=== PATIENT | male | born 1965 | race Caucasian/White ===

== ENCOUNTER 2021-04-16 11:37 | Emergency (ER) | payer MEDICARE, MEDICAID, SELFPAY ==
[2021-04-16 11:46] VITALS: BP 130/61; PULSE 54; RESP 18; TEMP 36.7; O2SAT 98; BMI 32.8
--- NOTE | 2021-04-16 12:01 | ED.EYEPROB ---
HPI - Eye Problem General Chief complaint: Eye Problems Stated complaint: L EYE ISSUE Time Seen by Provider: 04/16/21 11:53 Source: patient Mode of arrival: ambulatory Limitations: no limitations History of Present Illness HPI Narrative: 55 y/o male presenting with left upper eyelid pain, redness and swelling for the last 4 days. He noticed a small pustule on the outside of his eyelid yesterday. He put a warm compress on his eye and yellow drainage came out. This morning he woke up with his left eye crusted shut. He denies injury or trauma. No vision changes. No FB sensation. No fever, chills, or pain moving his eye. MD chief complaint: eye pain and eye redness Onset (ago): day(s) (4) Onset description: gradual Duration: constant Location: left eye Eye Symptoms: redness, pain, itching and discharge Place: home Mechanism: none Severity: moderate If Pain, Quality: aching Associated symptoms: none Treatments Prior to Arrival: none Related Data Previous Rx's Medication Instructions Recorded gentamicin 1 drp OPHTHALMIC-LEFT Q4H #5 ml 04/16/21 Allergies Allergy/AdvReac Type Severity Reaction Status Date / Time Sulfa (Sulfonamide Allergy Unknown Unknown Verified 04/16/21 11:49 Antibiotics) No Known Allergies Allergy Unverified 08/18/20 15:21 Benadryl Allergy Unknown Irritable Uncoded 04/16/21 11:49 Review of Systems Review of Systems: Constitutional: No Fever, No Chills ENT/Mouth: No sore throat, No Rhinorrhea, No Swallowing Difficulty Eyes: + Eye Pain, + Swelling, + Redness Respiratory: No Cough Gastrointestinal: No Nausea, No Vomiting Skin: No Skin Lesions, No rash Neuro: No Dizziness, No Headache PMFSH Past Medical History Attestation statement: The following information was validated with the patient. Medical History High blood pressure HIV (human immunodeficiency virus infection) Social History Social History Advance Directives: No Advance Directives Information Provided: No Physical Exam Vital Signs: Vital Signs: Last Vital Signs Temp 98.0 F 04/16/21 11:46 Pulse 54 04/16/21 11:46 Resp 18 04/16/21 11:46 BP 130/61 04/16/21 11:46 Pulse Ox 98 04/16/21 11:46 Body Mass Index 32.8 Const: General: cooperative, healthy appearing, comfortable and no acute distress HENMT: Head: Yes normal to inspection Ears: hearing grossly normal bilaterally General nose exam: Normal external nose present Face and sinus: Yes normal facial exam Mouth: Normal oral and palatal mucosa present Teeth and gingiva: dentition normal and gingiva normal Throat: Yes posterior oropharynx normal Eyes: Visual Diggs: normal visual diggs by confrontation Alignment and Position: alignment normal Periorbital: periorbital findings normal Eyelids: Yes eyelid abnormality (erythema and edema of left upper eyelid with small pustule medially) Conjunctivae: conjunctivae normal Sclerae: scleral abnormal left scleral exudate mucoid and scleral injection medial Corneas: corneas normal Pupils: Equal, round and reactive pupils present EOM: EOMs intact bilaterally and No Nystagmus present Direct Ophthalmoscopy: no photophobia Neck: Neck: Yes normal visual inspection, Yes full ROM and Yes no lymphadenopathy Chest: Chest palpation & inspection: normal inspection of the chest Resp: Effort & Inspection: normal respiratory effort and able to speak in complete sentences Neuro: General: gait normal Cranial nerves: Yes Equal, round and reactive pupils present and No Nystagmus present Extrem: General: Yes normal to inspection Psych: Appearance: grossly normal and well kempt Mental Status: mental status grossly normal Speech and movement: Normal speech and movement present Course Course Course Narrative: 55 y/o male presenting with left upper eyelid swelling and redness. Exam is consistent with external hordeolum, pustule is ruptured. Will treat topically with warm soaks and antibiotic ointment. Patient counseled. Stable for discharge. Discharge Plan Discharge Clinical Impression: Hordeolum externum left upper eyelid Patient Disposition: Home, Self-Care Instructions: Lauri (ED) Additional Instructions: Use the prescribed antibiotic as directed. Use warm compresses to your eye for 10 minutes at a time several times per day. Take Motrin and/or Tylenol as needed for discomfort. Follow up with your doctor next week. If you have worsening symptoms come back to the ER for further evaluation. Prescriptions: New gentamicin 0.3 % drops 1 drp ophthalmic-Left Q4H Qty: 5 RF: 0 Interventions: ED Discharge Assessment Last Done: 04/16/21 12:09 Discharge Date/Time: 04/16/21 12:10
== END 2021-04-16 12:10 | disposition home or self-care (01) ==
LOC: HO.ED 12:05
PROVIDERS: Emergency Provider Emergency Medicine; PCP Family Medicine
DX: H00.014 Hordeolum externum left upper eyelid (principal); H57.12 Ocular pain, left eye; Z79.899 Other long term (current) drug therapy
CPT/HCPCS: 99283

== ENCOUNTER 2021-11-15 21:09 | Emergency (ER) | payer MEDICARE, MEDICAID, SELFPAY ==
--- NOTE | ~2021-11-15 | XR_ITS ---
EXAMINATION: XR CHEST CLINICAL INFORMATION: Shortness of breath COMPARISON: 11/07/2018 TECHNIQUE: Frontal view of the chest was obtained. FINDINGS: No acute finding. Lung diggs are grossly clear. There is no failure. No effusion. The cardiac silhouette is within normal limits for AP filming. The hilar regions are comparable. XR/XR chest 1V IMPRESSION: No acute finding.
[2021-11-15 21:45] VITALS: BP 135/68; PULSE 62; RESP 18; TEMP 36.3; O2SAT 97; BMI 34.3
--- NOTE | 2021-11-15 21:47 | ECG_ITS ---
Test Reason : CHEST PAIN Blood Pressure : / mmHG Vent. Rate : 057 BPM Atrial Rate : 057 BPM P-R Int : 180 ms QRS Dur : 084 ms QT Int : 398 ms P-R-T Axes : 026 029 076 degrees QTc Int : 387 ms Sinus bradycardia Nonspecific T wave abnormality Abnormal ECG When compared with ECG of 07-NOV-2018 23:09, No significant change was found Referred By: Generic ED Physician Electronically Signed By:SONIA LUJAN MD
--- NOTE | 2021-11-15 22:01 | ED.CHESTPAIN ---
HPI - Chest Pain General Chief Complaint: Chest Pain Stated Complaint: Asthma Time Seen by Provider: 11/15/21 22:01 Source: patient Mode of arrival: ambulatory Limitations: no limitations History of Present Illness HPI narrative: Patient has been suffering with Asthma for the past few weeks, no with increased chest pressure. complaint: chest heaviness Onset (ago): day(s) Timing of current episode: episodic Onset: during rest Quality: tightness Associated symptoms: dyspnea Related Data Previous Rx's Medication Instructions Recorded gentamicin 0.3 % eye drops 1 drp OPHTHALMIC-LEFT Q4H #5 ml 04/16/21 albuterol sulfate 90 mcg/actuation 2 puff INHALATION Q4-6H PRN #8.5 g 11/15/21 aerosol inhaler prednisone 20 mg tablet 60 mg PO DAILY #12 tab 11/15/21 Allergies Allergy/AdvReac Type Severity Reaction Status Date / Time Sulfa (Sulfonamide Allergy Unknown Unknown Verified 04/16/21 11:49 Antibiotics) No Known Allergies Allergy Unverified 08/18/20 15:21 Benadryl Allergy Unknown Irritable Uncoded 04/16/21 11:49 Review of Systems Constitutional: Constitutional: Reports no additional constitutional complaints Eyes: Eyes: Reports no additional eye complaints ENT: Denies dizziness Cardiovascular: Cardiovascular: Reports no additional cardiovascular complaints Respiratory: Respiratory: Reports as per HPI Gastrointestinal: Gastrointestinal: Reports no additional gastrointestinal complaints Musculoskeletal: Musculoskeletal: Reports no additional musculoskeletal complaints Integumentary/Breasts: Skin/Breast: Denies rash Neurologic: Reports system reviewed and no additional complaints, except as documented, Denies dizziness and Denies Sensory deficit (Neuro) Psychiatric: Psychiatric: Denies anxiety [facility] Past Medical History Medical History High blood pressure HIV (human immunodeficiency virus infection) Social History Social History Advance Directives: No Advance Directives Information Provided: Yes Physical Exam Vital Signs: Vital Signs: Last Vital Signs Temp 97.3 F 11/15/21 21:45 Pulse 54 11/15/21 23:13 Resp 20 11/15/21 23:13 BP 124/62 11/15/21 23:13 Pulse Ox 95 11/15/21 23:13 BMI result Body Mass Index 34.3 Const: Other: morbidly obese male short of breath Orientation/consciousness: oriented to person and patient oriented x3 Limitations: no limitations HENMT: Head: Yes normal to inspection Ears: external ears normal General nose exam: Normal external nose present Mouth: Normal oral and palatal mucosa present and oropharynx normal Throat: Yes posterior oropharynx normal Eyes: General: appearance normal, both eyes and all related structures Neck: Other: supple Neck: Yes normal visual inspection Chest: Chest palpation & inspection: normal inspection of the chest Resp: Auscultation: clear to auscultation bilaterally Cardio: Jugular venous distension: no JVD Rate: regular rate Rhythm: regular rhythm Heart sounds: S1 normal heart sound present and S2 normal heart sound present GI: Inspection: Yes normal to inspection Palpation (GI): Soft to palpation, nontender and No hepatosplenomegaly present Auscultation: normal bowel sounds : General: Yes no CVA tenderness Back/Spine/Pelvis: Back: no CVA tenderness Skin: General skin exam: no rashes or lesions noted Neuro: General: oriented to person and patient oriented x3 Cranial nerves: Yes CN's II-XII intact bilaterally Motor exam (neuro): 5/5 motor strength present throughout Sensory Exam: No Sensory deficit (Neuro) Extrem: General: Yes normal to inspection Psych: Appearance: grossly normal Course Reevaluation(s) Reevaluation #1: EKG and troponin negative. Ddimer negative. Patient improved with albuterol. Will dc home with prednisone and albuterol. Time: 23:23 MDM - Chest Pain Lab Data Result diagrams: 11/15/21 21:57 11/15/21 21:58 Labs: Lab Results 11/15/21 11/15/21 11/15/21 Range/Units 21:57 21:57 21:58 WBC 4.7 L (4.8-10.8) X10*3/uL RBC 4.61 (4.60-5.80) X10*6/uL Hgb 15.2 (14.0-18.0) g/dl Hct 43.4 (42.0-52.0) % MCV 94.1 (80.0-98.0) fL MCH 33.0 (27.0-33.0) pg MCHC 35.0 (31.0-36.0) g/dl RDW 13.3 (11.0-16.0) % Plt Count 52 L (160-400) X10*3/uL MPV 12.3 (9.4-12.4) fL Immature Gran % (Auto) 0.9 H (0.0-0.4) % Neut % (Auto) 59.3 (45-73) % Lymph % (Auto) 27.6 (20-40) % Barron % (Auto) 10.5 (2-11) % Eos % (Auto) 1.1 (0-4) % Baso % (Auto) 0.6 (0-2) % Lymph # (Auto) 1.3 (1.2-4.9) X10*3/uL Barron # (Auto) 0.5 (0.1-1.2) X10*3/uL Eos # (Auto) 0.1 (0.0-0.4) X10*3/uL Baso # (Auto) 0.0 (0.0-0.2) X10*3/uL Abs Immat Gran (auto) 0.04 H (0.00-0.03) X10*3/uL Absolute Neuts (auto) 2.8 (2.0-8.3) x10*3/uL Absolute Nucleated RBC 0.000 (0.0-0.012) X10*3/uL Nucleated RBC % (auto) 0.0 (0.0-0.2) /100WBC D-Dimer High Sensitivty NG/ML Sodium 138 (135-145) mmol/L Potassium 4.4 (3.3-5.1) mmol/L Chloride 103 (96-108) mmol/L Carbon Dioxide 31 H (22-29) mmol/L Anion Gap 8 L (12-20) BUN 8 L (9-16) mg/dL Creatinine 0.73 (0.5-1.4) mg/dL Estim Creat Clear Calc 114.7 Estimated GFR > 60 Random Glucose 97 (60-115) mg/dL Calcium 9.2 (8.4-10.2) mg/dL Troponin I High Sens < 3.5 (<3.5-35.0) ng/L 12/15/ Range/Units 22:33 WBC (4.8-10.8) X10*3/uL RBC (4.60-5.80) X10*6/uL Hgb (14.0-18.0) g/dl Hct (42.0-52.0) % MCV (80.0-98.0) fL MCH (27.0-33.0) pg MCHC (31.0-36.0) g/dl RDW (11.0-16.0) % Plt Count (160-400) X10*3/uL MPV (9.4-12.4) fL Immature Gran % (Auto) (0.0-0.4) % Neut % (Auto) (45-73) % Lymph % (Auto) (20-40) % Barron % (Auto) (2-11) % Eos % (Auto) (0-4) % Baso % (Auto) (0-2) % Lymph # (Auto) (1.2-4.9) X10*3/uL Barron # (Auto) (0.1-1.2) X10*3/uL Eos # (Auto) (0.0-0.4) X10*3/uL Baso # (Auto) (0.0-0.2) X10*3/uL Abs Immat Gran (auto) (0.00-0.03) X10*3/uL Absolute Neuts (auto) (2.0-8.3) x10*3/uL Absolute Nucleated RBC (0.0-0.012) X10*3/uL Nucleated RBC % (auto) (0.0-0.2) /100WBC D-Dimer High Sensitivty < 150 NG/ML Sodium (135-145) mmol/L Potassium (3.3-5.1) mmol/L Chloride (96-108) mmol/L Carbon Dioxide (22-29) mmol/L Anion Gap (12-20) BUN (9-16) mg/dL Creatinine (0.5-1.4) mg/dL Estim Creat Clear Calc Estimated GFR Random Glucose (60-115) mg/dL Calcium (8.4-10.2) mg/dL Troponin I High Sens (<3.5-35.0) ng/L Imaging Data Chest x-ray: Radiologist's impression: IMPRESSION: No acute finding. ECG Data ECG #1: Attestation: I personally reviewed and interpreted this ECG as follows: Interpretation: sinus rate 55, no st or twave changes Discharge Plan Discharge Clinical Impression: Asthma Qualifiers: Asthma severity: mild Asthma persistence: persistent Asthma complication type: uncomplicated Qualified Code(s): J45.30 - Mild persistent asthma, uncomplicated Patient Disposition: Home, Self-Care Instructions: Asthma (ED) Prescriptions: New prednisone 20 mg tablet 60 mg PO DAILY Qty: 12 RF: 0 albuterol sulfate 90 mcg/actuation HFA aerosol inhaler 2 puff inhalation Q4-6H PRN (Reason: shortness of breath or wheezing) Qty: 8.5 RF: 0 No Action gentamicin 0.3 % drops 1 drp ophthalmic-Left Q4H Qty: 5 RF: 0 Referrals: Richar Gordon MD [Primary Care Provider] - 3 days
[2021-11-15 22:03] LABS: MANUAL DIFF FLAG NO
[2021-11-15 22:05] LABS: Basophils Percent Auto 0.6 % (0-2); Eosinophils Absolute Auto 0.1 X10*3/uL (0.0-0.4); Eosinophils Percent Auto 1.1 % (0-4); Hematocrit 43.4 % (42.0-52.0); Hemoglobin 15.2 g/dl (14.0-18.0); Imm Gran Abs Auto 0.04 X10*3/uL (0.00-0.03); Imm Gran Pct Auto 0.9 % (0.0-0.4); Lymphocytes Absolute Auto 1.3 X10*3/uL (1.2-4.9); Lymphocytes Percent Auto 27.6 % (20-40); Mean Corpuscular Volume 94.1 fL (80.0-98.0); Mean Platelet Volume 12.3 fL (9.4-12.4); Monocytes Absolute Auto 0.5 X10*3/uL (0.1-1.2); Monocytes Percent Auto 10.5 % (2-11); Neutrophils Absolute Auto 2.8 x10*3/uL (2.0-8.3); Neutrophils Percent Auto 59.3 % (45-73); Red Blood Count 4.61 X10*6/uL (4.60-5.80); Red Cell Distribution Width 13.3 % (11.0-16.0); White Blood Count 4.7 X10*3/uL (4.8-10.8)
[2021-11-15 22:07] LABS: Platelet Count 52 X10*3/uL (160-400)
[2021-11-15 22:28] LABS: Anion Gap 8 (12-20); Blood Urea Nitrogen 8 mg/dL (9-16); Calcium 9.2 mg/dL (8.4-10.2); Carbon Dioxide 31 mmol/L (22-29); Chloride 103 mmol/L (96-108); Creatinine Clr Calc Pharmacy 114.7; Estimated Glomerular Filt Rate > 60; Glucose Random 97 mg/dL (60-115); Potassium 4.4 mmol/L (3.3-5.1); Sodium 138 mmol/L (135-145)
[2021-11-15 22:29] LABS: Troponin-I High Sensitivity < 3.5 ng/L (<3.5-35.0)
[2021-11-15] MEDS: Aspirin Enteric Coated 81 MG TABLET.DR 162 MG PO (22:35)
[2021-11-15 22:48] LABS: D Dimer High Sensitivity < 150 NG/ML
[2021-11-15 23:13] VITALS: BP 124/62; PULSE 54; RESP 20; O2SAT 95
[2021-11-15] MEDS: Albuterol Sulfate 90 MCG 8 GM INHALER 4 PUFF INHALE (23:15)
[2021-11-15] MEDS: predniSONE 20 MG TABLET 60 MG PO (23:32)
== END 2021-11-15 23:35 | disposition home or self-care (01) ==
PROVIDERS: Emergency Provider Emergency Medicine; PCP Family Medicine
DX: J45.30 Mild persistent asthma, uncomplicated (principal); Z79.899 Other long term (current) drug therapy
CPT/HCPCS: 36415; 71045; 80048; 84484; 85025; 85379; 93005; 99284

== ENCOUNTER 2022-03-09 08:37 | Emergency (ER) | payer MEDICARE, MEDICAID, SELFPAY ==
--- NOTE | ~2022-03-09 | XR_ITS ---
EXAMINATION: XR ELBOW, LEFT CLINICAL INFORMATION: Limited range of motion due to pain. COMPARISON: None TECHNIQUE: AP, lateral, and oblique views of the left elbow. FINDINGS: There is no acute fracture or dislocation. The joint spaces are unremarkable. There is no joint effusion. Mild soft tissue swelling is seen posteriorly. XR/XR elbow LT min 3V IMPRESSION: Mild soft tissue swelling posteriorly without acute underlying osseous abnormality.
[2022-03-09 09:10] VITALS: BP 141/66; PULSE 62; RESP 16; TEMP 36.2; O2SAT 98; BMI 32.9
[2022-03-09] MEDS: predniSONE 20 MG TABLET 60 MG PO (09:53)
[2022-03-09] MEDS: Ketorolac Tromethamine 60 MG/2 ML VIAL IM (09:53)
--- NOTE | 2022-03-09 10:25 | ED_ITS ---
HPI - Extremity Problem General Chief complaint: Extremity Injury, Upper Stated complaint: left elbow pain, swollen Time Seen by Provider: 03/09/22 09:14 Source: patient Mode of arrival: ambulatory Limitations: no limitations History of Present Illness HPI Narrative: 56-year-old male with a past medical history of HIV currently on Moise therapy, hypertension, myocardial infarction, anxiety and depression presenting to the ED with complaints of atraumatic left elbow pain for the past week. Reports that he was seen by his PCP and told he had tendinitis. Reports that he is currently on tramadol although not providing any symptomatic relief. He is unable to get a cortisone injection due to HIV status. He denies any fevers, chills, dizziness, headaches, neck pain/stiffness, trouble swallowing or breathing, chest pain or shortness of breath, dyspnea on exertion, orthopnea, palpitations, lower extremity edema or calf tenderness, paresthesias or any other symptoms complaints or concerns at this time. MD Complaint: extremity pain Onset (ago): week(s) (1) Pain Consistency: constant Location: left and elbow Severity scale (1-10): >10 Quality: aching and constant Radiation: distal Relieving factors: nothing Exacerbating factors: range of motion and palpation Associated symptoms: denies other symptoms Related Data Previous Rx's Medication Instructions Recorded gentamicin 0.3 % eye drops 1 drp OPHTHALMIC-LEFT Q4H #5 ml 04/16/21 albuterol sulfate 90 mcg/actuation 2 puff INHALATION Q4-6H PRN #8.5 g 11/15/21 aerosol inhaler prednisone 20 mg tablet 60 mg PO DAILY #12 tab 11/15/21 naproxen 500 mg tablet 500 mg PO BID PRN #14 tab 03/09/22 oxycodone 5 mg tablet 5 mg PO Q6H PRN #14 tab 03/09/22 prednisone 20 mg tablet 40 mg PO DAILY 5 Days #10 tab 03/09/22 Allergies Allergy/AdvReac Type Severity Reaction Status Date / Time Sulfa (Sulfonamide Allergy Unknown Unknown Verified 04/16/21 11:49 Antibiotics) No Known Allergies Allergy Unverified 08/18/20 15:21 Benadryl Allergy Unknown Irritable Uncoded 04/16/21 11:49 Review of Systems Review of Systems: Constitutional : No Weight loss, No Fever, No Chills, No Night Sweats, No Fatigue, No Malaise ENT/Mouth : No Hearing loss, No Ear Pain, No Nasal Congestion, No Sinus Pain, No Hoarseness, No sore throat, No Rhinorrhea, No Swallowing Difficulty Eyes: No Eye Pain, No Swelling, No Redness, No Foreign Body, No Discharge, No Vision Changes Cardiovascular : No Chest Pain, No SOB, No Dyspnea on Exertion, No Orthopnea, No Edema, No Palpitations Respiratory : No Cough, No Sputum, No Wheezing, No Smoke Exposure, No Dyspnea Gastrointestinal : No Nausea, No Vomiting, No Diarrhea, No Constipation, No abdominal Pain, No Hematochezia, No Melena Genitourinary : no irregular bleeding, No Dysuria, No Urinary Frequency, No Hematuria, No Urinary Incontinence, No Urgency, No Flank Pain, No Urinary Flow Changes, No Hesitancy Musculoskeletal : + joint pain, No Myalgias, No Joint Swelling Skin : No Skin Lesions, No rash Neuro : No Weakness, No Numbness, No Paresthesias, No Loss of Consciousness, No Dizziness, No Headache Psych : No Anxiety/Panic, No Depression, No SI/HI/AH/VH, No Social Issues, Heme/Lymph: No Bruising, No Bleeding,No Lymphadenopathy Endocrine : No Polyuria, No Polydipsia, No Temperature Intolerance Yes all other systems are reviewed and are negative [facility] Past Medical History Attestation statement: The following information was validated with the patient. Medical History High blood pressure HIV (human immunodeficiency virus infection) Social History Social History Advance Directives: Yes Advance Directives Information Provided: Yes Advance Directives on File: No Physical Exam Vital Signs: Vital Signs: Last Vital Signs Temp 97.2 F 03/09/22 09:10 Pulse 62 03/09/22 09:10 Resp 16 03/09/22 09:10 BP 141/66 H 03/09/22 09:10 Pulse Ox 98 03/09/22 09:10 BMI result Body Mass Index 32.9 vital signs have been reviewed as normal and appeared to be correct. Blood pressure normal Heart rate normal. Respiration rate normal. Temperature normal. Oxygen saturation normal. Appearance: Alert. Oriented X3. No acute distress. Head: Normal external exam. Normocephalic. Atraumatic. Eyes: PERRLA. EOMI. Conjunctiva and sclera normal. Eyelids normal. ENT: Pharynx normal. Uvula midline. Moist mucous membranes. Neck: Normal inspection. Neck supple. FROM. CVS: Normal heart rate and rhythm. Respiratory: No respiratory distress. Painless inspiration. Skin: Skin warm and dry. Normal skin color. Normal skin turgor. No rashes/l esions/lacerations noted. Extremities: Patient moderate tenderness palpation to the left elbow at the olecranon process. No obvious ligamentous or tendon injury noted. Not consistent with septic joint. No signs of infection. He has full range of motion of the left elbow. No upper or lower extremity edema. No calf tenderness is noted. Otherwise all other Extremities exhibit normal range of motion. Extremities nontender. Neuro: Oriented X 3. No motor deficit. No sensory deficit. Reflexes normal. Normal steady gait. No focal neuro deficits noted. Vascular: + radial pulses/+ 2 distal pedal pulses/+2 dorsalis pedis b/l. Normal cap refill. No cyanosis noted to upper extremity nails and lower extremity toes nails. Course Course Course Narrative: 56-year-old male with a past medical history of HIV currently on Moise therapy, hypertension, myocardial infarction, anxiety and depression presenting to the ED with complaints of atraumatic left elbow pain for the past week. Reports that he was seen by his PCP and told he had tendinitis. Reports that he is currently on tramadol although not providing any symptomatic relief. He is unable to get a cortisone injection due to HIV status. He denies any fevers, chills, dizziness, headaches, neck pain/stiffness, trouble swallowing or breathing, chest pain or shortness of breath, dyspnea on exertion, orthopnea, palpitations, lower extremity edema or calf tenderness, paresthesias or any other symptoms complaints or concerns at this time. On exam he has moderate tenderness palpation to the left will not go numb process. No obvious deformities. No obvious ligamentous or tendon injury noted. No obvious signs of infection. Not consistent with septic joint. No upper extremity edema. I obtained an x-ray and negative for any acute processes. Will place in an Alexis wrap and treat symptomatic along with instructions to follow-up with PCP and to return if any new or worsening symptoms. Patient understands agrees with this plan. MDM - Extremity (Nontraumatic) Medical Records Attestation: I reviewed the patient's medical records. Imaging Data Left elbow x-ray: Attestation: I personally reviewed and interpreted this imaging study as follows: Radiologist's impression: FINDINGS: There is no acute fracture or dislocation. The joint spaces are unremarkable. There is no joint effusion. Mild soft tissue swelling is seen posteriorly. XR/XR elbow LT min 3V IMPRESSION: Mild soft tissue swelling posteriorly without acute underlying osseous abnormality. Discharge Plan Discharge Clinical Impression: Left elbow tendinitis Patient Disposition: Home, Self-Care Instructions: Tennis Elbow (ED) Prescriptions: New oxycodone 5 mg tablet 5 mg PO Q6H PRN (Reason: pain) Qty: 14 0RF prednisone 20 mg tablet 40 mg PO DAILY 5 Days Qty: 10 0RF naproxen 500 mg tablet 500 mg PO BID PRN (Reason: pain) Qty: 14 0RF No Action gentamicin 0.3 % drops 1 drp ophthalmic-Left Q4H Qty: 5 0RF prednisone 20 mg tablet 60 mg PO DAILY Qty: 12 0RF albuterol sulfate 90 mcg/actuation HFA aerosol inhaler 2 puff inhalation Q4-6H PRN (Reason: shortness of breath or wheezing) Qty: 8.5 0RF Referrals: Physician,Unknown J [Primary Care Provider] - (your pcp) Print Language: Vincentian
[2022-03-09 11:03] VITALS: RESP 18
== END 2022-03-09 11:05 | disposition home or self-care (01) ==
PROVIDERS: Emergency Provider Emergency Medicine
DX: M65.232 Calcific tendinitis, left forearm (principal); M25.522 Pain in left elbow; Z79.899 Other long term (current) drug therapy; Z21 Asymptomatic human immunodeficiency virus [HIV] infection status
CPT/HCPCS: 73080; 96372; 99283; 99284; J1885

== ENCOUNTER 2022-10-27 20:08 | Emergency (ER) | payer MEDICARE, MEDICAID, SELFPAY ==
[2022-10-27 20:57] VITALS: BP 122/71; PULSE 66; RESP 18; TEMP 36.7; O2SAT 97; BMI 35.0
--- OUTSIDE RECORDS SUMMARY | 2022-10-27 22:28 | XMS_ITS | Continuity of Care Document ---
:1965 Author Organization [facility] Adult Address [address] [place] [address]- Care Team Providers Name Role Phone Evan PEREZ, Richar Weldon Primary Care Physician [place] [facility] [place]): 03/03/21 - 04/02/21 [facility] [address] [place] [address]- Allergies, Adverse Reactions, Alerts Substance Reaction Severity Status amoxicillin nausea and vomiting Active gabapentin anxiety Active atorvastatin Dyspnea Active Cipro HC rash Active Augmentin nausea and vomiting Active Bactrim swelling Active Benadryl Swelling/Edema Active Rash/Dermatitis Anxiety state Pulmicort Flexhaler Active Anoro Ellipta Active Immunizations Given and Recorded Vaccine Date Status Refusal Reason SARS-CoV-2 (COVID-19) mRNA BNT-162b2 vac 01/28/21 Recorde d influenza virus vaccine, inactivated 09/01/20 Recorded Influenza Virus Vaccine (oldterm) 09/20/19 Recorded Influenza Virus Vaccine (oldterm) 08/27/18 Recorded tetanus/diphtheria/pertussis, acel(Tdap) 01/21/19 Recorde d Botulinum Toxin Type A Vacc (oldterm) 08/27/18 Recorded Botulinum Toxin Type A Vacc (oldterm) 10/02/17 Recorded Botulinum Toxin Type A Vacc (oldterm) 08/07/17 Recorded pneumococcal 23-valent vaccine 08/27/18 Recorded pneumococcal 13-valent vaccine 08/07/17 Recorded Medications amLODIPine 2.5 mg oral tablet 2.5 mg, 1, tablet, By Mouth, Daily, Dose decrease for patient, # 30 tablet, Refills 1, Tot. Refills 1, Maintenance, 03/06/21 15:56:00 EDT, Route to Pharmacy Electronically, [facility]/pharmacy #[id number], Partial fill upon patient request if the prescription is f... Start Date: 03/06/21 Status: Orderedaspirin 81 mg oral tablet, chewable 81 mg, 1, tablet, By Mouth, Daily, # 30 tablet, Refills 5, Tot. Refills 5, Maintenance, 01/18/21 11:29:00 EST, Route to Pharmacy Electronically, [facility]/pharmacy #[id number], Partial fill upon patient request ifthe prescription is for a schedule II opioid drug... Start Date: 01/18/21 Stop Date: 07/17/21 Status: OrderedBuPROPion (Eqv-Wellbutrin SR) 150 mg/12 hours oral tablet, extended release TAKE 1 TABLET BY MOUTH TWICE DAILY Start Date: 11/30/20 Status: OrderedGenvoya oral tablet 1 tablet, By Mouth, Daily, for 30 days, # 30 tablet, 5 Refills, Physician Stop 07/31/21 14:13:00 EDT, 02/01/21 14:13:00 EST, [facility] #[id number], 1 tablet By Mouth Daily,x30 days, 167, cm, 12/14/20 8:40:00 EST, Height, 91.3, kg, 11/30/20 17:07... Start Date: 02/01/21 Stop Date: 07/31/21 Status: OrderedHome Blood Pressure Monitor See Instructions, # 1 kit, Maintenance, monitor BP 2-3 times a week after medications DX HTN, 01/19/21 10:45:00 EST, Supply, 167, cm, 12/14/20 8:40:00 EST, Height, 91.3, kg, 11/30/20 17:07:00 EST, Dry Weight Start Date: 01/19/21 Status: Orderedlisinopril 20 mg oral tablet 20 mg, 1, tablet, By Mouth, Daily, # 90 tablet, Refills 3, Tot. Refills 3, Maintenance, 12/14/20 11:13:00 EST, Route to Pharmacy Electronically, [facility]/pharmacy #[id number], 167, cm, 12/14/20 8:40:00 EST, Height, 91.3, kg, 11/30/20 17:07:00 EST, Dry Weight Start Date: 12/14/20 Status: OrderedLORazepam 1 mg oral tablet 1 tablet = 1 mg, By Mouth, PRN as needed for anxiety, 0 Refills, Maintenance, 06/29/18 13:11:09 EDT Start Date: 06/29/18 Status: Orderedmetoprolol 25 mg oral tablet, extended release 25 mg, 1, tablet, By Mouth, Daily, # 30 tablet, Refills 5, Tot. Refills 5, Maintenance, 01/18/21 11:30:00 EST, [id number] Partial fill upon patient request ifthe prescription is for a schedule II opioid drug... Start Date: 01/18/21 Stop Date: 07/17/21 Status: Orderedmontelukast 10 mg oral tablet 10 mg, 1, tablet, By Mouth, Daily, # 90 tablet, Refills 3, Tot. Refills 3, Maintenance, 03/22/21 8:48:00 EDT, Route to Pharmacy Electronically, [facility]/pharmacy #[id number], 168, cm, 03/06/21 11:08:00 EDT, Height, 92, kg, 03/03/21 15:27:00 EDT, Dry Weight Start Date: 03/22/21 Status: Orderedomeprazole 20 mg oral enteric coated capsule 1 capsule = 20 mg, By Mouth, 2 times a day, # 180 capsule, 0 Refills, Maintenance, 02/16/21 10:57:00EDT, EC Capsule, [facility]/pharmacy #[id number], 167, cm, 12/14/20 8:40:00 EST, Height, 91.3, kg, 11/30/20 17:07:00 EST, Dry Weight Start Date: 02/16/21 Status: OrderedProAir HFA 90 mcg/inh inhalation aerosol with adapter 2, puffs, Inhalation, Every 6 hours, PRN, # 8.5 Gm, Refills 8, Tot. Refills 8, Maintenance, 03/07/2115:41:00 EDT, Aerosol, Route to Pharmacy Electronically, [id number], [facility]/pharmacy #[id number], 168, cm, 03/06/21 11:08:00 EDT, Hei... Start Date: 03/07/21 Status: OrderedProAir HFA 90 mcg/inh inhalation aerosol with adapter 2, puffs, Inhalation, Every 6 hours, PRN, Requests ProAir, # 8.5 Gm, Refills 5, Tot. Refills 5, Maintenance, 03/22/21 8:49:00 EDT, Aerosol, Route to Pharmacy Electronically, [id number], [facility]/pharmacy #[id number], 168, cm, 03/06/21 1... Start Date: 03/22/21 Status: Orderedrosuvastatin 10 mg oral tablet 1 tablet = 10 mg, By Mouth, Daily, # 30 tablet, 5 Refills, Maintenance, 01/19/21 10:28:00 EST, Tablet, [facility]/pharmacy #[id number], Partial fill upon patient request if the prescription is for a schedule II opioid drug., 167, cm, 12/14/20 8:40:00 EST, Height,... Start Date: 01/19/21 Status: OrderedtraMADol 50 mg oral tablet 2 tablet = 100 mg, By Mouth, Every 6 hours, PRN NEEDED FOR PAIN, for 30 days, Corrected dose, # 224 tablet, 0 Refills, Acute 05/05/21 4:32:00 EDT, 04/05/21 4:32:00 EDT, [facility]/pharmacy #[id number], 168, cm, 03/06/21 11:08:00 EDT, Height, 92, kg, 03/03/21 15... Start Date: 04/05/21 Stop Date: 05/05/21 Status: OrderedtraMADol 50 mg oral tablet 2 tablet = 100 mg, By Mouth, Every 6 hours, PRN NEEDED FOR PAIN, for 30 days, Corrected dose, # 224 tablet, 0 Refills, Acute 06/04/21 4:32:00 EDT, 05/05/21 4:32:00 EDT, [facility]/pharmacy #[id number], 168, cm, 03/06/21 11:08:00 EDT, Height, 92, kg, 03/03/21 15... Start Date: 05/05/21 Stop Date: 06/04/21 Status: OrderedtraMADol 50 mg oral tablet 2 tablet = 100 mg, By Mouth, Every 12 hours, PRN NEEDED FOR PAIN, # 112 tablet, 0 Refills, Acute 03/09/22 8:16:00 EDT, 04/05/21 4:32:00 EDT, [facility] #[id number], 168, cm, 03/06/21 11:08:00 EDT, Height, 92, kg, 03/03/21 15:27:00 EDT, Dry Weight Start Date: 04/05/21 Stop Date: 03/09/22 Status: OrderedtraMADol 50 mg oral tablet 1 tablet, By Mouth, Every 6 hours, PRN NEEDED FOR PAIN, # 112 tablet, 0 Refills, Acute 04/05/21 4:32:00 EDT, 03/08/21 4:32:00 EDT, [facility]acy #[id number], 168, cm, 03/06/21 11:08:00 EDT, Height, 92, kg,03/03/21 15:27:00 EDT, Dry Weight Start Date: 03/08/21 Stop Date: 04/05/21 Status: Ordered Problem List Condition Effective Dates Status Health Status Informant Abdominal bloating(Confirmed) Active Asthma(Confirmed) Active Costochondritis(Confirmed) Active Depression(Confirmed) Active Dyspnea on exertion(Confirmed) Active GERD (gastroesophageal reflux Active disease)(Confirmed) H/O Hepatitis C(Confirmed) Active History of substance abuse(Confirmed) Active HIV (human immunodeficiency virus Active infection)(Confirmed) Hypertension(Confirmed) Active 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
--- OUTSIDE RECORDS SUMMARY | 2022-10-27 22:28 | XMS_ITS | Continuity of Care Document ---
:1965 Author Organization [facility] Address [address] [place] [id number]- Care Team Providers Name Role Phone Richar Gordon MD Primary Care Physician En[place] [facility] [place]): 03/02/20 - 03/09/20 [facility] [address] [place] [id number] Attending Physician: Claribel Johnson MD Admitting Physician: Claribel Johnson MD Referring Physician: Richar Gordon MD Allergies, Adverse Reactions, Alerts Substance Reaction Severity Status amoxicillin nausea and vomiting Active gabapentin anxiety Active Cipro HC rash Active Augmentin nausea and vomiting Active Bactrim swelling Active Benadryl Swelling/Edema Active Rash/Dermatitis Anxiety state Pulmicort Flexhaler Active Immunizations Given and Recorded Vaccine Date Status Refusal Reason Influenza Virus Vaccine (oldterm) 09/20/19 Recorded Influenza Virus Vaccine (oldterm) 08/27/18 Recorded tetanus/diphtheria/pertussis, acel(Tdap) 01/21/19 Recorde d Botulinum Toxin Type A Vacc (oldterm) 08/27/18 Recorded Botulinum Toxin Type A Vacc (oldterm) 10/02/17 Recorded Botulinum Toxin Type A Vacc (oldterm) 08/07/17 Recorded pneumococcal 23-valent vaccine 08/27/18 Recorded pneumococcal 13-valent vaccine 08/07/17 Recorded Medications acetaminophen 325 mg oral capsule 2 capsule = 650 mg, By Mouth, Every 6 hours, PRN as needed for fever, alternate every 6 hrs with Ibuprofen, # 90 capsule, 0 Refills, Maintenance, 06/18/18 15:18:29 EDT, Capsule Start Date: 06/18/18 Status: OrderedAlbuterol 0.083% inhalation parminder Every 4 hours, PRN, Refills 0, Maintenance, Wheezing/Shortness of Breath, 09/11/17 10:41:06 EDT Start Date: 09/11/17 Status: Orderedalbuterol 0.083% inhalation solution 3 mL = 2.5 mg, Neb, Every 8 hours, PRN Wheezing/Shortness of Breath, # 60 each, 5 Refills, Maintenance, 02/08/20 16:44:00 EDT, [facility]/pharmacy #[id number], 168, cm, 02/08/20 15:35:00 EDT, Height, 86.8, kg, 02/18/19 13:15:00 EDT, Dry Weight Start Date: 02/08/20 Status: OrderedGenvoya oral tablet 1 tablet, By Mouth, Daily, with food, # 30 tablet, 11 Refills, Maintenance, 03/02/20 11:05:00 EDT, Tablet, Community, [facility] #[id number], 1 tablet By Mouth Daily,Instr:with food, 168, cm, 02/08/20 15:35:00 EDT, Height, 86.8, kg, 02/18/19 13:15:00 E... Start Date: 03/02/20 Status: Orderedlidocaine 4% topical film 1 patch, Topically, 2 times a day, PRN Pain , Moderate, do not leave patch on for more than 8 hours at a time, # 6 each, 0 Refills, Maintenance, 10/18/19 12:07:53 EST, Film Start Date: 10/18/19 Status: Orderedlisinopril 20 mg oral tablet 20 mg, 1, tablet, By Mouth, Daily, # 90 tablet, Refills 3, Tot. Refills 3, Maintenance, 01/07/20 10:28:00 EST, Route to Pharmacy Electronically, [facility]/pharmacy #[id number], 168, cm, 01/07/20 10:04:00 EST, Height, 86.8, kg, 02/18/19 13:15:00 EDT, Dry Weight Start Date: 01/07/20 Status: OrderedLORazepam 1 mg oral tablet 1 tablet = 1 mg, By Mouth, PRN as needed for anxiety, 0 Refills, Maintenance, 06/29/18 13:11:09 EDT Start Date: 06/29/18 Status: Orderedmetoprolol 25 mg oral tablet 25 mg, By Mouth, 2 times a day, # 180 tablet, Refills 3, Tot. Refills 3, Maintenance, 01/07/20 10:28:00 EST, Route to Pharmacy Electronically, [facility]/pharmacy #[id number], 168, cm, 01/07/20 10:04:00 EST, Height, 86.8, kg, 02/18/19 13:15:00 EDT, Dry Weight Start Date: 01/07/20 Status: Orderedmontelukast 10 mg oral tablet 10 mg, 1, tablet, By Mouth, Daily, # 90 tablet, Refills 3, Tot. Refills 3, Maintenance, 01/07/20 10:28:00 EST, Route to Pharmacy Electronically, [facility]/pharmacy #[id number], 168, cm, 01/07/20 10:04:00 EST, Height, 86.8, kg, 02/18/19 13:15:00 EDT, Dry Weight Start Date: 01/07/20 Status: OrderedOmeprazole = 20 mg, By Mouth, Daily, 0 Refills, Maintenance, 06/29/18 13:11:56 EDT Start Date: 06/29/18 Status: OrderedProAir HFA 90 mcg/inh inhalation aerosol with adapter 2, puffs, Inhalation, Every 6 hours, PRN, # 8.5 Gm, Refills 5, Tot. Refills 5, Maintenance, 196:11:41 EDT, Aerosol, Route to Pharmacy Electronically, [id number], [facility]/pharmacy #[id number] Start Date: 05/12/19 Status: OrderedSymbicort 80mcg/4.5mcg Inhaler 2, puffs, Inhalation, 2 times a day, # 6.9 Gm, Refills 5, Tot. Refills 5, Maintenance, 09/28/19 8:50:05 EDT, Aerosol, Route to Pharmacy Electronically, [id number], [id number] Start Date: 09/28/19 Status: OrderedtraMADol 50 mg oral tablet 1 tablet = 50 mg, By Mouth, 2 times a day, PRN Pain , Moderate, # 14 tablet, 3 Refills, Maintenance,12/14/19 16:47:00 EST, [facility] #[id number], 168, cm, 09/28/19 8:13:00 EDT, Height, 86.8, kg,02/18/19 13:15:00 EDT, Dry Weight Start Date: 12/14/19 Status: OrderedtraMADol 50 mg oral tablet 1 tablet = 50 mg, By Mouth, 2 times a day, PRN Pain , Moderate, # 14 tablet, 3 Refills, Maintenance,02/18/20 7:51:00 EDT, [facility]/pharmacy #[id number], 168, cm, 02/08/20 15:35:00 EDT, Height, 86.8, kg, 02/18/1913:15:00 EDT, Dry Weight Start Date: 02/18/20 Status: OrderedTubing and mouthpiece Tubing and mouthpiece, See Instructions, # 1 each, Refills 0, Tot. Refills 0, Maintenance, Tubing and mouthpiece for nebulizer for use with albuterol, Dx: Asthma, 02/08/20 16:30:00 EDT, Supply Start Date: 02/08/20 Status: OrderedVentolin HFA 108 mcg/inh inhalation aerosol with adapter 2 puffs, Inhalation, Every 6 hours, PRN for wheezing, # 8 Gm, 5 Refills, Maintenance, 02/08/20 16:45:00 EDT, Aerosol, [facility]/pharmacy #[id number], 168, cm, 02/08/20 15:35:00 EDT, Height, 86.8, kg, 02/18/19 13:15:00 EDT, Dry Weight Start Date: 02/08/20 Status: Ordered Problem List Condition Effective Dates Status Health Status Informant Abdominal bloating(Confirmed) Active Asthma(Confirmed) Active Costochondritis(Confirmed) Active Depression(Confirmed) Active GERD (gastroesophageal reflux Active disease)(Confirmed) H/O [...]
--- OUTSIDE RECORDS SUMMARY | 2022-10-27 22:28 | XMS_ITS | Continuity of Care Document ---
:1965 Author Organization [facility] Address [address] [place] [address]- Care Team Providers Name Role Phone Richar Gordon MD Primary Care Physician [place] [facility] [place](s[place] 01/15/22 - 02/14/22 [facility] [address] [place] [address]- Attending Physician: Admtr, [id number] Admitting Physician: Admtr, Ar8 Referring Physician: Admtr, Ar8 Allergies, Adverse Reactions, Alerts Substance Reaction Severity Status amoxicillin nausea and vomiting Active atorvastatin Dyspnea Active Cipro HC rash Active Anoro Ellipta Active gabapentin anxiety Active Augmentin nausea and vomiting Active Bactrim swelling Active Benadryl Swelling/Edema Active Rash/Dermatitis Anxiety state Pulmicort Flexhaler Active Immunizations Given and Recorded Vaccine Date Status Refusal Reason influenza virus vaccine, inactivated 09/05/21 Recorded influenza virus vaccine, inactivated 09/01/20 Recorded influenza virus vaccine, inactivated 08/14/20 Recorded influenza virus vaccine, inactivated 10/05/19 Recorded SARS-CoV-2 (COVID-19) mRNA BNT-162b2 vac 09/05/21 Recorde d SARS-CoV-2 (COVID-19) mRNA BNT-162b2 vac 02/18/21 Recorde d SARS-CoV-2 (COVID-19) mRNA BNT-162b2 vac 01/28/21 Recorde d Influenza Virus Vaccine (oldterm) 09/20/19 Recorded Influenza Virus Vaccine (oldterm) 08/27/18 Recorded tetanus/diphtheria/pertussis, acel(Tdap) 01/21/19 Recorde d Botulinum Toxin Type A Vacc (oldterm) 08/27/18 Recorded Botulinum Toxin Type A Vacc (oldterm) 10/02/17 Recorded Botulinum Toxin Type A Vacc (oldterm) 08/07/17 Recorded pneumococcal 23-valent vaccine 08/27/18 Recorded Hepatitis A-Hepatitis B Vaccine 08/27/18 Recorded Hepatitis A-Hepatitis B Vaccine 10/02/17 Recorded Hepatitis A-Hepatitis B Vaccine 08/07/17 Recorded pneumococcal 13-valent vaccine 08/07/17 Recorded Medications albuterol 0.083% inhalation solution 3 mL = 2.5 mg, Inhalation, Every 6 hours, PRN Wheezing/Shortness of Breath, DX:J45.909, # 100 each, 3 Refills, Maintenance, 11/06/21 8:54:00 EST, Solution, [facility]/pharmacy #[id number], Partial fill upon patientrequest if the prescription is for a schedule II... Start Date: 11/06/21 Status: OrderedamLODIPine 2.5 mg oral tablet 1 tablet, By Mouth, Daily, # 90 tablet, 3 Refills, [id number], 168, cm, 11/17/21 10:55:00 EST, Height, 92, kg, 03/03/21 15:27:00 EDT, Dry Weight Start Date: 12/04/21 Status: OrderedamLODIPine 2.5 mg oral tablet 2.5 mg, 1, tablet, By Mouth, Daily, # 30 tablet, Refills 5, Tot. Refills 5, Maintenance, 05/22/21 13:11:00 EDT, Route to Pharmacy Electronically, [facility]/pharmacy #[id number], 168, cm, 05/02/21 8:45:00 EDT, Height, 92, kg, 03/03/21 15:27:00 EDT, Dry Weight Start Date: 05/22/21 Status: Orderedaspirin 81 mg oral tablet, chewable 81 mg, 1, tablet, By Mouth, Daily, # 30 tablet, Refills 5, Tot. Refills 5, Maintenance, 01/18/21 11:29:00 EST, Route to Pharmacy Electronically, [facility]/pharmacy #[id number], Partial fill upon patient request ifthe prescription is for a schedule II opioid drug... Start Date: 01/18/21 Stop Date: 07/17/21 Status: OrderedBuPROPion (Eqv-Wellbutrin SR) 150 mg/12 hours oral tablet, extended release TAKE 1 TABLET BY MOUTH TWICE DAILY Start Date: 11/30/20 Status: OrderedCPAP MACHINE W/ SUPPLIES CPAP MACHINE W/ SUPPLIES, See Instructions, # 1 each, Refills 0, Tot. 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 Start Date: 11/20/21 Status: OrderedFlonase 50 mcg/inh nasal spray 1 sprays, Nares, Both, 2 times a day, # 16 Gm, 2 Refills, Maintenance, 09/04/21 19:43:00 EDT, [place],[facility]/pharmacy #[id number], Partial fill upon patient request if the prescription is for a schedule II opioid drug., 1 sprays Nares, Both 2 times a day, 168,... Start Date: 09/04/21 Status: OrderedGenvoya oral tablet 1 tablet, By Mouth, Daily, with food, # 30 tablet, 5 Refills, Maintenance, 01/29/22 21:33:00 EST, Tablet, [id number], Partial fill upon patient request if the prescription is for a schedule II opioid drug., 1 tablet By Mouth Annie... Start Date: 01/29/22 Stop Date: 07/28/22 Status: OrderedHome Blood Pressure Monitor See Instructions, # 1 kit, Maintenance, monitor BP 2-3 times a week after medications DX HTN, 01/19/21 10:45:00 EST, Supply, 167, cm, 12/14/20 8:40:00 EST, Height, 91.3, kg, 11/30/20 17:07:00 EST, Dry Weight Start Date: 01/19/21 Status: Orderedlisinopril 20 mg oral tablet 1, tablet, By Mouth, Daily, # 90 tablet, Refills 1, Route to Pharmacy Electronically, [id number], 168, cm, 01/15/22 14:50:00 EST, Height, 92, kg, 03/03/21 15:27:00 EDT, Dry Weight Start Date: 02/06/22 Status: OrderedLORazepam 1 mg oral tablet 1 tablet = 1 mg, By Mouth, PRN as needed for anxiety, 0 Refills, Maintenance, 06/29/18 13:11:09 EDT Start Date: 06/29/18 Status: OrderedMetoprolol Succinate ER 25 mg oral tablet, extended release 1 tablet, By Mouth, Daily, # 90 tablet, 3 Refills, [id number], 168, cm, 01/09/22 10:35:00 EST, Height, 92, kg, 03/03/21 15:27:00 EDT, Dry Weight Start Date: 01/10/22 Status: OrderedMetoprolol Succinate ER 25 mg oral tablet, extended release 1 tablet, By Mouth, Daily, # 90 tablet, 1 Refills, Maintenance, 05/12/21 13:24:00 EDT, [id number], 168, cm, 05/02/21 8:45:00 EDT, Height, 92, kg, 03/03/21 15:27:00 EDT, Dry Weight Start Date: 05/12/21 Status: Orderedmontelukast 10 mg oral tablet 10 mg, 1, tablet, By Mouth, Daily, # 90 tablet, Refills 3, Tot. Refills 3, Maintenance, 01/15/22 16:17:00 EST, Route to Pharmacy Electronically, [facility]/pharmacy #[id number], 168, cm, 01/15/22 14:50:00 EST, Height, 92, kg, 03/03/21 15:27:00 EDT, Dry Weight Start Date: 01/15/22 Status: Orderedomeprazole 20 mg oral enteric coated capsule 1 capsule = 20 mg, By Mouth, 2 times a day, # 180 capsule, 3 Refills, Maintenance, 09/04/21 19:37:00EDT, EC Capsule, [facility]/pharmacy #[id number], 168, cm, 09/04/21 9:46:00 EDT, Height, 92, kg, 03/03/21 15:27:00 EDT, Dry Weight Start Date: 09/04/21 Status: OrderedProAir HFA 90 mcg/inh inhalation aerosol with adapter 2, puffs, Inhalation, Every 6 hours, PRN, # 8.5 Gm, Refills 8, Tot. Refills 8, Maintenance, 03/07/2115:41:00 EDT, Aerosol, Route to Pharmacy Electronically, [id number], [facility]/pharmacy #[id number], 168, cm, 03/06/21 11:08:00 EDT, Hei... Start Date: 03/07/21 Status: OrderedProAir HFA 90 mcg/inh inhalation aerosol with adapter 2, puffs, Inhalation, Every 6 hours, PRN, Requests ProAir, # 8.5 Gm, Refills 5, Tot. Refills 5, Maintenance, 12/27/21 9:37:00 EST, Aerosol, Route to Pharmacy Electronically, [id number], [facility]/pharmacy #[id number], 168, cm, 12/27/21 8... Start Date: 12/27/21 Status: Orderedrosuvastatin 10 mg oral tablet 1 tablet, By Mouth, Daily, # 90 tablet, 3 Refills, Maintenance, 11/06/21 8:54:00 EST, [facility]/pharmacy #[id number], 168, cm, 11/06/21 8:47:00 EST, Height, 92, kg, 03/03/21 15:27:00 EDT, Dry Weight Start Date: 11/06/21 Status: OrderedShoe inserts Shoe inserts, See Instructions, # 2 each, Refills 0, Tot. Refills 0, Maintenance, Dx: Bilateral footpain, 02/09/22 8:35:00 EST, Supply Start Date: 02/09/22 Status: OrderedtraMADol 50 mg oral tablet 2 tablet = 100 mg, By Mouth, Every 6 hours, PRN NEEDED FOR PAIN, # 224 tablet, 5 Refills, Acute 05/07/22 9:03:00 EDT, 11/06/21 9:02:00 EST, [facility]/pharmacy #[id number], 168, cm, 11/06/21 8:47:00 EST, Height,92, kg, 03/03/21 15:27:00 EDT, Dry Weight Start Date: 11/06/21 Stop Date: 05/07/22 Status: Ordered Problem List Condition Effective Dates Status Health Status Informant Abdominal bloating(Confirmed) Active Asthma(Confirmed) Active Costochondritis(Confirmed) Active Depression(Confirmed) Active Dyspnea on exertion(Confirmed) Active GERD (gastroesophageal reflux Active disease)(Confirmed) H/O Hepatitis C(Confirmed) Active History of substance abuse(Confirmed) Active HIV (human immunodeficiency virus Active infection)(Confirmed) Hypertension(Confirmed) Active 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
--- OUTSIDE RECORDS SUMMARY | 2022-10-27 22:28 | XMS_ITS | Continuity of Care Document ---
:1965 Author Organization [facility] Address [address] [place] [address]- Care Team Providers Name Role Phone Evan PEREZ, Richar Weldon Primary Care Phys[place] [facility] [place] [facility] [address] [place] [id number] Allergies, Adverse Reactions, Alerts Substance Reaction Severity Status amoxicillin nausea and vomiting Active Anoro Ellipta Active gabapentin anxiety Active atorvastatin Dyspnea Active [...] DX:J45.909, # 100 each, 3 Refills, Maintenance, 02/26/22 9:26:00 EDT, Solution, [facility]/pharmacy #[id number], Partial fill upon patientrequest if the prescription is for a schedule II... Start Date: 02/26/22 Status: OrderedamLODIPine 2.5 mg oral tablet 1 tablet, By Mouth, Daily, # 90 tablet, 3 Refills, [facility], 168, cm, 11/17/21 10:55:00 EST, Height, 92, kg, 03/03/21 15:27:00 EDT, Dry Weight Start Date: 12/04/21 Status: OrderedamLODIPine 2.5 mg oral tablet 2.5 mg, 1, tablet, By Mouth, Daily, # 30 tablet, Refills 5, Tot. Refills 5, Maintenance, 05/22/21 13:11:00 EDT, Route to Pharmacy Electronically, [facility]/pharmacy #[id number], 168, cm, 05/02/21 8:45:00 EDT, Height, 92, kg, 03/03/21 15:27:00 EDT, Dry Weight Start Date: 05/22/21 Status: Orderedaspirin 81 mg oral tablet, chewable 81 mg, 1, tablet, By Mouth, Daily, # 30 tablet, Refills 5, Tot. Refills 5, Maintenance, 01/18/21 11:29:00 EST, Route to Pharmacy Electronically, [facility]/pharmacy #[id number], Partial fill upon patient request ifthe [...] Gm, 2 Refills, Maintenance, 09/04/21 19:43:00 EDT, [place],[facility]/pharmacy #[id number], Partial fill upon patient request if the prescription is for a schedule II opioid drug., 1 sprays Nares, Both 2 times a day, 168,... Start Date: 09/04/21 Status: OrderedGenvoya oral tablet 1 tablet, By Mouth, Daily, with food, # 30 tablet, 5 Refills, Maintenance, 01/29/22 21:33:00 EST, Tablet, [facility], [facility] #[id number], Partial fill upon patient request if the [...] tablet, Refills 1, Route to Pharmacy Electronically, [id number], 168, cm, 01/15/22 14:50:00 EST, Height, 92, kg, 03/03/21 15:27:00 EDT, Dry Weight Start Date: 02/06/22 Status: OrderedLORazepam 1 mg oral tablet 1 tablet = 1 mg, By Mouth, PRN as needed for anxiety, 0 Refills, Maintenance, 06/29/18 13:11:09 EDT Start Date: 06/29/18 Status: OrderedMetoprolol Succinate ER 25 mg oral tablet, extended release 1 tablet, By Mouth, Daily, # 90 tablet, 3 Refills, [facility], 168, cm, 01/09/22 10:35:00 EST, Height, 92, kg, 03/03/21 15:27:00 EDT, Dry Weight Start Date: 01/10/22 Status: OrderedMetoprolol Succinate ER 25 mg oral tablet, extended release 1 tablet, By Mouth, Daily, # 90 tablet, 1 Refills, Maintenance, 05/12/21 13:24:00 EDT, [facility], 168, cm, 05/02/21 8:45:00 EDT, Height, 92, kg, 03/03/21 15:27:00 EDT, Dry Weight Start Date: 05/12/21 Status: Orderedmontelukast 10 mg oral tablet 10 mg, 1, tablet, By Mouth, Daily, # 90 tablet, Refills 3, Tot. Refills 3, Maintenance, 01/15/22 16:17:00 EST, Route to Pharmacy Electronically, [facility]/pharmacy #[id number], 168, cm, 01/15/22 14:50:00 EST, Height, 92, kg, 03/03/21 15:27:00 EDT, Dry Weight Start Date: 01/15/22 Status: Orderedomeprazole 20 mg oral enteric coated capsule 1 capsule = 20 mg, By Mouth, 2 times a day, # 180 capsule, 3 Refills, Maintenance, 09/04/21 19:37:00EDT, EC Capsule, [facility]/pharmacy #[id number], 168, cm, 09/04/21 9:46:00 EDT, Height, 92, kg, 03/03/21 15:27:00 EDT, Dry Weight Start Date: 09/04/21 Status: OrderedProAir HFA 90 mcg/inh inhalation aerosol with adapter 2, puffs, Inhalation, Every 6 hours, PRN, # 8.5 Gm, Refills 8, Tot. Refills 8, Maintenance, 03/07/2115:41:00 EDT, Aerosol, Route to Pharmacy Electronically, [id number], [facility]/pharmacy #[id number], 168, cm, 03/06/21 11:08:00 EDT, Hei... Start Date: 03/07/21 Status: OrderedProAir HFA 90 mcg/inh inhalation aerosol with adapter 2, puffs, Inhalation, Every 6 hours, PRN, Requests ProAir, # 8.5 Gm, Refills 5, Tot. Refills 5, Maintenance, 12/27/21 9:37:00 EST, Aerosol, Route to Pharmacy Electronically, [id number], [facility]/pharmacy #[id number], 168, cm, 12/27/21 8... Start Date: 12/27/21 Status: Orderedrosuvastatin 10 mg oral tablet 1 tablet, By Mouth, Daily, # 90 tablet, 3 Refills, Maintenance, 11/06/21 8:54:00 EST, [facility]/pharmacy #[id number], 168, cm, 11/06/21 8:47:00 EST, Height, 92, kg, 03/03/21 15:27:00 EDT, Dry Weight Start Date: 11/06/21 Status: OrderedShoe inserts Shoe inserts, See Instructions, # 2 each, Refills 0, Tot. Refills 0, Maintenance, Dx: Bilateral footpain, 02/19/22 16:30:00 EDT, Supply Start Date: 02/19/22 Status: OrderedtraMADol 50 mg oral tablet 2 tablet = 100 mg, By Mouth, Every 6 hours, PRN NEEDED FOR PAIN, # 224 tablet, 5 Refills, Acute 05/07/22 9:03:00 EDT, 11/06/21 9:02:00 EST, [facility]/pharmacy #[id number], 168, cm, 11/06/21 8:47:00 EST, Height,92, kg, 03/03/21 15:27:00 EDT, Dry Weight Start Date: 11/06/21 Stop Date: 05/07/22 Status: OrderedtraMADol 50 mg oral tablet 2 tablet = 100 mg, By Mouth, Every 6 hours, PRN NEEDED FOR PAIN, # 224 tablet, 5 Refills, Acute 08/29/22 9:26:00 EDT, 05/07/22 9:03:00 EDT, [facility]/pharmacy #[id number], 168, cm, 02/26/22 8:34:00 EDT, Height,92, kg, 03/03/21 15:27:00 EDT, Dry Weight Start Date: 05/07/22 Stop Date: 08/29/22 Status: Ordered Problem List Condition Effective Dates [...]
--- OUTSIDE RECORDS SUMMARY | 2022-10-27 22:28 | XMS_ITS | Continuity of Care Document ---
:1965 Author Organization [facility] Address [address] [place] [address]- Care Team Providers Name Role Phone Evan PEREZ, Richar Weldon Primary Care Physician [place] [facility] [place]17[place]21 [facility] [address] [place] [id number] Attending Physician: AdmTam patiño Admitting Physician: Admtr, Ar8 Referring Physician: Admtr, [...] pneumococcal 13-valent vaccine 08/07/17 Recorded Medications amLODIPine 5 mg oral tablet 5 mg, 1, tablet, By Mouth, Daily, # 30 tablet, Refills 5, Tot. Refills 5, Maintenance, 01/18/21 11:29:00 EST, Route to Pharmacy Electronically, [facility]/pharmacy #[id number], Partial fill upon patient request if the prescription is for a schedule II opioid drug.... Start Date: 01/18/21 Stop Date: 07/17/21 Status: Orderedaspirin 81 mg oral tablet, chewable 81 mg, 1, tablet, By Mouth, Daily, # 30 tablet, Refills 5, Tot. Refills 5, Maintenance, 01/18/21 11:29:00 EST, Route to Pharmacy Electronically, [facility]/pharmacy #[id number], Partial fill upon patient request ifthe prescription [...] Stop 07/31/21 14:13:00 EDT, 02/01/21 14:13:00 EST, [facility] #[id number], 1 tablet By Mouth Daily,x30 days, 167, cm, 12/14/20 8:40:00 EST, Height, 91.3, kg, 11/30/20 17:07... Start Date: 02/01/21 Stop Date: 07/31/21 Status: OrderedGenvoya oral tablet 1 tablet, By Mouth, Daily, for 30 days, # 30 tablet, 5 Refills, Physician Stop 03/06/21 10:42:00 EDT, 09/07/20 10:42:00 EDT, [facility] #[id number], 1 tablet By Mouth Daily,x30 days, 169, cm, 08/16/20 8:41:00 EDT, Height, 91, kg, 08/10/20 1:22:00... Start Date: 09/07/20 Stop Date: 03/06/21 Status: OrderedHome Blood Pressure Monitor See Instructions, [...] 12/14/20 11:13:00 EST, Route to Pharmacy Electronically, [facility]/pharmacy #[id number], 167, cm, 12/14/20 8:40:00 EST, Height, [...] 01/18/21 11:30:00 EST, Route to Pharmacy Electronically, [facility]/pharmacy #[id number], Partial fill upon patient request ifthe prescription is for a schedule II opioid drug... Start Date: 01/18/21 Stop Date: 07/17/21 Status: Orderedmontelukast 10 mg oral tablet 10 mg, 1, tablet, By Mouth, Daily, # 90 tablet, Refills 3, Tot. Refills 3, Maintenance, 04/07/20 9:23:00 EDT, Route to Pharmacy Electronically, [facility]/pharmacy #[id number], 168, cm, 02/08/20 15:35:00 EDT, Height, 86.8, kg, 02/18/19 13:15:00 EDT, Dry Weight Start Date: 04/07/20 Status: Orderedomeprazole 20 mg oral enteric coated capsule 1 capsule = 20 mg, By Mouth, 2 times a day, # 180 capsule, 0 Refills, Maintenance, 02/16/21 10:57:00EDT, EC Capsule, [facility]/pharmacy #[id number], 167, cm, 12/14/20 8:40:00 EST, Height, 91.3, kg, 11/30/20 17:07:00 EST, Dry Weight Start Date: 02/16/21 Status: OrderedProAir HFA 90 mcg/inh inhalation aerosol with adapter 2, puffs, Inhalation, Every 6 hours, PRN, # 8.5 Gm, Refills 5, Tot. Refills 5, Maintenance, 10/11/2010:14:00 EST, Aerosol, Route to Pharmacy Electronically, [id number], [facility]/pharmacy #[id number], 169, cm, 10/11/20 9:44:00 EST, He[place]... Start Date: 10/11/20 Status: Orderedrosuvastatin 10 mg oral tablet 1 tablet = 10 mg, By Mouth, Daily, # 30 tablet, 5 Refills, Maintenance, 01/19/21 10:28:00 EST, Tablet, [facility]/pharmacy #[id number], Partial fill upon patient request if the prescription is for a schedule II opioid drug., 167, cm, 12/14/20 8:40:00 EST, Height,... Start Date: 01/19/21 Status: Ordered Problem List Condition Effective Dates [...]
--- OUTSIDE RECORDS SUMMARY | 2022-10-27 22:28 | XMS_ITS | Continuity of Care Document ---
:1965 Author Organization [facility] Address [address] [place] [address]- Care Team Providers Name Role Phone Richar Gordon MD Primary Care Physician Encounter [facility] [place] Date(s): 03/15/22 - 04/14/22 [facility] [address] [place] [address]- Attending Physician: Tam Bolanos Admitting Physician: Tam Bolanos Referring Physician: Admtr, Ar8 Allergies, Adverse Reactions, [...] 3 Refills, Maintenance, 02/26/22 9:26:00 EDT, [facility], [id number], Partial fill upon patientrequest if the prescription is for a schedule II... Start Date: 02/26/22 Status: OrderedamLODIPine 2.5 mg oral tablet 1 tablet, By Mouth, Daily, # 90 tablet, 3 Refills, [facility], 168, cm, 11/17/21 10:55:00 EST, Height, 92, kg, 03/03/21 15:27:00 EDT, Dry Weight Start Date: 12/04/21 Status: OrderedamLODIPine 2.5 mg oral tablet 2.5 mg, 1, tablet, By Mouth, Daily, # 30 tablet, Refills 5, Tot. Refills 5, Maintenance, 05/22/21 13:11:00 EDT, Route to Pharmacy Electronically, [id number], 168, cm, 05/02/21 8:45:00 EDT, Height, 92, kg, 03/03/21 15:27:00 EDT, Dry Weight Start Date: 05/22/21 Status: Orderedaspirin 81 mg oral tablet, chewable 81 mg, 1, tablet, By Mouth, Daily, # 30 tablet, Refills 5, Tot. Refills 5, Maintenance, 01/18/21 11:29:00 EST, Route to Pharmacy Electronically, [id number], Partial fill upon patient request ifthe [...] Gm, 2 Refills, Maintenance, 09/04/21 19:43:00 EDT, [place],[facility]/pharmacy #[id number], Partial fill upon patient request if the prescription is for a schedule II opioid drug., 1 sprays Nares, Both 2 times a day, 168,... Start Date: 09/04/21 Status: OrderedGenvoya oral tablet 1 tablet, By Mouth, Daily, with food, # 30 tablet, 5 Refills, Maintenance, 01/29/22 21:33:00 EST, Tablet, [facility], [facility] #[id number], Partial fill upon patient request if the [...] tablet, Refills 1, Route to Pharmacy Electronically, [facility], 168, cm, 01/15/22 14:50:00 EST, Height, 92, kg, 03/03/21 15:27:00 EDT, Dry Weight Start Date: 02/06/22 Status: OrderedLORazepam 1 mg oral tablet 1 tablet = 1 mg, By Mouth, PRN as needed for anxiety, 0 Refills, Maintenance, 06/29/18 13:11:09 EDT Start Date: 06/29/18 Status: OrderedMetoprolol Succinate ER 25 mg oral tablet, extended release 1 tablet, By Mouth, Daily, # 90 tablet, 3 Refills, [facility], 168, cm, 01/09/22 10:35:00 EST, Height, 92, kg, 03/03/21 15:27:00 EDT, Dry Weight Start Date: 01/10/22 Status: OrderedMetoprolol Succinate ER 25 mg oral tablet, extended release 1 tablet, By Mouth, Daily, # 90 tablet, 1 Refills, Maintenance, 05/12/21 13:24:00 EDT, [facility], 168, cm, 05/02/21 8:45:00 EDT, Height, 92, kg, 03/03/21 15:27:00 EDT, Dry Weight Start Date: 05/12/21 Status: Orderedmontelukast 10 mg oral tablet 10 mg, 1, tablet, By Mouth, Daily, # 90 tablet, Refills 3, Tot. Refills 3, Maintenance, 01/15/22 16:17:00 EST, Route to Pharmacy Electronically, [facility]/pharmacy #[id number], 168, cm, 01/15/22 14:50:00 EST, Height, 92, kg, 03/03/21 15:27:00 EDT, Dry Weight Start Date: 01/15/22 Status: Orderedomeprazole 20 mg oral enteric coated capsule 1 capsule = 20 mg, By Mouth, 2 times a day, # 180 capsule, 3 Refills, Maintenance, 09/04/21 19:37:00EDT, EC Capsule, [facility]/pharmacy #[id number], 168, cm, 09/04/21 9:46:00 EDT, Height, 92, kg, 03/03/21 15:27:00 EDT, Dry Weight Start Date: 09/04/21 Status: OrderedProAir HFA 90 mcg/inh inhalation aerosol with adapter 2, puffs, Inhalation, Every 6 hours, PRN, # 8.5 Gm, Refills 8, Tot. Refills 8, Maintenance, 03/07/2115:41:00 EDT, Aerosol, Route to Pharmacy Electronically, [id number], [facility]/pharmacy #[id number], 168, cm, 03/06/21 11:08:00 EDT, Hei... Start Date: 03/07/21 Status: OrderedProAir HFA 90 mcg/inh inhalation aerosol with adapter 2, puffs, Inhalation, Every 6 hours, PRN, Requests ProAir, # 8.5 Gm, Refills 5, Tot. Refills 5, Maintenance, 12/27/21 9:37:00 EST, Aerosol, Route to Pharmacy Electronically, [id number], [facility]/pharmacy #[id number], 168, cm, 12/27/21 8... Start Date: 12/27/21 Status: Orderedrosuvastatin 10 mg oral tablet 1 tablet, By Mouth, Daily, # 90 tablet, 3 Refills, Maintenance, 11/06/21 8:54:00 EST, [facility]/pharmacy #[id number], 168, cm, 11/06/21 8:47:00 EST, Height, [...] Acute 05/07/22 9:03:00 EDT, 11/06/21 9:02:00 EST, [facility]/pharmacy #[id number], 168, cm, 11/06/21 8:47:00 EST, Height,92, kg, 03/03/21 15:27:00 EDT, Dry Weight Start Date: 11/06/21 Stop Date: 05/07/22 Status: OrderedtraMADol 50 mg oral tablet 2 tablet = 100 mg, By Mouth, Every 6 hours, PRN NEEDED FOR PAIN, # 224 tablet, 5 Refills, Acute 08/29/22 9:26:00 EDT, 05/07/22 9:03:00 EDT, [facility]/pharmacy #[id number], 168, cm, 02/26/22 8:34:00 EDT, Height,92, [...]
--- OUTSIDE RECORDS SUMMARY | 2022-10-27 22:28 | XMS_ITS | Continuity of Care Document ---
:1965 Author Organization [facility] Address [address] [place] [id number]- Care Team Providers Name Role Phone Richar Gordon MD Primary Care Physician En[place] [facility] [place](s): 03/06/21 - 04/05/21 [facility] [address] [place] [address] Allergies, Adverse Reactions, Alerts Substance Reaction Severity [...] decrease for patient, # 30 tablet, Refills 5, Tot. Refills 5, Maintenance, 04/05/21 14:25:00 EDT, Route to Pharmacy Electronically, [facility]/pharmacy #[id number], Partial fill upon patient request if the prescription is f... Start Date: 04/05/21 Status: Orderedaspirin 81 mg oral tablet, chewable 81 mg, 1, tablet, By Mouth, Daily, # 30 tablet, Refills 5, Tot. Refills 5, Maintenance, 01/18/21 11:29:00 EST, Route to Pharmacy Electronically, [facility]/pharmacy #[id number], Partial fill upon patient request ifthe prescription [...] Stop 07/31/21 14:13:00 EDT, 02/01/21 14:13:00 EST, [facility] #62718, 1 tablet By Mouth Daily,x30 days, 167, [...] 12/14/20 11:13:00 EST, Route to Pharmacy Electronically, [facility]/pharmacy #[id number], 167, cm, 12/14/20 8:40:00 EST, [...] 01/18/21 11:30:00 EST, Route to Pharmacy Electronically, [facility]/pharmacy #[id number], Partial fill upon patient request ifthe prescription is for a schedule II opioid drug... Start Date: 01/18/21 Stop Date: 07/17/21 Status: Orderedmontelukast 10 mg oral tablet 10 mg, 1, tablet, By Mouth, Daily, # 90 tablet, Refills 3, Tot. Refills 3, Maintenance, 03/22/21 8:48:00 EDT, Route to Pharmacy Electronically, [facility]/pharmacy #[id number], 168, cm, 03/06/21 11:08:00 EDT, Height, 92, kg, 03/03/21 15:27:00 EDT, Dry Weight Start Date: 03/22/21 Status: Orderedomeprazole 20 mg oral enteric coated capsule 1 capsule = 20 mg, By Mouth, 2 times a day, # 180 capsule, 0 Refills, Maintenance, 02/16/21 10:57:00EDT, EC Capsule, [facility]/pharmacy #[id number], 167, cm, 12/14/20 8:40:00 EST, Height, 91.3, kg, 11/30/20 17:07:00 EST, Dry Weight Start Date: 02/16/21 Status: OrderedProAir HFA 90 mcg/inh inhalation aerosol with adapter 2, puffs, Inhalation, Every 6 hours, PRN, # 8.5 Gm, Refills 8, Tot. Refills 8, Maintenance, 03/07/2115:41:00 EDT, Aerosol, Route to Pharmacy Electronically, [id number], [facility]/pharmacy #[id number], 168, cm, 03/06/21 11:08:00 EDT, Hei... Start Date: 03/07/21 Status: OrderedProAir HFA 90 mcg/inh inhalation aerosol with adapter 2, puffs, Inhalation, Every 6 hours, PRN, Requests ProAir, # 8.5 Gm, Refills 5, Tot. Refills 5, Maintenance, 03/22/21 8:49:00 EDT, Aerosol, Route to Pharmacy Electronically, [id number], [facility]/pharmacy #[id number], 168, cm, 03/06/21 1... Start Date: 03/22/21 Status: Orderedrosuvastatin 10 mg oral tablet 1 tablet = 10 mg, By Mouth, Daily, # 30 tablet, 5 Refills, Maintenance, 01/19/21 10:28:00 EST, Tablet, [facility]/pharmacy #[id number], Partial fill upon patient request if the prescription is for a schedule II opioid drug., 167, cm, 12/14/20 8:40:00 EST, Height,... Start Date: 01/19/21 Status: OrderedtraMADol 50 mg oral tablet 2 tablet = 100 mg, By Mouth, Every 6 hours, PRN NEEDED FOR PAIN, for 30 days, Corrected dose, # 224 tablet, 0 Refills, Acute 05/05/21 4:32:00 EDT, 04/05/21 4:32:00 EDT, [facility]/pharmacy #[id number], 168, cm, 03/06/21 11:08:00 EDT, Height, 92, kg, 03/03/21 15... Start Date: 04/05/21 Stop Date: 05/05/21 Status: OrderedtraMADol 50 mg oral tablet 2 tablet = 100 mg, By Mouth, Every 6 hours, PRN NEEDED FOR PAIN, for 30 days, Corrected dose, # 224 tablet, 0 Refills, Acute 06/04/21 4:32:00 EDT, 05/05/21 4:32:00 EDT, [facility]/pharmacy #[id number], 168, cm, 03/06/21 11:08:00 EDT, [...] Start Date: 04/05/21 Stop Date: 03/09/22 Status: Ordered Problem List Condition Effective Dates [...]
--- OUTSIDE RECORDS SUMMARY | 2022-10-27 22:28 | XMS_ITS | Continuity of Care Document ---
:1965 Author Organization [facility] Address [address] [place] [address]- Care Team Providers Name Role Phone Richar Gordon MD Primary Care Physician Encounter [facility] [place] Date(s): 06/01/21 - 06/08/21 [facility] [address] [place] [address]- Attending Physician: Richar Gordon MD Allergies, Adverse Reactions, Alerts Substance Reaction Severity Status amoxicillin nausea and vomiting Active gabapentin anxiety Active atorvastatin Dyspnea Active Cipro HC rash Active Augmentin nausea and vomiting Active Bactrim swelling Active Benadryl Swelling/Edema Active Rash/Dermatitis Anxiety state Pulmicort Flexhaler Active Anoro Ellipta Active Immunizations Given and Recorded Vaccine Date Status Refusal Reason SARS-CoV-2 (COVID-19) mRNA BNT-162b2 vac 02/18/21 Recorde d SARS-CoV-2 (COVID-19) mRNA BNT-162b2 vac 01/28/21 Recorde d influenza virus vaccine, inactivated 09/01/20 Recorded influenza virus vaccine, inactivated 08/14/20 Recorded influenza virus vaccine, inactivated 10/05/19 Recorded Influenza Virus Vaccine (oldterm) 09/20/19 Recorded [...] 05/22/21 13:11:00 EDT, Route to Pharmacy Electronically, [facility]/pharmacy #[id number], 168, cm, 05/02/21 8:45:00 EDT, Height, 92, kg, 03/03/21 15:27:00 EDT, Dry Weight Start Date: 05/22/21 Status: Orderedaspirin 81 mg oral tablet, chewable 81 mg, 1, tablet, By Mouth, Daily, # 30 tablet, Refills 5, Tot. Refills 5, Maintenance, 01/18/21 11:29:00 EST, [id number] Partial fill upon patient request ifthe prescription is for a schedule II opioid drug... Start Date: 01/18/21 Stop Date: 07/17/21 Status: OrderedBuPROPion (Eqv-Wellbutrin SR) 150 mg/12 hours oral tablet, extended release TAKE 1 TABLET BY MOUTH TWICE DAILY Start Date: 11/30/20 Status: OrderedGenvoya oral tablet 1 tablet, By Mouth, Daily, for 30 days, # 30 tablet, 5 Refills, Physician Stop 11/25/21 11:25:00 EST, 05/29/21 11:25:00 EDT, [facility] #[id number], 1 tablet By Mouth Daily,x30 days, 168, cm, 05/02/21 8:45:00 EDT, Height, 92, kg, 03/03/21 15:27:0... Start Date: 05/29/21 Stop Date: 11/25/21 Status: OrderedGenvoya oral tablet 1 tablet, By Mouth, Daily, for 30 days, # 30 tablet, 5 Refills, Physician Stop 07/31/21 14:13:00 EDT, 02/01/21 14:13:00 EST, [facility] #[id number], 1 tablet By Mouth Daily,x30 days, 167, cm, 12/14/20 8:40:00 EST, Height, 91.3, kg, 11/30/20 17:07... Start Date: 02/01/21 Stop Date: 07/31/21 [facility]: [facility] See Instructions, # 1 [...] 12/14/20 11:13:00 EST, Route to Pharmacy Electronically, [facility]/pharmacy #[id number], 167, cm, 12/14/20 8:40:00 EST, [...] tablet, 1 Refills, Maintenance, 05/12/21 13:24:00 EDT, [facility] STORE [id number], 168, cm, 05/02/21 8:45:00 EDT, Height, 92, kg, 03/03/21 15:27:00 EDT, Dry Weight Start Date: 05/12/21 Status: Orderedmontelukast 10 mg oral tablet 10 mg, 1, tablet, By Mouth, Daily, # 90 tablet, Refills 3, Tot. Refills 3, Maintenance, 03/22/21 8:48:00 EDT, Route to Pharmacy Electronically, [facility]/pharmacy #[id number], 168, cm, 03/06/21 11:08:00 EDT, Height, 92, kg, 03/03/21 15:27:00 EDT, Dry Weight Start Date: 03/22/21 Status: Orderedomeprazole 20 mg oral enteric coated capsule 1 capsule = 20 mg, By Mouth, 2 times a day, # 180 capsule, 0 Refills, Maintenance, 02/16/21 10:57:00EDT, EC Capsule, [facility]/pharmacy #[id number], 167, cm, 12/14/20 8:40:00 EST, Height, 91.3, kg, 11/30/20 17:07:00 EST, Dry Weight Start Date: 02/16/21 Status: OrderedProAir HFA 90 mcg/inh inhalation aerosol with adapter 2, puffs, Inhalation, Every 6 hours, PRN, # 8.5 Gm, Refills 8, Tot. Refills 8, Maintenance, 03/07/2115:41:00 EDT, Aerosol, Route to Pharmacy Electronically, [id number], [facility]/pharmacy #[id number], 168, cm, 03/06/21 11:08:00 EDT, Hei... Start Date: 03/07/21 Status: OrderedProAir HFA 90 mcg/inh inhalation aerosol with adapter 2, puffs, Inhalation, Every 6 hours, PRN, Requests ProAir, # 8.5 Gm, Refills 5, Tot. Refills 5, Maintenance, 03/22/21 8:49:00 EDT, Aerosol, Route to Pharmacy Electronically, [id number], [facility]/pharmacy #[id number], 168, cm, 03/06/21 1... Start Date: 03/22/21 Status: Orderedrosuvastatin 10 mg oral tablet 1 tablet, By Mouth, Daily, # 90 tablet, 1 Refills, Maintenance, 05/04/21 7:31:00 EDT, [facility]ORE [id number], 168, cm, 05/02/21 8:45:00 EDT, Height, 92, kg, 03/03/21 15:27:00 EDT, Dry Weight Start Date: 05/04/21 Status: OrderedtraMADol 50 mg oral tablet 2 tablet = 100 mg, By Mouth, Every 12 hours, PRN NEEDED FOR PAIN, # 112 tablet, 0 Refills, Acute 03/09/22 8:16:00 EDT, 04/05/21 4:32:00 EDT, [facility]/pharmacy #[id number], 168, cm, 03/06/21 11:08:00 EDT, Height, 92, kg, 03/03/21 15:27:00 EDT, Dry Weight Start Date: 04/05/21 Stop Date: 03/09/22 Status: OrderedtraMADol 50 mg oral tablet 2 tablet = 100 mg, By Mouth, Every 6 hours, PRN NEEDED FOR PAIN, # 224 tablet, 2 Refills, Acute 05/25/22 5:10:00 EDT, 03/09/22 8:16:00 EDT, [facility]/pharmacy #[id number], 168, cm, 05/02/21 8:45:00 EDT, Height,92, kg, 03/03/21 15:27:00 EDT, Dry Weight Start Date: 03/09/22 Stop Date: 05/25/22 Status: OrderedtraMADol 50 mg oral tablet 2 tablet = 100 mg, By Mouth, Every 12 hours, PRN NEEDED FOR PAIN, # 112 tablet, 0 Refills, Maintenance, 05/11/21 14:28:00 EDT, [facility]/pharmacy #[id number], 168, cm, 05/02/21 8:45:00 EDT, Height, 92, kg, 03/03/21 15:27:00 EDT, Dry Weight Start Date: 05/11/21 Status: Ordered Problem List Condition Effective Dates [...] quadrant of Active abdomen(Confirmed) Lumbar stenosis(Confirmed) Active Vital Signs Most recent to oldest [Reference Range]: 1 Height 168 cm (06/01/21 9:42 AM) Weight 89.2 kg (06/01/21 9:42 AM) Oxygen Saturation [94-100 %] 98 % (06/01/21 9:42 AM) Pulse Rate [55-90 bpm] 63 bpm (06/01/21 9:42 AM) Body Mass Index [18.5-24.99] 31.6 *>HHI* (06/01/21 9:42 AM) Blood Pressure [90-138/55-84 mm Hg] 128/72 mm Hg (06/01/21 9:42 AM) Temperature [96.8-100.4 DegF] 98.5 DegF (06/01/21 9:42 AM) Mode of Delivery (Oxygen) Room air (06/01/21 9:42 AM) Blood pressure sites Arm, left (06/01/21 9:42 AM) Temperature Route Oral (06/01/21 9:42 AM) Social History Social History Type Response Smoking Status Former smoker, quit more hernan n 30 days ago entered on: 05/11/19 Sex
--- OUTSIDE RECORDS SUMMARY | 2022-10-27 22:28 | XMS_ITS | Continuity of Care Document ---
:1965 Author Organization [facility] Address [address] [place] [address]- Care Team Providers Name Role Phone Evan PEREZ, Richar Weldon Primary Care Physician Encounter [facility] [place] Date(s): 01/09/22 - 01/16/22 [facility] [address] [place] [address]- Attending Physician: Eric COOK, Shabana Coburn Allergies, Adverse Reactions, Alerts Substance Reaction Severity [...] 3 Refills, Maintenance, 11/06/21 8:54:00 EST, Solution, [facility]/pharmacy #[id number], Partial fill upon patientrequest if the prescription is for a schedule II... Start Date: 11/06/21 Status: OrderedamLODIPine 2.5 mg oral tablet 1 tablet, By Mouth, Daily, # 90 tablet, 3 Refills, [id number], 168, cm, 11/17/21 10:55:00 EST, Height, 92, kg, 03/03/21 15:27:00 EDT, Dry Weight Start Date: 12/04/21 Status: OrderedamLODIPine 2.5 mg oral tablet 2.5 mg, 1, tablet, By Mouth, Daily, # 30 tablet, Refills 5, Tot. Refills 5, Maintenance, 05/22/21 13:11:00 EDT, Route to Pharmacy Electronically, [facility]/pharmacy #[id number], 168, cm, 05/02/21 8:45:00 EDT, Height, 92, kg, 03/03/21 15:27:00 EDT, Dry Weight Start Date: 05/22/21 Status: Orderedaspirin 81 mg oral tablet, chewable 81 mg, 1, tablet, By Mouth, Daily, # 30 tablet, Refills 5, Tot. Refills 5, Maintenance, 01/18/21 11:29:00 EST, Route to Pharmacy Electronically, [facility]/pharmacy #[id number], Partial [...] Gm, 2 Refills, Maintenance, 09/04/21 19:43:00 EDT, [place],[facility]/pharmacy #[id number], Partial fill upon patient request if the prescription is for a schedule II opioid drug., 1 sprays Nares, Both 2 times a day, 168,... Start Date: 09/04/21 Status: OrderedHome Blood Pressure Monitor See Instructions, [...] # 90 tablet, 3 Refills, [id number], 168, cm, 01/09/22 10:35:00 EST, Height, 92, kg, 03/03/21 15:27:00 EDT, Dry Weight Start Date: 01/10/22 Status: OrderedMetoprolol Succinate ER 25 mg oral tablet, extended release 1 tablet, By Mouth, Daily, # 90 tablet, 1 Refills, Maintenance, 05/12/21 13:24:00 EDT, [id number], 168, cm, 05/02/21 8:45:00 EDT, Height, 92, kg, 03/03/21 15:27:00 EDT, Dry Weight Start Date: 05/12/21 Status: Orderedmontelukast 10 mg oral tablet 10 mg, 1, tablet, By Mouth, Daily, # 90 tablet, Refills 3, Tot. Refills 3, Maintenance, 01/15/22 16:17:00 EST, Route to Pharmacy Electronically, [facility]/pharmacy #[id number], 168, cm, 01/15/22 14:50:00 EST, Height, 92, kg, 03/03/21 15:27:00 EDT, Dry Weight Start Date: 01/15/22 Status: Orderedomeprazole 20 mg oral enteric coated capsule 1 capsule = 20 mg, By Mouth, 2 times a day, # 180 capsule, 3 Refills, Maintenance, 09/04/21 19:37:00EDT, EC Capsule, [facility]/pharmacy #[id number], 168, cm, 09/04/21 9:46:00 EDT, Height, 92, kg, 03/03/21 15:27:00 EDT, Dry Weight Start Date: 09/04/21 Status: OrderedpredniSONE 20 mg oral tablet 1 tablet = 20 mg, By Mouth, 2 times a day, for 2 days, # 4 tablet, 0 Refills, Acute 01/17/22 16:16:00 EST, 01/15/22 16:16:00 EST, [facility]/pharmacy #[id number], Partial fill upon patient request if the prescription is for a schedule II opioid drug., 168, cm, ... Start Date: 01/15/22 Stop Date: 01/17/22 Status: OrderedProAir HFA 90 mcg/inh inhalation aerosol with adapter 2, puffs, Inhalation, Every 6 hours, PRN, # 8.5 Gm, Refills 8, Tot. Refills 8, Maintenance, 03/07/2115:41:00 EDT, Aerosol, Route to Pharmacy Electronically, [id number], [facility]/pharmacy #[id number], 168, cm, 03/06/21 11:08:00 EDT, Hei... Start Date: 03/07/21 Status: OrderedProAir HFA 90 mcg/inh inhalation aerosol with adapter 2, puffs, Inhalation, Every 6 hours, PRN, Requests ProAir, # 8.5 Gm, Refills 5, Tot. Refills 5, Maintenance, 12/27/21 9:37:00 EST, Aerosol, Route to Pharmacy Electronically, [id number], [facility]/pharmacy #[id number], 168, cm, 12/27/21 8... Start Date: 12/27/21 Status: Orderedrosuvastatin 10 mg oral tablet 1 tablet, By Mouth, Daily, # 90 tablet, 3 Refills, Maintenance, 11/06/21 8:54:00 EST, [id number], 168, cm, 11/06/21 8:47:00 EST, Height, 92, kg, 03/03/21 15:27:00 EDT, Dry Weight Start Date: 11/06/21 Status: OrderedtraMADol 50 mg oral tablet 2 tablet = 100 mg, By Mouth, Every 6 hours, PRN NEEDED FOR PAIN, # 224 tablet, 5 Refills, Acute 05/07/22 9:03:00 EDT, 11/06/21 9:02:00 EST, [id number], 168, cm, 11/06/21 8:47:00 EST, Height,92, [...] oldest [Reference Range]: 1 Height 168 cm (01/09/22 10:35 AM) Weight 91.81 kg (01/09/22 10:35 AM) Body Mass Index [18.5-24.99] 32.53 *>HHI* (01/09/22 10:35 AM) Social History Social History Type Response Smoking Status Former smoker, quit more hernan n 30 days ago entered on: 05/11/19 Sex
--- OUTSIDE RECORDS SUMMARY | 2022-10-27 22:28 | XMS_ITS | Continuity of Care Document ---
:1965 Author Organization [facility] Address [address] [place] [address]- Care Team Providers Name Role Phone Richar Gordon MD Primary Care Physician Encounter [facility] [place] Date(s): 05/11/21 - 06/10/21 [facility] [address] [place] [address]- Allergies, Adverse Reactions, Alerts Substance Reaction Severity [...] 13:11:00 EDT, Route to Pharmacy Electronically, [facility]/pharmacy #[id number], 168, cm, 05/02/21 8:45:00 EDT, Height, 92, kg, 03/03/21 15:27:00 EDT, Dry Weight Start Date: 05/22/21 Status: Orderedaspirin 81 mg oral tablet, chewable 81 mg, 1, tablet, By Mouth, Daily, # 30 tablet, Refills 5, Tot. Refills 5, Maintenance, 01/18/21 11:29:00 EST, [id number] upon patient request ifthe [...] Stop 11/25/21 11:25:00 EST, 05/29/21 11:25:00 EDT, [facility] #[id number], 1 tablet By Mouth Daily,x30 days, 168, cm, 05/02/21 8:45:00 EDT, Height, 92, kg, 03/03/21 15:27:0... Start Date: 05/29/21 Stop Date: 11/25/21 Status: OrderedGenvoya oral tablet 1 tablet, By Mouth, Daily, for 30 days, # 30 tablet, 5 Refills, Physician Stop 07/31/21 14:13:00 EDT, 02/01/21 14:13:00 EST, [facility] #[id number], 1 tablet By Mouth Daily,x30 days, 167, [...] 11:13:00 EST, Route to Pharmacy Electronically, [facility]/pharmacy #[id number], 167, cm, 12/14/20 8:40:00 [...] 1 Refills, Maintenance, 05/12/21 13:24:00 EDT, [id number], 168, cm, 05/02/21 8:45:00 EDT, Height, 92, kg, 03/03/21 15:27:00 EDT, Dry Weight Start Date: 05/12/21 Status: Orderedmontelukast 10 mg oral tablet 10 mg, 1, tablet, By Mouth, Daily, # 90 tablet, Refills 3, Tot. Refills 3, Maintenance, 03/22/21 8:48:00 EDT, Route to Pharmacy Electronically, [facility]/pharmacy #[id number], 168, cm, 03/06/21 11:08:00 EDT, Height, 92, kg, 03/03/21 15:27:00 EDT, Dry Weight Start Date: 03/22/21 Status: Orderedomeprazole 20 mg oral enteric coated capsule 1 capsule = 20 mg, By Mouth, 2 times a day, # 180 capsule, 0 Refills, Maintenance, 02/16/21 10:57:00EDT, EC Capsule, [facility]/pharmacy #[id number], 167, cm, 12/14/20 8:40:00 EST, Height, 91.3, kg, 11/30/20 17:07:00 EST, Dry Weight Start Date: 02/16/21 Status: OrderedProAir HFA 90 mcg/inh inhalation aerosol with adapter 2, puffs, Inhalation, Every 6 hours, PRN, # 8.5 Gm, Refills 8, Tot. Refills 8, Maintenance, 03/07/2115:41:00 EDT, Aerosol, Route to Pharmacy Electronically, [id number], [facility]/pharmacy #[id number], 168, cm, 03/06/21 11:08:00 EDT, Hei... Start Date: 03/07/21 Status: OrderedProAir HFA 90 mcg/inh inhalation aerosol with adapter 2, puffs, Inhalation, Every 6 hours, PRN, Requests ProAir, # 8.5 Gm, Refills 5, Tot. Refills 5, Maintenance, 03/22/21 8:49:00 EDT, Aerosol, Route to Pharmacy Electronically, [id number], [facility]/pharmacy #[id number], 168, cm, 03/06/21 1... Start Date: 03/22/21 Status: Orderedrosuvastatin 10 mg oral tablet 1 tablet, By Mouth, Daily, # 90 tablet, 1 Refills, Maintenance, 05/04/21 7:31:00 EDT, [facility]ORE [id number], 168, cm, 05/02/21 8:45:00 EDT, Height, 92, kg, 03/03/21 15:27:00 EDT, Dry Weight Start Date: 05/04/21 Status: OrderedtraMADol 50 mg oral tablet 2 tablet = 100 mg, By Mouth, Every 12 hours, PRN NEEDED FOR PAIN, # 112 tablet, 0 Refills, Acute 03/09/22 8:16:00 EDT, 04/05/21 4:32:00 EDT, [facility]/pharmacy #[id number], 168, cm, 03/06/21 11:08:00 EDT, Height, 92, kg, 03/03/21 15:27:00 EDT, Dry Weight Start Date: 04/05/21 Stop Date: 03/09/22 Status: OrderedtraMADol 50 mg oral tablet 2 tablet = 100 mg, By Mouth, Every 6 hours, PRN NEEDED FOR PAIN, # 224 tablet, 2 Refills, Acute 05/25/22 5:10:00 EDT, 03/09/22 8:16:00 EDT, [id number], 168, cm, 05/02/21 8:45:00 EDT, Height,92, kg, 03/03/21 15:27:00 EDT, Dry Weight Start Date: 03/09/22 Stop Date: 05/25/22 Status: OrderedtraMADol 50 mg oral tablet 2 tablet = 100 mg, By Mouth, Every 12 hours, PRN NEEDED FOR PAIN, # 112 tablet, 0 Refills, Maintenance, 05/11/21 14:28:00 EDT, [id number], 168, cm, 05/02/21 8:45:00 EDT, [...]
--- OUTSIDE RECORDS SUMMARY | 2022-10-27 22:28 | XMS_ITS | Continuity of Care Document ---
:1965 Author Organization [facility] Address [address] [place] [id number]- Care Team Providers Name Role Phone Richar Gordon MD Primary Care Physician [place] [facility] [place] - 04/02/21 [facility] [address] [place] [id number] Attending Physician: Ari Chu MD Admitting Physician: Ari Chu MD Referring Physician: Richar Gordon MD Allergies, [...] 03/06/21 15:56:00 EDT, Route to Pharmacy Electronically, [facility]/pharmacy #[id number], Partial fill upon patient request if the prescription is f... Start Date: 03/06/21 Status: Orderedaspirin 81 mg oral tablet, chewable 81 mg, 1, tablet, By Mouth, Daily, # 30 tablet, Refills 5, Tot. Refills 5, Maintenance, 01/18/21 11:29:00 EST, Route to Pharmacy Electronically, [facility]/pharmacy #[id number], Partial fill upon patient request [...] Stop 07/31/21 14:13:00 EDT, 02/01/21 14:13:00 EST, [facility] #[id number], 1 tablet By Mouth Daily,x30 days, 167, cm, 12/14/20 8:40:00 EST, Height, 91.3, kg, 11/30/20 17:07... Start Date: 02/01/21 Stop Date: 07/31/21 [facility]: [facility] See Instructions, # [...] 12/14/20 11:13:00 EST, Route to Pharmacy Electronically, [facility]/pharmacy #[id number], 167, cm, 12/14/20 8:40:00 EST, [...] 01/18/21 11:30:00 EST, Route to Pharmacy Electronically, [facility]/pharmacy #[id number], Partial fill upon patient request ifthe prescription is for a schedule II opioid drug... Start Date: 01/18/21 Stop Date: 07/17/21 Status: Orderedmontelukast 10 mg oral tablet 10 mg, 1, tablet, By Mouth, Daily, # 90 tablet, Refills 3, Tot. Refills 3, Maintenance, 03/22/21 8:48:00 EDT, Route to Pharmacy Electronically, [facility]/pharmacy #[id number], 168, cm, 03/06/21 11:08:00 EDT, Height, 92, kg, 03/03/21 15:27:00 EDT, Dry Weight Start Date: 03/22/21 Status: Orderedomeprazole 20 mg oral enteric coated capsule 1 capsule = 20 mg, By Mouth, 2 times a day, # 180 capsule, 0 Refills, Maintenance, 02/16/21 10:57:00EDT, EC Capsule, [facility]/pharmacy #[id number], 167, cm, 12/14/20 8:40:00 EST, Height, 91.3, kg, 11/30/20 17:07:00 EST, Dry Weight Start Date: 02/16/21 Status: OrderedProAir HFA 90 mcg/inh inhalation aerosol with adapter 2, puffs, Inhalation, Every 6 hours, PRN, # 8.5 Gm, Refills 8, Tot. Refills 8, Maintenance, 03/07/2115:41:00 EDT, Aerosol, Route to Pharmacy Electronically, [id number], [facility]/pharmacy #[id number], 168, cm, 03/06/21 11:08:00 EDT, Hei... Start Date: 03/07/21 Status: OrderedProAir HFA 90 mcg/inh inhalation aerosol with adapter 2, puffs, Inhalation, Every 6 hours, PRN, Requests ProAir, # 8.5 Gm, Refills 5, Tot. Refills 5, Maintenance, 03/22/21 8:49:00 EDT, Aerosol, Route to Pharmacy Electronically, [id number], [facility]/pharmacy #[id number], 168, cm, 03/06/21 1... Start Date: 03/22/21 Status: Orderedrosuvastatin 10 mg oral tablet 1 tablet = 10 mg, By Mouth, Daily, # 30 tablet, 5 Refills, Maintenance, 01/19/21 10:28:00 EST, Tablet, [facility]/pharmacy #[id number], Partial fill upon patient request if the prescription is for a schedule II opioid drug., 167, cm, 12/14/20 8:40:00 EST, Height,... Start Date: 01/19/21 Status: OrderedtraMADol 50 mg oral tablet 2 tablet = 100 mg, By Mouth, Every 6 hours, PRN NEEDED FOR PAIN, for 30 days, Corrected dose, # 224 tablet, 0 Refills, Acute 05/05/21 4:32:00 EDT, 04/05/21 4:32:00 EDT, [id number], 168, cm, 03/06/21 11:08:00 EDT, Height, 92, kg, 03/03/21 15... Start Date: 04/05/21 Stop Date: 05/05/21 Status: OrderedtraMADol 50 mg oral tablet 2 tablet = 100 mg, By Mouth, Every 6 hours, PRN NEEDED FOR PAIN, for 30 days, Corrected dose, # 224 tablet, 0 Refills, Acute 06/04/21 4:32:00 EDT, 05/05/21 4:32:00 EDT, [id number], 168, cm, 03/06/21 [...]
--- OUTSIDE RECORDS SUMMARY | 2022-10-27 22:28 | XMS_ITS | Continuity of Care Document ---
:1965 Author Organization [facility] Address [address] [place] [id number]- Care Team Providers Name Role Phone Richar Gordon MD Primary Care Physician Encounter [facility] [place] Date(s): 05/02/22 - 06/01/22 [facility] [address] [place] [id number] Attending Physician: Admharoon, Tam Admitting Physician: Admtr, Ar8 Referring Physician: Admtr, [...] 3 Refills, Maintenance, 02/26/22 9:26:00 EDT, Solution, [facility]/pharmacy #[id number], Partial fill upon patientrequest if the prescription is for a schedule II... Start Date: 02/26/22 Status: Orderedalbuterol 0.083% inhalation solution 3 mL = 2.5 mg, Inhalation, Every 6 hours, PRN for wheezing, # 25 each, 3 Refills, Maintenance, 05/10/22 6:50:00 EDT, Solution, [facility]/pharmacy #[id number], Partial fill upon patient request if the prescription is for a schedule II opioid drug., 166, cm, 05/02/... Start Date: 05/10/22 Status: OrderedamLODIPine 2.5 mg oral tablet 1 tablet, By Mouth, Daily, # 90 tablet, 3 Refills, [id number], 168, cm, 11/17/21 10:55:00 EST, Height, 92, kg, 03/03/21 15:27:00 EDT, Dry Weight Start Date: 12/04/21 Status: Orderedaspirin 81 mg oral tablet, chewable 81 mg, 1, tablet, By Mouth, Daily, # 30 tablet, Refills 5, Tot. Refills 5, Maintenance, 01/18/21 11:29:00 EST, Route to Pharmacy Electronically, [facility]/pharmacy #[id number], Partial fill upon patient request ifthe prescription is for a schedule II opioid drug... Start Date: 01/18/21 Stop Date: 07/17/21 Status: OrderedBuPROPion (Eqv-Wellbutrin SR) 150 mg/12 hours oral tablet, extended release TAKE 1 TABLET BY MOUTH TWICE DAILY Start Date: 11/30/20 Status: Orderedfluticasone 50 mcg/inh nasal spray See Instructions, USE 1 SPRAY IN EACH NOSTRIL TWICE A DAY, # 16 mL, 2 Refills, [id number], 90, USE 1 SPRAY IN EACH NOSTRIL TWICE A DAY, 166, cm, 05/02/22 10:08:00 EDT, Height, 92, kg, 03/03/21 15:27:00 EDT, Dry Weight Start Date: 05/28/22 Status: OrderedGenvoya oral tablet 1 tablet, By Mouth, Daily, with food, # 30 tablet, 5 Refills, Maintenance, 01/29/22 21:33:00 EST, Tablet, Community, [facility] #[id number], Partial fill upon patient request if the [...] tablet, Refills 1, Route to Pharmacy Electronically, [id number], 168, cm, 01/15/22 14:50:00 EST, Height, 92, [...] # 90 tablet, 3 Refills, [facility], 168, cm, 01/09/22 10:35:00 EST, Height, 92, kg, 03/03/21 15:27:00 EDT, Dry Weight Start Date: 01/10/22 Status: Orderedmontelukast 10 mg oral tablet 10 mg, 1, tablet, By Mouth, Daily, # 90 tablet, Refills 3, Tot. Refills 3, Maintenance, 01/15/22 16:17:00 EST, Route to Pharmacy Electronically, [facility]/pharmacy #[id number], 168, cm, 01/15/22 14:50:00 EST, Height, 92, kg, 03/03/21 15:27:00 EDT, Dry Weight Start Date: 01/15/22 Status: OrderedNebulizer/Compressor See Instructions, # 1 each, Refills 0, Tot. Refills 0, Maintenance, New tubing and mouthpiece for nebulizer J45.0, 05/01/22 11:05:00 EDT, Supply, 166, cm, 05/01/22 8:58:00 EDT, Height, 92, kg, 03/03/2115:27:00 EDT, Dry Weight Start Date: 05/01/22 Status: Orderedomeprazole 20 mg oral enteric coated capsule 1 capsule = 20 mg, By Mouth, 2 times a day, # 180 capsule, 3 Refills, Maintenance, 09/04/21 19:37:00EDT, EC Capsule, [facility]/pharmacy #[id number], 168, cm, 09/04/21 9:46:00 EDT, Height, 92, kg, 03/03/21 15:27:00 EDT, Dry Weight Start Date: 09/04/21 Status: OrderedProAir HFA 90 mcg/inh inhalation aerosol with adapter 2, puffs, Inhalation, Every 6 hours, PRN, Requests ProAir, # 8.5 Gm, Refills 5, Tot. Refills 5, Maintenance, 12/27/21 9:37:00 EST, Aerosol, Route to Pharmacy Electronically, [id number], [facility]/pharmacy #[id number], 168, cm, 12/27/21 8... Start Date: 12/27/21 Status: Orderedrosuvastatin 10 mg oral tablet 1 tablet, By Mouth, Daily, # 90 tablet, 3 Refills, Maintenance, 11/06/21 8:54:00 EST, [facility]/pharmacy #[id number], 168, cm, 11/06/21 8:47:00 EST, Height, [...] Acute 08/29/22 9:26:00 EDT, 05/07/22 9:03:00 EDT, [facility]/pharmacy #[id number], 168, cm, 02/26/22 8:34:00 EDT, Height,92, kg, 03/03/21 15:27:00 EDT, Dry Weight Start Date: 05/07/22 Stop Date: 08/29/22 Status: Ordered Problem List Condition Effective Dates Status Health Status Informant Abdominal bloating(Confirmed) Active Asthma(Confirmed) Active Costochondritis(Confirmed) Active Depression(Confirmed) Active Dyspnea on exertion(Confirmed) Active Dysthymia(Confirmed) Active GERD (gastroesophageal reflux Active disease)(Confirmed) H/O [...]
--- OUTSIDE RECORDS SUMMARY | 2022-10-27 22:28 | XMS_ITS | Continuity of Care Document ---
:1965 Author Organization [facility] Address [address] [place] [address]- Care Team Providers Name Role Phone Richar Gordon MD Primary Care Physician [place] [facility] [place]20 [facility] [address] [place] [address]- [facility] Attending Physician: Richar Gordon MD Allergies, Adverse [...] Breath, # 60 each, 5 Refills, Maintenance, 04/07/20 15:26:00 EDT, [facility]/pharmacy #[id number], DX J45.909, 168, cm, 02/08/20 15:35:00 EDT, Height, 86.8, kg, 02/18/19 13:15:00 EDT, Dry Weight Start Date: 04/07/20 Status: OrderedGenvoya oral tablet 1 tablet, By Mouth, Daily, with food, # 30 tablet, 11 Refills, Maintenance, 03/02/20 11:05:00 EDT, Tablet, [facility], [facility] #[id number], 1 tablet By Mouth Daily,Instr:with food, 168, [...] 04/07/20 9:23:00 EDT, Route to Pharmacy Electronically, [facility]/pharmacy #[id number], 168, cm, 02/08/20 15:35:00 EDT, Height, 86.8, kg, 02/18/19 13:15:00 EDT, Dry Weight Start Date: 04/07/20 Status: OrderedLORazepam 1 mg oral tablet 1 tablet = 1 mg, By Mouth, PRN as needed for anxiety, 0 Refills, Maintenance, 06/29/18 13:11:09 EDT Start Date: 06/29/18 Status: Orderedmetoprolol 25 mg oral tablet 25 mg, By Mouth, 2 times a day, # 180 tablet, Refills 3, Tot. Refills 3, Maintenance, 01/07/20 10:28:00 EST, [id number] 168, cm, 01/07/20 10:04:00 EST, Height, 86.8, kg, 02/18/19 13:15:00 EDT, Dry Weight Start Date: 01/07/20 Status: Orderedmontelukast 10 mg oral tablet 10 mg, 1, tablet, By Mouth, Daily, # 90 tablet, Refills 3, Tot. Refills 3, Maintenance, 04/07/20 9:23:00 EDT, Route to Pharmacy Electronically, [facility]/pharmacy #[id number], 168, cm, 02/08/20 15:35:00 EDT, Height, 86.8, kg, 02/18/19 13:15:00 EDT, Dry Weight Start Date: 04/07/20 Status: OrderedNebulizer/Compressor See Instructions, # 1 each, Refills 0, Tot. Refills 0, Maintenance, DX:J45.909 machine and all supplies to go with it to use with albuterol solution, 04/07/20 15:42:00 EDT, Supply Start Date: 04/07/20 Status: OrderedNuLYTELY with Flavor Packs oral powder for reconstitution See Instructions, SPLIT PREP, # 4,000 mL, 0 Refills, Maintenance, 03/10/20 10:36:00 EDT, [facility] Rx #[id number], SPLIT PREP, 168, cm, 02/08/20 15:35:00 EDT, Height, 86.8, kg, 02/18/19 13:15:00 EDT, Dry Weight Start Date: 03/10/20 Status: OrderedOmeprazole = 20 mg, By Mouth, Daily, 0 Refills, Maintenance, 06/29/18 13:11:56 EDT Start Date: 06/29/18 Status: OrderedProAir HFA 90 mcg/inh inhalation aerosol with adapter 2, puffs, Inhalation, Every 6 hours, PRN, # 8.5 Gm, Refills 5, Tot. Refills 5, Maintenance, :11:41 EDT, Aerosol, Route to Pharmacy Electronically, [id number], [facility]/pharmacy #[id number] Start Date: 05/12/19 Status: OrderedtraMADol 50 mg oral tablet 1 tablet = 50 mg, By Mouth, Every 6 hours, PRN Pain , Severe, # 112 tablet, 5 Refills, Acute 09/13/20 8:41:00 EDT, 03/14/20 8:40:00 EDT, [facility]/pharmacy #[id number], 168, cm, 02/08/20 15:35:00 EDT, Height, 86.8, kg, 02/18/19 13:15:00 EDT, Dry Weight Start Date: 03/14/20 Stop Date: 09/13/20 Status: OrderedtraMADol 50 mg oral tablet 1 tablet = 50 mg, By Mouth, 2 times a day, PRN Pain , Moderate, # 14 tablet, 3 Refills, Maintenance,12/14/19 16:47:00 [facility], [facility] #[id number], 168, cm, 09/28/19 8:13:00 EDT, Height, 86.8, kg,02/18/19 13:15:00 EDT, Dry Weight Start Date: 12/14/19 Status: OrderedtraMADol 50 mg oral tablet 1 tablet = 50 mg, By Mouth, 2 times a day, PRN Pain , Moderate, # 14 tablet, 3 Refills, Maintenance,02/18/20 7:51:00 EDT, [facility]/pharmacy #[id number], 168, cm, 02/08/20 15:35:00 EDT, Height, [...] 5 Refills, Maintenance, 02/08/20 16:45:00 EDT, Aerosol, [id number], 168, cm, 02/08/20 15:35:00 EDT, Height, [...]
--- OUTSIDE RECORDS SUMMARY | 2022-10-27 22:28 | XMS_ITS | Continuity of Care Document ---
:1965 Author Organization [facility] Address [address] [place] [id number]- Care Team Providers Name Role Phone Evan PEREZ, Richar Weldon Primary Care Physician Encounter [facility] [place] Date(s): 10/02/21 - 11/01/21 [facility] [address] [address]- Attending Physician: Tam Bolanos Admitting Physician: Tam Bolanos Referring Physician: AdmtrTam Allergies, Adverse Reactions, Alerts Substance Reaction Severity Status amoxicillin nausea and vomiting Active Cipro HC rash Active Pulmicort Flexhaler Active Anoro Ellipta Active gabapentin anxiety Active atorvastatin Dyspnea Active Augmentin nausea and vomiting Active Bactrim swelling Active Benadryl Swelling/Edema Active Rash/Dermatitis Anxiety state Immunizations Given and Recorded Vaccine Date Status [...] Vacc (oldterm) 08/07/17 Recorded pneumococcal 23-valent vaccine 9/26/18 Recorded Hepatitis A-Hepatitis B Vaccine 08/27/18 Recorded Hepatitis A-Hepatitis B Vaccine 10/02/17 Recorded Hepatitis A-Hepatitis B Vaccine 08/07/17 Recorded pneumococcal 13-valent vaccine 08/07/17 Recorded Medications albuterol 0.083% inhalation solution 3 mL = 2.5 mg, Inhalation, Every 6 hours, PRN Wheezing/Shortness of Breath, DX:J45.909, # 60 each, 5Refills, Maintenance, 09/11/21 14:21:00 EDT, Solution, [facility]/pharmacy #[id number], Partial fill upon patientrequest if the prescription is for a schedule II... Start Date: 09/11/21 Status: OrderedamLODIPine 2.5 mg oral tablet 2.5 mg, 1, tablet, By Mouth, Daily, # 30 tablet, Refills 5, Tot. Refills 5, Maintenance, 05/22/21 13:11:00 EDT, Route to Pharmacy Electronically, [facility]/pharmacy #[id number], 168, cm, 05/02/21 8:45:00 EDT, Height, [...] MOUTH TWICE DAILY Start Date: 11/30/20 Status: OrderedFlonase 50 mcg/inh nasal spray 1 sprays, Nares, Both, 2 times a day, # 16 Gm, 2 Refills, Maintenance, 09/04/21 19:43:00 EDT, [id number], Partial fill upon patient request if the prescription is for a schedule II opioid drug., 1 sprays Nares, Both 2 times a day, 168,... Start Date: 09/04/21 Status: OrderedGenvoya oral tablet 1 tablet, By Mouth, Daily, for 30 days, # 30 tablet, 5 Refills, Physician Stop 11/25/21 11:25:00 EST, 05/29/21 11:25:00 EDT, [facility] #[id number], 1 tablet By Mouth Daily,x30 days, 168, cm, 05/02/21 8:45:00 EDT, Height, 92, kg, 03/03/21 15:27:0... Start Date: 05/29/21 Stop Date: 11/25/21 Status: [facility] See Instructions, # 1 [...] EST, Route to Pharmacy Electronically, [facility]/pharmacy #[id number], 167, cm, 12/14/20 8:40:00 EST, Height, [...] Refills, Maintenance, 05/12/21 13:24:00 EDT, [facility], 168, cm, 05/02/21 8:45:00 EDT, Height, 92, kg, 03/03/21 15:27:00 EDT, Dry Weight Start Date: 05/12/21 Status: Orderedmontelukast 10 mg oral tablet 10 mg, 1, tablet, By Mouth, Daily, # 90 tablet, Refills 3, Tot. Refills 3, Maintenance, 03/22/21 8:48:00 EDT, Route to Pharmacy Electronically, [facility]/pharmacy #[id number], 168, cm, 03/06/21 11:08:00 EDT, Height, 92, kg, 03/03/21 15:27:00 EDT, Dry Weight Start Date: 03/22/21 Status: Orderedomeprazole 20 mg oral enteric coated capsule 1 capsule = 20 mg, By Mouth, 2 times a day, # 180 capsule, 3 Refills, Maintenance, 09/04/21 19:37:00EDT, EC Capsule, [facility]/pharmacy #[id number], 168, cm, 09/04/21 9:46:00 EDT, Height, 92, kg, 03/03/21 15:27:00 EDT, Dry Weight Start Date: 09/04/21 Status: OrderedProAir HFA 90 mcg/inh inhalation aerosol with adapter 2, puffs, Inhalation, Every 6 hours, PRN, # 8.5 Gm, Refills 8, Tot. Refills 8, Maintenance, 03/07/2115:41:00 EDT, Aerosol, Route to Pharmacy Electronically, [id number], [facility]/pharmacy #[id number], 168, cm, 03/06/21 11:08:00 EDT, Hei... Start Date: 03/07/21 Status: OrderedProAir HFA 90 mcg/inh inhalation aerosol with adapter 2, puffs, Inhalation, Every 6 hours, PRN, Requests ProAir, # 8.5 Gm, Refills 5, Tot. Refills 5, Maintenance, 03/22/21 8:49:00 EDT, Aerosol, Route to Pharmacy Electronically, [id number], [facility]/pharmacy #[id number], 168, cm, 03/06/21 1... Start Date: 03/22/21 Status: Orderedrosuvastatin 10 mg oral tablet 1 tablet, By Mouth, Daily, # 90 tablet, 3 Refills, Maintenance, 08/18/21 9:20:00 EDT, [facility]/pharmacy #[id number], 168, cm, 08/15/21 9:17:00 EDT, Height, 92, kg, 03/03/21 15:27:00 EDT, Dry Weight Start Date: 08/18/21 Status: OrderedtraMADol 50 mg oral tablet 2 tablet = 100 mg, By Mouth, Every 6 hours, PRN NEEDED FOR PAIN, # 224 tablet, 2 Refills, Acute 05/25/22 5:10:00 EDT, 03/09/22 8:16:00 EDT, [facility]/pharmacy #[id number], 168, cm, 05/02/21 8:45:00 EDT, Height,92, kg, 03/03/21 15:27:00 EDT, Dry Weight Start Date: 03/09/22 Stop Date: 05/25/22 Status: OrderedtraMADol 50 mg oral tablet See Instructions, TAKE 2 TABLETS BY MOUTH EVERY 6 HOURS NEEDED FOR PAIN, # 224 tablet, 2 Refills,Acute 11/29/21 7:02:00 EST, 08/30/21 7:01:00 EDT, [facility]/pharmacy #[id number], 168, cm, 08/15/21 9:17:00 EDT,Height, 92, kg, 03/03/21 15:27:00 EDT, Dry Weight Start Date: 08/30/21 Stop Date: 11/29/21 Status: Ordered Problem List Condition Effective Dates [...]
--- OUTSIDE RECORDS SUMMARY | 2022-10-27 22:28 | XMS_ITS | Continuity of Care Document ---
:1965 Author Organization [facility] Address [address] [place] [address]- Care Team Providers Name Role Phone Richar Gordon MD Primary Care Physician Encounter [facility] [place] Date(s): 01/07/20 - 01/14/20 [facility] [address] [place] [address]- [facility] Attending Physician: Richar Gordon MD Allergies, Adverse [...] Date: 09/11/17 Status: Orderedalbuterol 0.083% inhalation solution See Instructions, 3 mL Neb [id number] 08/2020, # 2.5 mg, 0 Refills, Maintenance, 08/25/19 15:53:07 EDT Start Date: 08/25/19 Status: OrderedGenvoya oral tablet 1 tablet, By Mouth, Daily, with food, # 30 tablet, 5 Refills, Maintenance, 07/13/19 15:30:00 EDT, Tablet, 1 tablet By Mouth Daily,Instr:with food Start Date: 07/13/19 Status: Orderedlidocaine 4% topical film 1 patch, [...] 01/07/20 10:28:00 EST, Route to Pharmacy Electronically, [facility]/pharmacy #[id number], 168, cm, 01/07/20 10:04:00 EST, [...] 01/07/20 10:28:00 EST, Route to Pharmacy Electronically, [facility]/pharmacy #[id number], 168, cm, 01/07/20 10:04:00 EST, Height, 86.8, kg, 02/18/19 13:15:00 EDT, Dry Weight Start Date: 01/07/20 Status: Orderedmontelukast 10 mg oral tablet 10 mg, 1, tablet, By Mouth, Daily, # 90 tablet, Refills 3, Tot. Refills 3, Maintenance, 01/07/20 10:28:00 EST, Route to Pharmacy Electronically, [facility]/pharmacy #[id number], 168, cm, 01/07/20 10:04:00 EST, [...] 196:11:41 EDT, Aerosol, Route to Pharmacy Electronically, [id number], [facility]/pharmacy #[id number] Start Date: 05/12/19 Status: OrderedSymbicort 80mcg/4.5mcg Inhaler 2, puffs, Inhalation, 2 times a day, # 6.9 Gm, Refills 5, Tot. Refills 5, Maintenance, 09/28/19 8:50:05 EDT, Aerosol, Route to Pharmacy Electronically, [id number], [facility] #[id number] Start Date: 09/28/19 Status: OrderedtraMADol 50 mg oral tablet 1 tablet = 50 mg, By Mouth, 2 times a day, PRN Pain , Moderate, # 14 tablet, 3 Refills, Maintenance,12/14/19 16:47:00 EST, [facility] #[id number], 168, cm, 09/28/19 8:13:00 EDT, Height, 86.8, kg,02/18/19 13:15:00 EDT, Dry Weight Start Date: 12/14/19 Status: OrderedVentolin HFA 108 mcg/inh inhalation aerosol with adapter 2 puffs, Inhalation, Every 6 hours, PRN for wheezing, # 8 Gm, 5 Refills, Maintenance, 05/12/19 15:24:49 EDT, Aerosol Start Date: 05/12/19 Status: Ordered Problem List Condition Effective Dates [...] oldest [Reference Range]: 1 Height 168 cm (01/07/20 10:04 AM) Weight 86.6 kg (01/07/20 10:04 AM) Oxygen Saturation [94-100 %] 98 % (01/07/20 10:04 AM) Pulse Rate [55-90 bpm] 53 bpm *L* (01/07/20 10:04 AM) Body Mass Index [18.5-24.99] 30.68 *>HHI* (01/07/20 10:04 AM) Blood Pressure [90-138/55-84 mm Hg] 130/70 mm Hg (01/07/20 10:04 AM) Temperature [96.8-100.4 DegF] 98.3 DegF (01/07/20 10:04 AM) Mode of Delivery (Oxygen) Room air (01/07/20 10:04 AM) Blood pressure sites Arm, right (01/07/20 10:04 AM) Temperature Route Oral (01/07/20 10:04 AM) Weight Obtained Via Standing scale (01/07/20 10:04 AM) Social History Social History Type Response Smoking Status Former smoker, quit more hernan n 30 days ago entered on: 05/11/19 Sex
--- NOTE | 2022-10-27 22:29 | ED_ITS ---
HPI - General Adult General Chief complaint: General Medical Stated complaint: sob,mouth and throat soreness Time Seen by Provider: 10/27/22 22:29 Source: patient Mode of arrival: ambulatory Limitations: no limitations History of Present Illness HPI narrative: 56-year-old male who presents emergency department for evaluation of a burning sensation in his throat in time that started 3 days prior. Patient states that his asthma has been out of control and he has been on steroids for approximately 1 and half months. He states he finished his steroids 3 days prior and his doctor started him on a new inhaled medication which he takes twice a day. He states that over the past 3 days he has had a burning sensation in his mouth and tongue these notice whiteness in the back of his mouth and on his tongue. He d enied fever, chills, rhinorrhea, shortness of breath, dyspnea on exertion. He states that he has a nonproductive dry cough which is secondary to his asthma. The patient states this the 1st time he has had white lesions and pain in his throat and time. Related Data Previous Rx's Medication Instructions Recorded gentamicin 0.3 % eye drops 1 drp ophthalmic-Left Q4H #5 mL 04/16/21 albuterol sulfate 90 mcg/actuation 2 puff inhalation Q4-6H PRN 11/15/21 aerosol inhaler shortness of breath or wheezing #8.5 grams prednisone 20 mg tablet 60 mg PO DAILY #12 tabs 11/15/21 naproxen 500 mg tablet 500 mg PO BID PRN pain #14 tabs 03/09/22 oxycodone 5 mg tablet 5 mg PO Q6H PRN pain #14 tabs 03/09/22 prednisone 20 mg tablet 40 mg PO DAILY rash 5 days #10 tabs 03/09/22 clotrimazole 10 mg yi 10 mg mucous membrane 5XD 7 days 10/27/22 #35 tabs Allergies Allergy/AdvReac Type Severity Reaction Status Date / Time Sulfa (Sulfonamide Allergy Unknown Unknown Verified 04/16/21 11:49 Antibiotics) No Known Allergies Allergy Unverified 08/18/20 15:21 Benadryl Allergy Unknown Irritable Uncoded 04/16/21 11:49 Review of Systems Review of Systems: Yes all other systems are reviewed and are negative [facility] Past Medical History [facility] Narrative: Past medical history: Hypertension, myocardial infarction, depression, HIV. Social history: He denies tobacco, alcohol and drug use. Medical History High blood pressure HIV (human immunodeficiency virus infection) Social History Social History Advance Directives: No Advance Directives Information Provided: Yes Physical Exam ED Vital Signs: Vital Signs - 24 hr 10/27/22 20:57 Temperature 98.1 F Pulse Rate 66 Respiratory Rate 18 Blood Pressure 122/71 Pulse Oximetry 97 Oxygen Delivery Method Room Air BMI result Body Mass Index 35.0 Const General: cooperative and no acute distress Orientation/consciousness: oriented to person and oriented to place Limitations: no limitations HENMT Head: Yes normal to inspection, Yes normocephalic and Yes atraumatic Ears: external ears normal General nose exam: Normal external nose present Face and sinus: Yes normal facial exam Mouth: other (Thrush on tongue , buccal mucosa and posterior pharynx) Eyes General: appearance normal, both eyes and all related structures Pupils: Equal, round and reactive pupils present Neck Neck: Yes normal visual inspection, Yes no lymphadenopathy, Yes trachea midline and Yes supple Chest Chest palpation & inspection: normal inspection of the chest and normal palpation of entire chest wall Resp Effort & Inspection: normal respiratory effort and able to speak in complete sentences Auscultation: clear to auscultation bilaterally Cardio Rate: regular rate Rhythm: regular rhythm Heart sounds: S1 normal heart sound present, S2 normal heart sound present and no murmurs GI Inspection: Yes normal to inspection Palpation (GI): Soft to palpation, nontender and no guarding Auscultation: normal bowel sounds General: Yes no CVA tenderness Back/Spine/Pelvis Back: no CVA tenderness Skin General skin exam: no rashes or lesions noted Neuro General: oriented to person and oriented to place Cranial nerves: Yes CN's II-XII intact bilaterally and Yes Equal, round and reactive pupils present Cognition (Neuro): normal cognition Motor exam (neuro): 5/5 motor strength present throughout Extrem General: Yes normal to inspection Psych Appearance: grossly normal Speech and movement: Normal speech and movement present Affect: normal affect Attitude: cooperative Thought process: Normal thought process present Thought content: Normal thought content present Course Course Course Narrative: 56-year-old male with history of HIV, asthma on steroids for 1 1/2 months with course completed 3 days prior, new inhaled medication 3 days prior for his asthma who presents emergency department for evaluation of mouth, throat and tongue pain x3 days. Physical examination is consistent with thrush. The patient's COVID-19, influenza and strep test were negative. The patient was started on Mycelex troches pill dissolved in his mouth 5 times a day for 1 week. He was advised to rinse his mouth out with warm water after using his new inhaler since this may be a steroid inhaler. Advised follow-up with his PCP for re-evaluation and return if his symptoms get worse. Medical Decision Making Lab Data Labs: Lab Results 10/27/22 10/27/22 Range/Units 22:15 22:15 Influenza Type A (PCR) NEGATIVE (Negative) Influenza Type B (PCR) NEGATIVE (Negative) RSV RNA Qual (PCR) NEGATIVE (Negative) SARS-CoV-2 RNA (RT-PCR) NEGATIVE (Negative) S. pyogenes GrpA JAYCEE Negative (Negative) Discharge Plan Discharge Clinical Impression: Thrush, Candidiasis of mouth Patient Disposition: Home, Self-Care Instructions: Oral Candidiasis (ED) Additional Instructions: Your strep test was negative Your if COVID-19 influenza were negative. Your findings of your mouth are consistent with a yeast infection (candidiasis/thrush) of your mouth caused either by your oral steroids or by your new inhaler. After use your new inhaler you should rinse your mouth out with warm water. Use the Mycelex Troches, 1 wafer dissolved in your mouth 5 times a day for the next week Follow-up with your doctor in 2 days. Please return to the emergency department if your symptoms get worse or if you develop any symptoms that are concerning to you. Prescriptions: New clotrimazole 10 mg iy 10 mg mucous membrane 5XD 7 Days Qty: 35 0RF No Action gentamicin 0.3 % drops 1 drp ophthalmic-Left Q4H Qty: 5 0RF oxycodone 5 mg tablet 5 mg PO Q6H PRN (Reason: pain) Qty: 14 0RF prednisone 20 mg tablet 40 mg PO DAILY 5 Days Qty: 10 0RF naproxen 500 mg tablet 500 mg PO BID PRN (Reason: pain) Qty: 14 0RF prednisone 20 mg tablet 60 mg PO DAILY Qty: 12 0RF albuterol sulfate 90 mcg/actuation HFA aerosol inhaler 2 puff inhalation Q4-6H PRN (Reason: shortness of breath or wheezing) Qty: 8.5 0RF
--- OUTSIDE RECORDS SUMMARY | 2022-10-27 22:29 | XMS_ITS | Continuity of Care Document ---
:1965 Author Organization [facility] Address [address] [place] [address]- Care Team Providers Name Role Phone Richar Gordon MD Primary Care Physician Encounter [facility] [place] Date(s): 11/21/20 - 12/21/20 [facility] [address] [place] [id number] [[email or web address] Attending Physician: AdmTam patiño Admitting Physician: Admtr, Ar8 Referring Physician: Admtr, Ar8 Allergies, Adverse Reactions, Alerts Substance Reaction Severity Status amoxicillin nausea and vomiting Active gabapentin anxiety Active atorvastatin Dyspnea Active Cipro HC rash Active Augmentin nausea and vomiting Active Bactrim swelling Active Benadryl Swelling/Edema Active Rash/Dermatitis Anxiety state Anoro Ellipta Active Pulmicort Flexhaler Active Immunizations Given and Recorded Vaccine Date Status Refusal Reason influenza virus vaccine, inactivated 09/01/20 Recorded Influenza [...] tablet, Refills 5, Tot. Refills 5, Maintenance, 11/21/20 15:14:00 EST, Route to Pharmacy Electronically, [facility]/pharmacy #[id number], Partial fill upon patient request if the prescription is for a schedule II opioid drug.... Start Date: 11/21/20 Stop Date: 05/20/21 Status: Orderedaspirin 81 mg oral tablet, chewable 81 mg, 1, tablet, By Mouth, Daily, # 30 tablet, Refills 0, Maintenance, 11/21/20 15:15:00 EST, Partial fill upon patient request if the prescription is for a schedule II opioid drug. Start Date: 11/21/20 Status: OrderedBuPROPion (Eqv-Wellbutrin SR) 150 mg/12 hours oral tablet, extended release TAKE 1 TABLET BY MOUTH TWICE DAILY Start Date: 11/30/20 Status: OrderedGenvoya oral tablet 1 tablet, By Mouth, Daily, for 30 days, # 30 tablet, 5 Refills, Physician Stop 03/06/21 10:42:00 EDT, 09/07/20 10:42:00 EDT, [id number], 1 tablet By Mouth Daily,x30 days, 169, cm, 08/16/20 8:41:00 EDT, Height, 91, kg, 08/10/20 1:22:00... Start Date: 09/07/20 Stop Date: 03/06/21 Status: Orderedlisinopril 20 mg oral tablet 20 mg, 1, tablet, By Mouth, Daily, # 90 tablet, Refills 3, Tot. Refills 3, Maintenance, 12/14/20 11:13:00 EST, Route to Pharmacy Electronically, [facility]/pharmacy #[id number], 167, cm, 12/14/20 8:40:00 EST, Height, 91.3, kg, 11/30/20 17:07:00 EST, Dry Weight Start Date: 12/14/20 Status: OrderedLORazepam 1 mg oral tablet 1 tablet = 1 mg, By Mouth, PRN as needed for anxiety, 0 Refills, Maintenance, 06/29/18 13:11:09 EDT Start Date: 06/29/18 Status: OrderedMetoprolol Tartrate 25 mg oral tablet 0 Refills, Maintenance, 11/21/20 15:13:00 EST, Partial fill upon patient request if the prescriptionis for a schedule II opioid drug. Start Date: 11/21/20 Status: Orderedmontelukast 10 mg oral tablet 10 mg, 1, tablet, By Mouth, Daily, # 90 tablet, Refills 3, Tot. Refills 3, Maintenance, 04/07/20 9:23:00 EDT, Route to Pharmacy Electronically, [facility]/pharmacy #[id number], 168, cm, 02/08/20 15:35:00 EDT, Height, 86.8, kg, 02/18/19 13:15:00 EDT, Dry Weight Start Date: 04/07/20 Status: Orderedomeprazole 20 mg oral enteric coated capsule 1 capsule = 20 mg, By Mouth, 2 times a day, # 180 capsule, 0 Refills, Maintenance, 11/20/20 11:33:00EST, EC Capsule, [facility]/pharmacy #[id number], 167, cm, 10/12/20 10:08:00 EST, Height, 90.2, kg, 09/09/20 21:48:00 EDT, Dry Weight Start Date: 11/20/20 Status: OrderedProAir HFA 90 mcg/inh inhalation aerosol with adapter 2, puffs, Inhalation, Every 6 hours, PRN, # 8.5 Gm, Refills 5, Tot. Refills 5, Maintenance, 10/11/2010:14:00 EST, Aerosol, Route to Pharmacy Electronically, [id number], [facility]/pharmacy #[id number], 169, cm, 10/11/20 9:44:00 EST, Heig... Start Date: 10/11/20 Status: OrderedtraMADol 50 mg oral tablet 2 tablet = 100 mg, By Mouth, Every 6 hours, Increased dose; may fill for less than full amount, # 224 tablet, 2 Refills, Acute 01/14/21 11:09:00 EST, 12/18/20 15:37:00 EST, [facility]/pharmacy #[id number], 167, cm,12/14/20 8:40:00 EST, Height, 91.3, kg, 11/30/20... Start Date: 12/18/20 Stop Date: 01/14/21 Status: Ordered Problem List Condition Effective Dates [...]
--- OUTSIDE RECORDS SUMMARY | 2022-10-27 22:29 | XMS_ITS | Continuity of Care Document ---
:1965 Author Organization [facility] Address [address] [place] [address]- Care Team Providers Name Role Phone Evan PEREZ, Richar Weldon Primary Care Phys[place] [facility] [place] [facility] [address] [place] [id number] Allergies, Adverse Reactions, Alerts Substance [...] 04/05/21 14:25:00 EDT, Route to Pharmacy Electronically, [facility]/pharmacy #[id number], Partial fill upon patient request if the prescription is f... Start Date: 04/05/21 Status: Orderedaspirin 81 mg oral tablet, chewable 81 mg, 1, tablet, By Mouth, Daily, # 30 tablet, Refills 5, Tot. Refills 5, Maintenance, 01/18/21 11:29:00 EST, Route to Pharmacy Electronically, [facility]/pharmacy #[id number], Partial fill upon patient request ifthe prescription [...] Stop 07/31/21 14:13:00 EDT, 02/01/21 14:13:00 EST, [facility] #[id number], 1 tablet By Mouth Daily,x30 days, 167, [...] 12/14/20 11:13:00 EST, Route to Pharmacy Electronically, [facility]/pharmacy #[id number], 167, cm, 12/14/20 8:40:00 EST, Height, [...] 01/18/21 11:30:00 EST, [id number] Partial fill upon patient request ifthe prescription is for a schedule II opioid drug... Start Date: 01/18/21 Stop Date: 07/17/21 Status: Orderedmontelukast 10 mg oral tablet 10 mg, 1, tablet, By Mouth, Daily, # 90 tablet, Refills 3, Tot. Refills 3, Maintenance, 03/22/21 8:48:00 EDT, Route to Pharmacy Electronically, [facility]/pharmacy #[id number], 168, cm, 03/06/21 11:08:00 EDT, Height, 92, kg, 03/03/21 15:27:00 EDT, Dry Weight Start Date: 03/22/21 Status: Orderedomeprazole 20 mg oral enteric coated capsule 1 capsule = 20 mg, By Mouth, 2 times a day, # 180 capsule, 0 Refills, Maintenance, 02/16/21 10:57:00EDT, EC Capsule, [facility]/pharmacy #[id number], 167, cm, 12/14/20 8:40:00 EST, Height, 91.3, kg, 11/30/20 17:07:00 EST, Dry Weight Start Date: 02/16/21 Status: OrderedProAir HFA 90 mcg/inh inhalation aerosol with adapter 2, puffs, Inhalation, Every 6 hours, PRN, # 8.5 Gm, Refills 8, Tot. Refills 8, Maintenance, 03/07/2115:41:00 EDT, Aerosol, Route to Pharmacy Electronically, [id number], [facility]/pharmacy #[id number], 168, cm, 03/06/21 11:08:00 EDT, Hei... Start Date: 03/07/21 Status: OrderedProAir HFA 90 mcg/inh inhalation aerosol with adapter 2, puffs, Inhalation, Every 6 hours, PRN, Requests ProAir, # 8.5 Gm, Refills 5, Tot. Refills 5, Maintenance, 03/22/21 8:49:00 EDT, Aerosol, Route to Pharmacy Electronically, [id number], [facility]/pharmacy #[id number], 168, cm, 03/06/21 1... Start Date: 03/22/21 Status: Orderedrosuvastatin 10 mg oral tablet 1 tablet, By Mouth, Daily, # 90 tablet, 1 Refills, Maintenance, 05/04/21 7:31:00 EDT, [facility], 168, cm, 05/02/21 8:45:00 EDT, Height, 92, kg, 03/03/21 15:27:00 EDT, Dry Weight Start Date: 05/04/21 Status: Orderedrosuvastatin 10 mg oral tablet 1 tablet = 10 mg, By Mouth, Daily, # 30 tablet, 5 Refills, Maintenance, 01/19/21 10:28:00 EST, Tablet, [facility]/pharmacy #[id number], Partial fill upon patient request if the prescription is for a schedule II opioid drug., 167, cm, 12/14/20 8:40:00 EST, Height,... Start Date: 01/19/21 Status: OrderedtraMADol 50 mg oral tablet 2 tablet = 100 mg, By Mouth, Every 12 hours, PRN NEEDED FOR PAIN, # 112 tablet, 0 Refills, Acute 03/09/22 8:16:00 EDT, 04/05/21 4:32:00 EDT, [facility]/pharmacy #[id number], 168, cm, 03/06/21 11:08:00 EDT, Height, [...]
--- OUTSIDE RECORDS SUMMARY | 2022-10-27 22:29 | XMS_ITS | Continuity of Care Document ---
:1965 Author Organization [facility] Address [address] [place] [address] Drive [address] [place] [address]- Care Team Providers Name Role Phone Richar Gordon MD Primary Care Physician Encounter [facility] [place] R [id number] Date(s): 12/28/21 - 04/12/22 [facility] [address] [place] [address] Drive [address] [place], [place] [address] Attending Physician: Rachel PEREZ, León Ragland Referring Physician: Richar Gordon MD Allergies, Adverse [...] 3 Refills, Maintenance, 02/26/22 9:26:00 EDT, Solution, [facility]/pharmacy #[id number], Partial fill upon patientrequest if the prescription is for a schedule II... Start Date: 02/26/22 Status: OrderedamLODIPine 2.5 mg oral tablet 1 tablet, By Mouth, Daily, # 90 tablet, 3 Refills, [facility], 168, cm, 11/17/21 10:55:00 EST, Height, 92, kg, 03/03/21 15:27:00 EDT, Dry Weight Start Date: 12/04/21 Status: OrderedamLODIPine 2.5 mg oral tablet 2.5 mg, 1, tablet, By Mouth, Daily, # 30 tablet, Refills 5, Tot. Refills 5, Maintenance, 05/22/21 13:11:00 EDT, Route to Pharmacy Electronically, [facility]/pharmacy #[id number], 168, cm, 05/02/21 8:45:00 EDT, Height, 92, kg, 03/03/21 15:27:00 EDT, Dry Weight Start Date: 05/22/21 Status: Orderedaspirin 81 mg oral tablet, chewable 81 mg, 1, tablet, By Mouth, Daily, # 30 tablet, Refills 5, Tot. Refills 5, Maintenance, 01/18/21 11:29:00 EST, Route to Pharmacy Electronically, [facility]/pharmacy #[id number], Partial fill upon patient request [...] Gm, 2 Refills, Maintenance, 09/04/21 19:43:00 EDT, [place],[facility]/pharmacy #[id number], Partial fill upon patient request if the prescription is for a schedule II opioid drug., 1 sprays Nares, Both 2 times a day, 168,... Start Date: 09/04/21 Status: OrderedGenvoya oral tablet 1 tablet, By Mouth, Daily, with food, # 30 tablet, 5 Refills, Maintenance, 01/29/22 21:33:00 EST, Tablet, [facility] #[id number], Partial fill upon patient request if the [...] tablet, Refills 1, Route to Pharmacy Electronically, [facility], 168, cm, 01/15/22 14:50:00 EST, Height, 92, kg, 03/03/21 15:27:00 EDT, Dry Weight Start Date: 02/06/22 Status: OrderedLORazepam 1 mg oral tablet 1 tablet = 1 mg, By Mouth, PRN as needed for anxiety, 0 Refills, Maintenance, 06/29/18 13:11:09 EDT Start Date: 06/29/18 Status: OrderedMetoprolol Succinate ER 25 mg oral tablet, extended release 1 tablet, By Mouth, Daily, # 90 tablet, 3 Refills, [facility] 25236, 168, cm, 01/09/22 10:35:00 EST, Height, 92, kg, 03/03/21 15:27:00 EDT, Dry Weight Start Date: 01/10/22 Status: OrderedMetoprolol Succinate ER 25 mg oral tablet, extended release 1 tablet, By Mouth, Daily, # 90 tablet, 1 Refills, Maintenance, 05/12/21 13:24:00 EDT, [facility], 168, cm, 05/02/21 8:45:00 EDT, Height, 92, kg, 03/03/21 15:27:00 EDT, Dry Weight Start Date: 05/12/21 Status: Orderedmontelukast 10 mg oral tablet 10 mg, 1, tablet, By Mouth, Daily, # 90 tablet, Refills 3, Tot. Refills 3, Maintenance, 01/15/22 16:17:00 EST, Route to Pharmacy Electronically, [facility]/pharmacy #[id number], 168, cm, 01/15/22 14:50:00 EST, Height, 92, kg, 03/03/21 15:27:00 EDT, Dry Weight Start Date: 01/15/22 Status: Orderedomeprazole 20 mg oral enteric coated capsule 1 capsule = 20 mg, By Mouth, 2 times a day, # 180 capsule, 3 Refills, Maintenance, 09/04/21 19:37:00EDT, EC Capsule, [facility]/pharmacy #[id number], 168, cm, 09/04/21 9:46:00 EDT, Height, 92, kg, 03/03/21 15:27:00 EDT, Dry Weight Start Date: 09/04/21 Status: OrderedProAir HFA 90 mcg/inh inhalation aerosol with adapter 2, puffs, Inhalation, Every 6 hours, PRN, # 8.5 Gm, Refills 8, Tot. Refills 8, Maintenance, 03/07/2115:41:00 EDT, Aerosol, Route to Pharmacy Electronically, [id number], [facility]/pharmacy #[id number], 168, cm, 03/06/21 11:08:00 EDT, Hei... Start Date: 03/07/21 Status: OrderedProAir HFA 90 mcg/inh inhalation aerosol with adapter 2, puffs, Inhalation, Every 6 hours, PRN, Requests ProAir, # 8.5 Gm, Refills 5, Tot. Refills 5, Maintenance, 12/27/21 9:37:00 EST, Aerosol, Route to Pharmacy Electronically, [id number], [facility]/pharmacy #[id number], 168, cm, 12/27/21 8... Start Date: 12/27/21 Status: Orderedrosuvastatin 10 mg oral tablet 1 tablet, By Mouth, Daily, # 90 tablet, 3 Refills, Maintenance, 11/06/21 8:54:00 EST, [facility]/pharmacy #[id number], 168, cm, 11/06/21 8:47:00 EST, [...] Acute 05/07/22 9:03:00 EDT, 11/06/21 9:02:00 EST, [facility]/pharmacy #[id number], 168, cm, 11/06/21 8:47:00 EST, Height,92, kg, 03/03/21 15:27:00 EDT, Dry Weight Start Date: 11/06/21 Stop Date: 05/07/22 Status: OrderedtraMADol 50 mg oral tablet 2 tablet = 100 mg, By Mouth, Every 6 hours, PRN NEEDED FOR PAIN, # 224 tablet, 5 Refills, Acute 08/29/22 9:26:00 EDT, 05/07/22 9:03:00 EDT, [facility]/pharmacy #[id number], 168, cm, 02/26/22 8:34:00 EDT, [...]
--- OUTSIDE RECORDS SUMMARY | 2022-10-27 22:29 | XMS_ITS | Continuity of Care Document ---
:1965 Author Organization [facility] Address [address] [place] [address]- Care Team Providers Name Role Phone Richar Gordon MD Primary Care Physician Encounter [facility] [place] Date(s): 05/02/21 - 05/09/21 [facility] [address] [place] [address]- Attending Physician: Richar Gordon MD Allergies, Adverse Reactions, Alerts Substance Reaction Severity Status amoxicillin nausea and vomiting Active gabapentin anxiety Active Cipro HC rash Active Augmentin nausea and vomiting Active Bactrim swelling Active Benadryl Swelling/Edema Active Rash/Dermatitis Anxiety state Pulmicort Flexhaler Active Anoro Ellipta Active atorvastatin Dyspnea Active Immunizations Given and Recorded Vaccine Date [...] 04/05/21 14:25:00 EDT, Route to Pharmacy Electronically, [facility]/pharmacy #[id number], Partial fill upon patient request if the prescription is f... Start Date: 04/05/21 Status: Orderedaspirin 81 mg oral tablet, chewable 81 mg, 1, tablet, By Mouth, Daily, # 30 tablet, Refills 5, Tot. Refills 5, Maintenance, 01/18/21 11:29:00 EST, Route to Pharmacy Electronically, [facility]/pharmacy #[id number], Partial fill upon patient request [...] Stop 07/31/21 14:13:00 EDT, 02/01/21 14:13:00 EST, [facility] #[id number], 1 tablet By Mouth Daily,x30 days, 167, [...] 12/14/20 11:13:00 EST, Route to Pharmacy Electronically, [facility]/pharmacy #[id number], 167, cm, 12/14/20 8:40:00 EST, [...] 01/18/21 11:30:00 EST, Route to Pharmacy Electronically, [facility]/pharmacy #[id number], Partial fill upon patient request ifthe prescription is for a schedule II opioid drug... Start Date: 01/18/21 Stop Date: 07/17/21 Status: Orderedmontelukast 10 mg oral tablet 10 mg, 1, tablet, By Mouth, Daily, # 90 tablet, Refills 3, Tot. Refills 3, Maintenance, 03/22/21 8:48:00 EDT, Route to Pharmacy Electronically, [facility]/pharmacy #[id number], 168, cm, 03/06/21 11:08:00 EDT, Height, 92, kg, 03/03/21 15:27:00 EDT, Dry Weight Start Date: 03/22/21 Status: Orderedomeprazole 20 mg oral enteric coated capsule 1 capsule = 20 mg, By Mouth, 2 times a day, # 180 capsule, 0 Refills, Maintenance, 02/16/21 10:57:00EDT, EC Capsule, [facility]/pharmacy #[id number], 167, cm, 12/14/20 8:40:00 EST, Height, 91.3, kg, 11/30/20 17:07:00 EST, Dry Weight Start Date: 02/16/21 Status: OrderedProAir HFA 90 mcg/inh inhalation aerosol with adapter 2, puffs, Inhalation, Every 6 hours, PRN, # 8.5 Gm, Refills 8, Tot. Refills 8, Maintenance, 03/07/2115:41:00 EDT, Aerosol, Route to Pharmacy Electronically, [id number], [facility]/pharmacy #[id number], 168, cm, 03/06/21 11:08:00 EDT, Hei... Start Date: 03/07/21 Status: OrderedProAir HFA 90 mcg/inh inhalation aerosol with adapter 2, puffs, Inhalation, Every 6 hours, PRN, Requests ProAir, # 8.5 Gm, Refills 5, Tot. Refills 5, Maintenance, 03/22/21 8:49:00 EDT, Aerosol, Route to Pharmacy Electronically, [id number], [facility]/pharmacy #[id number], 168, cm, 03/06/21 1... Start Date: 03/22/21 Status: Orderedrosuvastatin 10 mg oral tablet 1 tablet, By Mouth, Daily, # 90 tablet, 1 Refills, Maintenance, 05/04/21 7:31:00 EDT, [facility], 168, cm, 05/02/21 8:45:00 EDT, Height, 92, kg, 03/03/21 15:27:00 EDT, Dry Weight Start Date: 05/04/21 Status: Orderedrosuvastatin 10 mg oral tablet 1 tablet = 10 mg, By Mouth, Daily, # 30 tablet, 5 Refills, Maintenance, 01/19/21 10:28:00 EST, Tablet, [facility]/pharmacy #[id number], Partial fill upon patient request if the prescription is for a schedule II opioid drug., 167, cm, 12/14/20 8:40:00 EST, Height,... Start Date: 01/19/21 Status: OrderedtraMADol 50 mg oral tablet 2 tablet = 100 mg, By Mouth, Every 12 hours, PRN NEEDED FOR PAIN, # 112 tablet, 0 Refills, Acute 03/09/22 8:16:00 EDT, 04/05/21 4:32:00 EDT, [facility]/pharmacy #[id number], 168, cm, 03/06/21 11:08:00 EDT, [...] oldest [Reference Range]: 1 Height 168 cm (05/02/21 8:45 AM) Weight 89.8 kg (05/02/21 8:45 AM) Oxygen Saturation [94-100 %] 98 % (05/02/21 8:45 AM) Pulse Rate [55-90 bpm] 51 bpm *L* (05/02/21 8:45 AM) Body Mass Index [18.5-24.99] 31.82 *>HHI* (05/02/21 8:45 AM) Blood Pressure [90-138/55-84 mm Hg] 122/88 mm Hg (05/02/21 8:45 AM) Temperature [96.8-100.4 DegF] 98.1 DegF (05/02/21 8:45 AM) Mode of Delivery (Oxygen) Room air (05/02/21 8:45 AM) Blood pressure sites Arm, left (05/02/21 8:45 AM) Temperature Route Oral (05/02/21 8:45 AM) Weight Obtained Via Standing scale (05/02/21 8:45 AM) Social History Social History Type Response Smoking Status Former smoker, quit more hernan n 30 days ago entered on: 05/11/19 Sex
--- OUTSIDE RECORDS SUMMARY | 2022-10-27 22:29 | XMS_ITS | Continuity of Care Document ---
:1965 Author Organization [facility] Address [address] [place] [address]- Care Team Providers Name Role Phone Evan PEREZ, Richar Weldon Primary Care Physician [place] [facility] [place] 05/16/21 - 06/15/21 [facility] [address] [place] [address]- Allergies, Adverse Reactions, Alerts Substance Reaction Severity [...] 05/22/21 13:11:00 EDT, Route to Pharmacy Electronically, [facility]/pharmacy #[id number], 168, cm, 05/02/21 8:45:00 EDT, Height, 92, kg, 03/03/21 15:27:00 EDT, Dry Weight Start Date: 05/22/21 Status: Orderedaspirin 81 mg oral tablet, chewable 81 mg, 1, tablet, By Mouth, Daily, # 30 tablet, Refills 5, Tot. Refills 5, Maintenance, 01/18/21 11:29:00 EST, [id number] Partial fill upon patient request ifthe [...] Stop 11/25/21 11:25:00 EST, 05/29/21 11:25:00 EDT, [facility] #[id number], 1 tablet By Mouth Daily,x30 days, 168, cm, 05/02/21 8:45:00 EDT, Height, 92, kg, 03/03/21 15:27:0... Start Date: 05/29/21 Stop Date: 11/25/21 Status: OrderedGenvoya oral tablet 1 tablet, By Mouth, Daily, for 30 days, # 30 tablet, 5 Refills, Physician Stop 07/31/21 14:13:00 EDT, 02/01/21 14:13:00 EST, [facility] #[id number], 1 tablet By Mouth Daily,x30 days, 167, [...] 12/14/20 11:13:00 EST, Route to Pharmacy Electronically, [facility]/pharmacy #[id number], 167, cm, 12/14/20 8:40:00 [...] tablet, 1 Refills, Maintenance, 05/12/21 13:24:00 EDT, [facility], 168, cm, 05/02/21 8:45:00 EDT, Height, 92, kg, 03/03/21 15:27:00 EDT, Dry Weight Start Date: 05/12/21 Status: Orderedmontelukast 10 mg oral tablet 10 mg, 1, tablet, By Mouth, Daily, # 90 tablet, Refills 3, Tot. Refills 3, Maintenance, 03/22/21 8:48:00 EDT, Route to Pharmacy Electronically, [facility]/pharmacy #[id number], 168, cm, 03/06/21 11:08:00 EDT, Height, 92, kg, 03/03/21 15:27:00 EDT, Dry Weight Start Date: 03/22/21 Status: Orderedomeprazole 20 mg oral enteric coated capsule 1 capsule = 20 mg, By Mouth, 2 times a day, # 180 capsule, 0 Refills, Maintenance, 02/16/21 10:57:00EDT, EC Capsule, [facility]/pharmacy #[id number], 167, cm, 12/14/20 8:40:00 EST, Height, 91.3, kg, 11/30/20 17:07:00 EST, Dry Weight Start Date: 02/16/21 Status: OrderedProAir HFA 90 mcg/inh inhalation aerosol with adapter 2, puffs, Inhalation, Every 6 hours, PRN, # 8.5 Gm, Refills 8, Tot. Refills 8, Maintenance, 03/07/2115:41:00 EDT, Aerosol, Route to Pharmacy Electronically, [id number], [facility]/pharmacy #[id number], 168, cm, 03/06/21 11:08:00 EDT, Hei... Start Date: 03/07/21 Status: OrderedProAir HFA 90 mcg/inh inhalation aerosol with adapter 2, puffs, Inhalation, Every 6 hours, PRN, Requests ProAir, # 8.5 Gm, Refills 5, Tot. Refills 5, Maintenance, 03/22/21 8:49:00 EDT, Aerosol, Route to Pharmacy Electronically, [id number], [facility]/pharmacy #[id number], 168, cm, 03/06/21 1... Start Date: 03/22/21 Status: Orderedrosuvastatin 10 mg oral tablet 1 tablet, By Mouth, Daily, # 90 tablet, 1 Refills, Maintenance, 05/04/21 7:31:00 EDT, [facility] 137[facility], 168, cm, 05/02/21 8:45:00 EDT, Height, 92, kg, 03/03/21 15:27:00 EDT, Dry Weight Start Date: 05/04/21 Status: OrderedtraMADol 50 mg oral tablet 2 tablet = 100 mg, By Mouth, Every 12 hours, PRN NEEDED FOR PAIN, # 112 tablet, 0 Refills, Acute 03/09/22 8:16:00 EDT, 04/05/21 4:32:00 EDT, [facility]/pharmacy #[id number], 168, cm, 03/06/21 11:08:00 [...]
--- OUTSIDE RECORDS SUMMARY | 2022-10-27 22:29 | XMS_ITS | Continuity of Care Document ---
:1965 Author Organization [facility] Address [address] [place] [address]- Care Team Providers Name Role Phone Richar Gordon MD Primary Care Physician [place] [facility] [place] 08/15/21 - 09/14/21 [facility] [address] [place] [id number] Attending Physician: Admtr, Ar8 Admitting Physician: Admtr, Ar8 Referring Physician: Admtr, [...] each, 5Refills, Maintenance, 09/11/21 14:21:00 EDT, Solution, [facility]/pharmacy #[id number], Partial fill upon patientrequest if the prescription is for a schedule II... Start Date: 09/11/21 Status: OrderedamLODIPine 2.5 mg oral tablet 2.5 mg, 1, tablet, By Mouth, Daily, # 30 tablet, Refills 5, Tot. Refills 5, Maintenance, 05/22/21 13:11:00 EDT, Route to Pharmacy Electronically, [facility]/pharmacy #[id number], 168, cm, 05/02/21 8:45:00 EDT, Height, 92, kg, 03/03/21 15:27:00 EDT, Dry Weight Start Date: 05/22/21 Status: Orderedaspirin 81 mg oral tablet, chewable 81 mg, 1, tablet, By Mouth, Daily, # 30 tablet, Refills 5, Tot. Refills 5, Maintenance, 01/18/21 11:29:00 EST, Route to Pharmacy Electronically, [facility]/pharmacy #[id number], Partial fill upon patient request ifthe [...] Gm, 2 Refills, Maintenance, 09/04/21 19:43:00 EDT, [place],[facility]/pharmacy #[id number], Partial fill upon patient request if the prescription is for a schedule II opioid drug., 1 sprays Nares, Both 2 times a day, 168,... Start Date: 09/04/21 Status: OrderedGenvoya oral tablet 1 tablet, By Mouth, Daily, for 30 days, # 30 tablet, 5 Refills, Physician Stop 11/25/21 11:25:00 EST, 05/29/21 11:25:00 EDT, [facility] #[id number], 1 tablet By Mouth Daily,x30 days, 168, cm, 05/02/21 8:45:00 EDT, Height, 92, kg, 03/03/21 15:27:0... Start Date: 05/29/21 Stop Date: 11/25/21 Status: [facility] See Instructions, # [...] 12/14/20 11:13:00 EST, Route to Pharmacy Electronically, [facility]/pharmacy #[id number], 167, cm, 12/14/20 8:40:00 EST, Height, [...] tablet, 1 Refills, Maintenance, 05/12/21 13:24:00 EDT, [facility] [address], 168, cm, 05/02/21 8:45:00 EDT, Height, 92, kg, 03/03/21 15:27:00 EDT, Dry Weight Start Date: 05/12/21 Status: Orderedmontelukast 10 mg oral tablet 10 mg, 1, tablet, By Mouth, Daily, # 90 tablet, Refills 3, Tot. Refills 3, Maintenance, 03/22/21 8:48:00 EDT, Route to Pharmacy Electronically, [facility]/pharmacy #[id number], 168, cm, 03/06/21 11:08:00 EDT, Height, 92, kg, 03/03/21 15:27:00 EDT, Dry Weight Start Date: 03/22/21 Status: Orderedomeprazole 20 mg oral enteric coated capsule 1 capsule = 20 mg, By Mouth, 2 times a day, # 180 capsule, 3 Refills, Maintenance, 09/04/21 19:37:00EDT, EC Capsule, [facility]/pharmacy #[id number], 168, cm, 09/04/21 9:46:00 EDT, Height, 92, kg, 03/03/21 15:27:00 EDT, Dry Weight Start Date: 09/04/21 Status: OrderedProAir HFA 90 mcg/inh inhalation aerosol with adapter 2, puffs, Inhalation, Every 6 hours, PRN, # 8.5 Gm, Refills 8, Tot. Refills 8, Maintenance, 03/07/2115:41:00 EDT, Aerosol, Route to Pharmacy Electronically, [id number], [facility]/pharmacy #[id number], 168, cm, 03/06/21 11:08:00 EDT, Hei... Start Date: 03/07/21 Status: OrderedProAir HFA 90 mcg/inh inhalation aerosol with adapter 2, puffs, Inhalation, Every 6 hours, PRN, Requests ProAir, # 8.5 Gm, Refills 5, Tot. Refills 5, Maintenance, 03/22/21 8:49:00 EDT, Aerosol, Route to Pharmacy Electronically, [id number], [facility]/pharmacy #[id number], 168, cm, 03/06/21 1... Start Date: 03/22/21 Status: Orderedrosuvastatin 10 mg oral tablet 1 tablet, By Mouth, Daily, # 90 tablet, 3 Refills, Maintenance, 08/18/21 9:20:00 EDT, [facility]/pharmacy #[id number], 168, cm, 08/15/21 9:17:00 EDT, Height, [...] Refills,Acute 11/29/21 7:02:00 EST, 08/30/21 7:01:00 EDT, [id number], 168, cm, 08/15/21 9:17:00 EDT,Height, 92, [...]
--- OUTSIDE RECORDS SUMMARY | 2022-10-27 22:29 | XMS_ITS | Continuity of Care Document ---
:1965 Author Organization [facility] Address [address] [place] [id number]- Care Team Providers Name Role Phone Evan PEREZ, Richar Weldon Primary Care Physician Encounter [facility] [place] Date(s): 03/10/20 - 03/20/20 [facility] [address] [place] [id number]- [facility] Attending Physician: AdmTam patiño Admitting Physician: AdmtrTam Referring Physician: Admtr, Ar8 Allergies, Adverse Reactions, Alerts Substance Reaction Severity Status amoxicillin nausea and vomiting Active Cipro HC rash Active Benadryl Swelling/Edema Active Rash/Dermatitis Anxiety state Pulmicort Flexhaler Active gabapentin anxiety Active Augmentin nausea and vomiting Active Bactrim swelling Active Immunizations Given and Recorded Vaccine Date [...] each, 5 Refills, Maintenance, 02/08/20 16:44:00 EDT, [facility]/pharmacy #[id number], 168, cm, 02/08/20 15:35:00 EDT, Height, 86.8, kg, 02/18/19 13:15:00 EDT, Dry Weight Start Date: 02/08/20 Status: OrderedGenvoya oral tablet 1 tablet, By Mouth, Daily, with food, # 30 tablet, 11 Refills, Maintenance, 03/02/20 11:05:00 EDT, Tablet, [facility], [id number], 1 tablet By Mouth Daily,Instr:with food, 168, [...] 01/07/20 10:28:00 EST, Route to Pharmacy Electronically, [facility]/pharmacy #[id number], 168, cm, 01/07/20 10:04:00 EST, Height, [...] 01/07/20 10:28:00 EST, Route to Pharmacy Electronically, [facility]/pharmacy #[id number], 168, cm, 01/07/20 10:04:00 EST, Height, 86.8, kg, 02/18/19 13:15:00 EDT, Dry Weight Start Date: 01/07/20 Status: Orderedmontelukast 10 mg oral tablet 10 mg, 1, tablet, By Mouth, Daily, # 90 tablet, Refills 3, Tot. Refills 3, Maintenance, 01/07/20 10:28:00 EST, Route to Pharmacy Electronically, [facility]/pharmacy #[id number], 168, cm, 01/07/20 10:04:00 EST, Height, 86.8, kg, 02/18/19 13:15:00 EDT, Dry Weight Start Date: 01/07/20 Status: OrderedNuLYTELY with Flavor Packs oral powder for reconstitution See Instructions, SPLIT PREP, # 4,000 mL, 0 Refills, Maintenance, 03/10/20 10:36:00 EDT, [facility] Rx #[id number], SPLIT PREP, 168, cm, 02/08/20 15:35:00 EDT, [...] :11:41 EDT, Aerosol, Route to Pharmacy Electronically, [id number], [facility]/pharmacy #[id number] Start Date: 05/12/19 Status: OrderedSymbicort 80mcg/4.5mcg Inhaler 2, puffs, Inhalation, 2 times a day, # 6.9 Gm, Refills 5, Tot. Refills 5, Maintenance, 09/28/19 8:50:05 EDT, Aerosol, Route to Pharmacy Electronically, [id number], [facility]ORE #[id number] Start Date: 09/28/19 Status: OrderedtraMADol 50 mg oral tablet 1 tablet = 50 mg, By Mouth, Every 6 hours, PRN Pain , Severe, # 112 tablet, 5 Refills, Acute 09/13/20 8:41:00 EDT, 03/14/20 8:40:00 EDT, [facility]/pharmacy #[id number], 168, cm, 02/08/20 15:35:00 EDT, Height, 86.8, kg, 02/18/19 13:15:00 EDT, Dry Weight Start Date: 03/14/20 Stop Date: 09/13/20 Status: OrderedtraMADol 50 mg oral tablet 1 tablet = 50 mg, By Mouth, 2 times a day, PRN Pain , Moderate, # 14 tablet, 3 Refills, Maintenance,12/14/19 16:47:00 EST, [facility]ORE #[id number], 168, cm, 09/28/19 8:13:00 EDT, Height, 86.8, kg,02/18/19 13:15:00 EDT, Dry Weight Start Date: 12/14/19 Status: OrderedtraMADol 50 mg oral tablet 1 tablet = 50 mg, By Mouth, 2 times a day, PRN Pain , Moderate, # 14 tablet, 3 Refills, Maintenance,02/18/20 7:51:00 EDT, [facility]/pharmacy #[id number], 168, cm, 02/08/20 15:35:00 EDT, [...]
--- OUTSIDE RECORDS SUMMARY | 2022-10-27 22:29 | XMS_ITS | Continuity of Care Document ---
:1965 Author Organization [facility] Address [address] [place] [id number]- Care Team Providers Name Role Phone Evan PEREZ, Richar Weldon Primary Care Physician [place] [facility] [place]s): 11/30/20 - 12/30/20 [facility] [address] [place] [id number] Allergies, Adverse Reactions, Alerts Substance [...] 11/21/20 15:14:00 EST, Route to Pharmacy Electronically, [facility]/pharmacy #[id number], Partial fill upon patient request if the [...] Stop 03/06/21 10:42:00 EDT, 09/07/20 10:42:00 EDT, [facility] #[id number], 1 tablet By Mouth Daily,x30 days, 169, cm, 08/16/20 8:41:00 EDT, Height, 91, kg, 08/10/20 1:22:00... Start Date: 09/07/20 Stop Date: 03/06/21 Status: Orderedlisinopril 20 mg oral tablet 20 mg, 1, tablet, By Mouth, Daily, # 90 tablet, Refills 3, Tot. Refills 3, Maintenance, 12/14/20 11:13:00 EST, Route to Pharmacy Electronically, [facility]/pharmacy #[id number], 167, cm, 12/14/20 8:40:00 EST, [...] 04/07/20 9:23:00 EDT, Route to Pharmacy Electronically, [facility]/pharmacy #[id number], 168, cm, 02/08/20 15:35:00 EDT, Height, 86.8, kg, 02/18/19 13:15:00 EDT, Dry Weight Start Date: 04/07/20 Status: Orderedomeprazole 20 mg oral enteric coated capsule 1 capsule = 20 mg, By Mouth, 2 times a day, # 180 capsule, 0 Refills, Maintenance, 11/20/20 11:33:00EST, EC Capsule, [facility]/pharmacy #[id number], 167, cm, 10/12/20 10:08:00 EST, Height, 90.2, kg, 09/09/20 21:48:00 EDT, Dry Weight Start Date: 11/20/20 Status: OrderedProAir HFA 90 mcg/inh inhalation aerosol with adapter 2, puffs, Inhalation, Every 6 hours, PRN, # 8.5 Gm, Refills 5, Tot. Refills 5, Maintenance, 10/11/2010:14:00 EST, Aerosol, Route to Pharmacy Electronically, [id number], [facility]/pharmacy #[id number], 169, cm, 10/11/20 9:44:00 EST, [facility]... Start Date: 10/11/20 Status: OrderedtraMADol 50 mg oral tablet 2 tablet = 100 mg, By Mouth, Every 6 hours, Increased dose; may fill for less than full amount, # 224 tablet, 2 Refills, Acute 01/14/21 11:09:00 EST, 12/18/20 15:37:00 EST, [facility]/pharmacy #[id number], 167, cm,12/14/20 8:40:00 EST, Height, 91.3, [...]
--- OUTSIDE RECORDS SUMMARY | 2022-10-27 22:29 | XMS_ITS | Continuity of Care Document ---
:1965 Author Organization [facility] Address [address] [place] [address]- Care Team Providers Name Role Phone Evan PEREZ, Ricahr Weldon Primary Care Physician Encounter [facility] [place] Date(s): 08/12/20 - 09/11/20 [facility] [address] [place] [id number]- [facility] Allergies, Adverse Reactions, Alerts Substance Reaction Severity [...] 15:18:29 EDT, Capsule Start Date: 06/18/18 Status: Orderedalbuterol 0.083% inhalation solution 3 mL = 2.5 mg, Neb, Every 8 hours, PRN Wheezing/Shortness of Breath, # 60 each, 5 Refills, Maintenance, 06/07/20 16:02:00 EDT, [facility]/pharmacy #[id number], DX J45.909, 168, cm, 02/08/20 15:35:00 EDT, Height, 86.8, kg, 02/18/19 13:15:00 EDT, Dry Weight Start Date: 06/07/20 Status: OrderedAnoro Ellipta 62.5 mcg-25 mcg/inh inhalation powder 1 puffs, Inhalation, Daily, # 30 each, 5 Refills, Maintenance, 07/08/20 9:57:00 EDT, Powder, [facility]/pharmacy #[id number], 1 puffs Inhalation Daily, 168, cm, 07/08/20 9:19:00 EDT, Height, 86.8, kg, 02/18/19 13:15:00 EDT, Dry Weight Start Date: 07/08/20 Status: OrderedGenvoya oral tablet 1 tablet, By Mouth, Daily, for 30 days, # 30 tablet, 5 Refills, Physician Stop 03/06/21 10:42:00 EDT, 09/07/20 10:42:00 EDT, [facility] #[id number], 1 tablet By Mouth Daily,x30 days, 169, cm, 08/16/20 8:41:00 EDT, Height, 91, kg, 08/10/20 1:22:00... Start Date: 09/07/20 Stop Date: 03/06/21 Status: Orderedlisinopril 20 mg oral tablet 20 mg, 1, tablet, By Mouth, Daily, # 90 tablet, Refills 3, Tot. Refills 3, Maintenance, 04/07/20 9:23:00 EDT, Route to Pharmacy Electronically, [facility]/pharmacy #[id number], 168, cm, 02/08/20 15:35:00 EDT, [...] 01/07/20 10:28:00 EST, Route to Pharmacy Electronically, [facility]/pharmacy #[id number], 168, cm, 01/07/20 10:04:00 EST, Height, 86.8, kg, 02/18/19 13:15:00 EDT, Dry Weight Start Date: 01/07/20 Status: Orderedmontelukast 10 mg oral tablet 10 mg, 1, tablet, By Mouth, Daily, # 90 tablet, Refills 3, Tot. Refills 3, Maintenance, 04/07/20 9:23:00 EDT, Route to Pharmacy Electronically, [facility]/pharmacy #[id number], 168, cm, 02/08/20 15:35:00 EDT, Height, 86.8, kg, 02/18/19 13:15:00 EDT, Dry Weight Start Date: 04/07/20 Status: OrderedNebulizer/Compressor See Instructions, # 1 each, Refills 0, Tot. Refills 0, Maintenance, DX:J45.909 machine and all supplies to go with it to use with albuterol solution, 04/07/20 15:42:00 EDT, Supply Start Date: 04/07/20 Status: Orderedomeprazole 20 mg oral enteric coated capsule 1 capsule = 20 mg, By Mouth, 2 times a day, # 90 capsule, 3 Refills, Maintenance, 07/11/20 11:31:00 EDT, EC Capsule, [facility]/pharmacy #[id number], 168, cm, 07/08/20 9:19:00 EDT, Height, 86.8, kg, 02/18/19 13:15:00 EDT, Dry Weight Start Date: 07/11/20 Status: OrderedProAir HFA 90 mcg/inh inhalation aerosol with adapter 2, puffs, Inhalation, Every 6 hours, PRN, # 8.5 Gm, Refills 5, Tot. Refills 5, Maintenance, 06/07/2016:02:00 EDT, Aerosol, Route to Pharmacy Electronically, [id number], [facility]/pharmacy #[id number], 168, cm, 02/08/20 15:35:00 EDT, Hei... Start Date: 06/07/20 Status: OrderedtraMADol 50 mg oral tablet 1 tablet, By Mouth, Every 6 hours, PRN NEEDED FOR PAIN, # 112 tablet, 0 Refills, Acute 09/29/20 14:15:00 EDT, 08/30/20 14:05:00 EDT, [facility] #[id number], 169, cm, 08/16/20 8:41:00 EDT, Height, 91, kg, 08/10/20 1:22:00 EDT, Dry Weight Start Date: 08/30/20 Stop Date: 09/29/20 Status: OrderedTubing and mouthpiece Tubing and mouthpiece, See Instructions, # 1 each, Refills 0, Tot. Refills 0, Maintenance, Tubing and mouthpiece for nebulizer for use with albuterol, Dx: Asthma, 02/08/20 16:30:00 EDT, Supply Start Date: 02/08/20 Status: Ordered Problem List [...]
--- OUTSIDE RECORDS SUMMARY | 2022-10-27 22:29 | XMS_ITS | Continuity of Care Document ---
:1965 Author Organization [facility] Address [address] [place] [address]- Care Team Providers Name Role Phone Evan PEREZ, Richar Weldon Primary Care Physician Encounter [facility] [place] Date(s): 01/17/21 - 02/16/21 [facility] [address] [place] [address]- Allergies, Adverse Reactions, Alerts Substance Reaction Severity [...] 01/18/21 11:29:00 EST, Route to Pharmacy Electronically, [facility]/pharmacy #[id number], Partial fill upon patient request if the prescription is for a schedule II opioid drug.... Start Date: 01/18/21 Stop Date: 07/17/21 Status: Orderedaspirin 81 mg oral tablet, chewable 81 mg, 1, tablet, By Mouth, Daily, # 30 tablet, Refills 5, Tot. Refills 5, Maintenance, 01/18/21 11:29:00 EST, Route to Pharmacy Electronically, [facility]/pharmacy #[id number], Partial fill upon patient request ifthe prescription [...] Stop 07/31/21 14:13:00 EDT, 02/01/21 14:13:00 EST, [facility] #[id number], 1 tablet By Mouth Daily,x30 days, 167, cm, 12/14/20 8:40:00 EST, Height, 91.3, kg, 11/30/20 17:07... Start Date: 02/01/21 Stop Date: 07/31/21 Status: OrderedGenvoya oral tablet 1 tablet, By Mouth, Daily, for 30 days, # 30 tablet, 5 Refills, Physician Stop 03/06/21 10:42:00 EDT, 09/07/20 10:42:00 EDT, [facility] #[id number], 1 tablet By Mouth Daily,x30 days, 169, [...] 12/14/20 11:13:00 EST, Route to Pharmacy Electronically, [facility]/pharmacy #[id number], 167, cm, 12/14/20 8:40:00 EST, Height, [...] 01/18/21 11:30:00 EST, Route to Pharmacy Electronically, [facility]/pharmacy #[id number], Partial fill upon patient request ifthe prescription is for a schedule II opioid drug... Start Date: 01/18/21 Stop Date: 07/17/21 Status: Orderedmontelukast 10 mg oral tablet 10 mg, 1, tablet, By Mouth, Daily, # 90 tablet, Refills 3, Tot. Refills 3, Maintenance, 04/07/20 9:23:00 EDT, Route to Pharmacy Electronically, [facility]/pharmacy #[id number], 168, cm, 02/08/20 15:35:00 EDT, Height, 86.8, kg, 02/18/19 13:15:00 EDT, Dry Weight Start Date: 04/07/20 Status: Orderedomeprazole 20 mg oral enteric coated capsule 1 capsule = 20 mg, By Mouth, 2 times a day, # 180 capsule, 0 Refills, Maintenance, 02/16/21 10:57:00EDT, EC Capsule, [facility]/pharmacy #[id number], 167, cm, 12/14/20 8:40:00 EST, Height, 91.3, kg, 11/30/20 17:07:00 EST, Dry Weight Start Date: 02/16/21 Status: OrderedProAir HFA 90 mcg/inh inhalation aerosol with adapter 2, puffs, Inhalation, Every 6 hours, PRN, # 8.5 Gm, Refills 5, Tot. Refills 5, Maintenance, 10/11/2010:14:00 EST, Aerosol, Route to Pharmacy Electronically, [id number], [facility]/pharmacy #[id number], 169, cm, 10/11/20 9:44:00 EST, Heig... Start Date: 10/11/20 Status: Orderedrosuvastatin 10 mg oral tablet 1 tablet = 10 mg, By Mouth, Daily, # 30 tablet, 5 Refills, Maintenance, 01/19/21 10:28:00 EST, Tablet, [facility]/pharmacy #[id number], Partial fill upon patient request if [...]
--- OUTSIDE RECORDS SUMMARY | 2022-10-27 22:29 | XMS_ITS | Continuity of Care Document ---
:1965 Author Organization [facility] Address [address] [place] [address]- Care Team Providers Name Role Phone Evan PEREZ, Richar Weldon Primary Care Physician Encounter [facility] [place] Date(s): 02/08/22 - 03/10/22 [facility] [address] [place] [address]- Allergies, Adverse Reactions, Alerts Substance Reaction Severity [...] 3 Refills, Maintenance, 02/26/22 9:26:00 EDT, Solution, [facility]/pharmacy #[id number], Partial fill upon patientrequest if the prescription is for a schedule II... Start Date: 02/26/22 Status: OrderedamLODIPine 2.5 mg oral tablet 1 tablet, By Mouth, Daily, # 90 tablet, 3 Refills, [id number], 168, cm, 11/17/21 10:55:00 EST, Height, 92, [...] Gm, 2 Refills, Maintenance, 09/04/21 19:43:00 EDT, [place],[facility]/pharmacy #[id number], Partial fill upon patient request if the prescription is for a schedule II opioid drug., 1 sprays Nares, Both 2 times a day, 168,... Start Date: 09/04/21 Status: OrderedGenvoya oral tablet 1 tablet, By Mouth, Daily, with food, # 30 tablet, 5 Refills, Maintenance, 01/29/22 21:33:00 EST, Tablet, [facility], [facility] #[id number], Partial fill upon patient request if the [...] tablet, Refills 1, Route to Pharmacy Electronically, [id number], 168, cm, 01/15/22 14:50:00 EST, Height, 92, kg, 03/03/21 15:27:00 EDT, Dry Weight Start Date: 02/06/22 Status: OrderedLORazepam 1 mg oral tablet 1 tablet = 1 mg, By Mouth, PRN as needed for anxiety, 0 Refills, Maintenance, 06/29/18 13:11:09 EDT Start Date: 06/29/18 Status: OrderedMetoprolol Succinate ER 25 mg oral tablet, extended release 1 tablet, By Mouth, Daily, # 90 tablet, 3 Refills, [facility] [id number], 168, cm, 01/09/22 10:35:00 EST, Height, 92, kg, 03/03/21 15:27:00 EDT, Dry Weight Start Date: 01/10/22 Status: OrderedMetoprolol Succinate ER 25 mg oral tablet, extended release 1 tablet, By Mouth, Daily, # 90 tablet, 1 Refills, Maintenance, 05/12/21 13:24:00 EDT, [id number], 168, cm, 05/02/21 8:45:00 EDT, Height, 92, kg, 03/03/21 15:27:00 EDT, Dry Weight Start Date: 05/12/21 Status: Orderedmontelukast 10 mg oral tablet 10 mg, 1, tablet, By Mouth, Daily, # 90 tablet, Refills 3, Tot. Refills 3, Maintenance, 01/15/22 16:17:00 EST, Route to Pharmacy Electronically, [facility]/pharmacy #[id number], 168, cm, 01/15/22 14:50:00 EST, Height, 92, kg, 03/03/21 15:27:00 EDT, Dry Weight Start Date: 01/15/22 Status: Orderedomeprazole 20 mg oral enteric coated capsule 1 capsule = 20 mg, By Mouth, 2 times a day, # 180 capsule, 3 Refills, Maintenance, 09/04/21 19:37:00EDT, EC Capsule, [facility]/pharmacy #[id number], 168, cm, 09/04/21 9:46:00 EDT, Height, 92, kg, 03/03/21 15:27:00 EDT, Dry Weight Start Date: 09/04/21 Status: OrderedProAir HFA 90 mcg/inh inhalation aerosol with adapter 2, puffs, Inhalation, Every 6 hours, PRN, # 8.5 Gm, Refills 8, Tot. Refills 8, Maintenance, 03/07/2115:41:00 EDT, Aerosol, Route to Pharmacy Electronically, [id number], [facility]/pharmacy #[id number], 168, cm, 03/06/21 11:08:00 EDT, Hei... Start Date: 03/07/21 Status: OrderedProAir HFA 90 mcg/inh inhalation aerosol with adapter 2, puffs, Inhalation, Every 6 hours, PRN, Requests ProAir, # 8.5 Gm, Refills 5, Tot. Refills 5, Maintenance, 12/27/21 9:37:00 EST, Aerosol, Route to Pharmacy Electronically, [id number], [facility]/pharmacy #[id number], 168, cm, 12/27/21 8... Start Date: [...] Acute 05/07/22 9:03:00 EDT, 11/06/21 9:02:00 EST, [facility]/pharmacy #[id number], 168, cm, 11/06/21 8:47:00 EST, Height,92, kg, 03/03/21 15:27:00 EDT, Dry Weight Start Date: 11/06/21 Stop Date: 05/07/22 Status: OrderedtraMADol 50 mg oral tablet 2 tablet = 100 mg, By Mouth, Every 6 hours, PRN NEEDED FOR PAIN, # 224 tablet, 5 Refills, Acute 08/29/22 9:26:00 EDT, 05/07/22 9:03:00 EDT, [facility]/pharmacy #[id number], 168, cm, 02/26/22 8:34:00 EDT, Height,92, [...]
--- OUTSIDE RECORDS SUMMARY | 2022-10-27 22:29 | XMS_ITS | Continuity of Care Document ---
:1965 Author Organization [facility] [place] Adult Address [address] [place] [address]- Care Team Providers Name Role Phone Evan PEREZ, Richar Weldon Primary Care Physician Encounter [facility] [place] Date(s): 06/07/20 - 06/14/20 [facility] [place] Adult [address] [place] [address]- [facility] Encounter Diagnosis Asthma (Discharge Diagnosis) - 06/07/20 Attending Physician: Lila COOK, Dyan Brar Allergies, Adverse Reactions, Alerts Substance Reaction Severity [...] each, 5 Refills, Maintenance, 06/07/20 16:02:00 EDT, [facility]/pharmacy #[id number], DX [id number], 168, cm, 02/08/20 15:35:00 EDT, Height, 86.8, kg, 02/18/19 13:15:00 EDT, Dry Weight Start Date: 06/07/20 Status: OrderedGenvoya oral tablet 1 tablet, By Mouth, Daily, with food, # 30 tablet, 11 Refills, Maintenance, 03/02/20 11:05:00 EDT, Tablet, [facility], [id number], 1 tablet By Mouth Daily,Instr:with food, 168, [...] 04/07/20 9:23:00 EDT, Route to Pharmacy Electronically, [facility]/pharmacy #[id number], 168, cm, 02/08/20 15:35:00 EDT, [...] 04/07/20 9:23:00 EDT, Route to Pharmacy Electronically, [facility]/pharmacy #[id number], 168, cm, 02/08/20 15:35:00 EDT, [...] mL, 0 Refills, Maintenance, 03/10/20 10:36:00 EDT, [facility] Rx #[id number], SPLIT PREP, 168, cm, 02/08/20 15:35:00 EDT, [...] 06/07/2016:02:00 EDT, Aerosol, Route to Pharmacy Electronically, [id number], [facility]/pharmacy #[id number], 168, cm, 02/08/20 15:35:00 EDT, Hei... Start Date: 06/07/20 Status: OrderedtraMADol 50 mg oral tablet 1 tablet = 50 mg, By Mouth, Every 6 hours, PRN Pain , Severe, # 112 tablet, 5 Refills, Acute 09/13/20 8:41:00 EDT, 03/14/20 8:40:00 EDT, [facility]/pharmacy #[id number], 168, cm, 02/08/20 15:35:00 EDT, Height, 86.8, kg, 02/18/19 13:15:00 EDT, Dry Weight Start Date: 03/14/20 Stop Date: 09/13/20 Status: OrderedtraMADol 50 mg oral tablet 1 tablet = 50 mg, By Mouth, 2 times a day, PRN Pain , Moderate, # 14 tablet, 3 Refills, Maintenance,12/14/19 16:47:00 EST, [facility] #[id number], 168, cm, 09/28/19 8:13:00 EDT, Height, 86.8, kg,02/18/19 13:15:00 EDT, Dry Weight Start Date: 12/14/19 Status: OrderedtraMADol 50 mg oral tablet 1 tablet = 50 mg, By Mouth, 2 times a day, PRN Pain , Moderate, # 14 tablet, 3 Refills, Maintenance,02/18/20 7:51:00 EDT, [facility]/pharmacy #[id number], 168, cm, 02/08/20 15:35:00 EDT, [...] quadrant of Active abdomen(Confirmed) Lumbar stenosis(Confirmed) Active Diagnosis Diagnosis Type Effective Dates Health Status Clinical Serv ice Informant Asthma Discharge 06/07/20 Diagnosis Social History Social History Type Response Smoking Status Former smoker, quit more hernan n 30 days ago entered on: 05/11/19 Sex
--- OUTSIDE RECORDS SUMMARY | 2022-10-27 22:29 | XMS_ITS | Continuity of Care Document ---
:1965 Author Organization [facility] Address [address] [place] [address]- Care Team Providers Name Role Phone Richar Gordon MD Primary Care Physician Encounter [facility] [place] Date(s): 02/02/21 - 03/04/21 [facility] [address] [place] [id number] Attending Physician: AdmTam patiño Admitting [...] 01/18/21 11:29:00 EST, Route to Pharmacy Electronically, [facility]/pharmacy #[id number], Partial fill upon patient request if the prescription is for a schedule II opioid drug.... Start Date: 01/18/21 Stop Date: 07/17/21 Status: Orderedaspirin 81 mg oral tablet, chewable 81 mg, 1, tablet, By Mouth, Daily, # 30 tablet, Refills 5, Tot. Refills 5, Maintenance, 01/18/21 11:29:00 EST, Route to Pharmacy Electronically, [facility]/pharmacy #[id number], Partial fill upon patient request ifthe prescription [...] Stop 07/31/21 14:13:00 EDT, 02/01/21 14:13:00 EST, [facility] #[id number], 1 tablet By Mouth Daily,x30 days, 167, cm, 12/14/20 8:40:00 EST, Height, 91.3, kg, 11/30/20 17:07... Start Date: 02/01/21 Stop Date: 07/31/21 Status: OrderedGenvoya oral tablet 1 tablet, By Mouth, Daily, for 30 days, # 30 tablet, 5 Refills, Physician Stop 03/06/21 10:42:00 EDT, 09/07/20 10:42:00 EDT, [facility] #[id number], 1 tablet By Mouth Daily,x30 days, 169, [...] 12/14/20 11:13:00 EST, Route to Pharmacy Electronically, [facility]/pharmacy #[id number], 167, cm, 12/14/20 8:40:00 [...] 01/18/21 11:30:00 EST, Route to Pharmacy Electronically, [facility]/pharmacy #[id number], Partial fill upon patient request ifthe prescription is for a schedule II opioid drug... Start Date: 01/18/21 Stop Date: 07/17/21 Status: Orderedmontelukast 10 mg oral tablet 10 mg, 1, tablet, By Mouth, Daily, # 90 tablet, Refills 3, Tot. Refills 3, Maintenance, 04/07/20 9:23:00 EDT, Route to Pharmacy Electronically, [facility]/pharmacy #[id number], 168, cm, 02/08/20 15:35:00 EDT, Height, 86.8, kg, 02/18/19 13:15:00 EDT, Dry Weight Start Date: 04/07/20 Status: Orderedomeprazole 20 mg oral enteric coated capsule 1 capsule = 20 mg, By Mouth, 2 times a day, # 180 capsule, 0 Refills, Maintenance, 02/16/21 10:57:00EDT, EC Capsule, [facility]/pharmacy #[id number], 167, cm, 12/14/20 8:40:00 EST, Height, 91.3, kg, 11/30/20 17:07:00 EST, Dry Weight Start Date: 02/16/21 Status: OrderedProAir HFA 90 mcg/inh inhalation aerosol with adapter 2, puffs, Inhalation, Every 6 hours, PRN, # 8.5 Gm, Refills 5, Tot. Refills 5, Maintenance, 10/11/2010:14:00 EST, Aerosol, Route to Pharmacy Electronically, [id number], [facility]/pharmacy #[id number], 169, cm, 10/11/20 9:44:00 EST, Heig... Start Date: 10/11/20 Status: Orderedrosuvastatin 10 mg oral tablet 1 tablet = 10 mg, By Mouth, Daily, # 30 tablet, 5 Refills, Maintenance, 01/19/21 10:28:00 EST, Tablet, [facility]/pharmacy #[id number], Partial fill upon patient [...]
--- OUTSIDE RECORDS SUMMARY | 2022-10-27 22:29 | XMS_ITS | Continuity of Care Document ---
:1965 Author Organization [facility] Address [address] [place] [id number]- Care Team Providers Name Role Phone Evan PEREZ, Richar Weldon Primary Care Physician [place] [facility] [place] 12/12/20 - 01/21/[address] [address] Attending Physician: Linette COOK, Sheyla Admitting Physician: Linette SALES SYSTEMS ENGINEER, Sheyla Referring Physician: Linette SALES SYSTEMS ENGINEER, Sheyla Allergies, Adverse Reactions, Alerts Substance Reaction Severity [...] 01/18/21 11:29:00 EST, Route to Pharmacy Electronically, [facility]/pharmacy #[id number], Partial fill upon patient request if the prescription is for a schedule II opioid drug.... Start Date: 01/18/21 Stop Date: 07/17/21 Status: Orderedaspirin 81 mg oral tablet, chewable 81 mg, 1, tablet, By Mouth, Daily, # 30 tablet, Refills 5, Tot. Refills 5, Maintenance, 01/18/21 11:29:00 EST, Route to Pharmacy Electronically, [facility]/pharmacy #[id number], Partial fill upon patient request ifthe prescription [...] Stop 03/06/21 10:42:00 EDT, 09/07/20 10:42:00 EDT, [facility] #[id number], 1 tablet By Mouth Daily,x30 days, 169, cm, 08/16/20 8:41:00 EDT, Height, 91, kg, 08/10/20 1:22:00... Start Date: 09/07/20 Stop Date: 03/06/21 [facility]: [facility] See Instructions, [...] 12/14/20 11:13:00 EST, Route to Pharmacy Electronically, [facility]/pharmacy #[id number], 167, cm, 12/14/20 8:40:00 [...] 01/18/21 11:30:00 EST, [id number] Partial fill upon patient request ifthe prescription is for a schedule II opioid drug... Start Date: 01/18/21 Stop Date: 07/17/21 Status: Orderedmontelukast 10 mg oral tablet 10 mg, 1, tablet, By Mouth, Daily, # 90 tablet, Refills 3, Tot. Refills 3, Maintenance, 04/07/20 9:23:00 EDT, Route to Pharmacy Electronically, [facility]/pharmacy #[id number], 168, cm, 02/08/20 15:35:00 EDT, Height, 86.8, kg, 02/18/19 13:15:00 EDT, Dry Weight Start Date: 04/07/20 Status: Orderedomeprazole 20 mg oral enteric coated capsule 1 capsule = 20 mg, By Mouth, 2 times a day, # 180 capsule, 0 Refills, Maintenance, 11/20/20 11:33:00EST, EC Capsule, [facility]/pharmacy #[id number], 167, cm, 10/12/20 10:08:00 EST, Height, 90.2, kg, 09/09/20 21:48:00 EDT, Dry Weight Start Date: 11/20/20 Status: OrderedProAir HFA 90 mcg/inh inhalation aerosol with adapter 2, puffs, Inhalation, Every 6 hours, PRN, # 8.5 Gm, Refills 5, Tot. Refills 5, Maintenance, 10/11/2010:14:00 EST, Aerosol, Route to Pharmacy Electronically, [id number], [facility]/pharmacy #[id number], 169, cm, 10/11/20 9:44:00 EST, Heig... Start Date: 10/11/20 Status: Orderedrosuvastatin 10 mg oral tablet 1 tablet = 10 mg, By Mouth, Daily, # 30 tablet, 5 Refills, Maintenance, 01/19/21 10:28:00 EST, Tablet, [facility]/pharmacy #[id number], Partial fill upon patient [...]
--- OUTSIDE RECORDS SUMMARY | 2022-10-27 22:29 | XMS_ITS | Continuity of Care Document ---
:1965 Author Organization [facility] Adult Address [address] [place] [address]- Care Team Providers Name Role Phone Evan PEREZ, Richar Weldon Primary Care Physician En[place] [facility] [place] Date(s): 01/09/22 - 02/08/22 [facility] Adult [address] [place] [address]- Allergies, Adverse Reactions, Alerts Substance Reaction Severity [...] 3 Refills, Maintenance, 11/06/21 8:54:00 EST, Solution, [facility]/pharmacy #[id number], Partial fill upon patientrequest if the prescription is for a schedule II... Start Date: 11/06/21 Status: OrderedamLODIPine 2.5 mg oral tablet 1 tablet, By Mouth, Daily, # 90 tablet, 3 Refills, [id number], 168, cm, 11/17/21 10:55:00 EST, Height, 92, [...] 01/18/21 11:29:00 EST, Route to Pharmacy Electronically, [facility]/pharmacy #[id number], Partial fill upon patient [...] Gm, 2 Refills, Maintenance, 09/04/21 19:43:00 EDT, [place],[facility]/pharmacy #[id number], Partial fill upon patient request if the prescription is for a schedule II opioid drug., 1 sprays Nares, Both 2 times a day, 168,... Start Date: 09/04/21 Status: OrderedGenvoya oral tablet 1 tablet, By Mouth, Daily, with food, # 30 tablet, 5 Refills, Maintenance, 01/29/22 21:33:00 EST, Tablet, [facility], [facility] Rx #[id number], Partial fill upon patient request if the [...] tablet, Refills 1, Route to Pharmacy Electronically, [id number], 168, cm, 01/15/22 14:50:00 EST, Height, 92, kg, 03/03/21 15:27:00 EDT, Dry Weight Start Date: 02/06/22 Status: OrderedLORazepam 1 mg oral tablet 1 tablet = 1 mg, By Mouth, PRN as needed for anxiety, 0 Refills, Maintenance, 06/29/18 13:11:09 EDT Start Date: 06/29/18 Status: OrderedMetoprolol Succinate ER 25 mg oral tablet, extended release 1 tablet, By Mouth, Daily, # 90 tablet, 3 Refills, [facility] 85836, 168, cm, 01/09/22 10:35:00 EST, Height, 92, kg, 03/03/21 15:27:00 EDT, Dry Weight Start Date: 01/10/22 Status: OrderedMetoprolol Succinate ER 25 mg oral tablet, extended release 1 tablet, By Mouth, Daily, # 90 tablet, 1 Refills, Maintenance, 05/12/21 13:24:00 EDT, [facility], 168, cm, 05/02/21 8:45:00 EDT, Height, 92, kg, 03/03/21 15:27:00 EDT, Dry Weight Start Date: 05/12/21 Status: Orderedmontelukast 10 mg oral tablet 10 mg, 1, tablet, By Mouth, Daily, # 90 tablet, Refills 3, Tot. Refills 3, Maintenance, 01/15/22 16:17:00 EST, Route to Pharmacy Electronically, [facility]/pharmacy #[id number], 168, cm, 01/15/22 14:50:00 EST, Height, 92, kg, 03/03/21 15:27:00 EDT, Dry Weight Start Date: 01/15/22 Status: Orderedomeprazole 20 mg oral enteric coated capsule 1 capsule = 20 mg, By Mouth, 2 times a day, # 180 capsule, 3 Refills, Maintenance, 09/04/21 19:37:00EDT, EC Capsule, [facility]/pharmacy #[id number], 168, cm, 09/04/21 9:46:00 EDT, Height, 92, kg, 03/03/21 15:27:00 EDT, Dry Weight Start Date: 09/04/21 Status: OrderedProAir HFA 90 mcg/inh inhalation aerosol with adapter 2, puffs, Inhalation, Every 6 hours, PRN, # 8.5 Gm, Refills 8, Tot. Refills 8, Maintenance, 03/07/2115:41:00 EDT, Aerosol, Route to Pharmacy Electronically, [id number], [facility]/pharmacy #[id number], 168, cm, 03/06/21 11:08:00 EDT, Hei... Start Date: 03/07/21 Status: OrderedProAir HFA 90 mcg/inh inhalation aerosol with adapter 2, puffs, Inhalation, Every 6 hours, PRN, Requests ProAir, # 8.5 Gm, Refills 5, Tot. Refills 5, Maintenance, 12/27/21 9:37:00 EST, Aerosol, Route to Pharmacy Electronically, [id number], [facility]/pharmacy #[id number], 168, cm, 12/27/21 8... Start Date: 12/27/21 Status: Orderedrosuvastatin 10 mg oral tablet 1 tablet, By Mouth, Daily, # 90 tablet, 3 Refills, Maintenance, 11/06/21 8:54:00 EST, [facility]/pharmacy #[id number], 168, cm, 11/06/21 8:47:00 EST, Height, 92, kg, 03/03/21 15:27:00 EDT, Dry Weight Start Date: 11/06/21 Status: OrderedtraMADol 50 mg oral tablet 2 tablet = 100 mg, By Mouth, Every 6 hours, PRN NEEDED FOR PAIN, # 224 tablet, 5 Refills, Acute 05/07/22 9:03:00 EDT, 11/06/21 9:02:00 EST, [facility]/pharmacy #[id number], 168, cm, 11/06/21 8:47:00 EST, Height,92, [...]
--- OUTSIDE RECORDS SUMMARY | 2022-10-27 22:29 | XMS_ITS | Continuity of Care Document ---
:1965 Author Organization [facility] [place] [facility] Address [address] [place] [address]- Care Team Providers Name Role Phone Richar Gordon MD Primary Care Physician [place] [facility] [place] 08/09/22 - 08/16/22 [facility] [place] [facility] [address] [place] [address]- Attending Physician: Richar Gordon MD Allergies, Adverse Reactions, Alerts Substance Reaction Severity Status amoxicillin nausea and vomiting Active Cipro HC rash Active Anoro Ellipta Active gabapentin anxiety Active atorvastatin Dyspnea Active Augmentin nausea and vomiting Active Bactrim swelling Active Benadryl Swelling/Edema Active Rash/Dermatitis Anxiety state Pulmicort Flexhaler Active Immunizations Given and Recorded Vaccine Date Status Refusal Reason SARS-CoV-2 mRNA ([id number]) vax1 08/09/22 Given influenza virus vaccine, inactivated 09/05/21 Recorded influenza [...] 08/07/17 Recorded pneumococcal 13-valent vaccine 08/07/17 Recorded 1Result Comment: [id number] Medications albuterol 0.083% inhalation solution 3 mL = 2.5 mg, Inhalation, Every 6 hours, PRN for wheezing, # 25 each, 3 Refills, Maintenance, 05/10/22 6:50:00 EDT, Solution, [id number], Partial fill upon patient request if the prescription is for a schedule II opioid drug., 166, cm, ... Start Date: 05/10/22 Status: OrderedamLODIPine 2.5 mg oral tablet 1 tablet, By Mouth, Daily, # 90 tablet, 3 Refills, 08/09/22 12:05:00 EDT, [id number], 166, cm, 08/09/22 11:33:00 EDT, Height, 92, kg, 03/03/21 15:27:00 EDT, Dry Weight Start Date: 08/09/22 Status: Orderedaspirin 81 mg oral tablet, chewable 81 mg, 1, tablet, By Mouth, Daily, # 30 tablet, Refills 5, Tot. Refills 5, Maintenance, 01/18/21 11:29:00 EST, Route to Pharmacy Electronically, [facility]/pharmacy #[id number], Partial fill upon patient request [...] A DAY, # 16 mL, 2 Refills, 08/10/22 6:59:00 EDT,[facility]/pharmacy #[id number], 90, USE 1 SPRAY IN EACH NOSTRIL TWICE A DAY, 166, cm, 08/09/22 11:33:00 EDT, Height, 92, kg, 03/03/21 15:27:00 EDT, Dry Weight Start Date: 08/10/22 Status: OrderedGenvoya oral tablet 1 tablet, By Mouth, Daily, with food, # 30 tablet, 5 Refills, Maintenance, 07/17/22 11:59:00 EDT, Tablet, [id number], Partial fill upon patient request if the prescription is for a schedule II opioid drug., 1 tablet By Mouth Annie... Start Date: 07/17/22 Stop Date: 01/13/23 Status: OrderedHome Blood Pressure Monitor See Instructions, # 1 kit, Maintenance, monitor BP 2-3 times a week after medications DX HTN, 01/19/21 10:45:00 EST, Supply, 167, cm, 12/14/20 8:40:00 EST, Height, 91.3, kg, 11/30/20 17:07:00 EST, Dry Weight Start Date: 01/19/21 Status: Orderedlisinopril 20 mg oral tablet 1, tablet, By Mouth, Daily, # 90 tablet, Refills 1, Maintenance, 08/01/22 16:29:00 EDT, Route to Pharmacy Electronically, [facility], 166, cm, 07/19/22 15:37:00 EDT, Height, 92, kg, 03/03/21 15:27:00 EDT, Dry Weight Start Date: 08/01/22 Status: OrderedLORazepam 1 mg oral tablet 1 tablet = 1 mg, By Mouth, PRN as needed for anxiety, 0 Refills, Maintenance, 06/29/18 13:11:09 EDT Start Date: 06/29/18 Status: OrderedMetoprolol Succinate ER 25 mg oral tablet, extended release 1 tablet, By Mouth, Daily, # 90 tablet, 3 Refills, [facility], 168, cm, 01/09/22 10:35:00 EST, Height, 92, kg, 03/03/21 15:27:00 EDT, Dry Weight Start Date: 01/10/22 Status: Orderedmontelukast 10 mg oral tablet 10 mg, 1, tablet, By Mouth, Daily, # 90 tablet, Refills 3, Tot. Refills 3, Maintenance, 08/09/22 12:05:00 EDT, Route to Pharmacy Electronically, [facility]/pharmacy #[id number], 166, cm, 08/09/22 11:33:00 EDT, Height, 92, kg, 03/03/21 15:27:00 EDT, Dry Weight Start Date: 08/09/22 Status: OrderedNebulizer/Compressor See Instructions, # 1 each, [...] 3 Refills, Maintenance, 09/04/21 19:37:00EDT, EC Capsule, [facility]/pharmacy #[id number], 168, cm, 09/04/21 9:46:00 EDT, Height, 92, kg, 03/03/21 15:27:00 EDT, Dry Weight Start Date: 09/04/21 Status: OrderedProAir HFA 90 mcg/inh inhalation aerosol with adapter 2, puffs, Inhalation, Every 6 hours, PRN, Requests ProAir, # 8.5 Gm, Refills 5, Tot. Refills 5, Maintenance, 08/09/22 12:04:00 EDT, Aerosol, Route to Pharmacy Electronically, [id number], [facility]/pharmacy #[id number], 166, cm, 08/09/22... Start Date: 08/09/22 Status: Orderedrosuvastatin 10 mg oral tablet 1 tablet, By Mouth, Daily, # 90 tablet, 3 Refills, Maintenance, 11/06/21 8:54:00 EST, [facility]/pharmacy #[id number], 168, cm, 11/06/21 8:47:00 EST, [...] Acute 08/29/22 9:26:00 EDT, 05/07/22 9:03:00 EDT, [facility]/pharmacy #[id number], 168, cm, 02/26/22 8:34:00 EDT, Height,92, kg, 03/03/21 15:27:00 EDT, Dry Weight Start Date: 05/07/22 Stop Date: 08/29/22 Status: OrderedtraMADol 50 mg oral tablet 2 tablet = 100 mg, By Mouth, Every 6 hours, PRN NEEDED FOR PAIN, # 224 tablet, 5 Refills, Acute 02/07/23 6:58:00 EST, 08/29/22 9:26:00 EDT, [facility]/pharmacy #[id number], 166, cm, 08/09/22 11:33:00 EDT, Height, 92, kg, 03/03/21 15:27:00 EDT, Dry Weight Start Date: 08/29/22 Stop Date: 02/07/23 Status: Ordered Problem List Condition Effective Dates [...] recent to oldest [Reference Range]: 1 Height 166.0 cm (08/09/22 11:33 AM) Weight 91.4 kg (08/09/22 11:33 AM) Oxygen Saturation [94-100 %] 97 % (08/09/22 11:33 AM) Pulse Rate [55-90 bpm] 52 bpm *L* (08/09/22 11:33 AM) Body Mass Index [18.5-24.99] 33.17 *>HHI* (08/09/22 11:33 AM) Blood Pressure [90-138/55-84 mm Hg] 119/71 mm Hg (08/09/22 11:33 AM) Mode of Delivery (Oxygen) Room air (08/09/22 11:33 AM) Blood pressure sites Arm, left (08/09/22 11:33 AM) Weight Obtained Via Standing scale (08/09/22 11:33 AM) Social History Social History Type Response Smoking Status Former smoker, quit more hernan n 30 days ago entered on: 05/11/19 Sex Care Team PersonnelName: Evan PEREZ, Richar Weldon Address: [address] [place] [address] [place], [place] [address]
--- OUTSIDE RECORDS SUMMARY | 2022-10-27 22:29 | XMS_ITS | Continuity of Care Document ---
:1965 Author Organization [facility] Adult Address [address] [place] [address]- Care Team Providers Name Role Phone Evan PEREZ, Richar Weldon Primary Care Physician [place] [facility] [place]21 [facility] [address] [place] [address]- Allergies, Adverse Reactions, Alerts Substance Reaction Severity [...] 11/21/20 15:14:00 EST, Route to Pharmacy Electronically, [facility]/pharmacy #[id number], Partial fill upon patient request if the [...] Stop 03/06/21 10:42:00 EDT, 09/07/20 10:42:00 EDT, [facility] #[id number], 1 tablet By Mouth Daily,x30 days, 169, cm, 08/16/20 8:41:00 EDT, Height, 91, kg, 08/10/20 1:22:00... Start Date: 09/07/20 Stop Date: 03/06/21 Status: Orderedlisinopril 20 mg oral tablet 20 mg, 1, tablet, By Mouth, Daily, # 90 tablet, Refills 3, Tot. Refills 3, Maintenance, 12/14/20 11:13:00 EST, Route to Pharmacy Electronically, [facility]/pharmacy #[id number], 167, cm, 12/14/20 8:40:00 EST, Height, 91.3, [...] 04/07/20 9:23:00 EDT, Route to Pharmacy Electronically, [facility]/pharmacy #[id number], 168, cm, 02/08/20 15:35:00 EDT, Height, 86.8, kg, 02/18/19 13:15:00 EDT, Dry Weight Start Date: 04/07/20 Status: Orderedomeprazole 20 mg oral enteric coated capsule 1 capsule = 20 mg, By Mouth, 2 times a day, # 180 capsule, 0 Refills, Maintenance, 11/20/20 11:33:00EST, EC Capsule, [facility]/pharmacy #[id number], 167, cm, 10/12/20 10:08:00 EST, Height, 90.2, kg, 09/09/20 21:48:00 EDT, Dry Weight Start Date: 11/20/20 Status: OrderedpredniSONE 20 mg oral tablet 1 tablet = 20 mg, By Mouth, 2 times a day, # 10 tablet, 0 Refills, Acute 01/16/21 9:28:00 EST, 01/11/21 9:27:00 EST, [facility]/pharmacy #[id number], Partial fill upon patient request if the prescription is for a schedule II opioid drug., 167, cm, 12/14/20 8:40:00... Start Date: 01/11/21 Stop Date: 01/16/21 Status: OrderedProAir HFA 90 mcg/inh inhalation aerosol with adapter 2, puffs, Inhalation, Every 6 hours, PRN, # 8.5 Gm, Refills 5, Tot. Refills 5, Maintenance, 10/11/2010:14:00 EST, Aerosol, Route to Pharmacy Electronically, [id number], [facility]/pharmacy #[id number], 169, cm, 10/11/20 9:44:00 EST, Heig... Start Date: 10/11/20 Status: OrderedtraMADol 50 mg oral tablet 2 tablet = 100 mg, By Mouth, Every 6 hours, Increased dose; may fill for less than full amount, # 224 tablet, 2 Refills, Acute 01/14/21 11:09:00 EST, 12/18/20 15:37:00 EST, [facility]/pharmacy #[id number], 167, cm,12/14/20 8:40:00 EST, Height, 91.3, [...]
--- OUTSIDE RECORDS SUMMARY | 2022-10-27 22:29 | XMS_ITS | Continuity of Care Document ---
:1965 Author Organization [facility] Adult Address [address] [place] [address]- Care Team Providers Name Role Phone Richar Gordon MD Primary Care Physician [place] [facility] [place]18/21 [facility] Adult [address] [place] [address]- Attending Physician: Richar Gordon MD Allergies, Adverse Reactions, Alerts Substance Reaction Severity Status amoxicillin nausea and vomiting Active gabapentin anxiety Active atorvastatin Dyspnea Active Augmentin nausea and vomiting Active Bactrim swelling Active Benadryl Swelling/Edema Active Rash/Dermatitis Anxiety state Pulmicort Flexhaler Active Anoro Ellipta Active Cipro HC rash Active Immunizations Given and Recorded Vaccine Date [...] 01/18/21 11:29:00 EST, Route to Pharmacy Electronically, [facility]/pharmacy #[id number], Partial fill upon patient request if the prescription is for a schedule II opioid drug.... Start Date: 01/18/21 Stop Date: 07/17/21 Status: Orderedaspirin 81 mg oral tablet, chewable 81 mg, 1, tablet, By Mouth, Daily, # 30 tablet, Refills 5, Tot. Refills 5, Maintenance, 01/18/21 11:29:00 EST, Route to Pharmacy Electronically, [facility]/pharmacy #[id number], Partial fill upon patient [...] Stop 03/06/21 10:42:00 EDT, 09/07/20 10:42:00 EDT, [facility] #[id number], 1 tablet By Mouth Daily,x30 days, 169, cm, 08/16/20 8:41:00 EDT, Height, 91, kg, 08/10/20 1:22:00... Start Date: 09/07/20 Stop Date: 03/06/21 Status: OrderedHome Blood Pressure Monitor See Instructions, # 1 kit, Maintenance, monitor BP 2-3 times a week after medications, 01/18/21 11:40:00 EST, Supply, 167, cm, 12/14/20 8:40:00 EST, Height, 91.3, kg, 11/30/20 17:07:00 EST, Dry Weight Start Date: 01/18/21 Status: Orderedlisinopril 20 mg oral tablet 20 mg, 1, tablet, By Mouth, Daily, # 90 tablet, Refills 3, Tot. Refills 3, Maintenance, 12/14/20 11:13:00 EST, Route to Pharmacy Electronically, [facility]/pharmacy #[id number], 167, cm, 12/14/20 8:40:00 EST, Height, [...] 01/18/21 11:30:00 EST, [id number] Partial fill upon patient request ifthe prescription is for a schedule II opioid drug... Start Date: 01/18/21 Stop Date: 07/17/21 Status: Orderedmontelukast 10 mg oral tablet 10 mg, 1, tablet, By Mouth, Daily, # 90 tablet, Refills 3, Tot. Refills 3, Maintenance, 04/07/20 9:23:00 EDT, [id number] 168, cm, 02/08/20 15:35:00 EDT, Height, 86.8, kg, 02/18/19 13:15:00 EDT, Dry Weight Start Date: 04/07/20 Status: Orderedomeprazole 20 mg oral enteric coated capsule 1 capsule = 20 mg, By Mouth, 2 times a day, # 180 capsule, 0 Refills, Maintenance, 11/20/20 11:33:00EST, EC Capsule, [facility]/pharmacy #[id number], 167, cm, 10/12/20 10:08:00 EST, Height, 90.2, kg, 09/09/20 21:48:00 EDT, Dry Weight Start Date: 11/20/20 Status: OrderedProAir HFA 90 mcg/inh inhalation aerosol with adapter 2, puffs, Inhalation, Every 6 hours, PRN, # 8.5 Gm, Refills 5, Tot. Refills 5, Maintenance, 10/11/2010:14:00 EST, Aerosol, Route to Pharmacy Electronically, [id number], [facility]/pharmacy #[id number], 169, cm, 10/11/20 9:44:00 EST, Heig... Start Date: 10/11/20 Status: Orderedrosuvastatin 10 mg oral capsule 1 capsule = 10 mg, By Mouth, Daily, # 30 capsule, 5 Refills, Maintenance, 01/18/21 11:30:00 EST, Capsule, [facility]/pharmacy #[id number], Partial fill upon patient request if the prescription is for a schedule II opioid drug., 167, cm, 12/14/20 8:40:00 [facility]. Start Date: 01/18/21 Stop Date: 07/17/21 Status: Ordered Problem List Condition Effective Dates [...]
--- OUTSIDE RECORDS SUMMARY | 2022-10-27 22:29 | XMS_ITS | Continuity of Care Document ---
:1965 Author Organization [facility] Adult Address [address] [place] [address]- Care Team Providers Name Role Phone Richar Gordon MD Primary Care Physician En[place] [facility] [place](s): 07/08/20 - 07/15/20 [facility] Adult [address] [place] [address]- [facility] Attending Physician: Richar Gordon MD Allergies, Adverse [...] each, 5 Refills, Maintenance, 06/07/20 16:02:00 EDT, [facility]/pharmacy #[id number], DX [id number], 168, cm, 02/08/20 15:35:00 EDT, Height, 86.8, kg, 02/18/19 13:15:00 EDT, Dry Weight Start Date: 06/07/20 Status: OrderedAnoro Ellipta 62.5 mcg-25 mcg/inh inhalation powder 1 puffs, Inhalation, Daily, # 30 each, 5 Refills, Maintenance, 07/08/20 9:57:00 EDT, Powder, [facility]/pharmacy #[id number], 1 puffs Inhalation Daily, 168, cm, 07/08/20 9:19:00 EDT, Height, 86.8, kg, 02/18/19 13:15:00 EDT, Dry Weight Start Date: 07/08/20 Status: OrderedGenvoya oral tablet 1 tablet, By Mouth, Daily, with food, # 30 tablet, 11 Refills, Maintenance, 03/02/20 11:05:00 EDT, Tablet, [facility], [facility] #[id number], 1 tablet By Mouth Daily,Instr:with food, 168, [...] 04/07/20 9:23:00 EDT, Route to Pharmacy Electronically, [facility]/pharmacy #[id number], 168, cm, 02/08/20 15:35:00 EDT, [...] 01/07/20 10:28:00 EST, Route to Pharmacy Electronically, [facility]/pharmacy #[id number], 168, cm, 01/07/20 10:04:00 EST, Height, 86.8, kg, 02/18/19 13:15:00 EDT, Dry Weight Start Date: 01/07/20 Status: Orderedmontelukast 10 mg oral tablet 10 mg, 1, tablet, By Mouth, Daily, # 90 tablet, Refills 3, Tot. Refills 3, Maintenance, 04/07/20 9:23:00 EDT, Route to Pharmacy Electronically, [facility]/pharmacy #[id number], 168, cm, 02/08/20 15:35:00 EDT, [...] mL, 0 Refills, Maintenance, 03/10/20 10:36:00 EDT, [id number], [facility], 168, cm, 02/08/20 15:35:00 EDT, Height, 86.8, kg, 02/18/19 13:15:00 EDT, Dry Weight Start Date: 03/10/20 Status: Orderedomeprazole 20 mg oral enteric coated capsule 1 capsule = 20 mg, By Mouth, 2 times a day, # 90 capsule, 3 Refills, Maintenance, 07/11/20 11:31:00 EDT, EC Capsule, [facility]/pharmacy #[id number], 168, cm, 07/08/20 9:19:00 EDT, Height, 86.8, kg, 02/18/19 13:15:00 EDT, Dry Weight Start Date: 07/11/20 Status: OrderedpredniSONE 10 mg oral tablet See Instructions, Take 6 tabs daily x 2 days, 5 tabs x 2 days, 4 tabs x 2 days, 3 tabs x 2 days, 2 tabs x 2 days, 1 tab x 2 days., # 42 tablet, 0 Refills, Acute 07/20/20 10:13:00 EDT, 07/08/20 10:11:00EDT, [facility]/pharmacy #[id number], 168, cm, 07/08/20 9:19:0... Start Date: 07/08/20 Stop Date: 07/20/20 Status: OrderedProAir HFA 90 mcg/inh inhalation aerosol with adapter 2, puffs, Inhalation, Every 6 hours, PRN, # 8.5 Gm, Refills 5, Tot. Refills 5, Maintenance, 06/07/2016:02:00 EDT, Aerosol, Route to Pharmacy Electronically, [id number], [facility]/pharmacy #[id number], 168, cm, 02/08/20 15:35:00 EDT, Hei... Start Date: 06/07/20 Status: OrderedtraMADol 50 mg oral tablet 1 tablet = 50 mg, By Mouth, Every 6 hours, PRN Pain , Severe, # 112 tablet, 5 Refills, Acute 09/13/20 8:41:00 EDT, 03/14/20 8:40:00 EDT, [facility]/pharmacy #[id number], 168, cm, 02/08/20 15:35:00 EDT, Height, 86.8, kg, 02/18/19 13:15:00 EDT, Dry Weight Start Date: 03/14/20 Stop Date: 09/13/20 Status: OrderedtraMADol 50 mg oral tablet 1 tablet = 50 mg, By Mouth, 2 times a day, PRN Pain , Moderate, # 14 tablet, 3 Refills, Maintenance,12/14/19 16:47:00 EST, [facility] #[id number], 168, cm, 09/28/19 8:13:00 EDT, Height, 86.8, kg,02/18/19 13:15:00 EDT, Dry Weight Start Date: 12/14/19 Status: OrderedtraMADol 50 mg oral tablet 1 tablet = 50 mg, By Mouth, 2 times a day, PRN Pain , Moderate, # 14 tablet, 3 Refills, Maintenance,02/18/20 7:51:00 EDT, [facility]/pharmacy #[id number], 168, cm, 02/08/20 15:35:00 EDT, [...] oldest [Reference Range]: 1 Height 168 cm (07/08/20 9:19 AM) Weight 91.0 kg (07/08/20 9:19 AM) Oxygen Saturation [94-100 %] 98 % (07/08/20 9:19 AM) Pulse Rate [55-90 bpm] 60 bpm (07/08/20:19 AM) Body Mass Index [18.5-24.99] 32.24 *>HHI* (07/08/20 9:19 AM) Blood Pressure [90-138/55-84 mm Hg] 110/70 mm Hg (07/08/20 9:19 AM) Temperature [96.8-100.4 DegF] 98.1 DegF (07/08/20 9:19 AM) Mode of Delivery (Oxygen) Room air (07/08/20 9:19 AM) Blood pressure sites Arm, right (07/08/20 9:19 AM) Temperature Route Oral (07/08/20 9:19 AM) Weight Obtained Via Standing scale (07/08/20 9:19 AM) Social History Social History Type Response Smoking Status Former smoker, quit more hernan n 30 days ago entered on: 05/11/19 Sex
--- OUTSIDE RECORDS SUMMARY | 2022-10-27 22:29 | XMS_ITS | Continuity of Care Document ---
:1965 Author Organization [facility] Adult Address [address] [place] [address]- Care Team Providers Name Role Phone Evan PEREZ, Richar Weldon Primary Care Physician Encounter [facility] [place] Date(s): 08/09/20 - 09/08/20 [facility] Adult [address] [place] [address]- [facility] Allergies, Adverse Reactions, Alerts Substance Reaction [...] 5 Refills, Maintenance, 07/08/20 9:57:00 EDT, Powder, [facility]/pharmacy #[id number], 1 puffs Inhalation Daily, 168, cm, 07/08/20 9:19:00 EDT, Height, 86.8, kg, 02/18/19 13:15:00 EDT, Dry Weight Start Date: 07/08/20 Status: OrderedGenvoya oral tablet 1 tablet, By Mouth, Daily, for 30 days, # 30 tablet, 5 Refills, Physician Stop 03/06/21 10:42:00 EDT, 09/07/20 10:42:00 EDT, [facility] #[id number], 1 tablet By Mouth Daily,x30 days, 169, cm, 08/16/20 8:41:00 EDT, Height, 91, kg, 08/10/20 1:22:00... Start Date: 09/07/20 Stop Date: 03/06/21 Status: Orderedlisinopril 20 mg oral tablet 20 mg, 1, tablet, By Mouth, Daily, # 90 tablet, Refills 3, Tot. Refills 3, Maintenance, 04/07/20 9:23:00 EDT, Route to Pharmacy Electronically, [facility]/pharmacy #[id number], 168, cm, 02/08/20 15:35:00 EDT, [...] 01/07/20 10:28:00 EST, Route to Pharmacy Electronically, [facility]/pharmacy #[id number], 168, cm, 01/07/20 10:04:00 EST, Height, 86.8, kg, 02/18/19 13:15:00 EDT, Dry Weight Start Date: 01/07/20 Status: Orderedmontelukast 10 mg oral tablet 10 mg, 1, tablet, By Mouth, Daily, # 90 tablet, Refills 3, Tot. Refills 3, Maintenance, 04/07/20 9:23:00 EDT, Route to Pharmacy Electronically, [facility]/pharmacy #[id number], 168, cm, 02/08/20 15:35:00 EDT, [...] Refills, Maintenance, 07/11/20 11:31:00 EDT, EC Capsule, [facility]/pharmacy #[id number], 168, cm, 07/08/20 9:19:00 EDT, Height, 86.8, kg, 02/18/19 13:15:00 EDT, Dry Weight Start Date: 07/11/20 Status: OrderedProAir HFA 90 mcg/inh inhalation aerosol with adapter 2, puffs, Inhalation, Every 6 hours, PRN, # 8.5 Gm, Refills 5, Tot. Refills 5, Maintenance, 06/07/2016:02:00 EDT, Aerosol, Route to Pharmacy Electronically, [id number], [facility]/pharmacy #[id number], 168, cm, 02/08/20 15:35:00 EDT, [...]
--- OUTSIDE RECORDS SUMMARY | 2022-10-27 22:29 | XMS_ITS | Continuity of Care Document ---
:1965 Author Organization [facility] Address [address] [place] [address]- Care Team Providers Name Role Phone Richar Gordon MD Primary Care Physician [place] [facility] [place]s): 08/16/21 - 09/15/21 [facility] [address] [place], [place] [id number]- Attending Physician: AdmtrTam Admitting Physician: Admtr, Ar8 Referring Physician: Admtr, [...] Maintenance, 09/11/21 14:21:00 EDT, Solution, [facility]/pharmacy #[id number], Partial fill upon patientrequest [...] 01/18/21 11:29:00 EST, Route to Pharmacy Electronically, [facility]/pharmacy #[id number], Partial fill upon patient [...] Gm, 2 Refills, Maintenance, 09/04/21 19:43:00 EDT, [place],[facility]/pharmacy #[id number], Partial fill upon patient request if the prescription is for a schedule II opioid drug., 1 sprays Nares, Both 2 times a day, 168,... Start Date: 09/04/21 Status: OrderedGenvoya oral tablet 1 tablet, By Mouth, Daily, for 30 days, # 30 tablet, 5 Refills, Physician Stop 11/25/21 11:25:00 EST, 05/29/21 11:25:00 EDT, [facility] #[id number], 1 tablet By Mouth Daily,x30 days, 168, cm, 05/02/21 8:45:00 EDT, Height, 92, kg, 03/03/21 15:27:0... Start Date: 05/29/21 Stop Date: 11/25/21 Status: [facility] See Instructions, # [...] EDT, [id number], 168, cm, 05/02/21 8:45:00 EDT, Height, 92, [...] Maintenance, 09/04/21 19:37:00EDT, EC Capsule, [facility]/pharmacy #[id number], 168, cm, 09/04/21 9:46:00 EDT, Height, 92, kg, 03/03/21 15:27:00 EDT, Dry Weight Start Date: 09/04/21 Status: OrderedProAir HFA 90 mcg/inh inhalation aerosol with adapter 2, puffs, Inhalation, Every 6 hours, PRN, # 8.5 Gm, Refills 8, Tot. Refills 8, Maintenance, 03/07/2115:41:00 EDT, Aerosol, Route to Pharmacy Electronically, [id number], [facility]/pharmacy #[id number], 168, cm, 03/06/21 11:08:00 EDT, Hei... Start Date: 03/07/21 Status: OrderedProAir HFA 90 mcg/inh inhalation aerosol with adapter 2, puffs, Inhalation, Every 6 hours, PRN, Requests ProAir, # 8.5 Gm, Refills 5, Tot. Refills 5, Maintenance, 03/22/21 8:49:00 EDT, Aerosol, Route to Pharmacy Electronically, [id number], [facility]/pharmacy #[id number], 168, cm, 03/06/21 1... Start Date: 03/22/21 Status: Orderedrosuvastatin 10 mg oral tablet 1 tablet, By Mouth, Daily, # 90 tablet, 3 Refills, Maintenance, 08/18/21 9:20:00 EDT, [facility]/pharmacy #[id number], 168, cm, 08/15/21 9:17:00 EDT, Height, [...]
[2022-10-27 22:30] LABS: Strep A Nucleic Acid Negative (Negative)
--- OUTSIDE RECORDS SUMMARY | 2022-10-27 22:30 | XMS_ITS | Continuity of Care Document ---
:[address] [facility] Address [address] [place] [address]- Care Team Providers Name Role Phone Richar Gordon MD Primary Care Physician [place] [facility] [place] 02/28/[address] [id number] Attending Physician: Tam Bolanos Admitting Physician: Admtr, Tam Referring Physician: Admtr, Ar8 Allergies, Adverse Reactions, [...] 3 Refills, Maintenance, 02/26/22 9:26:00 EDT, Solution, [facility]/pharmacy #[id number], Partial fill upon patientrequest if the prescription is for a schedule II... Start Date: 02/26/22 Status: OrderedamLODIPine 2.5 mg oral tablet 1 tablet, By Mouth, Daily, # 90 tablet, 3 Refills, [facility], 168, cm, 11/17/21 10:55:00 EST, Height, 92, kg, 03/03/21 15:27:00 EDT, Dry Weight Start Date: 12/04/21 Status: OrderedamLODIPine 2.5 mg oral tablet 2.5 mg, 1, tablet, By Mouth, Daily, # 30 tablet, Refills 5, Tot. Refills 5, Maintenance, 05/22/21 13:11:00 EDT, Route to Pharmacy Electronically, [facility]/pharmacy #[id number], 168, cm, 05/02/21 8:45:00 EDT, Height, 92, kg, 03/03/21 15:27:00 EDT, Dry Weight Start Date: 05/22/21 Status: Orderedaspirin 81 mg oral tablet, chewable 81 mg, 1, tablet, By Mouth, Daily, # 30 tablet, Refills 5, Tot. Refills 5, Maintenance, 01/18/21 11:29:00 EST, Route to Pharmacy Electronically, [facility]/pharmacy #[id number], Partial fill upon patient request [...] Gm, 2 Refills, Maintenance, 09/04/21 19:43:00 EDT, [place],[facility]/pharmacy #[id number], Partial fill upon patient request if the prescription is for a schedule II opioid drug., 1 sprays Nares, Both 2 times a day, 168,... Start Date: 09/04/21 Status: OrderedGenvoya oral tablet 1 tablet, By Mouth, Daily, with food, # 30 tablet, 5 Refills, Maintenance, 01/29/22 21:33:00 EST, Tablet, [facility], [facility] #[id number], Partial fill upon patient request if the [...] tablet, Refills 1, Route to Pharmacy Electronically, [facility]ORE [id number], 168, cm, 01/15/22 14:50:00 EST, Height, 92, kg, 03/03/21 15:27:00 EDT, Dry Weight Start Date: 02/06/22 Status: OrderedLORazepam 1 mg oral tablet 1 tablet = 1 mg, By Mouth, PRN as needed for anxiety, 0 Refills, Maintenance, 06/29/18 13:11:09 EDT Start Date: 06/29/18 Status: OrderedMetoprolol Succinate ER 25 mg oral tablet, extended release 1 tablet, By Mouth, Daily, # 90 tablet, 3 Refills, [facility] 25[facility], 168, cm, 01/09/22 10:35:00 EST, Height, 92, kg, 03/03/21 15:27:00 EDT, Dry Weight Start Date: 01/10/22 Status: OrderedMetoprolol Succinate ER 25 mg oral tablet, extended release 1 tablet, By Mouth, Daily, # 90 tablet, 1 Refills, Maintenance, 05/12/21 13:24:00 EDT, [facility] 01016, 168, cm, 05/02/21 8:45:00 EDT, Height, 92, kg, 03/03/21 15:27:00 EDT, Dry Weight Start Date: 05/12/21 Status: Orderedmontelukast 10 mg oral tablet 10 mg, 1, tablet, By Mouth, Daily, # 90 tablet, Refills 3, Tot. Refills 3, Maintenance, 01/15/22 16:17:00 EST, Route to Pharmacy Electronically, [facility]/pharmacy #[id number], 168, cm, 01/15/22 14:50:00 EST, Height, 92, kg, 03/03/21 15:27:00 EDT, Dry Weight Start Date: 01/15/22 Status: Orderedomeprazole 20 mg oral enteric coated capsule 1 capsule = 20 mg, By Mouth, 2 times a day, # 180 capsule, 3 Refills, Maintenance, 09/04/21 19:37:00EDT, EC Capsule, [facility]/pharmacy #[id number], 168, cm, 09/04/21 9:46:00 EDT, Height, 92, kg, 03/03/21 15:27:00 EDT, Dry Weight Start Date: 09/04/21 Status: OrderedProAir HFA 90 mcg/inh inhalation aerosol with adapter 2, puffs, Inhalation, Every 6 hours, PRN, # 8.5 Gm, Refills 8, Tot. Refills 8, Maintenance, 03/07/2115:41:00 EDT, Aerosol, Route to Pharmacy Electronically, [id number], [facility]/pharmacy #[id number], 168, cm, 03/06/21 11:08:00 EDT, Hei... Start Date: 03/07/21 Status: OrderedProAir HFA 90 mcg/inh inhalation aerosol with adapter 2, puffs, Inhalation, Every 6 hours, PRN, Requests ProAir, # 8.5 Gm, Refills 5, Tot. Refills 5, Maintenance, 12/27/21 9:37:00 EST, Aerosol, Route to Pharmacy Electronically, [id number], [facility]/pharmacy #[id number], 168, cm, 12/27/21 8... Start Date: 12/27/21 Status: Orderedrosuvastatin 10 mg oral tablet 1 tablet, By Mouth, Daily, # 90 tablet, 3 Refills, Maintenance, 11/06/21 8:54:00 EST, [facility]/pharmacy #[id number], 168, cm, 11/06/21 8:47:00 EST, [...] Acute 05/07/22 9:03:00 EDT, 11/06/21 9:02:00 EST, [facility]/pharmacy #[id number], 168, cm, 11/06/21 8:47:00 EST, Height,92, kg, 03/03/21 15:27:00 EDT, Dry Weight Start Date: 11/06/21 Stop Date: 05/07/22 Status: OrderedtraMADol 50 mg oral tablet 2 tablet = 100 mg, By Mouth, Every 6 hours, PRN NEEDED FOR PAIN, # 224 tablet, 5 Refills, Acute 08/29/22 9:26:00 EDT, 05/07/22 9:03:00 EDT, [facility]/pharmacy #[id number], 168, cm, 02/26/22 8:34:00 EDT, [...] Response Smoking Status Former smoker, quit more ehrnan n 30 days ago entered on: 05/11/19 Sex
--- OUTSIDE RECORDS SUMMARY | 2022-10-27 22:30 | XMS_ITS | Continuity of Care Document ---
:1965 Author Organization [facility] Address [address] [place] [address]- Care Team Providers Name Role Phone Evan PEREZ, Richar Weldon Primary Care Physician Encounter [facility] [place] Date(s): 11/20/20 - 12/20/20 [facility] [address] [place] [address]- Allergies, Adverse Reactions, Alerts Substance Reaction Severity [...] 11/21/20 15:14:00 EST, Route to Pharmacy Electronically, [facility]/pharmacy #[id number], Partial fill upon patient request if the [...] Stop 03/06/21 10:42:00 EDT, 09/07/20 10:42:00 EDT, [facility] #[id number], 1 tablet By Mouth Daily,x30 days, 169, cm, 08/16/20 8:41:00 EDT, Height, 91, kg, 08/10/20 1:22:00... Start Date: 09/07/20 Stop Date: 03/06/21 Status: Orderedlisinopril 20 mg oral tablet 20 mg, 1, tablet, By Mouth, Daily, # 90 tablet, Refills 3, Tot. Refills 3, Maintenance, 12/14/20 11:13:00 EST, Route to Pharmacy Electronically, [facility]/pharmacy #[id number], 167, cm, 12/14/20 8:40:00 EST, Height, 91.3, [...] 04/07/20 9:23:00 EDT, Route to Pharmacy Electronically, [facility]/pharmacy #[id number], 168, cm, 02/08/20 15:35:00 EDT, Height, 86.8, kg, 02/18/19 13:15:00 EDT, Dry Weight Start Date: 04/07/20 Status: Orderedomeprazole 20 mg oral enteric coated capsule 1 capsule = 20 mg, By Mouth, 2 times a day, # 180 capsule, 0 Refills, Maintenance, 11/20/20 11:33:00EST, EC Capsule, [facility]/pharmacy #[id number], 167, cm, 10/12/20 10:08:00 EST, Height, 90.2, kg, 09/09/20 21:48:00 EDT, Dry Weight Start Date: 11/20/20 Status: OrderedProAir HFA 90 mcg/inh inhalation aerosol with adapter 2, puffs, Inhalation, Every 6 hours, PRN, # 8.5 Gm, Refills 5, Tot. Refills 5, Maintenance, 10/11/2010:14:00 EST, Aerosol, Route to Pharmacy Electronically, [id number], [facility]/pharmacy #[id number], 169, cm, 10/11/20 9:44:00 EST, Heig... Start Date: 10/11/20 Status: OrderedtraMADol 50 mg oral tablet 2 tablet = 100 mg, By Mouth, Every 6 hours, Increased dose; may fill for less than full amount, # 224 tablet, 2 Refills, Acute 01/14/21 11:09:00 EST, 12/18/20 15:37:00 EST, [facility]/pharmacy #[id number], 167, cm,12/14/20 8:40:00 EST, Height, [...]
--- OUTSIDE RECORDS SUMMARY | 2022-10-27 22:30 | XMS_ITS | Continuity of Care Document ---
:1965 Author Organization [facility] Address [address] [place] [address]- Care Team Providers Name Role Phone Evan PEREZ, Richar Weldon Primary Care Phys[place] [facility] [place]22 [facility] [address] [place] [id number] Allergies, Adverse Reactions, Alerts Substance Reaction Severity [...] 3 Refills, Maintenance, 02/26/22 9:26:00 EDT, Solution, [facility]/pharmacy #[id number], Partial fill upon patientrequest if the prescription is for a schedule II... Start Date: 02/26/22 Status: OrderedamLODIPine 2.5 mg oral tablet 1 tablet, By Mouth, Daily, # 90 tablet, 3 Refills, [id number], 168, cm, 11/17/21 10:55:00 EST, Height, 92, kg, 03/03/21 15:27:00 EDT, Dry Weight Start Date: 12/04/21 Status: OrderedamLODIPine 2.5 mg oral tablet 2.5 mg, 1, tablet, By Mouth, Daily, # 30 tablet, Refills 5, Tot. Refills 5, Maintenance, 05/22/21 13:11:00 EDT, Route to Pharmacy Electronically, [facility]/pharmacy #[id number], 168, cm, 05/02/21 8:45:00 EDT, Height, 92, kg, 03/03/21 15:27:00 EDT, Dry Weight Start Date: 05/22/21 Status: Orderedaspirin 81 mg oral tablet, chewable 81 mg, 1, tablet, By Mouth, Daily, # 30 tablet, Refills 5, Tot. Refills 5, Maintenance, 01/18/21 11:29:00 EST, Route to Pharmacy Electronically, [facility]/pharmacy #[id number], Partial fill upon patient request [...] Gm, 2 Refills, Maintenance, 09/04/21 19:43:00 EDT, [place],[facility]/pharmacy #[id number], Partial fill upon patient request if the prescription is for a schedule II opioid drug., 1 sprays Nares, Both 2 times a day, 168,... Start Date: 09/04/21 Status: OrderedGenvoya oral tablet 1 tablet, By Mouth, Daily, with food, # 30 tablet, 5 Refills, Maintenance, 01/29/22 21:33:00 EST, Tablet, [facility], [facility] Rx #[id number], Partial fill upon patient request if the [...] tablet, Refills 1, Route to Pharmacy Electronically, [id number], 168, cm, 01/15/22 14:50:00 EST, Height, 92, kg, 03/03/21 15:27:00 EDT, Dry Weight Start Date: 02/06/22 Status: OrderedLORazepam 1 mg oral tablet 1 tablet = 1 mg, By Mouth, PRN as needed for anxiety, 0 Refills, Maintenance, 06/29/18 13:11:09 EDT Start Date: 06/29/18 Status: OrderedMetoprolol Succinate ER 25 mg oral tablet, extended release 1 tablet, By Mouth, Daily, # 90 tablet, 3 Refills, [id number], 168, cm, 01/09/22 10:35:00 EST, Height, 92, kg, 03/03/21 15:27:00 EDT, Dry Weight Start Date: 01/10/22 Status: OrderedMetoprolol Succinate ER 25 mg oral tablet, extended release 1 tablet, By Mouth, Daily, # 90 tablet, 1 Refills, Maintenance, 05/12/21 13:24:00 EDT, [facility], 168, cm, 05/02/21 8:45:00 EDT, Height, 92, kg, 03/03/21 15:27:00 EDT, Dry Weight Start Date: 05/12/21 Status: Orderedmontelukast 10 mg oral tablet 10 mg, 1, tablet, By Mouth, Daily, # 90 tablet, Refills 3, Tot. Refills 3, Maintenance, 01/15/22 16:17:00 EST, Route to Pharmacy Electronically, [facility]/pharmacy #[id number], 168, cm, 01/15/22 14:50:00 EST, Height, 92, kg, 03/03/21 15:27:00 EDT, Dry Weight Start Date: 01/15/22 Status: Orderedomeprazole 20 mg oral enteric coated capsule 1 capsule = 20 mg, By Mouth, 2 times a day, # 180 capsule, 3 Refills, Maintenance, 09/04/21 19:37:00EDT, EC Capsule, [facility]/pharmacy #[id number], 168, cm, 09/04/21 9:46:00 EDT, Height, 92, kg, 03/03/21 15:27:00 EDT, Dry Weight Start Date: 09/04/21 Status: OrderedProAir HFA 90 mcg/inh inhalation aerosol with adapter 2, puffs, Inhalation, Every 6 hours, PRN, # 8.5 Gm, Refills 8, Tot. Refills 8, Maintenance, 03/07/2115:41:00 EDT, Aerosol, Route to Pharmacy Electronically, [id number], [facility]/pharmacy #[id number], 168, cm, 03/06/21 11:08:00 EDT, Hei... Start Date: 03/07/21 Status: OrderedProAir HFA 90 mcg/inh inhalation aerosol with adapter 2, puffs, Inhalation, Every 6 hours, PRN, Requests ProAir, # 8.5 Gm, Refills 5, Tot. Refills 5, Maintenance, 12/27/21 9:37:00 EST, Aerosol, Route to Pharmacy Electronically, [id number], [facility]/pharmacy #[id number], 168, cm, 12/27/21 8... Start Date: 12/27/21 Status: Orderedrosuvastatin 10 mg oral tablet 1 tablet, By Mouth, Daily, # 90 tablet, 3 Refills, Maintenance, 11/06/21 8:54:00 EST, [facility]/pharmacy #[id number], 168, cm, 11/06/21 8:47:00 EST, [...] Acute 05/07/22 9:03:00 EDT, 11/06/21 9:02:00 EST, [facility]/pharmacy #[id number], 168, cm, 11/06/21 8:47:00 EST, Height,92, kg, 03/03/21 15:27:00 EDT, Dry Weight Start Date: 11/06/21 Stop Date: 05/07/22 Status: OrderedtraMADol 50 mg oral tablet 2 tablet = 100 mg, By Mouth, Every 6 hours, PRN NEEDED FOR PAIN, # 224 tablet, 5 Refills, Acute 08/29/22 9:26:00 EDT, 05/07/22 9:03:00 EDT, [facility]/pharmacy #[id number], 168, cm, 02/26/22 8:34:00 EDT, [...]
--- OUTSIDE RECORDS SUMMARY | 2022-10-27 22:30 | XMS_ITS | Continuity of Care Document ---
:1965 Author Organization [facility] Address [address] [place] [id number]- Care Team Providers Name Role Phone Evan PEREZ, Richar Weldon Primary Care Physician Encounter [facility] Date(s): 08/18/21 - 09/17/21 [facility] [address] [place] [id number]- [place] Allergies, Adverse Reactions, Alerts Substance Reaction Severity [...] each, 5Refills, Maintenance, 09/11/21 14:21:00 EDT, Solution, [facility]/pharmacy #[id number], Partial fill upon patientrequest if the prescription is for a schedule II... Start Date: 09/11/21 Status: OrderedamLODIPine 2.5 mg oral tablet 2.5 mg, 1, tablet, By Mouth, Daily, # 30 tablet, Refills 5, Tot. Refills 5, Maintenance, 05/22/21 13:11:00 EDT, Route to Pharmacy Electronically, [facility]/pharmacy #[id number], 168, cm, 05/02/21 8:45:00 EDT, Height, 92, kg, 03/03/21 15:27:00 EDT, Dry Weight Start Date: 05/22/21 Status: Orderedaspirin 81 mg oral tablet, chewable 81 mg, 1, tablet, By Mouth, Daily, # 30 tablet, Refills 5, Tot. Refills 5, Maintenance, 01/18/21 11:29:00 EST, Route to Pharmacy Electronically, [facility]/pharmacy #[id number], Partial fill upon patient request ifthe [...] Gm, 2 Refills, Maintenance, 09/04/21 19:43:00 EDT, [place],[facility]/pharmacy #[id number], Partial fill upon patient request if the prescription is for a schedule II opioid drug., 1 sprays Nares, Both 2 times a day, 168,... Start Date: 09/04/21 Status: OrderedGenvoya oral tablet 1 tablet, By Mouth, Daily, for 30 days, # 30 tablet, 5 Refills, Physician Stop 11/25/21 11:25:00 EST, 05/29/21 11:25:00 EDT, [facility] #[id number], 1 tablet By Mouth Daily,x30 days, 168, cm, 05/02/21 8:45:00 EDT, Height, 92, kg, 03/03/21 15:27:0... Start Date: 05/29/21 Stop Date: 11/25/21 Status: OrderedHome Blood Pressure Monitor See Instructions, [...] 12/14/20 11:13:00 EST, Route to Pharmacy Electronically, [facility]/pharmacy #[id number], 167, cm, 12/14/20 8:40:00 EST, Height, [...] tablet, 1 Refills, Maintenance, 05/12/21 13:24:00 EDT, [facility], 168, cm, 05/02/21 8:45:00 EDT, Height, 92, kg, 03/03/21 15:27:00 EDT, Dry Weight Start Date: 05/12/21 Status: Orderedmontelukast 10 mg oral tablet 10 mg, 1, tablet, By Mouth, Daily, # 90 tablet, Refills 3, Tot. Refills 3, Maintenance, 03/22/21 8:48:00 EDT, Route to Pharmacy Electronically, [facility]/pharmacy #[id number], 168, cm, 03/06/21 11:08:00 EDT, Height, 92, kg, 03/03/21 15:27:00 EDT, Dry Weight Start Date: 03/22/21 Status: Orderedomeprazole 20 mg oral enteric coated capsule 1 capsule = 20 mg, By Mouth, 2 times a day, # 180 capsule, 3 Refills, Maintenance, 09/04/21 19:37:00EDT, EC Capsule, [facility]/pharmacy #[id number], 168, cm, 09/04/21 9:46:00 EDT, Height, 92, kg, 03/03/21 15:27:00 EDT, Dry Weight Start Date: 09/04/21 Status: OrderedProAir HFA 90 mcg/inh inhalation aerosol with adapter 2, puffs, Inhalation, Every 6 hours, PRN, # 8.5 Gm, Refills 8, Tot. Refills 8, Maintenance, 03/07/2115:41:00 EDT, Aerosol, Route to Pharmacy Electronically, [id number], [facility]/pharmacy #[id number], 168, cm, 03/06/21 11:08:00 EDT, Hei... Start Date: 03/07/21 Status: OrderedProAir HFA 90 mcg/inh inhalation aerosol with adapter 2, puffs, Inhalation, Every 6 hours, PRN, Requests ProAir, # 8.5 Gm, Refills 5, Tot. Refills 5, Maintenance, 03/22/21 8:49:00 EDT, Aerosol, Route to Pharmacy Electronically, [id number], [facility]/pharmacy #[id number], 168, cm, 03/06/21 1... Start Date: 03/22/21 Status: Orderedrosuvastatin 10 mg oral tablet 1 tablet, By Mouth, Daily, # 90 tablet, 3 Refills, Maintenance, 08/18/21 9:20:00 EDT, [id number], 168, cm, 08/15/21 9:17:00 EDT, Height, [...]
--- OUTSIDE RECORDS SUMMARY | 2022-10-27 22:30 | XMS_ITS | Continuity of Care Document ---
:1965 Author Organization [facility] [place] [facility] Address [address] [place] [address]- Care Team Providers Name Role Phone Richar Gordon MD Primary Care Physician Encounter [facility] [place] Date(s): 12/27/21 - 01/03/22 [facility] [address] [place] [address]- Attending Physician: Richar Gordon MD Allergies, Adverse [...] 3 Refills, Maintenance, 11/06/21 8:54:00 EST, Solution, [facility]/pharmacy #[id number], Partial fill upon patientrequest if the prescription is for a schedule II... Start Date: 11/06/21 Status: OrderedamLODIPine 2.5 mg oral tablet 1 tablet, By Mouth, Daily, # 90 tablet, 3 Refills, [facility], 168, cm, 11/17/21 10:55:00 EST, Height, 92, kg, 03/03/21 15:27:00 EDT, Dry Weight Start Date: 12/04/21 Status: OrderedamLODIPine 2.5 mg oral tablet 2.5 mg, 1, tablet, By Mouth, Daily, # 30 tablet, Refills 5, Tot. Refills 5, Maintenance, 05/22/21 13:11:00 EDT, Route to Pharmacy Electronically, [facility]/pharmacy #[id number], 168, cm, 05/02/21 8:45:00 EDT, Height, 92, kg, 03/03/21 15:27:00 EDT, Dry Weight Start Date: 05/22/21 Status: Orderedaspirin 81 mg oral tablet, chewable 81 mg, 1, tablet, By Mouth, Daily, # 30 tablet, Refills 5, Tot. Refills 5, Maintenance, 01/18/21 11:29:00 EST, Route to Pharmacy Electronically, [facility]/pharmacy #[id number], Partial fill upon patient [...] Gm, 2 Refills, Maintenance, 09/04/21 19:43:00 EDT, [place],[facility]/pharmacy #[id number], Partial fill upon patient request if the prescription is for a schedule II opioid drug., 1 sprays Nares, Both 2 times a day, 168,... Start Date: 09/04/21 Status: OrderedFlovent HFA 44 mcg/inh inhalation aerosol 2 puffs, Inhalation, 2 times a day, Use with spacer. Rinse and spit after use, # 12 Gm, 5 Refills, Maintenance, 12/27/21 9:39:00 EST, Aerosol, [facility]/pharmacy #[id number], Partial fill upon patient request if the prescription is for a schedule II opioid drug.,... Start Date: 12/27/21 Status: OrderedHome Blood Pressure Monitor See Instructions, [...] 11:13:00 EST, Route to Pharmacy Electronically, [facility]/pharmacy #[id number], 167, cm, 12/14/20 8:40:00 [...] 1 Refills, Maintenance, 05/12/21 13:24:00 EDT, [id number], 168, cm, 05/02/21 8:45:00 EDT, Height, 92, kg, 03/03/21 15:27:00 EDT, Dry Weight Start Date: 05/12/21 Status: Orderedomeprazole 20 mg oral enteric coated capsule 1 capsule = 20 mg, By Mouth, 2 times a day, # 180 capsule, 3 Refills, Maintenance, 09/04/21 19:37:00EDT, EC Capsule, [facility]/pharmacy #[id number], 168, cm, 09/04/21 9:46:00 EDT, Height, 92, kg, 03/03/21 15:27:00 EDT, Dry Weight Start Date: 09/04/21 Status: OrderedProAir HFA 90 mcg/inh inhalation aerosol with adapter 2, puffs, Inhalation, Every 6 hours, PRN, # 8.5 Gm, Refills 8, Tot. Refills 8, Maintenance, 03/07/2115:41:00 EDT, Aerosol, Route to Pharmacy Electronically, [id number], [facility]/pharmacy #[id number], 168, cm, 03/06/21 11:08:00 EDT, Hei... Start Date: 03/07/21 Status: OrderedProAir HFA 90 mcg/inh inhalation aerosol with adapter 2, puffs, Inhalation, Every 6 hours, PRN, Requests ProAir, # 8.5 Gm, Refills 5, Tot. Refills 5, Maintenance, 12/27/21 9:37:00 EST, Aerosol, Route to Pharmacy Electronically, [id number], [facility]/pharmacy #[id number], 168, cm, 12/27/21 8... [...] oldest [Reference Range]: 1 Height 168 cm (12/27/21 8:35 AM) Weight 91.81 kg (12/27/21 8:35 AM) Body Mass Index [18.5-24.99] 32.53 *>HHI* (12/27/21 8:35 AM) Social History Social History Type Response Smoking Status Former smoker, quit more hernan n 30 days ago entered on: 05/11/19 Sex
--- OUTSIDE RECORDS SUMMARY | 2022-10-27 22:30 | XMS_ITS | Continuity of Care Document ---
:1965 Author Organization [facility] Address [address] [place] [address]- Care Team Providers Name Role Phone Evan PEREZ, Richar Weldon Primary Care Physician Encounter [facility] Date(s): 10/12/20 - 11/11/20 [facility] [address] [place] [address] [place] [id number] Attending Physician: Tam Bolanos Admitting Physician: AdmTam patiño Referring Physician: AdmtrTam Allergies, Adverse Reactions, Alerts Substance Reaction Severity Status amoxicillin nausea and vomiting Active atorvastatin Dyspnea Active Benadryl Swelling/Edema Active Rash/Dermatitis Anxiety state Pulmicort Flexhaler Active Anoro Ellipta Active gabapentin anxiety Active Cipro HC rash [...] each, 5 Refills, Maintenance, 06/07/20 16:02:00 EDT, [facility]/pharmacy #[id number], DX [id number], 168, cm, 02/08/20 15:35:00 EDT, Height, 86.8, kg, 02/18/19 13:15:00 EDT, Dry Weight Start Date: 06/07/20 Status: OrderedGenvoya oral tablet 1 tablet, By Mouth, Daily, for 30 days, # 30 tablet, 5 Refills, Physician Stop 03/06/21 10:42:00 EDT, 09/07/20 10:42:00 EDT, [facility] #[id number], 1 tablet By Mouth Daily,x30 days, 169, cm, 08/16/20 8:41:00 EDT, Height, 91, kg, 08/10/20 1:22:00... Start Date: 09/07/20 Stop Date: 03/06/21 Status: Orderedlisinopril 20 mg oral tablet 20 mg, 1, tablet, By Mouth, Daily, # 90 tablet, Refills 3, Tot. Refills 3, Maintenance, 04/07/20 9:23:00 EDT, Route to Pharmacy Electronically, [facility]/pharmacy #[id number], 168, cm, 02/08/20 15:35:00 EDT, Height, 86.8, kg, 02/18/19 13:15:00 EDT, Dry Weight Start Date: 04/07/20 Status: OrderedLORazepam 1 mg oral tablet 1 tablet = 1 mg, By Mouth, PRN as needed for anxiety, 0 Refills, Maintenance, 06/29/18 13:11:09 EDT Start Date: 06/29/18 Status: Orderedmontelukast 10 mg oral tablet 10 mg, 1, tablet, By Mouth, Daily, # 90 tablet, Refills 3, Tot. Refills 3, Maintenance, 04/07/20 9:23:00 EDT, Route to Pharmacy Electronically, [facility]/pharmacy #[id number], 168, cm, 02/08/20 15:35:00 EDT, [...] Refills, Maintenance, 07/11/20 11:31:00 EDT, EC Capsule, [facility]/pharmacy #[id number], 168, cm, 07/08/20 9:19:00 EDT, Height, 86.8, kg, 02/18/19 13:15:00 EDT, Dry Weight Start Date: 07/11/20 Status: OrderedProAir HFA 90 mcg/inh inhalation aerosol with adapter 2, puffs, Inhalation, Every 6 hours, PRN, # 8.5 Gm, Refills 5, Tot. Refills 5, Maintenance, 10/11/2010:14:00 EST, Aerosol, Route to Pharmacy Electronically, [id number], [facility]/pharmacy #[id number], 169, cm, 10/11/20 9:44:00 EST, He[place]... Start Date: 10/11/20 Status: OrderedtraMADol 50 mg oral tablet 1 tablet, By Mouth, Every 6 hours, PRN NEEDED FOR PAIN, # 112 tablet, 0 Refills, Acute 11/27/20 11:30:00 EST, 09/27/20 11:46:00 EDT, [facility]/pharmacy #[id number], 169, cm, 09/26/20 14:30:00 EDT, Height, 90.2,kg, 09/09/20 21:48:00 EDT, Dry Weight Start Date: 09/27/20 Stop Date: 11/27/20 Status: OrderedtraMADol 50 mg oral tablet 1 tablet, By Mouth, Every 6 hours, PRN NEEDED FOR PAIN, # 112 tablet, 0 Refills, Acute 11/25/20 15:39:00 EST, 09/26/20 16:04:00 EDT, [facility] #[id number], 169, cm, 09/26/20 14:30:00 EDT, Height, 90.2, kg, 09/09/20 21:48:00 EDT, Dry Weight Start Date: 09/26/20 Stop Date: 11/25/20 Status: OrderedTubing and mouthpiece Tubing and mouthpiece, See Instructions, # 1 each, Refills 0, Tot. Refills 0, Maintenance, Tubing and mouthpiece for nebulizer for use with albuterol, Dx: Asthma, 02/08/20 16:30:00 EDT, Supply Start Date: 02/08/20 Status: OrderedVentolin HFA 108 mcg/inh inhalation aerosol with adapter Inhalation, prn, 0 Refills, Maintenance, 10/12/20 9:14:00 EST Start Date: 10/12/20 Status: Ordered Problem List Condition Effective Dates [...]
--- OUTSIDE RECORDS SUMMARY | 2022-10-27 22:30 | XMS_ITS | Continuity of Care Document ---
:1965 Author Organization [facility] Address [address] [place] [address]- Care Team Providers Name Role Phone Richar Gordon MD Primary Care Physician [place] [facility] [place]15[place]20 [facility] [address] [place] [address]- [facility] Attending Physician: Richar Gordon MD [...] each, 5 Refills, Maintenance, 02/08/20 16:44:00 EDT, [facility]/pharmacy #[id number], 168, cm, 02/08/20 15:35:00 EDT, Height, 86.8, kg, 02/18/19 13:15:00 EDT, Dry Weight Start Date: 02/08/20 Status: OrderedGenvoya oral tablet See Instructions, TAKE 1 TABLET BY MOUTH DAILY WITH FOOD, # 30 tablet, 3 Refills, Maintenance, [facility], [facility] #[id number], 30, TAKE 1 TABLET BY MOUTH DAILY WITH FOOD, 168, cm, 02/08/20 15:35:00 EDT, Height, 86.8, kg, 02/18/19 13:15:00 EDT, Dry W... Start Date: 02/15/20 Status: Orderedlidocaine 4% topical film 1 patch, [...] 01/07/20 10:28:00 EST, Route to Pharmacy Electronically, [facility]/pharmacy #[id number], 168, cm, 01/07/20 10:04:00 EST, Height, [...] 01/07/20 10:28:00 EST, Route to Pharmacy Electronically, [facility]/pharmacy #[id number], 168, cm, 01/07/20 10:04:00 EST, Height, 86.8, kg, 02/18/19 13:15:00 EDT, Dry Weight Start Date: 01/07/20 Status: Orderedmontelukast 10 mg oral tablet 10 mg, 1, tablet, By Mouth, Daily, # 90 tablet, Refills 3, Tot. Refills 3, Maintenance, 01/07/20 10:28:00 EST, Route to Pharmacy Electronically, [facility]/pharmacy #[id number], 168, cm, 01/07/20 10:04:00 EST, Height, [...] :11:41 EDT, Aerosol, Route to Pharmacy Electronically, [id number], [facility]/pharmacy #[id number] Start Date: 05/12/19 Status: OrderedSymbicort 80mcg/4.5mcg Inhaler 2, puffs, Inhalation, 2 times a day, # 6.9 Gm, Refills 5, Tot. Refills 5, Maintenance, 09/28/19 8:50:05 EDT, Aerosol, Route to Pharmacy Electronically, [id number], [facility] #[id number] Start Date: 09/28/19 Status: OrderedtraMADol 50 mg oral tablet 1 tablet = 50 mg, By Mouth, 2 times a day, PRN Pain , Moderate, # 14 tablet, 3 Refills, Maintenance,01/26/20 12:14:00 EST, [facility]/pharmacy #[id number], 168, cm, 01/07/20 10:04:00 EST, Height, 86.8, kg, 02/18/19 13:15:00 EDT, Dry Weight Start Date: 01/26/20 Status: OrderedtraMADol 50 mg oral tablet 1 tablet = 50 mg, By Mouth, 2 times a day, PRN Pain , Moderate, # 14 tablet, 3 Refills, Maintenance,12/14/19 16:47:00 EST, [facility] #[id number], 168, cm, 09/28/19 8:13:00 EDT, Height, 86.8, kg,02/18/19 13:15:00 EDT, Dry Weight Start Date: 12/14/19 Status: OrderedTubing and mouthpiece Tubing and mouthpiece, [...] 5 Refills, Maintenance, 02/08/20 16:45:00 EDT, Aerosol, [facility]/pharmacy #[id number], 168, cm, 02/08/20 15:35:00 EDT, Height, [...] oldest [Reference Range]: 1 Height 168 cm (02/08/20 3:35 PM) Weight 85.4 kg (02/08/20 3:35 PM) Oxygen Saturation [94-100 %] 98 % (02/08/20 3:35 PM) Pulse Rate [55-90 bpm] 67 bpm (02/08/20 3:35 PM) Body Mass Index [18.5-24.99] 30.26 *>HHI* (02/08/20 3:35 PM) Blood Pressure [90-138/55-84 mm Hg] 114/62 mm Hg (02/08/20 3:35 PM) Respiratory Rate [16-30 br/min] 12 br/min *L* (02/08/20 3:35 PM) Temperature [96.8-100.4 DegF] 98.7 DegF (02/08/20 3:35 PM) Mode of Delivery (Oxygen) Room air (02/08/20 3:35 PM) Blood pressure sites Arm, left (02/08/20 3:35 PM) Temperature Route Oral (02/08/20 3:35 PM) Weight Obtained Via Standing scale (02/08/20 3:35 PM) Social History Social History Type Response Smoking Status Former smoker, quit more hernan n 30 days ago entered on: 05/11/19 Sex
--- OUTSIDE RECORDS SUMMARY | 2022-10-27 22:30 | XMS_ITS | Continuity of Care Document ---
:1965 Author Organization [facility] Address [address] [place] [address]- Care Team Providers Name Role Phone Evan PEREZ, Richar Weldon Primary Care Physician Encounter [facility] Date(s): 01/15/22 - 02/14/22 [facility] [address] [place] [address]- Attending Physician: Eric COOK, Shabana Coburn Allergies, [...] 3 Refills, Maintenance, 11/06/21 8:54:00 EST, Solution, [facility]/pharmacy #[id number], Partial fill upon patientrequest if the prescription is for a schedule II... Start Date: 11/06/21 Status: OrderedamLODIPine 2.5 mg oral tablet 1 tablet, By Mouth, Daily, # 90 tablet, 3 Refills, [id number], 168, cm, 11/17/21 10:55:00 EST, Height, 92, [...] 11:29:00 EST, Route to Pharmacy Electronically, [facility]/pharmacy #[id number], Partial fill upon patient [...] Gm, 2 Refills, Maintenance, 09/04/21 19:43:00 EDT, [place],[facility]/pharmacy #[id number], Partial fill upon patient request if the prescription is for a schedule II opioid drug., 1 sprays Nares, Both 2 times a day, 168,... Start Date: 09/04/21 Status: OrderedGenvoya oral tablet 1 tablet, By Mouth, Daily, with food, # 30 tablet, 5 Refills, Maintenance, 01/29/22 21:33:00 EST, Tablet, [facility], [facility] Rx #[id number], Partial fill upon patient request if the [...] tablet, Refills 1, Route to Pharmacy Electronically, [facility] STORE [id number], 168, cm, 01/15/22 14:50:00 EST, Height, 92, kg, 03/03/21 15:27:00 EDT, Dry Weight Start Date: 02/06/22 Status: OrderedLORazepam 1 mg oral tablet 1 tablet = 1 mg, By Mouth, PRN as needed for anxiety, 0 Refills, Maintenance, 06/29/18 13:11:09 EDT Start Date: 06/29/18 Status: OrderedMetoprolol Succinate ER 25 mg oral tablet, extended release 1 tablet, By Mouth, Daily, # 90 tablet, 3 Refills, [facility] STORE 00938, 168, cm, 01/09/22 10:35:00 EST, Height, 92, kg, 03/03/21 15:27:00 EDT, Dry Weight Start Date: 01/10/22 Status: OrderedMetoprolol Succinate ER 25 mg oral tablet, extended release 1 tablet, By Mouth, Daily, # 90 tablet, 1 Refills, Maintenance, 05/12/21 13:24:00 EDT, [facility], 168, cm, 05/02/21 8:45:00 EDT, Height, 92, kg, 03/03/21 15:27:00 EDT, Dry Weight Start Date: 05/12/21 Status: Orderedmontelukast 10 mg oral tablet 10 mg, 1, tablet, By Mouth, Daily, # 90 tablet, Refills 3, Tot. Refills 3, Maintenance, 01/15/22 16:17:00 EST, Route to Pharmacy Electronically, [facility]/pharmacy #[id number], 168, cm, 01/15/22 14:50:00 EST, Height, 92, kg, 03/03/21 15:27:00 EDT, Dry Weight Start Date: 01/15/22 Status: Orderedomeprazole 20 mg oral enteric coated capsule 1 capsule = 20 mg, By Mouth, 2 times a day, # 180 capsule, 3 Refills, Maintenance, 09/04/21 19:37:00EDT, EC Capsule, [facility]/pharmacy #[id number], 168, cm, 09/04/21 9:46:00 EDT, Height, 92, kg, 03/03/21 15:27:00 EDT, Dry Weight Start Date: 09/04/21 Status: OrderedProAir HFA 90 mcg/inh inhalation aerosol with adapter 2, puffs, Inhalation, Every 6 hours, PRN, # 8.5 Gm, Refills 8, Tot. Refills 8, Maintenance, 03/07/2115:41:00 EDT, Aerosol, Route to Pharmacy Electronically, [id number], [facility]/pharmacy #[id number], 168, cm, 03/06/21 11:08:00 EDT, Hei... Start Date: 03/07/21 Status: OrderedProAir HFA 90 mcg/inh inhalation aerosol with adapter 2, puffs, Inhalation, Every 6 hours, PRN, Requests ProAir, # 8.5 Gm, Refills 5, Tot. Refills 5, Maintenance, 12/27/21 9:37:00 EST, Aerosol, Route to Pharmacy Electronically, [id number], [facility]/pharmacy #[id number], 168, cm, 12/27/21 8... Start Date: 12/27/21 Status: Orderedrosuvastatin 10 mg oral tablet 1 tablet, By Mouth, Daily, # 90 tablet, 3 Refills, Maintenance, 11/06/21 8:54:00 EST, [facility]/pharmacy #[id number], 168, cm, 11/06/21 8:47:00 [...] Acute 05/07/22 9:03:00 EDT, 11/06/21 9:02:00 EST, [facility]/pharmacy #[id number], 168, cm, 11/06/21 8:47:00 [...]
--- OUTSIDE RECORDS SUMMARY | 2022-10-27 22:30 | XMS_ITS | Continuity of Care Document ---
:1965 Author Organization [facility] Address [address] [place] [address]- Care Team Providers Name Role Phone Evan PEREZ, Richar Weldon Primary Care Physician [place] [facility] [place] Date[place] 09/26/21 - 11/01/21 [facility] [address] [place] [address]- Attending Physician: Dyan Sharp NP Admitting Physician: Dyan Sharp NP Referring Physician: Dyan Sharp NP Allergies, Adverse Reactions, Alerts Substance Reaction Severity [...] each, 5Refills, Maintenance, 09/11/21 14:21:00 EDT, Solution, [facility]/pharmacy #[id number], Partial fill upon patientrequest if the prescription is for a schedule II... Start Date: 09/11/21 Status: OrderedamLODIPine 2.5 mg oral tablet 2.5 mg, 1, tablet, By Mouth, Daily, # 30 tablet, Refills 5, Tot. Refills 5, Maintenance, 05/22/21 13:11:00 EDT, Route to Pharmacy Electronically, [facility]/pharmacy #[id number], 168, cm, 05/02/21 8:45:00 [...] Gm, 2 Refills, Maintenance, 09/04/21 19:43:00 EDT, [id number], Partial fill upon patient request if the prescription is for a schedule II opioid drug., 1 sprays Nares, Both 2 times a day, 168,... Start Date: 09/04/21 Status: OrderedGenvoya oral tablet 1 tablet, By Mouth, Daily, for 30 days, # 30 tablet, 5 Refills, Physician Stop 11/25/21 11:25:00 EST, 05/29/21 11:25:00 EDT, [facility] #[id number], 1 tablet By Mouth Daily,x30 days, 168, [...] 12/14/20 11:13:00 EST, Route to Pharmacy Electronically, [facility]/pharmacy #[id number], 167, cm, 12/14/20 8:40:00 [...] tablet, 1 Refills, Maintenance, 05/12/21 13:24:00 EDT, [facility] STORE [id number], 168, cm, 05/02/21 8:45:00 EDT, Height, 92, kg, 03/03/21 15:27:00 EDT, Dry Weight Start Date: 05/12/21 Status: Orderedmontelukast 10 mg oral tablet 10 mg, 1, tablet, By Mouth, Daily, # 90 tablet, Refills 3, Tot. Refills 3, Maintenance, 03/22/21 8:48:00 EDT, Route to Pharmacy Electronically, [facility] [...] 03/07/2115:41:00 EDT, Aerosol, Route to Pharmacy Electronically, [id number], [facility]/pharmacy #[id number], 168, cm, 03/06/21 11:08:00 EDT, Hei... Start Date: 03/07/21 Status: OrderedProAir HFA 90 mcg/inh inhalation aerosol with adapter 2, puffs, Inhalation, Every 6 hours, PRN, Requests ProAir, # 8.5 Gm, Refills 5, Tot. Refills 5, Maintenance, 03/22/21 8:49:00 EDT, Aerosol, Route to Pharmacy Electronically, [id number], [facility]/pharmacy #[id number], 168, cm, 03/06/21 1... Start Date: 03/22/21 Status: Orderedrosuvastatin 10 mg oral tablet 1 tablet, By Mouth, Daily, # 90 tablet, 3 Refills, Maintenance, 08/18/21 9:20:00 EDT, [facility]/pharmacy #[id number], 168, cm, 08/15/21 9:17:00 EDT, Height, 92, kg, 03/03/21 15:27:00 EDT, Dry Weight Start Date: 08/18/21 Status: OrderedtraMADol 50 mg oral tablet 2 tablet = 100 mg, By Mouth, Every 6 hours, PRN NEEDED FOR PAIN, # 224 tablet, 2 Refills, Acute 05/25/22 5:10:00 EDT, 03/09/22 8:16:00 EDT, [facility]/pharmacy #[id number], 168, cm, 05/02/21 8:45:00 EDT, Height,92, kg, 03/03/21 15:27:00 EDT, Dry Weight Start Date: 03/09/22 Stop Date: 05/25/22 Status: OrderedtraMADol 50 mg oral tablet See Instructions, TAKE 2 TABLETS BY MOUTH EVERY 6 HOURS NEEDED FOR PAIN, # 224 tablet, 2 Refills,Acute 11/29/21 7:02:00 EST, 08/30/21 7:01:00 EDT, [facility]/pharmacy #[id number], 168, cm, 08/15/21 9:17:00 EDT,Height, 92, [...]
--- OUTSIDE RECORDS SUMMARY | 2022-10-27 22:30 | XMS_ITS | Continuity of Care Document ---
:1965 Author Organization [facility] Address [address] [place] [address]- Care Team Providers Name Role Phone Richar Gordon MD Primary Care Physician Encounter [facility] [place] Date(s): 03/08/21 - 03/15/21 [facility] [address] [place] [address]- Attending Physician: Richar Gordon MD Allergies, Adverse [...] 03/06/21 15:56:00 EDT, Route to Pharmacy Electronically, [facility]/pharmacy #[id number], Partial fill upon patient request if the prescription is f... Start Date: 03/06/21 Status: Orderedaspirin 81 mg oral tablet, chewable 81 mg, 1, tablet, By Mouth, Daily, # 30 tablet, Refills 5, Tot. Refills 5, Maintenance, 01/18/21 11:29:00 EST, [id number] Partial fill upon patient request [...] Stop 07/31/21 14:13:00 EDT, 02/01/21 14:13:00 EST, [facility] ST[facility] #[id number], 1 tablet By Mouth Daily,x30 days, 167, [...] 12/14/20 11:13:00 EST, Route to Pharmacy Electronically, [facility]/pharmacy #[id number], 167, cm, 12/14/20 8:40:00 EST, Height, [...] 01/18/21 11:30:00 EST, Route to Pharmacy Electronically, [facility]/pharmacy #[id number], Partial fill upon patient request ifthe prescription is for a schedule II opioid drug... Start Date: 01/18/21 Stop Date: 07/17/21 Status: Orderedmontelukast 10 mg oral tablet 10 mg, 1, tablet, By Mouth, Daily, # 90 tablet, Refills 3, Tot. Refills 3, Maintenance, 04/07/20 9:23:00 EDT, Route to Pharmacy Electronically, [facility]/pharmacy #[id number], 168, cm, 02/08/20 15:35:00 EDT, Height, 86.8, kg, 02/18/19 13:15:00 EDT, Dry Weight Start Date: 04/07/20 Status: Orderedomeprazole 20 mg oral enteric coated capsule 1 capsule = 20 mg, By Mouth, 2 times a day, # 180 capsule, 0 Refills, Maintenance, 02/16/21 10:57:00EDT, EC Capsule, [facility]/pharmacy #[id number], 167, cm, 12/14/20 8:40:00 EST, Height, 91.3, kg, 11/30/20 17:07:00 EST, Dry Weight Start Date: 02/16/21 Status: OrderedProAir HFA 90 mcg/inh inhalation aerosol with adapter 2, puffs, Inhalation, Every 6 hours, PRN, # 8.5 Gm, Refills 8, Tot. Refills 8, Maintenance, 03/07/2115:41:00 EDT, Aerosol, Route to Pharmacy Electronically, [id number], [facility]/pharmacy #[id number], 168, cm, 03/06/21 11:08:00 EDT, Hei... Start Date: 03/07/21 Status: Orderedrosuvastatin 10 mg oral tablet 1 tablet = 10 mg, By Mouth, Daily, # 30 tablet, 5 Refills, Maintenance, 01/19/21 10:28:00 EST, Tablet, [id number], Partial fill upon patient request [...]
--- OUTSIDE RECORDS SUMMARY | 2022-10-27 22:30 | XMS_ITS | Continuity of Care Document ---
:1965 Author Organization [facility] Address [address] [place] [address]- Care Team Providers Name Role Phone Evan PEREZ, Richar Weldon Primary Care Physician Encounter [facility] [place] Date(s): 07/21/21 - 08/20/21 [facility] [address] [place] [address]- Allergies, Adverse Reactions, Alerts Substance Reaction Severity [...] 05/22/21 13:11:00 EDT, Route to Pharmacy Electronically, [facility]/pharmacy #[id number], 168, cm, 05/02/21 8:45:00 EDT, Height, 92, kg, 03/03/21 15:27:00 EDT, Dry Weight Start Date: 05/22/21 Status: Orderedaspirin 81 mg oral tablet, chewable 81 mg, 1, tablet, By Mouth, Daily, # 30 tablet, Refills 5, Tot. Refills 5, Maintenance, 01/18/21 11:29:00 EST, [id number] upon patient [...] Stop 11/25/21 11:25:00 EST, 05/29/21 11:25:00 EDT, [id number], 1 tablet By Mouth Daily,x30 days, 168, [...] 12/14/20 11:13:00 EST, Route to Pharmacy Electronically, [facility]/pharmacy #[id number], 167, cm, 12/14/20 8:40:00 [...] tablet, 1 Refills, Maintenance, 05/12/21 13:24:00 EDT, [facility] STORE [id number], 168, cm, 05/02/21 8:45:00 EDT, Height, 92, kg, 03/03/21 15:27:00 EDT, Dry Weight Start Date: 05/12/21 Status: Orderedmontelukast 10 mg oral tablet 10 mg, 1, tablet, By Mouth, Daily, # 90 tablet, Refills 3, Tot. Refills 3, Maintenance, 03/22/21 8:48:00 EDT, [id number] 168, cm, 03/06/21 11:08:00 EDT, Height, 92, kg, 03/03/21 15:27:00 EDT, Dry Weight Start Date: 03/22/21 Status: Orderedomeprazole 20 mg oral enteric coated capsule 1 capsule = 20 mg, By Mouth, 2 times a day, # 180 capsule, 0 Refills, Maintenance, 02/16/21 10:57:00EDT, EC Capsule, [facility]/pharmacy #[id number], 167, cm, 12/14/20 8:40:00 EST, Height, 91.3, kg, 11/30/20 17:07:00 EST, Dry Weight Start Date: 02/16/21 Status: OrderedProAir HFA 90 mcg/inh inhalation aerosol with adapter 2, puffs, Inhalation, Every 6 hours, PRN, # 8.5 Gm, Refills 8, Tot. Refills 8, Maintenance, 03/07/2115:41:00 EDT, Aerosol, Route to Pharmacy Electronically, [id number], [facility]/pharmacy #[id number], 168, cm, 03/06/21 11:08:00 EDT, Hei... Start Date: 03/07/21 Status: OrderedProAir HFA 90 mcg/inh inhalation aerosol with adapter 2, puffs, Inhalation, Every 6 hours, PRN, Requests ProAir, # 8.5 Gm, Refills 5, Tot. Refills 5, Maintenance, 03/22/21 8:49:00 EDT, Aerosol, Route to Pharmacy Electronically, [id number], [facility]/pharmacy #[id number], 168, cm, 03/06/21 1... [...] tablet, 0 Refills, Maintenance, 05/11/21 14:28:00 EDT, [facility]/pharmacy #[id number], 168, cm, 05/02/21 8:45:00 [...]
--- OUTSIDE RECORDS SUMMARY | 2022-10-27 22:30 | XMS_ITS | Continuity of Care Document ---
:1965 Author Organization [facility] Address [address] [place] [address]- Care Team Providers Name Role Phone Evan PEREZ, Richar Weldon Primary Care Physician Encounter [facility] [place] Date(s): 01/19/21 - 02/18/21 [facility] [address] [place] [id number] Allergies, Adverse Reactions, Alerts Substance [...] to Pharmacy Electronically, [facility]/pharmacy #[id number], Partial fill upon patient request if the prescription is for a schedule II opioid drug.... Start Date: 01/18/21 Stop Date: 07/17/21 Status: Orderedaspirin 81 mg oral tablet, chewable 81 mg, 1, tablet, By Mouth, Daily, # 30 tablet, Refills 5, Tot. Refills 5, Maintenance, 01/18/21 11:29:00 EST, Route to Pharmacy Electronically, [facility]/pharmacy #[id number], Partial fill upon patient request ifthe prescription [...] Stop 07/31/21 14:13:00 EDT, 02/01/21 14:13:00 EST, [email or web address] #[id number], 1 tablet By Mouth Daily,x30 days, 167, cm, 12/14/20 8:40:00 EST, Height, 91.3, kg, 11/30/20 17:07... Start Date: 02/01/21 Stop Date: 07/31/21 Status: OrderedGenvoya oral tablet 1 tablet, By Mouth, Daily, for 30 days, # 30 tablet, 5 Refills, Physician Stop 03/06/21 10:42:00 EDT, 09/07/20 10:42:00 EDT, [email or web address] #[id number], 1 tablet By Mouth Daily,x30 days, 169, [...] 12/14/20 11:13:00 EST, Route to Pharmacy Electronically, [facility]/pharmacy #[id number], 167, cm, 12/14/20 8:40:00 [...] 11:30:00 EST, [id number] Partial fill upon patient request ifthe prescription is for a schedule II opioid drug... Start Date: 01/18/21 Stop Date: 07/17/21 Status: Orderedmontelukast 10 mg oral tablet 10 mg, 1, tablet, By Mouth, Daily, # 90 tablet, Refills 3, Tot. Refills 3, Maintenance, 04/07/20 9:23:00 EDT, Route to Pharmacy Electronically, [facility]/pharmacy #[id number], 168, cm, 02/08/20 15:35:00 EDT, Height, 86.8, kg, 02/18/19 13:15:00 EDT, Dry Weight Start Date: 04/07/20 Status: Orderedomeprazole 20 mg oral enteric coated capsule 1 capsule = 20 mg, By Mouth, 2 times a day, # 180 capsule, 0 Refills, Maintenance, 02/16/21 10:57:00EDT, EC Capsule, [facility]/pharmacy #[id number], 167, cm, 12/14/20 8:40:00 EST, Height, 91.3, kg, 11/30/20 17:07:00 EST, Dry Weight Start Date: 02/16/21 Status: OrderedProAir HFA 90 mcg/inh inhalation aerosol with adapter 2, puffs, Inhalation, Every 6 hours, PRN, # 8.5 Gm, Refills 5, Tot. Refills 5, Maintenance, 10/11/2010:14:00 EST, Aerosol, Route to Pharmacy Electronically, [id number], [facility]/pharmacy #[id number], 169, cm, 10/11/20 9:44:00 EST, Heig... Start Date: 10/11/20 Status: Orderedrosuvastatin 10 mg oral tablet 1 tablet = 10 mg, By Mouth, Daily, # 30 tablet, 5 Refills, Maintenance, 01/19/21 10:28:00 EST, Tablet, [facility]/pharmacy #[id number], Partial fill upon patient [...]
--- OUTSIDE RECORDS SUMMARY | 2022-10-27 22:30 | XMS_ITS | Continuity of Care Document ---
:1965 Author Organization [facility] Address [address] [place] [address]- Care Team Providers Name Role Phone Richar Gordon MD Primary Care Physician Encounter [facility] [place] Date(s): 07/19/22 - 08/18/22 [facility] [address] [place] [address]- Attending Physician: Tam Bolanos Admitting Physician: Tam [...] Vaccine Date Status Refusal Reason SARS-CoV-2 mRNA ([id number]) vax1 08/09/22 Given influenza virus vaccine, inactivated [...] pneumococcal 13-valent vaccine 08/07/17 Recorded 1Result Comment: [id number] Medications albuterol 0.083% inhalation solution 3 mL = 2.5 mg, Inhalation, Every 6 hours, PRN for wheezing, # 25 each, 3 Refills, Maintenance, 05/10/22 6:50:00 EDT, Solution, [facility]/pharmacy #[id number], Partial fill upon patient request if [...] 01/18/21 11:29:00 EST, Route to Pharmacy Electronically, [facility]/pharmacy #[id number], Partial fill upon patient request ifthe [...] # 16 mL, 2 Refills, 08/10/22 6:59:00 EDT,[id number], 90, USE 1 SPRAY IN EACH NOSTRIL TWICE A DAY, 166, cm, 08/09/22 11:33:00 EDT, Height, 92, kg, 03/03/21 15:27:00 EDT, Dry Weight Start Date: 08/10/22 Status: OrderedGenvoya oral tablet 1 tablet, By Mouth, Daily, with food, # 30 tablet, 5 Refills, Maintenance, 07/17/22 11:59:00 EDT, Tablet, [place][id number], Partial fill upon patient request if the [...] 08/01/22 16:29:00 EDT, Route to Pharmacy Electronically, [facility], 166, cm, 07/19/22 15:37:00 EDT, Height, 92, kg, 03/03/21 15:27:00 EDT, Dry Weight Start Date: 08/01/22 Status: OrderedLORazepam 1 mg oral tablet 1 tablet = 1 mg, By Mouth, PRN as needed for anxiety, 0 Refills, Maintenance, 06/29/18 13:11:09 EDT Start Date: 06/29/18 Status: OrderedMetoprolol Succinate ER 25 mg oral tablet, extended release 1 tablet, By Mouth, Daily, # 90 tablet, 3 Refills, [facility], 168, cm, 01/09/22 10:35:00 EST, Height, 92, kg, 03/03/21 15:27:00 EDT, Dry Weight Start Date: 01/10/22 Status: Orderedmontelukast 10 mg oral tablet 10 mg, 1, tablet, By Mouth, Daily, # 90 tablet, Refills 3, Tot. Refills 3, Maintenance, 08/09/22 12:05:00 EDT, Route to Pharmacy Electronically, [facility]/pharmacy #[id number], 166, cm, 08/09/22 11:33:00 EDT, Height, [...] 3 Refills, Maintenance, 09/04/21 19:37:00EDT, EC Capsule, [facility]/pharmacy #[id number], 168, cm, 09/04/21 9:46:00 EDT, Height, 92, kg, 03/03/21 15:27:00 EDT, Dry Weight Start Date: 09/04/21 Status: OrderedProAir HFA 90 mcg/inh inhalation aerosol with adapter 2, puffs, Inhalation, Every 6 hours, PRN, Requests ProAir, # 8.5 Gm, Refills 5, Tot. Refills 5, Maintenance, 08/09/22 12:04:00 EDT, Aerosol, Route to Pharmacy Electronically, [id number], [facility]/pharmacy #[id number], 166, cm, 08/09/22... Start Date: 08/09/22 Status: Orderedrosuvastatin 10 mg oral tablet 1 tablet, By Mouth, Daily, # 90 tablet, 3 Refills, Maintenance, 11/06/21 8:54:00 EST, [facility]/pharmacy #[id number], 168, cm, 11/06/21 8:47:00 EST, Height, [...] Acute 08/29/22 9:26:00 EDT, 05/07/22 9:03:00 EDT, [id number], 168, cm, 02/26/22 8:34:00 EDT, Height,92, kg, 03/03/21 15:27:00 EDT, Dry Weight Start Date: 05/07/22 Stop Date: 08/29/22 Status: OrderedtraMADol 50 mg oral tablet 2 tablet = 100 mg, By Mouth, Every 6 hours, PRN NEEDED FOR PAIN, # 224 tablet, 5 Refills, Acute 02/07/23 6:58:00 EST, 08/29/22 9:26:00 EDT, [id number], 166, cm, 08/09/22 11:33:00 [...] Team PersonnelName: Evan PEREZ, Richar Weldon Address: [address] [place] [address] [place], [place] [address]
--- OUTSIDE RECORDS SUMMARY | 2022-10-27 22:30 | XMS_ITS | Continuity of Care Document ---
:1965 Author Organization [facility] Address [address] [place] [address] Drive [address] [place] [address]- Care Team Providers Name Role Phone Richar Gordon MD Primary Care Physician Encounter [facility] Date(s): 03/13/22 - 04/12/22 [facility] [address] [place] [address] Drive [address] [place], [place] [address] Attending Physician: AdmTam patiño Admitting Physician: Admtr, [...] 3 Refills, Maintenance, 02/26/22 9:26:00 EDT, Solution, [facility]/pharmacy #[id number], Partial fill upon patientrequest if the prescription is for a schedule II... Start Date: 02/26/22 Status: OrderedamLODIPine 2.5 mg oral tablet 1 tablet, By Mouth, Daily, # 90 tablet, 3 Refills, [facility], 168, cm, 11/17/21 10:55:00 EST, Height, 92, kg, 03/03/21 15:27:00 EDT, Dry Weight Start Date: 12/04/21 Status: OrderedamLODIPine 2.5 mg oral tablet 2.5 mg, 1, tablet, By Mouth, Daily, # 30 tablet, Refills 5, Tot. Refills 5, Maintenance, 05/22/21 13:11:00 EDT, Route to Pharmacy Electronically, [facility]/pharmacy #[id number], 168, cm, 05/02/21 8:45:00 EDT, Height, 92, kg, 03/03/21 15:27:00 EDT, Dry Weight Start Date: 05/22/21 Status: Orderedaspirin 81 mg oral tablet, chewable 81 mg, 1, tablet, By Mouth, Daily, # 30 tablet, Refills 5, Tot. Refills 5, Maintenance, 01/18/21 11:29:00 EST, Route to Pharmacy Electronically, [facility]/pharmacy #[id number], Partial fill upon patient [...] Gm, 2 Refills, Maintenance, 09/04/21 19:43:00 EDT, [place],[facility]/pharmacy #[id number], Partial fill upon patient request if the prescription is for a schedule II opioid drug., 1 sprays Nares, Both 2 times a day, 168,... Start Date: 09/04/21 Status: OrderedGenvoya oral tablet 1 tablet, By Mouth, Daily, with food, # 30 tablet, 5 Refills, Maintenance, 01/29/22 21:33:00 EST, Tablet, [facility], [facility] Rx #[id number], Partial fill upon patient request if the [...] tablet, Refills 1, Route to Pharmacy Electronically, [facility], 168, cm, 01/15/22 14:50:00 EST, Height, 92, kg, 03/03/21 15:27:00 EDT, Dry Weight Start Date: 02/06/22 Status: OrderedLORazepam 1 mg oral tablet 1 tablet = 1 mg, By Mouth, PRN as needed for anxiety, 0 Refills, Maintenance, 06/29/18 13:11:09 EDT Start Date: 06/29/18 Status: OrderedMetoprolol Succinate ER 25 mg oral tablet, extended release 1 tablet, By Mouth, Daily, # 90 tablet, 3 Refills, [facility], 168, cm, 01/09/22 10:35:00 EST, Height, 92, kg, 03/03/21 15:27:00 EDT, Dry Weight Start Date: 01/10/22 Status: OrderedMetoprolol Succinate ER 25 mg oral tablet, extended release 1 tablet, By Mouth, Daily, # 90 tablet, 1 Refills, Maintenance, 05/12/21 13:24:00 EDT, [facility] ST[facility] 69053, 168, cm, 05/02/21 8:45:00 EDT, Height, 92, kg, 03/03/21 15:27:00 EDT, Dry Weight Start Date: 05/12/21 Status: Orderedmontelukast 10 mg oral tablet 10 mg, 1, tablet, By Mouth, Daily, # 90 tablet, Refills 3, Tot. Refills 3, Maintenance, 01/15/22 16:17:00 EST, Route to Pharmacy Electronically, [facility]/pharmacy #[id number], 168, cm, 01/15/22 14:50:00 EST, Height, 92, kg, 03/03/21 15:27:00 EDT, Dry Weight Start Date: 01/15/22 Status: Orderedomeprazole 20 mg oral enteric coated capsule 1 capsule = 20 mg, By Mouth, 2 times a day, # 180 capsule, 3 Refills, Maintenance, 09/04/21 19:37:00EDT, EC Capsule, [facility]/pharmacy #[id number], 168, cm, 09/04/21 9:46:00 EDT, Height, 92, kg, 03/03/21 15:27:00 EDT, Dry Weight Start Date: 09/04/21 Status: OrderedProAir HFA 90 mcg/inh inhalation aerosol with adapter 2, puffs, Inhalation, Every 6 hours, PRN, # 8.5 Gm, Refills 8, Tot. Refills 8, Maintenance, 03/07/2115:41:00 EDT, Aerosol, Route to Pharmacy Electronically, [id number], [facility]/pharmacy #[id number], 168, cm, 03/06/21 11:08:00 EDT, Hei... Start Date: 03/07/21 Status: OrderedProAir HFA 90 mcg/inh inhalation aerosol with adapter 2, puffs, Inhalation, Every 6 hours, PRN, Requests ProAir, # 8.5 Gm, Refills 5, Tot. Refills 5, Maintenance, 12/27/21 9:37:00 EST, Aerosol, Route to Pharmacy Electronically, [id number], [facility]/pharmacy #[id number], 168, cm, 12/27/21 8... Start Date: 12/27/21 Status: Orderedrosuvastatin 10 mg oral tablet 1 tablet, By Mouth, Daily, # 90 tablet, 3 Refills, Maintenance, 11/06/21 8:54:00 EST, [facility]/pharmacy #[id number], 168, cm, 11/06/21 8:47:00 [...] Acute 05/07/22 9:03:00 EDT, 11/06/21 9:02:00 EST, [facility]/pharmacy #[id number], 168, cm, 11/06/21 8:47:00 [...]
--- OUTSIDE RECORDS SUMMARY | 2022-10-27 22:30 | XMS_ITS | Continuity of Care Document ---
:1965 Author Organization [facility] Address [address] [place] [address]- Care Team Providers Name Role Phone Evan PEREZ, Richar Weldon Primary Care Physician Encounter [facility] Date(s): 02/08/20 - 02/18/20 [facility] [address] [place] [address]- [facility] Attending Physician: Tam Bolanos Admitting Physician: AdmtrTam Referring Physician: Admtr, Ar8 [...] each, 5 Refills, Maintenance, 02/08/20 16:44:00 EDT, [facility]/pharmacy #[id number], 168, cm, 02/08/20 15:35:00 EDT, Height, 86.8, kg, 02/18/19 13:15:00 EDT, Dry Weight Start Date: 02/08/20 Status: OrderedGenvoya oral tablet See Instructions, TAKE 1 TABLET BY MOUTH DAILY WITH FOOD, # 30 tablet, 3 Refills, Maintenance, [facility], [facility] Rx #[id number], 30, TAKE 1 TABLET BY MOUTH DAILY [...] 01/07/20 10:28:00 EST, Route to Pharmacy Electronically, [facility]/pharmacy #[id number], 168, cm, 01/07/20 10:04:00 EST, Height, [...] 01/07/20 10:28:00 EST, Route to Pharmacy Electronically, [facility]/pharmacy #[id number], 168, cm, 01/07/20 10:04:00 EST, Height, 86.8, kg, 02/18/19 13:15:00 EDT, Dry Weight Start Date: 01/07/20 Status: Orderedmontelukast 10 mg oral tablet 10 mg, 1, tablet, By Mouth, Daily, # 90 tablet, Refills 3, Tot. Refills 3, Maintenance, 01/07/20 10:28:00 EST, [facility], [id number], 168, cm, 01/07/20 10:04:00 EST, Height, [...] 196:11:41 EDT, Aerosol, Route to Pharmacy Electronically, [id number], [facility]/pharmacy #[id number] Start Date: 05/12/19 Status: OrderedSymbicort 80mcg/4.5mcg Inhaler 2, puffs, Inhalation, 2 times a day, # 6.9 Gm, Refills 5, Tot. Refills 5, Maintenance, 09/28/19 8:50:05 EDT, Aerosol, Route to Pharmacy Electronically, [id number], [id number] Start Date: 09/28/19 Status: OrderedtraMADol 50 mg oral tablet 1 tablet = 50 mg, By Mouth, 2 times a day, PRN Pain , Moderate, # 14 tablet, 3 Refills, Maintenance,12/14/19 16:47:00 EST, [facility] #[id number], 168, cm, 09/28/19 8:13:00 EDT, Height, 86.8, [...] 5 Refills, Maintenance, 02/08/20 16:45:00 EDT, Aerosol, [facility]/pharmacy #[id number], 168, cm, 02/08/20 15:35:00 EDT, Height, [...]
--- OUTSIDE RECORDS SUMMARY | 2022-10-27 22:30 | XMS_ITS | Continuity of Care Document ---
:1965 Author Organization [facility] Address [address] [place] [address]- Care Team Providers Name Role Phone Evan PEREZ, Richar Weldon Primary Care Physician Encounter [facility] Date(s): 11/30/20 - 12/01/[address] [address] Discharge Disposition: A-D/C AMA Attending Physician: Jose Edwards MD Admitting Physician: Shaunna Rocha MD, Ricardo Hollins Referring Physician: Not on Staff, Referring MD Allergies, Adverse Reactions, Alerts Substance Reaction [...] 11/21/20 15:14:00 EST, Route to Pharmacy Electronically, [facility]/pharmacy #[id number], Partial fill upon patient request if the [...] Stop 03/06/21 10:42:00 EDT, 09/07/20 10:42:00 EDT, [facility] #[id number], 1 tablet By Mouth Daily,x30 days, 169, cm, 08/16/20 8:41:00 EDT, Height, 91, kg, 08/10/20 1:22:00... Start Date: 09/07/20 Stop Date: 03/06/21 Status: Orderedlisinopril 20 mg oral tablet 20 mg, 1, tablet, By Mouth, Daily, # 90 tablet, Refills 3, Tot. Refills 3, Maintenance, 04/07/20 9:23:00 EDT, Route to Pharmacy Electronically, [facility]/pharmacy #[id number], 168, cm, 02/08/20 [...] 04/07/20 9:23:00 EDT, Route to Pharmacy Electronically, [facility]/pharmacy #[id number], 168, cm, 02/08/20 15:35:00 EDT, Height, 86.8, kg, 02/18/19 13:15:00 EDT, Dry Weight Start Date: 04/07/20 Status: OrderedMorPHINE Inj 2 mg, Injection, IV Push Slowly, Every 4 hours, PRN for Pain , Severe, Routine, 11/30/20 20:23:00 EST Start Date: 11/30/20 Stop Date: 12/02/20 Status: Discontinuedomeprazole 20 mg oral enteric coated capsule 1 capsule = 20 mg, By Mouth, 2 times a day, # 180 capsule, 0 Refills, Maintenance, 11/20/20 11:33:00EST, EC Capsule, [facility]/pharmacy #[id number], 167, cm, 10/12/20 10:08:00 EST, Height, 90.2, kg, 09/09/20 21:48:00 EDT, Dry Weight Start Date: 11/20/20 Status: OrderedProAir HFA 90 mcg/inh inhalation aerosol with adapter 2, puffs, Inhalation, Every 6 hours, PRN, # 8.5 Gm, Refills 5, Tot. Refills 5, Maintenance, 10/11/2010:14:00 EST, Aerosol, Route to Pharmacy Electronically, [id number], [facility]/pharmacy #[id number], 169, cm, 10/11/20 9:44:00 EST, [place]... Start Date: 10/11/20 Status: Orderedrosuvastatin 10 mg oral tablet 1 tablet = 10 mg, By Mouth, Daily, # 30 tablet, 5 Refills, Maintenance, 11/21/20 15:14:00 EST, Tablet, [facility]/pharmacy #[id number], Partial fill upon patient request if the prescription is for a schedule II opioid drug., 167, cm, 10/12/20 10:08:00 EST, Height,... Start Date: 11/21/20 Stop Date: 05/20/21 Status: OrderedtraMADol 50 mg oral tablet See Instructions, TAKE 1 TABLET BY MOUTH EVERY 6 HOURS NEEDED FOR PAIN, # 112 tablet, 0 Refills, Acute 12/18/20 15:37:00 EST, 11/17/20 15:36:00 EST, [facility]/pharmacy #[id number], 167, cm, 10/12/20 10:08:00 EST, Height, 90.2, kg, 09/09/20 21:48:00 EDT, Dry We... Start Date: 11/17/20 Stop Date: 12/18/20 Status: Ordered Problem List Condition Effective Dates [...] quadrant of Active abdomen(Confirmed) Lumbar stenosis(Confirmed) Active Results Radiology Reports Exam Date Time Procedure Performing Provider Status 11/30/20 11:38 AM Chest 2 Views Frontal and Lat Xi Kennedy; Auth (Verified) Notes:(Chest 2 Views Frontal and Lat) Reason For Exam: Shortness of Breath RESULT: Chest 2 Views Frontal and Lat Chest 2 Views Frontal and Lat Hx of Present Illness: pt here with chest pain shortness of breath; Reason: Shortness of Breath; Clinical Question(s): CHF COMPARISON: 09/09/2020. FINDINGS: LINES AND TUBES: None. LUNGS AND PLEURA: Clear lungs. Normal pulmonary vascularity. No pleural effusion. No pneumothorax. HEART, MEDIASTINUM AND MARLY: Heart is normal in size. Normal upper mediastinal and hilar contour. BONES AND SOFT TISSUES: No acute abnormality. IMPRESSION: No acute abnormality. I have personally reviewed the images and I agree with this report. WSN: [id number] Ordering Physician: Milton Ríos Dictated By: Deondre Rand MD Dictated Date/Time: 11/30/20 11:46 a Reviewed By: Ham Garg MD Signed By: Ham Garg MD Signed Date/Time: 11/30/20 11:51 am Transcribed By: DENISE Transcribed Date/Time: 11/30/20 11:44 am Vital Signs Most recent to oldest 1 2 3 [Reference Range]: Height 167 cm 167 cm 167 cm (12/01/20 4:17 PM) (12/01/20 11:55 AM) (12/01/20 8:26 AM) Weight 91.3 kg (11/30/20 5:07 PM) Oxygen Saturation [94-100 98 % 98 % 99 % %] (12/01/20 4:17 PM) (12/01/20 11:55 AM) (12/01/20 8:26 AM) Pulse Rate [55-90 bpm] 70 bpm 59 bpm 60 bpm (12/01/20 4:17 PM) (12/01/20 11:55 AM) (12/01/20 8:26 AM) Body Mass Index 32.74 [18.5-24.99] *>HHI* (11/30/20 5:07 PM) Blood Pressure 143/99 mm Hg 125/71 mm Hg 145/69 mm Hg [90-138/55-84 mm Hg] *H* (12/01/20 11:55 AM) *H* (12/01/20 4:17 PM) (12/01/20 8:2 6 AM) Respiratory Rate [16-30 16 br/min 16 br/min 18 br/mi n br/min] (12/01/20 4:17 PM) (12/01/20 11:55 AM) (12/01/20 8:40 AM) Temperature [96.8-100.4 98.5 DegF 98.4 DegF 98.3 Deg F DegF] (12/01/20 4:17 PM) (12/01/20 11:55 AM) (12/01/20 8:26 AM) Mode of Delivery (Oxygen) Room air Room air Room a ir (12/01/20 4:17 PM) (12/01/20 11:55 AM) (12/01/20 8:26 AM) Blood pressure sites Arm, right Arm, left Arm, left (12/01/20 4:17 PM) (12/01/20 11:55 AM) (12/01/20 8:26 AM) Temperature Route Oral Oral Oral (12/01/20 4:17 PM) (12/01/20 11:55 AM) (12/01/20 8:26 AM) Dry Weight 91.3 kg (11/30/20 5:07 PM) Social History Social History Type Response Smoking Status Former smoker, quit more hernan n 30 days ago entered on: 05/11/19 Sex
--- OUTSIDE RECORDS SUMMARY | 2022-10-27 22:30 | XMS_ITS | Continuity of Care Document ---
:1965 Author Organization [facility] Address [address] [place] [address]- Care Team Providers Name Role Phone Evan PEREZ, Richar Weldon Primary Care Physician Encounter [facility] Date(s): 05/22/21 - 06/21/21 [facility] [address] [place] [address]- Allergies, Adverse Reactions, Alerts Substance Reaction Severity [...] B Vaccine 08/07/17 Recorded pneumococcal 13-valent vaccine 9/6/17 Recorded Medications amLODIPine 2.5 mg oral tablet 2.5 mg, 1, tablet, By Mouth, Daily, # 30 tablet, Refills 5, Tot. Refills 5, Maintenance, 05/22/21 13:11:00 EDT, Route to Pharmacy Electronically, [facility]/pharmacy #[id number], 168, cm, 05/02/21 8:45:00 EDT, Height, 92, kg, 03/03/21 15:27:00 EDT, Dry Weight Start Date: 05/22/21 Status: Orderedaspirin 81 mg oral tablet, chewable 81 mg, 1, tablet, By Mouth, Daily, # 30 tablet, Refills 5, Tot. Refills 5, Maintenance, 01/18/21 11:29:00 EST, [id number] Partial fill upon patient request [...] Stop 11/25/21 11:25:00 EST, 05/29/21 11:25:00 EDT, [facility] #[id number], 1 tablet By Mouth Daily,x30 days, 168, cm, 05/02/21 8:45:00 EDT, Height, 92, kg, 03/03/21 15:27:0... Start Date: 05/29/21 Stop Date: 11/25/21 Status: OrderedGenvoya oral tablet 1 tablet, By Mouth, Daily, for 30 days, # 30 tablet, 5 Refills, Physician Stop 07/31/21 14:13:00 EDT, 02/01/21 14:13:00 EST, [facility] #[id number], 1 tablet By Mouth Daily,x30 days, 167, cm, 12/14/20 8:40:00 EST, Height, 91.3, kg, 11/30/20 17:07... Start Date: 02/01/21 Stop Date: 07/31/21 Status: [facility] See Instructions, # [...] 12/14/20 11:13:00 EST, Route to Pharmacy Electronically, [facility]/pharmacy #[id number], 167, cm, 12/14/20 8:40:00 EST, [...] tablet, 1 Refills, Maintenance, 05/12/21 13:24:00 EDT, [facility] [id number], 168, cm, 05/02/21 8:45:00 EDT, Height, 92, kg, 03/03/21 15:27:00 EDT, Dry Weight Start Date: 05/12/21 Status: Orderedmontelukast 10 mg oral tablet 10 mg, 1, tablet, By Mouth, Daily, # 90 tablet, Refills 3, Tot. Refills 3, Maintenance, 03/22/21 8:48:00 EDT, Route to Pharmacy Electronically, [facility]/pharmacy #[id number], 168, cm, 03/06/21 11:08:00 EDT, Height, 92, kg, 03/03/21 15:27:00 EDT, Dry Weight Start Date: 03/22/21 Status: Orderedomeprazole 20 mg oral enteric coated capsule 1 capsule = 20 mg, By Mouth, 2 times a day, # 180 capsule, 0 Refills, Maintenance, 02/16/21 10:57:00EDT, EC Capsule, [facility]/pharmacy #[id number], 167, cm, 12/14/20 8:40:00 EST, Height, 91.3, kg, 11/30/20 17:07:00 EST, Dry Weight Start Date: 02/16/21 Status: OrderedProAir HFA 90 mcg/inh inhalation aerosol with adapter 2, puffs, Inhalation, Every 6 hours, PRN, # 8.5 Gm, Refills 8, Tot. Refills 8, Maintenance, 03/07/2115:41:00 EDT, Aerosol, Route to Pharmacy Electronically, [id number], [facility]/pharmacy #[id number], 168, cm, 03/06/21 11:08:00 EDT, Hei... Start Date: 03/07/21 Status: OrderedProAir HFA 90 mcg/inh inhalation aerosol with adapter 2, puffs, Inhalation, Every 6 hours, PRN, Requests ProAir, # 8.5 Gm, Refills 5, Tot. Refills 5, Maintenance, 03/22/21 8:49:00 EDT, Aerosol, Route to Pharmacy Electronically, [id number], [facility]/pharmacy #[id number], 168, cm, 03/06/21 1... Start Date: 03/22/21 Status: Orderedrosuvastatin 10 mg oral tablet 1 tablet, By Mouth, Daily, # 90 tablet, 1 Refills, Maintenance, 05/04/21 7:31:00 EDT, [facility] ST[facility] [address]37, 168, cm, 05/02/21 8:45:00 EDT, Height, 92, kg, 03/03/21 15:27:00 EDT, Dry Weight Start Date: 05/04/21 Status: OrderedtraMADol 50 mg oral tablet 2 tablet = 100 mg, By Mouth, Every 12 hours, PRN NEEDED FOR PAIN, # 112 tablet, 0 Refills, Acute 03/09/22 8:16:00 EDT, 04/05/21 4:32:00 EDT, [facility]/pharmacy #[id number], 168, cm, 03/06/21 11:08:00 EDT, [...]
--- OUTSIDE RECORDS SUMMARY | 2022-10-27 22:30 | XMS_ITS | Continuity of Care Document ---
:1965 Author Organization [facility] Address [address] [place] [address]- Care Team Providers Name Role Phone Richar Gordon MD Primary Care Physician Encounter [facility] Date(s): 11/17/21 - 11/24/21 [facility] [address] [place] [address]- Encounter Diagnosis Neck mass (Discharge Diagnosis) - 11/17/21 HIV disease (Discharge Diagnosis) - 11/17/21 Chest pain (Discharge Diagnosis) - 11/17/21 Attending Physician: Not on Staff, Attending MD Referring Physician: Richar Gordon MD Allergies, [...] 3 Refills, Maintenance, 11/06/21 8:54:00 EST, Solution, [facility]/pharmacy #[id number], Partial fill upon patientrequest if the prescription is for a schedule II... Start Date: 11/06/21 Status: OrderedamLODIPine 2.5 mg oral tablet 2.5 [...] Gm, 2 Refills, Maintenance, 09/04/21 19:43:00 EDT, [place],[facility]/pharmacy #[id number], Partial fill upon patient request if the prescription is for a schedule II opioid drug., 1 sprays Nares, Both 2 times a day, 168,... Start Date: 09/04/21 Status: OrderedGenvoya oral tablet 1 tablet, By Mouth, Daily, for 30 days, # 30 tablet, 5 Refills, Physician Stop 11/25/21 11:25:00 EST, 05/29/21 11:25:00 EDT, [facility] #[id number], 1 tablet By Mouth Daily,x30 days, 168, [...] 11:13:00 EST, Route to Pharmacy Electronically, [facility]/pharmacy #[id number], 167, cm, 12/14/20 8:40:00 EST, [...] tablet, 1 Refills, Maintenance, 05/12/21 13:24:00 EDT, [facility]009, 168, cm, 05/02/21 8:45:00 EDT, Height, 92, [...] 03/07/2115:41:00 EDT, Aerosol, Route to Pharmacy Electronically, [id number], [facility]/pharmacy #[id number], 168, cm, 03/06/21 11:08:00 EDT, Hei... Start Date: 03/07/21 Status: OrderedProAir HFA 90 mcg/inh inhalation aerosol with adapter 2, puffs, Inhalation, Every 6 hours, PRN, Requests ProAir, # 8.5 Gm, Refills 5, Tot. Refills 5, Maintenance, 03/22/21 8:49:00 EDT, Aerosol, Route to Pharmacy Electronically, [id number], [facility]/pharmacy #[id number], 168, cm, 03/06/21 1... Start [...] 05/07/22 Status: OrderedtraMADol 50 mg oral tablet See Instructions, TAKE 2 TABLETS BY MOUTH EVERY 6 HOURS NEEDED FOR PAIN, # 224 tablet, 2 Refills,Acute 11/29/21 7:02:00 EST, 08/30/21 7:01:00 EDT, [facility]/pharmacy #[id number], 168, cm, 08/15/21 9:17:00 EDT,Height, 92, [...] Dates Health Status Clinical Serv ice Informant Chest pain Discharge 11/17/21 Diagnosis Neck mass Discharge 11/17/21 Diagnosis HIV disease Discharge 11/17/21 Diagnosis Vital Signs Most recent to oldest [Reference Range]: 1 Height 168 cm (11/17/21 10:55 AM) Weight 89.1 kg (11/17/21 10:55 AM) Oxygen Saturation [94-100 %] 97 % (11/17/21 10:55 AM) Pulse Rate [55-90 bpm] 61 bpm (11/17/21 10:55 AM) Body Mass Index [18.5-24.99] 31.57 *>HHI* (11/17/21 10:55 AM) Blood Pressure [90-138/55-84 mm Hg] 116/66 mm Hg (11/17/21 10:55 AM) Temperature [96.8-100.4 DegF] 98.2 DegF (11/17/21 10:55 AM) Mode of Delivery (Oxygen) Room air (11/17/21 10:55 AM) Blood pressure sites Arm, right (11/17/21 10:55 AM) Temperature Route Oral (11/17/21 10:55 AM) Weight Obtained Via Standing scale (11/17/21 10:55 AM) Social History Social History Type Response Smoking Status Former smoker, quit more hernan n 30 days ago entered on: 05/11/19 Sex
--- OUTSIDE RECORDS SUMMARY | 2022-10-27 22:30 | XMS_ITS | Continuity of Care Document ---
:1965 Author Organization [facility] Address [address] [place] [id number]- Care Team Providers Name Role Phone Richar Gordon MD Primary Care Physician Encounter [facility] Date(s): 03/03/21 - 04/02/21 [facility] [address] [place] [address] Attending Physician: Admtr, Ar8 Admitting Physician: [...] 15:56:00 EDT, [facility] to Pharmacy Electronically, [facility] Stop 07/31/21 14:13:00 EDT, 02/01/21 14:13:00 EST, [facility] #[id number], 1 tablet By Mouth Daily,x30 days, 167, cm, 12/14/20 8:40:00 EST, Height, 91.3, kg, 11/30/20 17:07... Start Date: 02/01/21 Stop Date: 07/31/21 [facility]: [facility] See Instructions, # [...] 11:30:00 EST, Route to Pharmacy Electronically, [facility]/pharmacy #[id number], Partial fill upon patient request ifthe prescription is for a schedule II opioid drug... Start Date: 01/18/21 Stop Date: 07/17/21 Status: Orderedmontelukast 10 mg oral tablet 10 mg, 1, tablet, By Mouth, Daily, # 90 tablet, Refills 3, Tot. Refills 3, Maintenance, 03/22/21 8:48:00 EDT, Route to Pharmacy Electronically, [facility]/pharmacy #[id number], 168, cm, 03/06/21 11:08:00 EDT, Height, 92, kg, 03/03/21 15:27:00 EDT, Dry Weight Start Date: 03/22/21 Status: Orderedomeprazole 20 mg oral enteric coated capsule 1 capsule = 20 mg, By Mouth, 2 times a day, # 180 capsule, 0 Refills, Maintenance, 02/16/21 10:57:00EDT, EC Capsule, [facility]/pharmacy #[id number], 167, cm, 12/14/20 8:40:00 EST, Height, 91.3, kg, 11/30/20 17:07:00 EST, Dry Weight Start Date: 02/16/21 Status: OrderedProAir HFA 90 mcg/inh inhalation aerosol with adapter 2, puffs, Inhalation, Every 6 hours, PRN, # 8.5 Gm, Refills 8, Tot. Refills 8, Maintenance, 03/07/2115:41:00 EDT, Aerosol, Route to Pharmacy Electronically, [id number], [facility]/pharmacy #[id number], 168, cm, 03/06/21 11:08:00 EDT, Hei... Start Date: 03/07/21 Status: OrderedProAir HFA 90 mcg/inh inhalation aerosol with adapter 2, puffs, Inhalation, Every 6 hours, PRN, Requests ProAir, # 8.5 Gm, Refills 5, Tot. Refills 5, Maintenance, 03/22/21 8:49:00 EDT, Aerosol, Route to Pharmacy Electronically, [id number], [facility]/pharmacy #[id number], 168, cm, [...]
--- OUTSIDE RECORDS SUMMARY | 2022-10-27 22:30 | XMS_ITS | Continuity of Care Document ---
:1965 Author Organization [facility] Address [address] [place] [address]- Care Team Providers Name Role Phone Richar Gordon MD Primary Care Physician [place] [facility] [place]): 03/16/20 - 09/11/[address] [address]- [facility] Attending Physician: Matt Covington MD Admitting Physician: Matt Covington MD Allergies, Adverse Reactions, Alerts Substance Reaction [...] each, 5 Refills, Maintenance, 06/07/20 16:02:00 EDT, [facility]/pharmacy #[id number], DX J45.909, 168, cm, 02/08/20 15:35:00 EDT, Height, 86.8, kg, 02/18/19 13:15:00 EDT, Dry Weight Start Date: 06/07/20 Status: OrderedAnoro Ellipta 62.5 mcg-25 mcg/inh inhalation powder 1 puffs, Inhalation, Daily, # 30 each, 5 Refills, Maintenance, 07/08/20 9:57:00 EDT, Powder, [facility]/pharmacy #[id number], 1 puffs Inhalation Daily, 168, cm, 07/08/20 9:19:00 EDT, Height, 86.8, kg, 02/18/19 13:15:00 EDT, Dry Weight Start Date: 07/08/20 Status: OrderedGenvoya oral tablet 1 tablet, By Mouth, Daily, for 30 days, # 30 tablet, 5 Refills, Physician Stop 03/06/21 10:42:00 EDT, 09/07/20 10:42:00 EDT, [facility] #[id number], 1 tablet By Mouth Daily,x30 days, 169, cm, 08/16/20 8:41:00 EDT, Height, 91, kg, 08/10/20 1:22:00... Start Date: 09/07/20 Stop Date: 03/06/21 Status: Orderedlisinopril 20 mg oral tablet 20 mg, 1, tablet, By Mouth, Daily, # 90 tablet, Refills 3, Tot. Refills 3, Maintenance, 04/07/20 9:23:00 EDT, Route to Pharmacy Electronically, [facility]/pharmacy #[id number], 168, cm, 02/08/20 15:35:00 [...] 10:28:00 EST, Route to Pharmacy Electronically, [facility]/pharmacy #[id number], 168, cm, 01/07/20 10:04:00 EST, Height, 86.8, kg, 02/18/19 13:15:00 EDT, Dry Weight Start Date: 01/07/20 Status: Orderedmontelukast 10 mg oral tablet 10 mg, 1, tablet, By Mouth, Daily, # 90 tablet, Refills 3, Tot. Refills 3, Maintenance, 04/07/20 9:23:00 EDT, Route to Pharmacy Electronically, [facility]/pharmacy #[id number], 168, cm, 02/08/20 15:35:00 [...] Refills, Maintenance, 07/11/20 11:31:00 EDT, EC Capsule, [facility]/pharmacy #[id number], 168, cm, 07/08/20 9:19:00 EDT, Height, 86.8, kg, 02/18/19 13:15:00 EDT, Dry Weight Start Date: 07/11/20 Status: OrderedProAir HFA 90 mcg/inh inhalation aerosol with adapter 2, puffs, Inhalation, Every 6 hours, PRN, # 8.5 Gm, Refills 5, Tot. Refills 5, Maintenance, 06/07/2016:02:00 EDT, Aerosol, Route to Pharmacy Electronically, [id number], [facility]/pharmacy #[id number], 168, cm, 02/08/20 15:35:00 EDT, Hei... [...]
--- OUTSIDE RECORDS SUMMARY | 2022-10-27 22:31 | XMS_ITS | Continuity of Care Document ---
:1965 Author Organization [facility] Address [address] [place] [address]- Care Team Providers Name Role Phone Richar Gordon MD Primary Care Physician Encounter [facility] [place] Date(s): 10/11/22 - 10/18/22 [facility] [address] [place] [address]- Attending Physician: Richar Gordon MD Allergies, Adverse Reactions, Alerts Substance Reaction Severity Status amoxicillin nausea and vomiting Active Cipro HC rash Active Augmentin nausea and vomiting Active Bactrim swelling Active Benadryl Swelling/Edema Active Rash/Dermatitis Anxiety state Anoro Ellipta Active gabapentin anxiety Active atorvastatin Dyspnea Active Pulmicort Flexhaler Active Immunizations Given and Recorded Vaccine Date Status Refusal Reason influenza virus vaccine, inactivated1 09/19/22 Given influenza virus vaccine, inactivated 09/05/21 Recorded influenza virus vaccine, inactivated 09/01/20 Recorded influenza virus vaccine, inactivated 08/14/20 Recorded influenza virus vaccine, inactivated 10/05/19 Recorded SARS-CoV-2 mRNA ([id number]) vax2 08/09/22 Given SARS-CoV-2 (COVID-19) mRNA BNT-162b2 vac 09/05/21 Recorde [...] pneumococcal 13-valent vaccine 08/07/17 Recorded 1Result Comment: [id number] Comment: [id number] Medications albuterol 0.083% inhalation solution See Instructions, INHALE CONTENTS OF 1 VIAL VIA NEBULIZER EVERY 6 HORUS NEEDED FOR WHEEZING/SHORTNESS OF BREATH, # 75 mL, 3 Refills, Maintenance, 09/18/22 10:48:00 EDT, [id number], 166, cm, 08/09/22 11:33:00 EDT, Height, 92, kg, 03/03/21 15:27... Start Date: 09/18/22 Status: OrderedamLODIPine 2.5 mg oral tablet 1 tablet, By Mouth, Daily, # 90 tablet, 3 Refills, 08/09/22 12:05:00 EDT, [facility]/pharmacy #[id number], 166, cm, 08/09/22 11:33:00 EDT, Height, 92, kg, 03/03/21 15:27:00 EDT, Dry Weight Start Date: 08/09/22 Status: Orderedaspirin 81 mg oral tablet, chewable 81 mg, 1, tablet, By Mouth, Daily, # 30 tablet, Refills 5, Tot. Refills 5, Maintenance, 01/18/21 11:29:00 EST, Route to Pharmacy Electronically, [facility]/pharmacy #[id number], Partial fill upon patient request ifthe prescription is for a schedule II opioid drug... Start Date: 01/18/21 Stop Date: 07/17/21 Status: OrderedBuPROPion (Eqv-Wellbutrin SR) 150 mg/12 hours oral tablet, extended release TAKE 1 TABLET BY MOUTH TWICE DAILY Start Date: 11/30/20 Status: OrderedFlovent HFA 44 mcg/inh inhalation aerosol 2 puffs, Inhalation, 2 times a day, Use with spacer. Rinse and spit after use, # 12 Gm, 5 Refills, Maintenance, 10/17/22 13:41:00 EST, Aerosol, [facility]/pharmacy #[id number], Partial fill upon patient request if the prescription is for a schedule II opioid drug.... Start Date: 10/17/22 Status: Orderedfluticasone 50 mcg/inh nasal spray See Instructions, USE 1 SPRAY IN EACH NOSTRIL TWICE A DAY, # 16 mL, 2 Refills, 08/10/22 6:59:00 EDT,[facility]/pharmacy #[id number], 90, USE 1 SPRAY IN EACH NOSTRIL TWICE A DAY, 166, cm, 08/09/22 11:33:00 EDT, Height, 92, kg, 03/03/21 15:27:00 EDT, Dry Weight Start Date: 08/10/22 Status: OrderedGenvoya oral tablet 1 tablet, By Mouth, Daily, with food, # 30 tablet, 5 Refills, Maintenance, 07/17/22 11:59:00 EDT, Tablet, [facility], [facility] #[id number], Partial fill upon patient request if the [...] 08/01/22 16:29:00 EDT, Route to Pharmacy Electronically, [facility] [id number], 166, cm, 07/19/22 15:37:00 EDT, Height, 92, kg, 03/03/21 15:27:00 EDT, Dry Weight Start Date: 08/01/22 Status: OrderedLORazepam 1 mg oral tablet 1 tablet = 1 mg, By Mouth, PRN as needed for anxiety, 0 Refills, Maintenance, 06/29/18 13:11:09 EDT Start Date: 06/29/18 Status: OrderedMetoprolol Succinate ER 25 mg oral tablet, extended release 1 tablet, By Mouth, Daily, # 90 tablet, 3 Refills, [facility] [id number], 168, cm, 01/09/22 10:35:00 EST, Height, 92, kg, 03/03/21 15:27:00 EDT, Dry Weight Start Date: 01/10/22 Status: Orderedmontelukast 10 mg oral tablet 10 mg, 1, tablet, By Mouth, Daily, # 90 tablet, Refills 3, Tot. Refills 3, Maintenance, 08/09/22 12:05:00 EDT, Route to Pharmacy Electronically, [facility]/pharmacy #[id number], 166, cm, 08/09/22 11:33:00 EDT, Height, [...] 20 mg oral enteric coated capsule 1 capsule, By Mouth, 2 times a day, # 180 capsule, 0 Refills, Maintenance, 08/22/22 15:36:00 EDT, [facility] [id number], 166, cm, 08/09/22 11:33:00 EDT, Height, 92, kg, 03/03/21 15:27:00 EDT, Dry Weight Start Date: 08/22/22 Status: OrderedpredniSONE 10 mg oral tablet See Instructions, 6 tabs daily x 4 days; then 5 tabs daily x 2 days; 4 tabs daily x 2 days; 3 tabs daily x 2 days; 2 tabs daily x 2 days; 1 tab daily x 2 days; then d/c., # 54 tablet, 0 Refills, Maintenance, 10/11/22 17:28:00 EST, [facility]/pharmacy #[id number],... Start Date: 10/11/22 Status: Orderedrosuvastatin 10 mg oral tablet 1 tablet, By Mouth, Daily, # 90 tablet, 3 Refills, Maintenance, 11/06/21 8:54:00 EST, [facility]/pharmacy #[id number], 168, cm, 11/06/21 8:47:00 EST, Height, [...] Acute 02/07/23 6:58:00 EST, 08/29/22 9:26:00 EDT, [facility]/pharmacy #[id number], 166, cm, 08/09/22 11:33:00 EDT, Height, 92, kg, 03/03/21 15:27:00 EDT, Dry Weight Start Date: 08/29/22 Stop Date: 02/07/23 Status: Ordered Problem List Condition Confirmation Course Effective Dates Status Health I nformant Status Abdominal bloating Confirmed Active Asthma Confirmed Active Hepatic cirrhosis Confirmed Active Costochondritis Confirmed Active Depression Confirmed Active Dyspnea on exertion Confirmed Active Dysthymia Confirmed Active GERD (gastroesophageal Confirmed Active reflux disease) H/O Hepatitis C Confirmed Active History of substance Confirmed Active abuse HIV (human Confirmed Active immunodeficiency virus infection) Hypertension Confirmed Active 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 Active Lumbar disc herniation Confirmed Active Right upper quadrant Confirmed Active of abdomen Lumbar stenosis Confirmed Active Vital Signs Most recent to oldest [Reference Range]: 1 Height 166.0 cm (10/11/22 11:20 AM) Weight 90.8 kg (10/11/22 11:20 AM) Oxygen Saturation [94-100 %] 99 % (10/11/22 11:20 AM) Pulse Rate [55-90 bpm] 54 bpm *L* (10/11/22 11:20 AM) Body Mass Index [18.5-24.99 kg/m2] 32.95 kg/m2 *>HHI* (10/11/22 11:20 AM) Blood Pressure [90-138/55-84 mm Hg] 126/69 mm Hg (10/11/22 11:20 AM) Temperature [96.8-100.4 DegF] 98.1 DegF (10/11/22 11:20 AM) Mode of Delivery (Oxygen) Room air (10/11/22 11:20 AM) Blood pressure sites Arm, right (10/11/22 11:20 AM) Temperature Route Oral (10/11/22 11:20 AM) Weight Obtained Via Standing scale (10/11/22 11:20 AM) Social History Social History Type Response Smoking Status Former smoker, quit more hernan n 30 days ago entered on: 05/11/19 Sex Note Yenny Vergara: PERFORM, SIGN, VERIFY Event Display: Patient Education/Instruction Authored Date: [id number] [facility] *BMP So [place] Nava Clinical Summary Name ZOILA HAMEED Age 56 Years 1965 PCP Richar Gordon MD PCP Visit Date 10/11/2022 11:00:00 Additional Instructions: Scheduled Appointments?? Future Appointments ?*BMP??So[facility] [address] ?Phone:??--?Fax:??-- ?Appt. Date:??12/12/2022?9:20 AM ?Scheduled Provider:??Richar Gordon MD ?*[facility]??[facility]astro ?[address]??[place],??[place],??[address] ?Phone:??--?Fax:??-- ?Appt. Date:??01/03/2023?11:30 AM ?Scheduled Provider:??Sandeep COOK, Ashley Hollins Follow-Up Instructions ?? Diagnosis Unspecified asthma with (acute) exacerbation Medications: Please continue your medications until treatment is completed or stopped by your provider. Discuss any questions related to medications with your provider. Medications to Continue with No Changes These medications were not printed or sent to your pharmacy Albuterol (albuterol 0.083% inhalation solution) INHALE CONTENTS OF 1 VIAL VIA NEBULIZER EVERY 6 HORUS NEEDED FOR WHEEZING/SHORTNESS OF BREATH. Refills: 3. Next Dose: Amlodipine (amLODIPine 2.5 mg oral tablet) 1 tab(s) Oral Daily. Refills: 3. Next Dose: Aspirin (aspirin 81 mg oral tablet, chewable) 1 tab(s) Oral Daily for 30 Days. Refills: 5. Next Dose: BuPROpion (BuPROPion (Eqv-Wellbutrin SR) 150 mg/12 hours oral tablet, extended release) TAKE 1 TABLET BY MOUTH TWICE DAILY. Next Dose: cobicist/elvitegra/emtricitab/tenofov (Genvoya oral tablet) 1 tab(s) Oral Daily for 30 Days. with food. Refills: 5. Next Dose: Durable Medical Equipment (Home Blood Pressure Monitor) monitor BP 2-3 times a week after medications DX HTN. Refills: 0. Next Dose: Durable Medical Equipment (Nebulizer/Compressor) New tubing and mouthpiece for nebulizer J45.0. Refills: 0. Next Dose: Fluticasone Nasal (fluticasone 50 mcg/inh nasal spray) USE 1 SPRAY IN EACH NOSTRIL TWICE A DAY. Refills: 2. Next Dose: Lisinopril (lisinopril 20 mg oral tablet) 1 tab(s) Oral Daily. Refills: 1. Next Dose: Lorazepam (LORazepam 1 mg oral tablet) 1 tab(s) Oral as needed as needed for anxiety. Next Dose: Metoprolol (Metoprolol Succinate ER 25 mg oral tablet, extended release) 1 tab(s) Oral Daily. Refills: 3. Next Dose: Miscellaneous Rx (Shoe inserts) Dx: Bilateral foot pain. Refills: 0. Next Dose: Montelukast (montelukast 10 mg oral tablet) 1 tab(s) Oral Daily. Refills: 3. Next Dose: Omeprazole (omeprazole 20 mg oral enteric coated capsule) 1 capsule Oral twice a day. Refills: 0. Next Dose: Rosuvastatin (rosuvastatin 10 mg oral tablet) 1 tab(s) Oral Daily. Refills: 3. Next Dose: Tramadol (traMADol 50 mg oral tablet) 2 tab(s) Oral every 6 hours as needed NEEDED FOR PAIN. Refills: 5. Next Dose: Allergy Info:?? Anoro Ellipta; Pulmicort Flexhaler; Benadryl; Bactrim; Augmentin; Cipro HC; atorvastatin; gabapentin; amoxicillin Medications Given This Visit Future Orders ?No future orders Vital Signs Height 166.0 cm Weight 90.8 kg BMI 32.95 kg/m2 Blood Pressure 126 mm Hg/69 mm Hg Temperature 98.1 DegF Pulse Rate 54 bpm Respiratory Rate 02 Sat Mode of Delivery 99 %/Room air You can now view a summary of your hospital visit from the comfort of your home through a free online portal called [employer]. [employer] is a website that allows you to securely view yourmedical information including discharge summary, medications and follow-up visits. ??You can also send a secure electronic message to your doctor???s office to request appointments, renew medications or just ask a question. You can enroll at [email or web address] or register during your next office visit. Disclaimer:?? The information provided is of a general nature and is intended to be used in conjunction with the recommendations and advice of your health care practitioner. ??Every effort has been made to ensure that the information provided is accurate and complete at the time it is provided to you however, as your needs change, or, as new ??information becomes available, different or additional instructions may be required. If you have questions, please consult with your primary care provider or pharmacist, as appropriate.??This information is not intended to serve as substitution for assessment and evaluation by a qualified health care provider. If you do not have a primary care provider, you may find a [facility] provider by calling [facility] Link at [phone]. For information about the plan of care including goals and instructions for your diagnosis, please see the patient education orders section of this document. Patient Education Materials?? The content of this educational material or handout may have been modified, supplemented, or adaptedfrom its original content and format to support your individualized medical care. Siulinski , Priscilla: PERFORM, SIGN, VERIFY Event Display: Patient Education/Instruction Authored Date: [id number] [facility] *BMP So [place] Nava Clinical Summary Name ZOILA HAMEED Age 56 Years 1965 [facility]CP [id number] Visit Date 10/11/2022 11:00:00 Additional Instructions: Scheduled Appointments?? Future Appointments ?*BMP??So[facility] ?[address],??[address] ?Phone:??--?Fax:??-- ?Appt. Date:??12/12/2022?9:20 AM ?Scheduled Provider:??Richar Gordon MD ?*[facility]??[facility] ?[address],??[place],??[address] ?Phone:??--?Fax:??-- ?Appt. Date:??01/03/2023?11:30 AM ?Scheduled Provider:??Ashley Hopkins NP Follow-Up Instructions ?? Diagnosis Unspecified asthma with (acute) exacerbation Medications: Please continue your medications until treatment is completed or stopped by your provider. Discuss any questions related to medications with your provider. Medications to Continue with No Changes These medications were not printed or sent to your pharmacy Albuterol (albuterol 0.083% inhalation solution) INHALE CONTENTS OF 1 VIAL VIA NEBULIZER EVERY 6 HORUS NEEDED FOR WHEEZING/SHORTNESS OF BREATH. Refills: 3. Next Dose: Amlodipine (amLODIPine 2.5 mg oral tablet) 1 tab(s) Oral Daily. Refills: 3. Next Dose: Aspirin (aspirin 81 mg oral tablet, chewable) 1 tab(s) Oral Daily for 30 Days. Refills: 5. Next Dose: BuPROpion (BuPROPion (Eqv-Wellbutrin SR) 150 mg/12 hours oral tablet, extended release) TAKE 1 TABLET BY MOUTH TWICE DAILY. Next Dose: cobicist/elvitegra/emtricitab/tenofov (Genvoya oral tablet) 1 tab(s) Oral Daily for 30 Days. with food. Refills: 5. Next Dose: Durable Medical Equipment (Home Blood Pressure Monitor) monitor BP 2-3 times a week after medications DX HTN. Refills: 0. Next Dose: Durable Medical Equipment (Nebulizer/Compressor) New tubing and mouthpiece for nebulizer J45.0. Refills: 0. Next Dose: Fluticasone Nasal (fluticasone 50 mcg/inh nasal spray) USE 1 SPRAY IN EACH NOSTRIL TWICE A DAY. Refills: 2. Next Dose: Lisinopril (lisinopril 20 mg oral tablet) 1 tab(s) Oral Daily. Refills: 1. Next Dose: Lorazepam (LORazepam 1 mg oral tablet) 1 tab(s) Oral as needed as needed for anxiety. Next Dose: Metoprolol (Metoprolol Succinate ER 25 mg oral tablet, extended release) 1 tab(s) Oral Daily. Refills: 3. Next Dose: Miscellaneous Rx (Shoe inserts) Dx: Bilateral foot pain. Refills: 0. Next Dose: Montelukast (montelukast 10 mg oral tablet) 1 tab(s) Oral Daily. Refills: 3. Next Dose: Omeprazole (omeprazole 20 mg oral enteric coated capsule) 1 capsule Oral twice a day. Refills: 0. Next Dose: Rosuvastatin (rosuvastatin 10 mg oral tablet) 1 tab(s) Oral Daily. Refills: 3. Next Dose: Tramadol (traMADol 50 mg oral tablet) 2 tab(s) Oral every 6 hours as needed NEEDED FOR PAIN. Refills: 5. Next Dose: Allergy Info:?? Anoro Ellipta; Pulmicort Flexhaler; Benadryl; Bactrim; Augmentin; Cipro HC; atorvastatin; gabapentin; amoxicillin Medications Given This Visit Future Orders ?No future orders Vital Signs Height 166.0 cm Weight 90.8 kg BMI 32.95 kg/m2 Blood Pressure 126 mm Hg/69 mm Hg Temperature 98.1 DegF Pulse Rate 54 bpm Respiratory Rate 02 Sat Mode of Delivery 99 %/Room air You can now view a summary of your hospital visit from the comfort of your home through a free online portal called [employer]. [employer] is a website that allows you to securely view yourmedical information including discharge summary, medications and follow-up visits. ??You can also send a secure electronic message to your doctor???s office to request appointments, renew medications or just ask a question. You can enroll at [email or web address] or register during your next office visit. Disclaimer:?? The information provided is of a general nature and is intended to be used in conjunction with the recommendations and advice of your health care practitioner. ??Every effort has been made to ensure that the information provided is accurate and complete at the time it is provided to you however, as your needs change, or, as new ??information becomes available, different or additional instructions may be required. If you have questions, please consult with your primary care provider or pharmacist, as appropriate.??This information is not intended to serve as substitution for assessment and evaluation by a qualified health care provider. If you do not have a primary care provider, you may find a [facility] provider by calling [facility] at [phone]. For information about the plan of care including goals and instructions for your diagnosis, please see the patient education orders section of this document. Patient Education Materials?? The content of this educational material or handout may have been modified, supplemented, or adaptedfrom its original content and format to support your individualized medical care. Patient Care team information Care Team PersonnelName: Agnieszka Chavez RN Position: [facility] RN Supv Member Role: Primary Care Nurse Name: Cassandra Doan RN Position: [facility] RN Member Role: Primary Care Nurse Name: Richar Gordon MD Position: [facility] Primary Care Physician Member Role: PCP Address: Address: [address] [place] [address]- Name: Bess Hallman RN Position: [facility] Hospital Customer Insight Analyst Member Role: Primary Care Nurse Name: Yisel Miranda RN Position: [facility] RN Member Role: Primary Care Nurse Care Team Related PersonsName: TIA SCHROEDER Address: home [address] [place] [address] Name: LORI LOZOYA Address: [address] [place] [address]
--- OUTSIDE RECORDS SUMMARY | 2022-10-27 22:31 | XMS_ITS | Continuity of Care Document ---
:1965 Author Organization [facility] Address [address] [place] [address]- Care Team Providers Name Role Phone Evan PEREZ, Richar Weldon Primary Care Physician Encounter [facility] [place] Date(s): 08/30/20 - 09/29/20 [facility] [address] [place] [address]- [facility] Allergies, Adverse Reactions, Alerts Substance Reaction Severity [...] each, 5 Refills, Maintenance, 06/07/20 16:02:00 EDT, [facility]/pharmacy #[id number], DX J45.909, 168, cm, 02/08/20 15:35:00 EDT, Height, 86.8, kg, 02/18/19 13:15:00 EDT, Dry Weight Start Date: 06/07/20 Status: OrderedGenvoya oral tablet 1 tablet, By Mouth, Daily, for 30 days, # 30 tablet, 5 Refills, Physician Stop 03/06/21 10:42:00 EDT, 09/07/20 10:42:00 EDT, [facility] #[id number], 1 tablet By Mouth Daily,x30 days, 169, cm, 08/16/20 8:41:00 EDT, Height, 91, kg, 08/10/20 1:22:00... Start Date: 09/07/20 Stop Date: 03/06/21 Status: Orderedlisinopril 20 mg oral tablet 20 mg, 1, tablet, By Mouth, Daily, # 90 tablet, Refills 3, Tot. Refills 3, Maintenance, 04/07/20 9:23:00 EDT, Route to Pharmacy Electronically, [facility]/pharmacy #[id number], 168, cm, 02/08/20 15:35:00 EDT, Height, [...] 04/07/20 9:23:00 EDT, Route to Pharmacy Electronically, [facility]/pharmacy #[id number], 168, cm, 02/08/20 15:35:00 EDT, Height, [...] Refills, Maintenance, 07/11/20 11:31:00 EDT, EC Capsule, [facility]/pharmacy #[id number], 168, cm, 07/08/20 9:19:00 EDT, Height, 86.8, kg, 02/18/19 13:15:00 EDT, Dry Weight Start Date: 07/11/20 Status: OrderedProAir HFA 90 mcg/inh inhalation aerosol with adapter 2, puffs, Inhalation, Every 6 hours, PRN, # 8.5 Gm, Refills 5, Tot. Refills 5, Maintenance, 06/07/2016:02:00 EDT, Aerosol, Route to Pharmacy Electronically, [id number], [facility]/pharmacy #[id number], 168, cm, 02/08/20 15:35:00 EDT, Hei... Start Date: 06/07/20 Status: OrderedtraMADol 50 mg oral tablet 1 tablet, By Mouth, Every 6 hours, PRN NEEDED FOR PAIN, # 112 tablet, 0 Refills, Acute 11/27/20 11:30:00 EST, 09/27/20 11:46:00 EDT, [facility]/pharmacy #[id number], 169, cm, 09/26/20 14:30:00 EDT, Height, 90.2,kg, 09/09/20 21:48:00 EDT, Dry Weight Start Date: 09/27/20 Stop Date: 11/27/20 Status: OrderedtraMADol 50 mg oral tablet 1 tablet, By Mouth, Every 6 hours, PRN NEEDED FOR PAIN, # 112 tablet, 0 Refills, Acute 11/25/20 15:39:00 EST, 09/26/20 16:04:00 EDT, [facility] #[id number], 169, cm, 09/26/20 14:30:00 EDT, Height, 90.2, [...]
--- OUTSIDE RECORDS SUMMARY | 2022-10-27 22:31 | XMS_ITS | Continuity of Care Document ---
:1965 Author Organization [facility] Address [address] [place] [address]- Care Team Providers Name Role Phone Evan PEREZ, Richar Weldon Primary Care Physician Encounter [facility] [place] Date(s): 03/02/20 - 03/12/20 [facility] [address] [place] [address]- [facility] Attending Physician: AdmTam patiño Admitting Physician: AdmtrTam [...] each, 5 Refills, Maintenance, 02/08/20 16:44:00 EDT, [facility]/pharmacy #[id number], 168, cm, 02/08/20 15:35:00 EDT, Height, 86.8, kg, 02/18/19 13:15:00 EDT, Dry Weight Start Date: 02/08/20 Status: OrderedGenvoya oral tablet 1 tablet, By Mouth, Daily, with food, # 30 tablet, 11 Refills, Maintenance, 03/02/20 11:05:00 EDT, Tablet, Community, [facility] #[id number], 1 tablet By Mouth Daily,Instr:with food, 168, [...] 01/07/20 10:28:00 EST, Route to Pharmacy Electronically, [facility]/pharmacy #[id number], 168, cm, 01/07/20 10:04:00 EST, Height, [...] 01/07/20 10:28:00 EST, Route to Pharmacy Electronically, [facility]/pharmacy #[id number], 168, cm, 01/07/20 10:04:00 EST, Height, 86.8, kg, 02/18/19 13:15:00 EDT, Dry Weight Start Date: 01/07/20 Status: Orderedmontelukast 10 mg oral tablet 10 mg, 1, tablet, By Mouth, Daily, # 90 tablet, Refills 3, Tot. Refills 3, Maintenance, 01/07/20 10:28:00 EST, Route to Pharmacy Electronically, [facility]/pharmacy #[id number], 168, cm, 01/07/20 10:04:00 EST, Height, 86.8, kg, 02/18/19 13:15:00 EDT, Dry Weight Start Date: 01/07/20 Status: OrderedNuLYTELY with Flavor Packs oral powder for reconstitution See Instructions, SPLIT PREP, # 4,000 mL, 0 Refills, Maintenance, 03/10/20 10:36:00 EDT, [facility] Rx #[id number], SPLIT PREP, 168, cm, 02/08/20 15:35:00 EDT, [...] :11:41 EDT, Aerosol, Route to Pharmacy Electronically, [id number], [facility]/pharmacy #[id number] Start Date: 05/12/19 Status: OrderedSymbicort 80mcg/4.5mcg Inhaler 2, puffs, Inhalation, 2 times a day, # 6.9 Gm, Refills 5, Tot. Refills 5, Maintenance, 09/28/19 8:50:05 EDT, Aerosol, Route to Pharmacy Electronically, [id number], [facility] #[id number] Start Date: 09/28/19 Status: OrderedtraMADol 50 mg oral tablet 1 tablet = 50 mg, By Mouth, 2 times a day, PRN Pain , Moderate, # 14 tablet, 3 Refills, Maintenance,12/14/19 16:47:00 EST, [facility] #[id number], 168, cm, 09/28/19 8:13:00 EDT, Height, 86.8, kg,02/18/19 13:15:00 EDT, Dry Weight Start Date: 12/14/19 Status: OrderedtraMADol 50 mg oral tablet 1 tablet = 50 mg, By Mouth, 2 times a day, PRN Pain , Moderate, # 14 tablet, 3 Refills, Maintenance,02/18/20 7:51:00 EDT, [facility]/pharmacy #[id number], 168, cm, 02/08/20 15:35:00 EDT, Height, [...] 5 Refills, Maintenance, 02/08/20 16:45:00 EDT, Aerosol, [facility]/pharmacy #[id number], 168, cm, 02/08/20 15:35:00 EDT, Height, [...]
--- OUTSIDE RECORDS SUMMARY | 2022-10-27 22:31 | XMS_ITS | Continuity of Care Document ---
:1965 Author Organization [facility] Address [address] [place] [address]- Care Team Providers Name Role Phone Richar Gordon MD Primary Care Physician Encounter [facility] [place] Date(s): 05/09/22 - 06/30/22 [facility] [address] [place] [address]- Attending Physician: Marry Tilley MD Admitting Physician: Marry Tilley MD Referring Physician: Richar Gordon MD Allergies, Adverse Reactions, Alerts Substance Reaction Severity Status amoxicillin nausea and vomiting Active gabapentin anxiety Active Pulmicort Flexhaler Active Anoro Ellipta Active atorvastatin Dyspnea Active Cipro HC rash [...] 3 Refills, Maintenance, 02/26/22 9:26:00 EDT, Solution, [facility]/pharmacy #[id number], Partial fill upon patientrequest if the [...] # 90 tablet, 3 Refills, [facility], 168, cm, 11/17/21 10:55:00 EST, Height, 92, kg, 03/03/21 15:27:00 EDT, Dry Weight Start Date: 12/04/21 Status: Orderedaspirin 81 mg oral tablet, chewable 81 mg, 1, tablet, By Mouth, Daily, # 30 tablet, Refills 5, Tot. Refills 5, Maintenance, 01/18/21 11:29:00 EST, Route to Pharmacy Electronically, [facility]/pharmacy #[id number], Partial fill upon patient request [...] A DAY, # 16 mL, 2 Refills, [facility], 90, USE 1 SPRAY IN EACH NOSTRIL TWICE A DAY, 166, cm, 05/02/22 10:08:00 EDT, Height, 92, kg, 03/03/21 15:27:00 EDT, Dry Weight Start Date: 05/28/22 Status: OrderedGenvoya oral tablet 1 tablet, By Mouth, Daily, with food, # 30 tablet, 5 Refills, Maintenance, 01/29/22 21:33:00 EST, Tablet, [facility], [facility][id number], Partial fill upon patient request if the [...] tablet, Refills 1, Route to Pharmacy Electronically, [facility], 168, cm, 01/15/22 14:50:00 EST, Height, 92, kg, 03/03/21 15:27:00 EDT, Dry Weight Start Date: 02/06/22 Status: OrderedLORazepam 1 mg oral tablet 1 tablet = 1 mg, By Mouth, PRN as needed for anxiety, 0 Refills, Maintenance, 06/29/18 13:11:09 EDT Start Date: 06/29/18 Status: OrderedMetoprolol Succinate ER 25 mg oral tablet, extended release 1 tablet, By Mouth, Daily, # 90 tablet, 3 Refills, [facility], 168, cm, 01/09/22 10:35:00 EST, Height, 92, kg, 03/03/21 15:27:00 EDT, Dry Weight Start Date: 01/10/22 Status: Orderedmontelukast 10 mg oral tablet 10 mg, 1, tablet, By Mouth, Daily, # 90 tablet, Refills 3, Tot. Refills 3, Maintenance, 01/15/22 16:17:00 EST, Route to Pharmacy Electronically, [facility]/pharmacy #[id number], 168, cm, 01/15/22 14:50:00 EST, Height, [...] 3 Refills, Maintenance, 09/04/21 19:37:00EDT, EC Capsule, [facility]/pharmacy #[id number], 168, cm, 09/04/21 9:46:00 EDT, Height, 92, kg, 03/03/21 15:27:00 EDT, Dry Weight Start Date: 09/04/21 Status: OrderedProAir HFA 90 mcg/inh inhalation aerosol with adapter 2, puffs, Inhalation, Every 6 hours, PRN, Requests ProAir, # 8.5 Gm, Refills 5, Tot. Refills 5, Maintenance, 06/12/22 10:35:00 EDT, Aerosol, Route to Pharmacy Electronically, [id number], [facility]/pharmacy #[id number], 166, cm, 05/02/22... Start Date: 06/12/22 Status: Orderedrosuvastatin 10 mg oral tablet 1 tablet, By Mouth, Daily, # 90 tablet, 3 Refills, Maintenance, 11/06/21 8:54:00 EST, [facility]/pharmacy #[id number], 168, cm, 11/06/21 8:47:00 EST, [...] Acute 08/29/22 9:26:00 EDT, 05/07/22 9:03:00 EDT, [facility]/pharmacy #[id number], 168, cm, 02/26/22 8:34:00 EDT, Height,92, [...]
--- OUTSIDE RECORDS SUMMARY | 2022-10-27 22:31 | XMS_ITS | Continuity of Care Document ---
:1965 Author Organization [facility] Address [address] [place] [address]- Care Team Providers Name Role Phone Evan PEREZ, Richar Weldon Primary Care Physician [place] [facility] [place]/15[place]21 - 06/14/21 [facility] [address] [place] [address]- Allergies, Adverse Reactions, Alerts Substance Reaction Severity [...] 05/22/21 13:11:00 EDT, Route to Pharmacy Electronically, [facility]/pharmacy #[id number], 168, cm, 05/02/21 8:45:00 EDT, Height, 92, kg, 03/03/21 15:27:00 EDT, Dry Weight Start Date: 05/22/21 Status: Orderedaspirin 81 mg oral tablet, chewable 81 mg, 1, tablet, By Mouth, Daily, # 30 tablet, Refills 5, Tot. Refills 5, Maintenance, 01/18/21 11:29:00 EST, [id number] fill upon patient request ifthe [...] Stop 11/25/21 11:25:00 EST, 05/29/21 11:25:00 EDT, [facility] #[id number], 1 tablet By Mouth Daily,x30 days, 168, cm, 05/02/21 8:45:00 EDT, Height, 92, kg, 03/03/21 15:27:0... Start Date: 05/29/21 Stop Date: 11/25/21 Status: OrderedGenvoya oral tablet 1 tablet, By Mouth, Daily, for 30 days, # 30 tablet, 5 Refills, Physician Stop 07/31/21 14:13:00 EDT, 02/01/21 14:13:00 EST, [facility] #[id number], 1 tablet By Mouth Daily,x30 days, 167, [...] 12/14/20 11:13:00 EST, Route to Pharmacy Electronically, [facility]/pharmacy #[id number], 167, cm, 12/14/20 8:40:00 EST, [...] tablet, 1 Refills, Maintenance, 05/12/21 13:24:00 EDT, [facility] 39234, 168, cm, 05/02/21 8:45:00 EDT, Height, 92, kg, 03/03/21 15:27:00 EDT, Dry Weight Start Date: 05/12/21 Status: Orderedmontelukast 10 mg oral tablet 10 mg, 1, tablet, By Mouth, Daily, # 90 tablet, Refills 3, Tot. Refills 3, Maintenance, 03/22/21 8:48:00 EDT, Route to Pharmacy Electronically, [facility]/pharmacy #[id number], 168, cm, 03/06/21 11:08:00 EDT, Height, 92, kg, 03/03/21 15:27:00 EDT, Dry Weight Start Date: 03/22/21 Status: Orderedomeprazole 20 mg oral enteric coated capsule 1 capsule = 20 mg, By Mouth, 2 times a day, # 180 capsule, 0 Refills, Maintenance, 02/16/21 10:57:00EDT, EC Capsule, [facility]/pharmacy #[id number], 167, cm, 12/14/20 8:40:00 EST, Height, 91.3, kg, 11/30/20 17:07:00 EST, Dry Weight Start Date: 02/16/21 Status: OrderedProAir HFA 90 mcg/inh inhalation aerosol with adapter 2, puffs, Inhalation, Every 6 hours, PRN, # 8.5 Gm, Refills 8, Tot. Refills 8, Maintenance, 03/07/2115:41:00 EDT, Aerosol, Route to Pharmacy Electronically, [id number], [facility]/pharmacy #[id number], 168, cm, 03/06/21 11:08:00 EDT, Hei... Start Date: 03/07/21 Status: OrderedProAir HFA 90 mcg/inh inhalation aerosol with adapter 2, puffs, Inhalation, Every 6 hours, PRN, Requests ProAir, # 8.5 Gm, Refills 5, Tot. Refills 5, Maintenance, 03/22/21 8:49:00 EDT, Aerosol, Route to Pharmacy Electronically, [id number], [facility]/pharmacy #[id number], 168, cm, 03/06/21 1... Start Date: 03/22/21 Status: Orderedrosuvastatin 10 mg oral tablet 1 tablet, By Mouth, Daily, # 90 tablet, 1 Refills, Maintenance, 05/04/21 7:31:00 EDT, [id number], 168, cm, 05/02/21 8:45:00 EDT, Height, 92, kg, 03/03/21 15:27:00 EDT, Dry Weight Start Date: 05/04/21 Status: OrderedtraMADol 50 mg oral tablet 2 tablet = 100 mg, By Mouth, Every 12 hours, PRN NEEDED FOR PAIN, # 112 tablet, 0 Refills, Acute 03/09/22 8:16:00 EDT, 04/05/21 4:32:00 EDT, [facility]/pharmacy #[id number], 168, cm, 03/06/21 11:08:00 EDT, [...]
--- OUTSIDE RECORDS SUMMARY | 2022-10-27 22:31 | XMS_ITS | Continuity of Care Document ---
:1965 Author Organization [facility] Address [address] [place] [address]- Care Team Providers Name Role Phone Richar Gordon MD Primary Care Physician Encounter [facility] [place] Date(s): 03/22/21 - 03/29/21 [facility] [address] [place] [address]- Attending Physician: Richar Gordon MD Allergies, Adverse Reactions, Alerts Substance Reaction Severity Status amoxicillin nausea and vomiting Active gabapentin anxiety Active Augmentin nausea and vomiting Active Bactrim swelling Active Pulmicort Flexhaler Active Anoro Ellipta Active Benadryl Swelling/Edema Active Rash/Dermatitis Anxiety state atorvastatin Dyspnea Active Cipro HC rash Active Immunizations Given [...] 03/06/21 15:56:00 EDT, Route to Pharmacy Electronically, [facility]/pharmacy #[id number], Partial fill upon patient request if the prescription is f... Start Date: 03/06/21 Status: Orderedaspirin 81 mg oral tablet, chewable 81 mg, 1, tablet, By Mouth, Daily, # 30 tablet, Refills 5, Tot. Refills 5, Maintenance, 01/18/21 11:29:00 EST, [id number] fill upon patient [...] Stop 07/31/21 14:13:00 EDT, 02/01/21 14:13:00 EST, [facility] #[id number], 1 tablet By Mouth Daily,x30 days, 167, [...] 11:13:00 EST, Route to Pharmacy Electronically, [facility]/pharmacy #[id number], 167, cm, 12/14/20 8:40:00 [...] 11:30:00 EST, Route to Pharmacy Electronically, [facility]/pharmacy #[id number], Partial fill upon patient request ifthe prescription is for a schedule II opioid drug... Start Date: 01/18/21 Stop Date: 07/17/21 Status: Orderedmontelukast 10 mg oral tablet 10 mg, 1, tablet, By Mouth, Daily, # 90 tablet, Refills 3, Tot. Refills 3, Maintenance, 03/22/21 8:48:00 EDT, Route to Pharmacy Electronically, [facility]/pharmacy #[id number], 168, cm, 03/06/21 11:08:00 EDT, Height, 92, kg, 03/03/21 15:27:00 EDT, Dry Weight Start Date: 03/22/21 Status: Orderedomeprazole 20 mg oral enteric coated capsule 1 capsule = 20 mg, By Mouth, 2 times a day, # 180 capsule, 0 Refills, Maintenance, 02/16/21 10:57:00EDT, EC Capsule, [facility]/pharmacy #[id number], 167, cm, 12/14/20 8:40:00 EST, Height, 91.3, kg, 11/30/20 17:07:00 EST, Dry Weight Start Date: 02/16/21 Status: OrderedProAir HFA 90 mcg/inh inhalation aerosol with adapter 2, puffs, Inhalation, Every 6 hours, PRN, # 8.5 Gm, Refills 8, Tot. Refills 8, Maintenance, 03/07/2115:41:00 EDT, Aerosol, Route to Pharmacy Electronically, [id number], [facility]/pharmacy #[id number], 168, cm, 03/06/21 11:08:00 EDT, Hei... Start Date: 03/07/21 Status: OrderedProAir HFA 90 mcg/inh inhalation aerosol with adapter 2, puffs, Inhalation, Every 6 hours, PRN, Requests ProAir, # 8.5 Gm, Refills 5, Tot. Refills 5, Maintenance, 03/22/21 8:49:00 EDT, Aerosol, Route to Pharmacy Electronically, [id number], [facility]/pharmacy #[id number], 168, cm, 03/06/21 1... Start Date: 03/22/21 Status: Orderedrosuvastatin 10 mg oral tablet 1 tablet = 10 mg, By Mouth, Daily, # 30 tablet, 5 Refills, Maintenance, 01/19/21 10:28:00 EST, Tablet, [facility]/pharmacy #[id number], Partial fill upon patient [...] Acute 05/05/21 4:32:00 EDT, 04/05/21 4:32:00 EDT, [facility]/pharmacy #[id number], 168, cm, 03/06/21 11:08:00 EDT, Height, 92, kg, 03/03/21 15... Start Date: 04/05/21 Stop Date: 05/05/21 Status: OrderedtraMADol 50 mg oral tablet 2 tablet = 100 mg, By Mouth, Every 6 hours, PRN NEEDED FOR PAIN, for 30 days, Corrected dose, # 224 tablet, 0 Refills, Acute 06/04/21 4:32:00 EDT, 05/05/21 4:32:00 EDT, [facility]/pharmacy #[id number], 168, cm, 03/06/21 11:08:00 EDT, Height, 92, kg, 03/03/21 15... Start Date: 05/05/21 Stop Date: 06/04/21 Status: OrderedtraMADol 50 mg oral tablet 2 tablet = 100 mg, By Mouth, Every 12 hours, PRN NEEDED FOR PAIN, # 112 tablet, 0 Refills, Acute 03/09/22 8:16:00 EDT, 04/05/21 4:32:00 EDT, [facility]/pharmacy #[id number], 168, cm, 03/06/21 11:08:00 EDT, Height, 92, kg, 03/03/21 15:27:00 EDT, Dry Weight Start Date: 04/05/21 Stop Date: 03/09/22 Status: OrderedtraMADol 50 mg oral tablet 1 tablet, By Mouth, Every 6 hours, PRN NEEDED FOR PAIN, # 112 tablet, 0 Refills, Acute 04/05/21 4:32:00 EDT, 03/08/21 4:32:00 EDT, [facility]/pharmacy #[id number], 168, cm, 03/06/21 11:08:00 EDT, Height, [...]
--- OUTSIDE RECORDS SUMMARY | 2022-10-27 22:31 | XMS_ITS | Continuity of Care Document ---
:1965 Author Organization [facility] Address [address] [place] [address]- Care Team Providers Name Role Phone Richar Gordon MD Primary Care Physician Encounter [facility] [place] Date(s): 03/10/20 - 06/22/[address] [address]- [facility] Attending Physician: Evans Au MD Admitting Physician: Evans Au MD Referring Physician: Evans Au MD Allergies, Adverse Reactions, Alerts Substance Reaction [...] each, 5 Refills, Maintenance, 06/07/20 16:02:00 EDT, [facility]/pharmacy #[id number], DX [id number], 168, cm, 02/08/20 15:35:00 EDT, Height, 86.8, kg, 02/18/19 13:15:00 EDT, Dry Weight Start Date: 06/07/20 Status: OrderedGenvoya oral tablet 1 tablet, By Mouth, Daily, with food, # 30 tablet, 11 Refills, Maintenance, 03/02/20 11:05:00 EDT, Tablet, Community, [facility] #[id number], 1 tablet By Mouth Daily,Instr:with food, 168, [...] 04/07/20 9:23:00 EDT, Route to Pharmacy Electronically, [facility]/pharmacy #[id number], 168, cm, 02/08/20 15:35:00 [...] 01/07/20 10:28:00 EST, Route to Pharmacy Electronically, [facility]/pharmacy #[id number], 168, cm, 01/07/20 10:04:00 EST, Height, 86.8, kg, 02/18/19 13:15:00 EDT, Dry Weight Start Date: 01/07/20 Status: Orderedmontelukast 10 mg oral tablet 10 mg, 1, tablet, By Mouth, Daily, # 90 tablet, Refills 3, Tot. Refills 3, Maintenance, 04/07/20 9:23:00 EDT, Route to Pharmacy Electronically, [facility]/pharmacy #[id number], 168, cm, 02/08/20 15:35:00 [...] mL, 0 Refills, Maintenance, 03/10/20 10:36:00 EDT, [facility] Rx #[id number], SPLIT PREP, 168, cm, 02/08/20 15:35:00 EDT, [...] 06/07/2016:02:00 EDT, Aerosol, Route to Pharmacy Electronically, [id number], [facility]/pharmacy #[id number], 168, cm, 02/08/20 15:35:00 EDT, Hei... Start Date: 06/07/20 Status: OrderedtraMADol 50 mg oral tablet 1 tablet = 50 mg, By Mouth, Every 6 hours, PRN Pain , Severe, # 112 tablet, 5 Refills, Acute 09/13/20 8:41:00 EDT, 03/14/20 8:40:00 EDT, [facility]/pharmacy #[id number], 168, cm, 02/08/20 15:35:00 EDT, Height, 86.8, kg, 02/18/19 13:15:00 EDT, Dry Weight Start Date: 03/14/20 Stop Date: 09/13/20 Status: OrderedtraMADol 50 mg oral tablet 1 tablet = 50 mg, By Mouth, 2 times a day, PRN Pain , Moderate, # 14 tablet, 3 Refills, Maintenance,12/14/19 16:47:00 EST, [facility] #[id number], 168, cm, 09/28/19 8:13:00 EDT, Height, 86.8, kg,02/18/19 13:15:00 EDT, Dry Weight Start Date: 12/14/19 Status: OrderedtraMADol 50 mg oral tablet 1 tablet = 50 mg, By Mouth, 2 times a day, PRN Pain , Moderate, # 14 tablet, 3 Refills, Maintenance,02/18/20 7:51:00 EDT, [facility]/pharmacy #[id number], 168, cm, 02/08/20 15:35:00 [...]
--- OUTSIDE RECORDS SUMMARY | 2022-10-27 22:31 | XMS_ITS | Continuity of Care Document ---
:1965 Author Organization [facility] Address [address] [place] [address]- Care Team Providers Name Role Phone Richar Gordon MD Primary Care Physician Encounter [facility] [place] Date(s): 03/30/21 - 04/29/21 [facility] [address] [place] [address]- Allergies, Adverse Reactions, Alerts Substance Reaction Severity [...] 04/05/21 14:25:00 EDT, Route to Pharmacy Electronically, [facility]/pharmacy #[id number], Partial fill upon patient request if the prescription is f... Start Date: 04/05/21 Status: Orderedaspirin 81 mg oral tablet, chewable 81 mg, 1, tablet, By Mouth, Daily, # 30 tablet, Refills 5, Tot. Refills 5, Maintenance, 01/18/21 11:29:00 EST, Route to Pharmacy Electronically, [facility]/pharmacy #[id number], Partial fill upon patient request ifthe prescription [...] Stop 07/31/21 14:13:00 EDT, 02/01/21 14:13:00 EST, [facility] #[id number], 1 tablet By Mouth Daily,x30 days, 167, [...] 01/18/21 11:30:00 EST, Route to Pharmacy Electronically, [facility]/pharmacy #[id number], Partial fill upon patient request ifthe prescription is for a schedule II opioid drug... Start Date: 01/18/21 Stop Date: 07/17/21 Status: Orderedmontelukast 10 mg oral tablet 10 mg, 1, tablet, By Mouth, Daily, # 90 tablet, Refills 3, Tot. Refills 3, Maintenance, 03/22/21 8:48:00 EDT, [facility] Electronically, [facility] [...] 03/07/2115:41:00 EDT, Aerosol, Route to Pharmacy Electronically, [id number], [facility]/pharmacy #[id number], 168, cm, 03/06/21 11:08:00 EDT, Hei... Start Date: 03/07/21 Status: OrderedProAir HFA 90 mcg/inh inhalation aerosol with adapter 2, puffs, Inhalation, Every 6 hours, PRN, Requests ProAir, # 8.5 Gm, Refills 5, Tot. Refills 5, Maintenance, 03/22/21 8:49:00 EDT, Aerosol, Route to Pharmacy Electronically, [id number], [facility]/pharmacy #[id number], 168, cm, 03/06/21 1... Start Date: 03/22/21 Status: Orderedrosuvastatin 10 mg oral tablet 1 tablet = 10 mg, By Mouth, Daily, # 30 tablet, 5 Refills, Maintenance, 01/19/21 10:28:00 EST, Tablet, [facility]/pharmacy #[id number], Partial fill upon patient [...] Acute 05/05/21 4:32:00 EDT, 04/05/21 4:32:00 EDT, [facility]/pharmacy #[id number], 168, cm, 03/06/21 11:08:00 EDT, Height, 92, kg, 03/03/21 15... Start Date: 04/05/21 Stop Date: 05/05/21 Status: OrderedtraMADol 50 mg oral tablet 2 tablet = 100 mg, By Mouth, Every 6 hours, PRN NEEDED FOR PAIN, for 30 days, Corrected dose, # 224 tablet, 0 Refills, Acute 06/04/21 4:32:00 EDT, 05/05/21 4:32:00 EDT, [facility]/pharmacy #[id number], [...]
--- OUTSIDE RECORDS SUMMARY | 2022-10-27 22:31 | XMS_ITS | Continuity of Care Document ---
:1965 Author Organization [facility] Adult Address [address] [place] [address]- Care Team Providers Name Role Phone Richar Gordon MD Primary Care Physician Encounter [facility] [place] [facility] [id number] Date(s): 11/21/20 - 11/28/20 [facility] Adult [address] [place] [address]- Attending Physician: Richar Gordon MD Allergies, Adverse [...] each, 5 Refills, Maintenance, 06/07/20 16:02:00 EDT, [facility]/pharmacy #[id number], DX J45.909, 168, cm, 02/08/20 15:35:00 EDT, Height, 86.8, kg, 02/18/19 13:15:00 EDT, Dry Weight Start Date: 06/07/20 Status: OrderedamLODIPine 5 mg oral tablet 5 mg, 1, tablet, By Mouth, Daily, # 30 tablet, Refills 5, Tot. Refills 5, Maintenance, 11/21/20 15:14:00 EST, Route to Pharmacy Electronically, [facility]/pharmacy #[id number], Partial fill upon patient request [...] II opioid drug. Start Date: 11/21/20 Status: Orderedclotrimazole 1% topical cream 1 application, Topically, 2 times a day, # 15 Gm, 0 Refills, Acute 12/22/20 8:38:00 EST, 11/21/20 8:38:00 EST, Cream, [facility]/pharmacy #[id number], Partial fill upon patient request if the prescription is for a schedule II opioid drug., 1 application Topically... Start Date: 11/21/20 Stop Date: 12/22/20 Status: OrderedGenvoya oral tablet 1 tablet, By Mouth, Daily, for 30 days, # 30 tablet, 5 Refills, Physician Stop 03/06/21 10:42:00 EDT, 09/07/20 10:42:00 EDT, [facility] #[id number], 1 tablet By Mouth Daily,x30 days, 169, cm, 08/16/20 8:41:00 EDT, Height, 91, kg, 08/10/20 1:22:00... Start Date: 09/07/20 Stop Date: 03/06/21 Status: Orderedlisinopril 20 mg oral tablet 20 mg, 1, tablet, By Mouth, Daily, # 90 tablet, Refills 3, Tot. Refills 3, Maintenance, 04/07/20 9:23:00 EDT, Route to Pharmacy Electronically, [facility]/pharmacy #[id number], 168, cm, 02/08/20 15:35:00 EDT, Height, [...] 04/07/20 9:23:00 EDT, Route to Pharmacy Electronically, [facility]/pharmacy #[id number], 168, cm, 02/08/20 15:35:00 EDT, Height, [...] 0 Refills, Maintenance, 11/20/20 11:33:00EST, EC Capsule, [facility]/pharmacy #[id number], 167, cm, 10/12/20 10:08:00 EST, Height, 90.2, kg, 09/09/20 21:48:00 EDT, Dry Weight Start Date: 11/20/20 Status: OrderedProAir HFA 90 mcg/inh inhalation aerosol with adapter 2, puffs, Inhalation, Every 6 hours, PRN, # 8.5 Gm, Refills 5, Tot. Refills 5, Maintenance, 10/11/2010:14:00 EST, Aerosol, Route to Pharmacy Electronically, [id number], [facility]/pharmacy #[id number], 169, cm, 10/11/20 9:44:00 EST, [place]... Start Date: 10/11/20 Status: Orderedrosuvastatin 10 mg oral tablet 1 tablet = 10 mg, By Mouth, Daily, # 30 tablet, 5 Refills, Maintenance, 11/21/20 15:14:00 EST, Tablet, [facility]/pharmacy #[id number], Partial fill upon patient request if the prescription is for a schedule II opioid drug., 167, cm, 10/12/20 10:08:00 EST, Height,... Start Date: 11/21/20 Stop Date: 05/20/21 Status: OrderedtraMADol 50 mg oral tablet See Instructions, TAKE 1 TABLET BY MOUTH EVERY 6 HOURS NEEDED FOR PAIN, # 112 tablet, 0 Refills, Acute 12/18/20 15:37:00 EST, 11/17/20 15:36:00 EST, [facility]/pharmacy #[id number], 167, cm, 10/12/20 10:08:00 EST, Height, 90.2, kg, 09/09/20 21:48:00 EDT, Dry We... Start Date: 11/17/20 Stop Date: 12/18/20 Status: OrderedTubing and mouthpiece Tubing and mouthpiece, [...]
--- OUTSIDE RECORDS SUMMARY | 2022-10-27 22:31 | XMS_ITS | Continuity of Care Document ---
:1965 Author Organization [facility] [place] Adult Address [address] [place] [address]- Care Team Providers Name Role Phone Evan PEREZ, Richar Weldon Primary Care Physician Encounter [facility] [place] Date(s): 02/08/22 - 03/10/22 [facility] [place] Adult [address] [place] [address]- Allergies, Adverse Reactions, Alerts Substance Reaction Severity [...] 3 Refills, Maintenance, 02/26/22 9:26:00 EDT, Solution, [facility]/pharmacy #[id number], Partial fill upon patientrequest if the prescription is for a schedule II... Start Date: 02/26/22 Status: OrderedamLODIPine 2.5 mg oral tablet 1 tablet, By Mouth, Daily, # 90 tablet, 3 Refills, [id number], 168, cm, 11/17/21 10:55:00 EST, Height, 92, [...] Gm, 2 Refills, Maintenance, 09/04/21 19:43:00 EDT, [place],[facility]/pharmacy #[id number], Partial fill upon patient request if the prescription is for a schedule II opioid drug., 1 sprays Nares, Both 2 times a day, 168,... Start Date: 09/04/21 Status: OrderedGenvoya oral tablet 1 tablet, By Mouth, Daily, with food, # 30 tablet, 5 Refills, Maintenance, 01/29/22 21:33:00 EST, Tablet, [facility], [facility], [facility] #[id number], Partial fill upon patient request if the [...] tablet, Refills 1, Route to Pharmacy Electronically, [id number], 168, cm, 01/15/22 14:50:00 EST, Height, 92, kg, 03/03/21 15:27:00 EDT, Dry Weight Start Date: 02/06/22 Status: OrderedLORazepam 1 mg oral tablet 1 tablet = 1 mg, By Mouth, PRN as needed for anxiety, 0 Refills, Maintenance, 06/29/18 13:11:09 EDT Start Date: 06/29/18 Status: OrderedMetoprolol Succinate ER 25 mg oral tablet, extended release 1 tablet, By Mouth, Daily, # 90 tablet, 3 Refills, [id number], 168, cm, 01/09/22 10:35:00 EST, Height, 92, kg, 03/03/21 15:27:00 EDT, Dry Weight Start Date: 01/10/22 Status: OrderedMetoprolol Succinate ER 25 mg oral tablet, extended release 1 tablet, By Mouth, Daily, # 90 tablet, 1 Refills, Maintenance, 05/12/21 13:24:00 EDT, [id number], 168, cm, 05/02/21 8:45:00 EDT, Height, 92, kg, 03/03/21 15:27:00 EDT, Dry Weight Start Date: 05/12/21 Status: Orderedmontelukast 10 mg oral tablet 10 mg, 1, tablet, By Mouth, Daily, # 90 tablet, Refills 3, Tot. Refills 3, Maintenance, 01/15/22 16:17:00 EST, Route to Pharmacy Electronically, [facility]/pharmacy #[id number], 168, cm, 01/15/22 14:50:00 EST, Height, 92, kg, 03/03/21 15:27:00 EDT, Dry Weight Start Date: 01/15/22 Status: Orderedomeprazole 20 mg oral enteric coated capsule 1 capsule = 20 mg, By Mouth, 2 times a day, # 180 capsule, 3 Refills, Maintenance, 09/04/21 19:37:00EDT, EC Capsule, [facility]/pharmacy #[id number], 168, cm, 09/04/21 9:46:00 EDT, Height, 92, kg, 03/03/21 15:27:00 EDT, Dry Weight Start Date: 09/04/21 Status: OrderedProAir HFA 90 mcg/inh inhalation aerosol with adapter 2, puffs, Inhalation, Every 6 hours, PRN, # 8.5 Gm, Refills 8, Tot. Refills 8, Maintenance, 03/07/2115:41:00 EDT, Aerosol, Route to Pharmacy Electronically, [id number], [facility]/pharmacy #[id number], 168, cm, 03/06/21 11:08:00 EDT, Hei... Start Date: 03/07/21 Status: OrderedProAir HFA 90 mcg/inh inhalation aerosol with adapter 2, puffs, Inhalation, Every 6 hours, PRN, Requests ProAir, # 8.5 Gm, Refills 5, Tot. Refills 5, Maintenance, 12/27/21 9:37:00 EST, Aerosol, Route to Pharmacy Electronically, [id number], [facility]/pharmacy #[id number], 168, cm, 12/27/21 8... Start Date: [...] Acute 05/07/22 9:03:00 EDT, 11/06/21 9:02:00 EST, [facility]/pharmacy #[id number], 168, cm, 11/06/21 8:47:00 EST, Height,92, kg, 03/03/21 15:27:00 EDT, Dry Weight Start Date: 11/06/21 Stop Date: 05/07/22 Status: OrderedtraMADol 50 mg oral tablet 2 tablet = 100 mg, By Mouth, Every 6 hours, PRN NEEDED FOR PAIN, # 224 tablet, 5 Refills, Acute 08/29/22 9:26:00 EDT, 05/07/22 9:03:00 EDT, [facility]/pharmacy #[id number], 168, cm, 02/26/22 8:34:00 EDT, Height,92, [...]
--- OUTSIDE RECORDS SUMMARY | 2022-10-27 22:31 | XMS_ITS | Continuity of Care Document ---
:1965 Author Organization [facility] [address] [place] [address]- Care Team Providers Name Role Phone Evan PEREZ, Richar Weldon Primary Care Physician Encounter [facility] Date(s): 12/17/19 - 12/27/19 [facility] [address] [place] [address]- [facility] Attending Physician: Tam Bolanos Admitting Physician: AdmtrTam Referring Physician: Admtr, ArElliot Allergies, Adverse Reactions, Alerts Substance Reaction Severity Status amoxicillin nausea and vomiting Active gabapentin anxiety Active Cipro HC rash Active Augmentin nausea and vomiting Active Bactrim swelling Active Benadryl Swelling/Edema Active Rash/Dermatitis Anxiety state Pulmicort Flexhaler Active Immunizations Given and Recorded Vaccine Date Status Refusal Reason tetanus/diphtheria/pertussis, acel(Tdap) 01/21/19 Recorde d Botulinum Toxin Type A Vacc (oldterm) 08/27/18 Recorded Botulinum Toxin Type A Vacc (oldterm) 10/02/17 Recorded Botulinum Toxin Type A Vacc (oldterm) 08/07/17 Recorded pneumococcal 23-valent vaccine 08/27/18 Recorded Influenza Virus Vaccine (oldterm) 08/27/18 Recorded pneumococcal 13-valent vaccine 08/07/17 Recorded [...] 0.083% inhalation solution See Instructions, 3 mL [facility] [id number] 08/2020, # 2.5 mg, 0 Refills, Maintenance, [...] tablet, Refills 5, Tot. Refills 5, Maintenance, 05/12/19 6:11:00 EDT, Route to Pharmacy Electronically, [id number], [facility]/pharmacy #[id number] Start Date: 05/12/19 Status: OrderedLORazepam 1 mg oral tablet 1 tablet = 1 mg, By Mouth, PRN as needed for anxiety, 0 Refills, Maintenance, 06/29/18 13:11:09 EDT Start Date: 06/29/18 Status: OrderedMetoprolol 25, mg, By Mouth, 2 times a day, 0, 0, 07/13/06 11:30:13, Print CINDY Number, [facility], [address] [place] [id number], [id number]+[id number], Constant Indicator Start Date: 07/13/06 Status: Orderedmontelukast 10 mg oral tablet 10 mg, 1, tablet, By Mouth, Daily, # 30 tablet, Refills 11, Tot. Refills 11, Maintenance, 05/12/19 6:11:29 EDT, Route to Pharmacy Electronically, [id number], [facility]/pharmacy #[id number] Start Date: 05/12/19 Status: OrderedOmeprazole = 20 mg, By Mouth, Daily, 0 Refills, Maintenance, 06/29/18 13:11:56 EDT Start Date: 06/29/18 Status: OrderedProAir HFA 90 mcg/inh inhalation aerosol with adapter 2, puffs, Inhalation, Every 6 hours, PRN, # 8.5 Gm, Refills 5, Tot. Refills 5, Maintenance, 196:11:41 EDT, Aerosol, Route to Pharmacy Electronically, [id number], [facility]/pharmacy #[id number] Start Date: 05/12/19 Status: OrderedSymbicort 80mcg/4.5mcg Inhaler 2, puffs, Inhalation, 2 times a day, # 6.9 Gm, Refills 5, Tot. Refills 5, Maintenance, 09/28/19 8:50:05 EDT, Aerosol, Route to Pharmacy Electronically, [id number], [id number] Start Date: 09/28/19 Status: OrderedtraMADol 50 mg oral tablet 1 tablet = 50 mg, By Mouth, 2 times a day, PRN Pain , Moderate, # 14 tablet, 3 Refills, Maintenance,12/14/19 16:47:00 EST, [facility][id number], 168, cm, 09/28/19 8:13:00 EDT, Height, 86.8, [...]
--- OUTSIDE RECORDS SUMMARY | 2022-10-27 22:31 | XMS_ITS | Continuity of Care Document ---
:1965 Author Organization [facility] [place] Adult Address [address] [place] [address]- Care Team Providers Name Role Phone Evan PEREZ, Richar Weldon Primary Care Physician [place] [facility] [place] 08/16/20 - 08/23/20 [facility] [place] Adult [address] [place] [address]- [facility] Encounter Diagnosis Shortness of breath on exertion (Discharge Diagnosis) - 08/16/20 Fatigue (Discharge Diagnosis) - 08/16/20 Attending Physician: Not on Staff, Attending MD Allergies, Adverse Reactions, Alerts Substance Reaction [...] each, 5 Refills, Maintenance, 06/07/20 16:02:00 EDT, [facility]/pharmacy #[id number], DX J45.909, 168, cm, 02/08/20 15:35:00 EDT, Height, 86.8, kg, 02/18/19 13:15:00 EDT, Dry Weight Start Date: 06/07/20 Status: OrderedAnoro Ellipta 62.5 mcg-25 mcg/inh inhalation powder 1 puffs, Inhalation, Daily, # 30 each, 5 Refills, Maintenance, 07/08/20 9:57:00 EDT, Powder, [facility]/pharmacy #[id number], 1 puffs Inhalation Daily, 168, cm, 07/08/20 9:19:00 EDT, Height, 86.8, kg, 02/18/19 13:15:00 EDT, Dry Weight Start Date: 07/08/20 Status: OrderedGenvoya oral tablet See Instructions, TAKE 1 TABLET BY MOUTH DAILY WITH FOOD, # 30 tablet, 0 Refills, Maintenance, [facility], [facility] #[id number], 2, TAKE 1 TABLET BY MOUTH DAILY WITH FOOD, 169, cm, 08/16/20 8:41:00 EDT, Height, 91, kg, 08/10/20 1:22:00 EDT, Dry Weight Start Date: 08/22/20 Status: Orderedlisinopril 20 mg oral tablet 20 mg, 1, tablet, By Mouth, Daily, # 90 tablet, Refills 3, Tot. Refills 3, Maintenance, 04/07/20 9:23:00 EDT, Route to Pharmacy Electronically, [facility]/pharmacy #[id number], 168, cm, 02/08/20 15:35:00 EDT, [...] 01/07/20 10:28:00 EST, Route to Pharmacy Electronically, [facility]/pharmacy #[id number], 168, cm, 01/07/20 10:04:00 EST, Height, 86.8, kg, 02/18/19 13:15:00 EDT, Dry Weight Start Date: 01/07/20 Status: Orderedmontelukast 10 mg oral tablet 10 mg, 1, tablet, By Mouth, Daily, # 90 tablet, Refills 3, Tot. Refills 3, Maintenance, 04/07/20 9:23:00 EDT, Route to Pharmacy Electronically, [facility]/pharmacy #[id number], 168, cm, 02/08/20 15:35:00 EDT, [...] Refills, Maintenance, 07/11/20 11:31:00 EDT, EC Capsule, [facility]/pharmacy #[id number], 168, cm, 07/08/20 9:19:00 EDT, Height, 86.8, kg, 02/18/19 13:15:00 EDT, Dry Weight Start Date: 07/11/20 Status: OrderedProAir HFA 90 mcg/inh inhalation aerosol with adapter 2, puffs, Inhalation, Every 6 hours, PRN, # 8.5 Gm, Refills 5, Tot. Refills 5, Maintenance, 06/07/2016:02:00 EDT, Aerosol, Route to Pharmacy Electronically, [id number], [facility]/pharmacy #[id number], 168, cm, 02/08/20 15:35:00 EDT, Hei... Start Date: 06/07/20 Status: OrderedtraMADol 50 mg oral tablet 1 tablet = 50 mg, By Mouth, Every 6 hours, PRN Pain , Severe, # 112 tablet, 5 Refills, Acute 09/13/20 8:41:00 EDT, 03/14/20 8:40:00 EDT, [facility]/pharmacy #[id number], 168, cm, 02/08/20 15:35:00 EDT, Height, 86.8, kg, 02/18/19 13:15:00 EDT, Dry Weight Start Date: 03/14/20 Stop Date: 09/13/20 Status: OrderedTubing and mouthpiece Tubing and mouthpiece, [...] Diagnosis Type Effective Dates Health Status Clinical In formant Service Shortness of Discharge 08/16/20 breath on Diagnosis exertion Fatigue Discharge 08/16/20 Diagnosis Vital Signs Most recent to oldest [Reference Range]: 1 Height 169 cm (08/16/20 8:41 AM) Weight 91.1 kg (08/16/20 8:41 AM) Oxygen Saturation [94-100 %] 97 % (08/16/20 8:41 AM) Pulse Rate [55-90 bpm] 59 bpm (08/16/20 8:41 AM) Body Mass Index [18.5-24.99] 31.9 *>HHI* (08/16/20 8:41 AM) Blood Pressure [90-138/55-84 mm Hg] 119/62 mm Hg (08/16/20 8:41 AM) Temperature [96.8-100.4 DegF] 98.1 DegF (08/16/20 8:41 AM) Blood pressure sites Arm, right (08/16/20 8:41 AM) Temperature Route Oral (08/16/20 8:41 AM) Weight Obtained Via Standing scale (08/16/20 8:41 AM) Social History Social History Type Response Smoking Status Former smoker, quit more hernan n 30 days ago entered on: 05/11/19 Sex
--- OUTSIDE RECORDS SUMMARY | 2022-10-27 22:31 | XMS_ITS | Continuity of Care Document ---
:1965 Author Organization [facility] Adult Address [address] [place] [address]- Care Team Providers Name Role Phone Richar Gordon MD Primary Care Physician Encounter [facility] Date(s): 09/04/21 - 09/11/21 [facility] [address] [place] [address]- Attending Physician: Richar Gordon MD Allergies, Adverse Reactions, Alerts Substance Reaction Severity Status amoxicillin nausea and vomiting Active gabapentin anxiety Active Anoro Ellipta Active atorvastatin Dyspnea Active [...] each, 5Refills, Maintenance, 09/11/21 14:21:00 EDT, Solution, [facility]/pharmacy #[id number], Partial fill upon patientrequest if the prescription is for a schedule II... Start Date: 09/11/21 Status: OrderedamLODIPine 2.5 mg oral tablet 2.5 mg, 1, tablet, By Mouth, Daily, # 30 tablet, Refills 5, Tot. Refills 5, Maintenance, 05/22/21 13:11:00 EDT, Route to Pharmacy Electronically, [facility]/pharmacy #[id number], 168, cm, 05/02/21 8:45:00 EDT, Height, 92, kg, 03/03/21 15:27:00 EDT, Dry Weight Start Date: 05/22/21 Status: Orderedaspirin 81 mg oral tablet, chewable 81 mg, 1, tablet, By Mouth, Daily, # 30 tablet, Refills 5, Tot. Refills 5, Maintenance, 01/18/21 11:29:00 EST, Route to Pharmacy Electronically, [facility]/pharmacy #[id number], Partial fill upon patient request [...] Gm, 2 Refills, Maintenance, 09/04/21 19:43:00 EDT, [place],[facility]/pharmacy #[id number], Partial fill upon patient request if the prescription is for a schedule II opioid drug., 1 sprays Nares, Both 2 times a day, 168,... Start Date: 09/04/21 Status: OrderedGenvoya oral tablet 1 tablet, By Mouth, Daily, for 30 days, # 30 tablet, 5 Refills, Physician Stop 11/25/21 11:25:00 EST, 05/29/21 11:25:00 EDT, [facility] #[id number], 1 tablet By Mouth Daily,x30 days, 168, cm, 05/02/21 8:45:00 EDT, Height, 92, kg, 03/03/21 15:27:0... Start Date: 05/29/21 Stop Date: 11/25/21 Status: [place] Blood Pressure Monitor See Instructions, # 1 [...] 11:13:00 EST, Route to Pharmacy Electronically, [facility]/pharmacy #[id number], 167, cm, 12/14/20 8:40:00 EST, [...] tablet, 1 Refills, Maintenance, 05/12/21 13:24:00 EDT, [id number], 168, cm, 05/02/21 8:45:00 EDT, Height, 92, kg, 03/03/21 15:27:00 EDT, Dry Weight Start Date: 05/12/21 Status: Orderedmontelukast 10 mg oral tablet 10 mg, 1, tablet, By Mouth, Daily, # 90 tablet, Refills 3, Tot. Refills 3, Maintenance, 03/22/21 8:48:00 EDT, Route to Pharmacy Electronically, [facility]/pharmacy #[id number], 168, cm, 03/06/21 11:08:00 EDT, Height, 92, kg, 03/03/21 15:27:00 EDT, Dry Weight Start Date: 03/22/21 Status: Orderedomeprazole 20 mg oral enteric coated capsule 1 capsule = 20 mg, By Mouth, 2 times a day, # 180 capsule, 3 Refills, Maintenance, 09/04/21 19:37:00EDT, EC Capsule, [facility]/pharmacy #[id number], 168, cm, 09/04/21 9:46:00 EDT, Height, 92, kg, 03/03/21 15:27:00 EDT, Dry Weight Start Date: 09/04/21 Status: OrderedProAir HFA 90 mcg/inh inhalation aerosol with adapter 2, puffs, Inhalation, Every 6 hours, PRN, # 8.5 Gm, Refills 8, Tot. Refills 8, Maintenance, 03/07/2115:41:00 EDT, Aerosol, Route to Pharmacy Electronically, [id number], [facility]/pharmacy #[id number], 168, cm, 03/06/21 11:08:00 EDT, Hei... Start Date: 03/07/21 Status: OrderedProAir HFA 90 mcg/inh inhalation aerosol with adapter 2, puffs, Inhalation, Every 6 hours, PRN, Requests ProAir, # 8.5 Gm, Refills 5, Tot. Refills 5, Maintenance, 03/22/21 8:49:00 EDT, Aerosol, Route to Pharmacy Electronically, [id number], [facility]/pharmacy #[id number], 168, cm, 03/06/21 1... Start Date: 03/22/21 Status: Orderedrosuvastatin 10 mg oral tablet 1 tablet, By Mouth, Daily, # 90 tablet, 3 Refills, Maintenance, 08/18/21 9:20:00 EDT, [facility]/pharmacy #[id number], 168, cm, 08/15/21 9:17:00 EDT, Height, 92, kg, 03/03/21 15:27:00 EDT, Dry Weight Start Date: 08/18/21 Status: OrderedtraMADol 50 mg oral tablet 2 tablet = 100 mg, By Mouth, Every 6 hours, PRN NEEDED FOR PAIN, # 224 tablet, 2 Refills, Acute 05/25/22 5:10:00 EDT, 03/09/22 8:16:00 EDT, [facility]/pharmacy #[id number], 168, cm, 05/02/21 8:45:00 EDT, Height,92, kg, 03/03/21 15:27:00 EDT, Dry Weight Start Date: 03/09/22 Stop Date: 05/25/22 Status: OrderedtraMADol 50 mg oral tablet See Instructions, TAKE 2 TABLETS BY MOUTH EVERY 6 HOURS NEEDED FOR PAIN, # 224 tablet, 2 Refills,Acute 11/29/21 7:02:00 EST, 08/30/21 7:01:00 EDT, [facility]/pharmacy #[id number], 168, cm, 08/15/21 9:17:00 EDT,Height, [...] oldest [Reference Range]: 1 Height 168 cm (09/04/21 9:46 AM) Weight 89.7 kg (09/04/21 9:46 AM) Oxygen Saturation [94-100 %] 97 % (09/04/21 9:46 AM) Pulse Rate [55-90 bpm] 59 bpm (09/04/21 9:46 AM) Body Mass Index [18.5-24.99] 31.78 *>HHI* (09/04/21 9:46 AM) Blood Pressure [90-138/55-84 mm Hg] 116/66 mm Hg (09/04/21 9:46 AM) Temperature [96.8-100.4 DegF] 98.1 DegF (09/04/21 9:46 AM) Mode of Delivery (Oxygen) Room air (09/04/21 9:46 AM) Blood pressure sites Arm, left (09/04/21 9:46 AM) Temperature Route Oral (09/04/21 9:46 AM) Weight Obtained Via Standing scale (09/04/21 9:46 AM) Social History Social History Type Response Smoking Status Former smoker, quit more hernan n 30 days ago entered on: 05/11/19 Sex
--- OUTSIDE RECORDS SUMMARY | 2022-10-27 22:31 | XMS_ITS | Continuity of Care Document ---
:1965 Author Organization [facility] Adult Address [address] [place] [address]- Care Team Providers Name Role Phone Evan PEREZ, Richar Weldon Primary Care Physician [place] [facility] [place](s): 12/04/21 - 01/03/22 [facility] Adult [address] [place] [address]- Allergies, Adverse Reactions, Alerts Substance Reaction Severity Status amoxicillin nausea and vomiting Active Anoro Ellipta Active Pulmicort Flexhaler Active gabapentin anxiety Active atorvastatin Dyspnea Active [...] 3 Refills, Maintenance, 11/06/21 8:54:00 EST, Solution, [facility]/pharmacy #[id number], Partial fill upon patientrequest if the prescription is for a schedule II... Start Date: 11/06/21 Status: OrderedamLODIPine 2.5 mg oral tablet 1 tablet, By Mouth, Daily, # 90 tablet, 3 Refills, [id number], 168, cm, 11/17/21 10:55:00 EST, Height, 92, kg, 03/03/21 15:27:00 EDT, Dry Weight Start Date: 12/04/21 Status: OrderedamLODIPine 2.5 mg oral tablet 2.5 mg, 1, tablet, By Mouth, Daily, # 30 tablet, Refills 5, Tot. Refills 5, Maintenance, 05/22/21 13:11:00 EDT, Route to Pharmacy Electronically, [facility]/pharmacy #[id number], 168, cm, 05/02/21 8:45:00 [...] Gm, 2 Refills, Maintenance, 09/04/21 19:43:00 EDT, [place],[facility]/pharmacy #[id number], Partial fill upon patient request if the prescription is for a schedule II opioid drug., 1 sprays Nares, Both 2 times a day, 168,... Start Date: 09/04/21 Status: OrderedFlovent HFA 44 mcg/inh inhalation aerosol 2 puffs, Inhalation, 2 times a day, Use with spacer. Rinse and spit after use, # 12 Gm, 5 Refills, Maintenance, 12/27/21 9:39:00 EST, Aerosol, [facility]/pharmacy #[id number], Partial fill [...] tablet, 1 Refills, Maintenance, 05/12/21 13:24:00 EDT, [facility], 168, cm, 05/02/21 8:45:00 EDT, Height, 92, kg, 03/03/21 15:27:00 EDT, Dry Weight Start Date: 05/12/21 Status: Orderedomeprazole 20 mg oral enteric coated capsule 1 capsule = 20 mg, By Mouth, 2 times a day, # 180 capsule, 3 Refills, Maintenance, 09/04/21 19:37:00EDT, EC Capsule, [facility]/pharmacy #[id number], 168, cm, 09/04/21 9:46:00 EDT, Height, 92, kg, 03/03/21 15:27:00 EDT, Dry Weight Start Date: 09/04/21 Status: OrderedProAir HFA 90 mcg/inh inhalation aerosol with adapter 2, puffs, Inhalation, Every 6 hours, PRN, # 8.5 Gm, Refills 8, Tot. Refills 8, Maintenance, 03/07/2115:41:00 EDT, Aerosol, Route to Pharmacy Electronically, [id number], [facility]/pharmacy #[id number], 168, cm, 03/06/21 11:08:00 EDT, Hei... Start Date: 03/07/21 Status: OrderedProAir HFA 90 mcg/inh inhalation aerosol with adapter 2, puffs, Inhalation, Every 6 hours, PRN, Requests ProAir, # 8.5 Gm, Refills 5, Tot. Refills 5, Maintenance, 12/27/21 9:37:00 EST, Aerosol, Route to Pharmacy Electronically, [id number], [facility]/pharmacy #[id number], 168, cm, 12/27/21 8... Start Date: 12/27/21 Status: Orderedrosuvastatin 10 mg oral tablet 1 tablet, By Mouth, Daily, # 90 tablet, 3 Refills, Maintenance, 11/06/21 8:54:00 EST, [facility]/pharmacy #[id number], 168, cm, 11/06/21 8:47:00 EST, Height, 92, kg, 03/03/21 15:27:00 EDT, Dry Weight Start Date: 11/06/21 Status: OrderedtraMADol 50 mg oral tablet 2 tablet = 100 mg, By Mouth, Every 6 hours, PRN NEEDED FOR PAIN, # 224 tablet, 5 Refills, Acute 05/07/22 9:03:00 EDT, 11/06/21 9:02:00 EST, [facility]/pharmacy #[id number], 168, cm, 11/06/21 8:47:00 [...]
--- OUTSIDE RECORDS SUMMARY | 2022-10-27 22:31 | XMS_ITS | Continuity of Care Document ---
:1965 Author Organization [facility] Adult Address [address] [place] [address]- Care Team Providers Name Role Phone Richar Gordon MD Primary Care Physician Encounter [facility] [place] [facility] R [id number] Date(s): 12/14/20 - 12/21/20 [facility] Adult [address] [place] [address]- Attending Physician: Richar Gordon MD Allergies, Adverse [...] 11/21/20 15:14:00 EST, Route to Pharmacy Electronically, [facility]/pharmacy #[id number], Partial fill upon patient request if the [...] Stop 03/06/21 10:42:00 EDT, 09/07/20 10:42:00 EDT, [facility] #[id number], 1 tablet By Mouth Daily,x30 days, 169, cm, 08/16/20 8:41:00 EDT, Height, 91, kg, 08/10/20 1:22:00... Start Date: 09/07/20 Stop Date: 03/06/21 Status: Orderedlisinopril 20 mg oral tablet 20 mg, 1, tablet, By Mouth, Daily, # 90 tablet, Refills 3, Tot. Refills 3, Maintenance, 12/14/20 11:13:00 EST, Route to Pharmacy Electronically, [facility]/pharmacy #[id number], 167, cm, 12/14/20 8:40:00 [...] 04/07/20 9:23:00 EDT, Route to Pharmacy Electronically, [facility]/pharmacy #[id number], 168, cm, 02/08/20 15:35:00 EDT, Height, 86.8, kg, 02/18/19 13:15:00 EDT, Dry Weight Start Date: 04/07/20 Status: Orderedomeprazole 20 mg oral enteric coated capsule 1 capsule = 20 mg, By Mouth, 2 times a day, # 180 capsule, 0 Refills, Maintenance, 11/20/20 11:33:00EST, EC Capsule, [facility]/pharmacy #[id number], 167, cm, 10/12/20 10:08:00 EST, Height, 90.2, kg, 09/09/20 21:48:00 EDT, Dry Weight Start Date: 11/20/20 Status: OrderedProAir HFA 90 mcg/inh inhalation aerosol with adapter 2, puffs, Inhalation, Every 6 hours, PRN, # 8.5 Gm, Refills 5, Tot. Refills 5, Maintenance, 10/11/2010:14:00 EST, Aerosol, Route to Pharmacy Electronically, [id number], [facility]/pharmacy #[id number], 169, cm, 10/11/20 9:44:00 EST, [place]... Start Date: 10/11/20 Status: OrderedtraMADol 50 mg oral tablet 2 tablet = 100 mg, By Mouth, Every 6 hours, Increased dose; may fill for less than full amount, # 224 tablet, 2 Refills, Acute 01/14/21 11:09:00 EST, 12/18/20 15:37:00 EST, [facility]/pharmacy #[id number], 167, cm,12/14/20 8:40:00 EST, Height, 91.3, [...] recent to oldest [Reference Range]: 1 Height 167 cm (12/14/20 8:40 AM) Social History Social History Type Response Smoking Status Former smoker, quit more hernan n 30 days ago entered on: 05/11/19 Sex
--- OUTSIDE RECORDS SUMMARY | 2022-10-27 22:31 | XMS_ITS | Continuity of Care Document ---
:1965 Author Organization [facility] Adult Address [address] [place] [address]- Care Team Providers Name Role Phone Evan PEREZ, Richar Weldon Primary Care Physician Encounter [facility] [place] Date(s): 11/17/20 - 12/17/20 [facility] Adult [address] [place] [address]- Allergies, Adverse Reactions, Alerts Substance Reaction Severity [...] 11/21/20 15:14:00 EST, Route to Pharmacy Electronically, [facility]/pharmacy #[id number], Partial fill upon patient request if the [...] Stop 03/06/21 10:42:00 EDT, 09/07/20 10:42:00 EDT, [facility] #[id number], 1 tablet By Mouth Daily,x30 days, 169, cm, 08/16/20 8:41:00 EDT, Height, 91, kg, 08/10/20 1:22:00... Start Date: 09/07/20 Stop Date: 03/06/21 Status: Orderedlisinopril 20 mg oral tablet 20 mg, 1, tablet, By Mouth, Daily, # 90 tablet, Refills 3, Tot. Refills 3, Maintenance, 12/14/20 11:13:00 EST, Route to Pharmacy Electronically, [facility]/pharmacy #[id number], 167, cm, 12/14/20 8:40:00 EST, Height, 91.3, [...] 04/07/20 9:23:00 EDT, Route to Pharmacy Electronically, [facility]/pharmacy #[id number], 168, cm, 02/08/20 15:35:00 EDT, Height, 86.8, kg, 02/18/19 13:15:00 EDT, Dry Weight Start Date: 04/07/20 Status: Orderedomeprazole 20 mg oral enteric coated capsule 1 capsule = 20 mg, By Mouth, 2 times a day, # 180 capsule, 0 Refills, Maintenance, 11/20/20 11:33:00EST, EC Capsule, [facility]/pharmacy #[id number], 167, cm, 10/12/20 10:08:00 EST, Height, 90.2, kg, 09/09/20 21:48:00 EDT, Dry Weight Start Date: 11/20/20 Status: OrderedProAir HFA 90 mcg/inh inhalation aerosol with adapter 2, puffs, Inhalation, Every 6 hours, PRN, # 8.5 Gm, Refills 5, Tot. Refills 5, Maintenance, 10/11/2010:14:00 EST, Aerosol, Route to Pharmacy Electronically, [id number], [facility]/pharmacy #[id number], 169, cm, 10/11/20 9:44:00 EST, Heig... Start Date: 10/11/20 Status: OrderedtraMADol 50 mg oral tablet 2 tablet = 100 mg, By Mouth, Every 6 hours, Increased dose; may fill for less than full amount, # 224 tablet, 2 Refills, Acute 01/14/21 11:09:00 EST, 12/18/20 15:37:00 EST, [facility]/pharmacy #[id number], 167, cm,12/14/20 8:40:00 EST, Height, [...]
--- OUTSIDE RECORDS SUMMARY | 2022-10-27 22:31 | XMS_ITS | Continuity of Care Document ---
:1965 Author Organization [facility] Adult Address [address] [place] [address]- Care Team Providers Name Role Phone Richar Gordon MD Primary Care Physician [place] [facility] [place] 09/19/22 - 09/26/22 [facility] Adult [address] [place] [address]- Attending Physician: Richar Gordon MD Allergies, Adverse [...] virus vaccine, inactivated 10/05/19 Recorded SARS-CoV-2 mRNA (aojogoe-ucir-bpyyh) vax2 08/09/22 Given SARS-CoV-2 (COVID-19) mRNA BNT-162b2 [...] pneumococcal 13-valent vaccine 08/07/17 Recorded 1Result Comment: [id number] Comment: [id number] Medications albuterol 0.083% inhalation solution See Instructions, INHALE CONTENTS OF 1 VIAL VIA NEBULIZER EVERY 6 HORUS NEEDED FOR WHEEZING/SHORTNESS OF BREATH, # 75 mL, 3 Refills, Maintenance, 09/18/22 10:48:00 EDT, [facility], 166, cm, 08/09/22 11:33:00 EDT, Height, 92, kg, 03/03/21 15:27... Start Date: 09/18/22 Status: OrderedamLODIPine 2.5 mg oral tablet 1 tablet, By Mouth, Daily, # 90 tablet, 3 Refills, 08/09/22 12:05:00 EDT, [facility]/pharmacy #[id number], 166, cm, 08/09/22 11:33:00 EDT, Height, 92, kg, 03/03/21 15:27:00 EDT, Dry Weight Start Date: 08/09/22 Status: Orderedaspirin 81 mg oral tablet, chewable 81 mg, 1, tablet, By Mouth, Daily, # 30 tablet, Refills 5, Tot. Refills 5, Maintenance, 01/18/21 11:29:00 EST, [facility] Pharm[facility] Electronically, [facility] # 16 mL, 2 Refills, 08/10/22 6:59:00 EDT,[facility]/pharmacy #[id number], 90, USE 1 SPRAY IN EACH NOSTRIL TWICE A DAY, 166, cm, 08/09/22 11:33:00 EDT, Height, 92, kg, 03/03/21 15:27:00 EDT, Dry Weight Start Date: 08/10/22 Status: OrderedGenvoya oral tablet 1 tablet, By Mouth, Daily, with food, # 30 tablet, 5 Refills, Maintenance, 07/17/22 11:59:00 EDT, Tablet, [facility], [id number], Partial fill upon patient request if the [...] 08/01/22 16:29:00 EDT, Route to Pharmacy Electronically, [id number], 166, cm, 07/19/22 15:37:00 EDT, Height, 92, [...] Daily, # 90 tablet, 3 Refills, [facility], 168, cm, 01/09/22 10:35:00 EST, Height, 92, kg, 03/03/21 15:27:00 EDT, Dry Weight Start Date: 01/10/22 Status: Orderedmontelukast 10 mg oral tablet 10 mg, 1, tablet, By Mouth, Daily, # 90 tablet, Refills 3, Tot. Refills 3, Maintenance, 08/09/22 12:05:00 EDT, [id number] 166, cm, 08/09/22 11:33:00 EDT, Height, [...] capsule, 0 Refills, Maintenance, 08/22/22 15:36:00 EDT, [facility], 166, cm, 08/09/22 11:33:00 EDT, Height, 92, kg, 03/03/21 15:27:00 EDT, Dry Weight Start Date: 08/22/22 Status: Orderedrosuvastatin 10 mg oral tablet 1 tablet, By Mouth, Daily, # 90 tablet, 3 Refills, Maintenance, 11/06/21 8:54:00 EST, [facility]/pharmacy #[id number], 168, cm, 11/06/21 8:47:00 EST, Height, [...] oldest [Reference Range]: 1 Height 166.0 cm (09/19/22 3:39 PM) Weight 90.9 kg (09/19/22 3:39 PM) Oxygen Saturation [94-100 %] 97 % (09/19/22 3:39 PM) Pulse Rate [55-90 bpm] 56 bpm (09/19/22 3:39 PM) Body Mass Index [18.5-24.99 kg/m2] 32.99 kg/m2 *>HHI* (09/19/22 3:39 PM) Blood Pressure [90-138/55-84 mm Hg] 118/66 mm Hg (09/19/22 3:39 PM) Mode of Delivery (Oxygen) Room air (09/19/22 3:39 PM) Blood pressure sites Arm, left (09/19/22 3:39 PM) Weight Obtained Via Standing scale (09/19/22 3:39 PM) Social History Social History Type Response Smoking Status Former smoker, quit more hernan n 30 days ago entered on: 05/11/19 Sex Patient Care team information PersonnelName: Richar Gordon MD Address: Address: [address] [place] [id number]
--- OUTSIDE RECORDS SUMMARY | 2022-10-27 22:31 | XMS_ITS | Continuity of Care Document ---
:1965 Author Organization [facility] Adult Address [address] [place] [address]- Care Team Providers Name Role Phone Richar Gordon MD Primary Care Physician Encounter [facility] [place] Date(s): 02/26/22 - 03/05/22 [facility] Adult [address] [place] [address]- Attending Physician: Richar Gordon MD Allergies, Adverse Reactions, Alerts Substance Reaction Severity Status amoxicillin nausea and vomiting Active Cipro HC rash Active Augmentin nausea and vomiting Active Bactrim swelling Active Anoro Ellipta Active gabapentin anxiety Active atorvastatin Dyspnea Active Benadryl Swelling/Edema Active [...] 3 Refills, Maintenance, 02/26/22 9:26:00 EDT, Solution, [facility]/pharmacy #[id number], Partial fill upon patientrequest if the prescription is for a schedule II... Start Date: 02/26/22 Status: OrderedamLODIPine 2.5 mg oral tablet 1 tablet, By Mouth, Daily, # 90 tablet, 3 Refills, [facility], 168, cm, 11/17/21 10:55:00 EST, Height, 92, [...] Gm, 2 Refills, Maintenance, 09/04/21 19:43:00 EDT, [place],[facility]/pharmacy #[id number], Partial fill upon patient request if the prescription is for a schedule II opioid drug., 1 sprays Nares, Both 2 times a day, 168,... Start Date: 09/04/21 Status: OrderedGenvoya oral tablet 1 tablet, By Mouth, Daily, with food, # 30 tablet, 5 Refills, Maintenance, 01/29/22 21:33:00 EST, Tablet, [facility] #[id number], Partial fill upon patient request if the [...] tablet, Refills 1, Route to Pharmacy Electronically, [id number], 168, cm, 01/15/22 14:50:00 EST, Height, 92, kg, 03/03/21 15:27:00 EDT, Dry Weight Start Date: 02/06/22 Status: OrderedLORazepam 1 mg oral tablet 1 tablet = 1 mg, By Mouth, PRN as needed for anxiety, 0 Refills, Maintenance, 06/29/18 13:11:09 EDT Start Date: 06/29/18 Status: OrderedMetoprolol Succinate ER 25 mg oral tablet, extended release 1 tablet, By Mouth, Daily, # 90 tablet, 3 Refills, [facility], 168, cm, 01/09/22 10:35:00 EST, Height, 92, kg, 03/03/21 15:27:00 EDT, Dry Weight Start Date: 01/10/22 Status: OrderedMetoprolol Succinate ER 25 mg oral tablet, extended release 1 tablet, By Mouth, Daily, # 90 tablet, 1 Refills, Maintenance, 05/12/21 13:24:00 EDT, [facility], 168, cm, 05/02/21 8:45:00 EDT, Height, 92, kg, 03/03/21 15:27:00 EDT, Dry Weight Start Date: 05/12/21 Status: Orderedmontelukast 10 mg oral tablet 10 mg, 1, tablet, By Mouth, Daily, # 90 tablet, Refills 3, Tot. Refills 3, Maintenance, 01/15/22 16:17:00 EST, Route to Pharmacy Electronically, [facility]/pharmacy #[id number], 168, cm, 01/15/22 14:50:00 EST, Height, 92, kg, 03/03/21 15:27:00 EDT, Dry Weight Start Date: 01/15/22 Status: Orderedomeprazole 20 mg oral enteric coated capsule 1 capsule = 20 mg, By Mouth, 2 times a day, # 180 capsule, 3 Refills, Maintenance, 09/04/21 19:37:00EDT, EC Capsule, [facility]/pharmacy #[id number], 168, cm, 09/04/21 9:46:00 EDT, Height, 92, kg, 03/03/21 15:27:00 EDT, Dry Weight Start Date: 09/04/21 Status: OrderedProAir HFA 90 mcg/inh inhalation aerosol with adapter 2, puffs, Inhalation, Every 6 hours, PRN, # 8.5 Gm, Refills 8, Tot. Refills 8, Maintenance, 03/07/2115:41:00 EDT, Aerosol, Route to Pharmacy Electronically, [id number], [facility]/pharmacy #[id number], 168, cm, 03/06/21 11:08:00 EDT, Hei... Start Date: 03/07/21 Status: OrderedProAir HFA 90 mcg/inh inhalation aerosol with adapter 2, puffs, Inhalation, Every 6 hours, PRN, Requests ProAir, # 8.5 Gm, Refills 5, Tot. Refills 5, Maintenance, 12/27/21 9:37:00 EST, Aerosol, Route to Pharmacy Electronically, [id number], [facility]/pharmacy #[id number], 168, cm, 12/27/21 8... Start Date: 12/27/21 Status: Orderedrosuvastatin 10 mg oral tablet 1 tablet, By Mouth, Daily, # 90 tablet, 3 Refills, Maintenance, 11/06/21 8:54:00 EST, [facility]/pharmacy #[id number], 168, cm, 11/06/21 8:47:00 [...] Acute 05/07/22 9:03:00 EDT, 11/06/21 9:02:00 EST, [facility]/pharmacy #[id number], 168, cm, 11/06/21 8:47:00 EST, Height,92, kg, 03/03/21 15:27:00 EDT, Dry Weight Start Date: 11/06/21 Stop Date: 05/07/22 Status: OrderedtraMADol 50 mg oral tablet 2 tablet = 100 mg, By Mouth, Every 6 hours, PRN NEEDED FOR PAIN, # 224 tablet, 5 Refills, Acute 08/29/22 9:26:00 EDT, 05/07/22 9:03:00 EDT, [facility]/pharmacy #[id number], 168, cm, 02/26/22 8:34:00 EDT, [...] oldest [Reference Range]: 1 Height 168 cm (02/26/22 8:34 AM) Weight 91.4 kg (02/26/22 8:34 AM) Oxygen Saturation [94-100 %] 99 % (02/26/22 8:34 AM) Pulse Rate [55-90 bpm] 50 bpm *L* (02/26/22 8:34 AM) Body Mass Index [18.5-24.99] 32.38 *>HHI* (02/26/22 8:34 AM) Blood Pressure [90-138/55-84 mm Hg] 107/57 mm Hg (02/26/22 8:34 AM) Temperature [96.8-100.4 DegF] 97.9 DegF (02/26/22 8:34 AM) Mode of Delivery (Oxygen) Room air (02/26/22 8:34 AM) Blood pressure sites Arm, left (02/26/22 8:34 AM) Temperature Route Oral (02/26/22 8:34 AM) Social History Social History Type Response Smoking Status Former smoker, quit more hernan n 30 days ago entered on: 05/11/19 Sex
--- OUTSIDE RECORDS SUMMARY | 2022-10-27 22:31 | XMS_ITS | Continuity of Care Document ---
:1965 Author Organization [facility] Adult Address [address] [place] [address]- Care Team Providers Name Role Phone Evan PEREZ, Richar Weldon Primary Care Physician [place] [facility] [place] 08/03/21 [facility] Adult [address] [place] [address]- Encounter Diagnosis HIV (human immunodeficiency virus infection) (Discharge Diagnosis) - 07/27/21 Bilateral hand numbness (Discharge Diagnosis) - 07/27/21 Costochondritis (Discharge Diagnosis) - 07/27/21 Attending Physician: Lila COOK, Dyan Brar Allergies, [...] 05/22/21 13:11:00 EDT, Route to Pharmacy Electronically, [facility]/pharmacy #[id number], 168, cm, 05/02/21 8:45:00 EDT, Height, 92, kg, 03/03/21 15:27:00 EDT, Dry Weight Start Date: 05/22/21 Status: Orderedaspirin 81 mg oral tablet, chewable 81 mg, 1, tablet, By Mouth, Daily, # 30 tablet, Refills 5, Tot. Refills 5, Maintenance, 01/18/21 11:29:00 EST, Route to Pharmacy Electronically, [facility]/pharmacy #[id number], Partial fill upon patient request ifthe [...] Stop 11/25/21 11:25:00 EST, 05/29/21 11:25:00 EDT, [facility] #[id number], 1 tablet By Mouth Daily,x30 days, 168, [...] 11:13:00 EST, Route to Pharmacy Electronically, [facility]/pharmacy #[id number], 167, cm, 12/14/20 8:40:00 EST, Height, [...] tablet, 1 Refills, Maintenance, 05/12/21 13:24:00 EDT, [facility] 7[facility], 168, cm, 05/02/21 8:45:00 EDT, Height, 92, kg, 03/03/21 15:27:00 EDT, Dry Weight Start Date: 05/12/21 Status: Orderedmontelukast 10 mg oral tablet 10 mg, 1, tablet, By Mouth, Daily, # 90 tablet, Refills 3, Tot. Refills 3, Maintenance, 03/22/21 8:48:00 EDT, Route to Pharmacy Electronically, [facility]/pharmacy #[id number], 168, cm, 03/06/21 11:08:00 EDT, Height, 92, kg, 03/03/21 15:27:00 EDT, Dry Weight Start Date: 03/22/21 Status: Orderedomeprazole 20 mg oral enteric coated capsule 1 capsule = 20 mg, By Mouth, 2 times a day, # 180 capsule, 0 Refills, Maintenance, 02/16/21 10:57:00EDT, EC Capsule, [facility]/pharmacy #[id number], 167, cm, 12/14/20 8:40:00 EST, Height, 91.3, kg, 11/30/20 17:07:00 EST, Dry Weight Start Date: 02/16/21 Status: OrderedProAir HFA 90 mcg/inh inhalation aerosol with adapter 2, puffs, Inhalation, Every 6 hours, PRN, # 8.5 Gm, Refills 8, Tot. Refills 8, Maintenance, 03/07/2115:41:00 EDT, Aerosol, Route to Pharmacy Electronically, [id number], [facility]/pharmacy #[id number], 168, cm, 03/06/21 11:08:00 EDT, Hei... Start Date: 03/07/21 Status: OrderedProAir HFA 90 mcg/inh inhalation aerosol with adapter 2, puffs, Inhalation, Every 6 hours, PRN, Requests ProAir, # 8.5 Gm, Refills 5, Tot. Refills 5, Maintenance, 03/22/21 8:49:00 EDT, Aerosol, Route to Pharmacy Electronically, [id number], [facility]/pharmacy #[id number], 168, cm, 03/06/21 1... Start Date: 03/22/21 Status: Orderedrosuvastatin 10 mg oral tablet 1 tablet, By Mouth, Daily, # 90 tablet, 1 Refills, Maintenance, 05/04/21 7:31:00 EDT, [facility], 168, cm, 05/02/21 8:45:00 EDT, Height, 92, kg, 03/03/21 15:27:00 EDT, Dry Weight Start Date: 05/04/21 Status: OrderedtraMADol 50 mg oral tablet 2 tablet = 100 mg, By Mouth, Every 12 hours, PRN NEEDED FOR PAIN, # 112 tablet, 0 Refills, Acute 03/09/22 8:16:00 EDT, 04/05/21 4:32:00 EDT, [facility]/pharmacy #[id number], 168, cm, 03/06/21 11:08:00 EDT, Height, [...] Lumbar stenosis(Confirmed) Active Diagnosis Diagnosis Type Effective Health Clinical Informant Dates Status Service Bilateral hand Discharge 07/27/21 numbness Diagnosis HIV (human Discharge 07/27/21 immunodeficiency virus Diagnosis infection) Costochondritis Discharge 07/27/21 Diagnosis Vital Signs Most recent to oldest [Reference Range]: 1 Height 168 cm (07/27/21 11:18 AM) Weight 89.5 kg (07/27/21 11:18 AM) Oxygen Saturation [94-100 %] 98 % (07/27/21 11:18 AM) Pulse Rate [55-90 bpm] 60 bpm (07/27/21 11:18 AM) Body Mass Index [18.5-24.99] 31.71 *>HHI* (07/27/21 11:18 AM) Blood Pressure [90-138/55-84 mm Hg] 120/76 mm Hg (07/27/21 11:18 AM) Temperature [96.8-100.4 DegF] 97.7 DegF (07/27/21 11:18 AM) Blood pressure sites Arm, right (07/27/21 11:18 AM) Temperature Route Oral (07/27/21 11:18 AM) Weight Obtained Via Standing scale (07/27/21 11:18 AM) Social History Social History Type Response Smoking Status Former smoker, quit more hernan n 30 days ago entered on: 05/11/19 Sex
--- OUTSIDE RECORDS SUMMARY | 2022-10-27 22:31 | XMS_ITS | Continuity of Care Document ---
:1965 Author Organization [facility] Address [address] [place] [address]- Care Team Providers Name Role Phone Richar Gordon MD Primary Care Physician [place] [facility] [id number] Date(s): 01/23/22 - 02/28/[address] [address] Attending Physician: Richar Gordon MD Admitting Physician: Richar Gordon MD Referring Physician: Richar Gordon MD Allergies, [...] Refills, Maintenance, 02/26/22 9:26:00 EDT, Solution, [facility]/pharmacy #[id number], Partial fill upon patientrequest if the prescription is for a schedule II... Start Date: 02/26/22 Status: OrderedamLODIPine 2.5 mg oral tablet 1 tablet, By Mouth, Daily, # 90 tablet, 3 Refills, [facility] [id number], 168, cm, 11/17/21 10:55:00 EST, Height, 92, kg, 03/03/21 15:27:00 EDT, Dry Weight Start Date: 12/04/21 Status: OrderedamLODIPine 2.5 mg oral tablet 2.5 mg, 1, tablet, By Mouth, Daily, # 30 tablet, Refills 5, Tot. Refills 5, Maintenance, 05/22/21 13:11:00 EDT, Route to Pharmacy Electronically, [facility]/pharmacy #[id number], 168, cm, 05/02/21 8:45:00 EDT, Height, [...] Gm, 2 Refills, Maintenance, 09/04/21 19:43:00 EDT, [place],[facility]/pharmacy #[id number], Partial fill upon patient request if the prescription is for a schedule II opioid drug., 1 sprays Nares, Both 2 times a day, 168,... Start Date: 09/04/21 Status: OrderedGenvoya oral tablet 1 tablet, By Mouth, Daily, with food, # 30 tablet, 5 Refills, Maintenance, 01/29/22 21:33:00 EST, Tablet, [facility], [facility] #[id number], Partial fill upon patient request if the [...] tablet, Refills 1, Route to Pharmacy Electronically, [facility] [address]8917, 168, cm, 01/15/22 14:50:00 EST, Height, 92, [...] tablet, 3 Refills, [facility] [id number], 168, cm, 01/09/22 10:35:00 EST, Height, 92, kg, 03/03/21 15:27:00 EDT, Dry Weight Start Date: 01/10/22 Status: OrderedMetoprolol Succinate ER 25 mg oral tablet, extended release 1 tablet, By Mouth, Daily, # 90 tablet, 1 Refills, Maintenance, 05/12/21 13:24:00 EDT, [facility], 168, cm, 05/02/21 8:45:00 EDT, Height, 92, kg, 03/03/21 15:27:00 EDT, Dry Weight Start Date: 05/12/21 Status: Orderedmontelukast 10 mg oral tablet 10 mg, 1, tablet, By Mouth, Daily, # 90 tablet, Refills 3, Tot. Refills 3, Maintenance, 01/15/22 16:17:00 EST, [id number], cm, 01/15/22 14:50:00 EST, Height, 92, kg, 03/03/21 15:27:00 EDT, Dry Weight Start Date: 01/15/22 Status: Orderedomeprazole 20 mg oral enteric coated capsule 1 capsule = 20 mg, By Mouth, 2 times a day, # 180 capsule, 3 Refills, Maintenance, 09/04/21 19:37:00EDT, EC Capsule, [facility]/pharmacy #[id number], 168, cm, 09/04/21 9:46:00 EDT, Height, 92, kg, 03/03/21 15:27:00 EDT, Dry Weight Start Date: 09/04/21 Status: OrderedProAir HFA 90 mcg/inh inhalation aerosol with adapter 2, puffs, Inhalation, Every 6 hours, PRN, # 8.5 Gm, Refills 8, Tot. Refills 8, Maintenance, 03/07/2115:41:00 EDT, Aerosol, Route to Pharmacy Electronically, [id number], [facility]/pharmacy #[id number], 168, cm, 03/06/21 11:08:00 EDT, Hei... Start Date: 03/07/21 Status: OrderedProAir HFA 90 mcg/inh inhalation aerosol with adapter 2, puffs, Inhalation, Every 6 hours, PRN, Requests ProAir, # 8.5 Gm, Refills 5, Tot. Refills 5, Maintenance, 12/27/21 9:37:00 EST, Aerosol, Route to Pharmacy Electronically, [id number], [facility]/pharmacy #[id number], 168, cm, 12/27/21 8... Start Date: [...] Acute 05/07/22 9:03:00 EDT, 11/06/21 9:02:00 EST, [facility]/pharmacy #[id number], 168, cm, 11/06/21 8:47:00 EST, Height,92, [...]
--- OUTSIDE RECORDS SUMMARY | 2022-10-27 22:32 | XMS_ITS | Continuity of Care Document ---
:1965 Author Organization [facility] Address [address] [place] [address]- Care Team Providers Name Role Phone Richar Gordon MD Primary Care Physician [place] [facility] [id number] Date(s): 09/21/20 - 09/28/20 [facility] [address] [place] [address]- [facility] Attending Physician: Richar Gordon MD [...] each, 5 Refills, Maintenance, 06/07/20 16:02:00 EDT, [facility]/pharmacy #[id number], DX J45.909, 168, cm, 02/08/20 15:35:00 EDT, Height, 86.8, kg, 02/18/19 13:15:00 EDT, Dry Weight Start Date: 06/07/20 Status: OrderedGenvoya oral tablet 1 tablet, By Mouth, Daily, for 30 days, # 30 tablet, 5 Refills, Physician Stop 03/06/21 10:42:00 EDT, 09/07/20 10:42:00 EDT, [facility] #[id number], 1 tablet By Mouth Daily,x30 days, 169, cm, 08/16/20 8:41:00 EDT, Height, 91, kg, 08/10/20 1:22:00... Start Date: 09/07/20 Stop Date: 03/06/21 Status: Orderedlisinopril 20 mg oral tablet 20 mg, 1, tablet, By Mouth, Daily, # 90 tablet, Refills 3, Tot. Refills 3, Maintenance, 04/07/20 9:23:00 EDT, Route to Pharmacy Electronically, [facility]/pharmacy #[id number], 168, cm, 02/08/20 15:35:00 EDT, Height, [...] 9:23:00 EDT, Route to Pharmacy Electronically, [facility]/pharmacy #[id number], 168, cm, 02/08/20 15:35:00 EDT, Height, [...] Refills, Maintenance, 07/11/20 11:31:00 EDT, EC Capsule, [facility]/pharmacy #[id number], 168, cm, 07/08/20 9:19:00 EDT, Height, 86.8, kg, 02/18/19 13:15:00 EDT, Dry Weight Start Date: 07/11/20 Status: OrderedProAir HFA 90 mcg/inh inhalation aerosol with adapter 2, puffs, Inhalation, Every 6 hours, PRN, # 8.5 Gm, Refills 5, Tot. Refills 5, Maintenance, 06/07/2016:02:00 EDT, Aerosol, Route to Pharmacy Electronically, [id number], [facility]/pharmacy #[id number], 168, cm, 02/08/20 15:35:00 EDT, Hei... Start Date: 06/07/20 Status: OrderedtraMADol 50 mg oral tablet 1 tablet, By Mouth, Every 6 hours, PRN NEEDED FOR PAIN, # 112 tablet, 0 Refills, Acute 11/27/20 11:30:00 EST, 09/27/20 11:46:00 EDT, [facility]/pharmacy #[id number], 169, cm, 09/26/20 14:30:00 EDT, Height, 90.2,kg, 09/09/20 21:48:00 EDT, Dry Weight Start Date: 09/27/20 Stop Date: 11/27/20 Status: OrderedtraMADol 50 mg oral tablet 1 tablet, By Mouth, Every 6 hours, PRN NEEDED FOR PAIN, # 112 tablet, 0 Refills, Acute 09/29/20 14:15:00 EDT, 08/30/20 14:05:00 EDT, [facility]/pharmacy #[id number], 169, cm, 08/16/20 8:41:00 EDT, Height, 91, kg, 08/10/20 1:22:00 EDT, Dry Weight Start Date: 08/30/20 Stop Date: 09/29/20 Status: OrderedtraMADol 50 mg oral tablet 1 tablet, By Mouth, Every 6 hours, PRN NEEDED FOR PAIN, # 112 tablet, 0 Refills, Acute 11/25/20 15:39:00 EST, 09/26/20 16:04:00 EDT, [facility] #[id number], 169, cm, 09/26/20 14:30:00 EDT, Height, 90.2, [...] oldest [Reference Range]: 1 Height 169 cm (09/21/20 11:10 AM) Weight 92.5 kg (09/21/20 11:10 AM) Oxygen Saturation [94-100 %] 98 % (09/21/20 11:10 AM) Pulse Rate [55-90 bpm] 59 bpm (09/21/20 11:10 AM) Body Mass Index [18.5-24.99] 32.39 *>HHI* (09/21/20 11:10 AM) Blood Pressure [90-138/55-84 mm Hg] 130/80 mm Hg (09/21/20 11:10 AM) Temperature [96.8-100.4 DegF] 97.8 DegF (09/21/20 11:10 AM) Mode of Delivery (Oxygen) Room air (09/21/20 11:10 AM) Blood pressure sites Arm, right (09/21/20 11:10 AM) Temperature Route Oral (09/21/20 11:10 AM) Weight Obtained Via Standing scale (09/21/20 11:10 AM) Social History Social History Type Response Smoking Status Former smoker, quit more hernan n 30 days ago entered on: 05/11/19 Sex
--- OUTSIDE RECORDS SUMMARY | 2022-10-27 22:32 | XMS_ITS | Continuity of Care Document ---
:1965 Author Organization [facility] Address [address] [place] [address]- Care Team Providers Name Role Phone Richar Gordon MD Primary Care Physician Encounter [facility] [place] [id number] Date(s): 08/16/20 - 09/29/20 [facility] [address] [place] [address]- [facility] Attending Physician: Drew COOK, Camila Baker Referring Physician: Richar Gordon MD Allergies, Adverse [...] each, 5 Refills, Maintenance, 06/07/20 16:02:00 EDT, [facility]/pharmacy #[id number], DX J45.909, 168, cm, 02/08/20 15:35:00 EDT, Height, 86.8, kg, 02/18/19 13:15:00 EDT, Dry Weight Start Date: 06/07/20 Status: OrderedGenvoya oral tablet 1 tablet, By Mouth, Daily, for 30 days, # 30 tablet, 5 Refills, Physician Stop 03/06/21 10:42:00 EDT, 09/07/20 10:42:00 EDT, [facility] #[id number], 1 tablet By Mouth Daily,x30 days, 169, cm, 08/16/20 8:41:00 EDT, Height, 91, kg, 08/10/20 1:22:00... Start Date: 09/07/20 Stop Date: 03/06/21 Status: Orderedlisinopril 20 mg oral tablet 20 mg, 1, tablet, By Mouth, Daily, # 90 tablet, Refills 3, Tot. Refills 3, Maintenance, 04/07/20 9:23:00 EDT, Route to Pharmacy Electronically, [facility]/pharmacy #[id number], 168, cm, 02/08/20 15:35:00 [...] 04/07/20 9:23:00 EDT, Route to Pharmacy Electronically, [facility]/pharmacy #[id number], 168, cm, 02/08/20 15:35:00 [...] Refills, Maintenance, 07/11/20 11:31:00 EDT, EC Capsule, [facility]/pharmacy #[id number], 168, cm, 07/08/20 9:19:00 EDT, Height, 86.8, kg, 02/18/19 13:15:00 EDT, Dry Weight Start Date: 07/11/20 Status: OrderedProAir HFA 90 mcg/inh inhalation aerosol with adapter 2, puffs, Inhalation, Every 6 hours, PRN, # 8.5 Gm, Refills 5, Tot. Refills 5, Maintenance, 06/07/2016:02:00 EDT, Aerosol, Route to Pharmacy Electronically, [id number], [facility]/pharmacy #[id number], 168, cm, 02/08/20 15:35:00 EDT, Hei... Start Date: 06/07/20 Status: OrderedtraMADol 50 mg oral tablet 1 tablet, By Mouth, Every 6 hours, PRN NEEDED FOR PAIN, # 112 tablet, 0 Refills, Acute 11/27/20 11:30:00 EST, 09/27/20 11:46:00 EDT, [facility]/pharmacy #[id number], 169, cm, 09/26/20 14:30:00 EDT, Height, 90.2,kg, 09/09/20 21:48:00 EDT, Dry Weight Start Date: 09/27/20 Stop Date: 11/27/20 Status: OrderedtraMADol 50 mg oral tablet 1 tablet, By Mouth, Every 6 hours, PRN NEEDED FOR PAIN, # 112 tablet, 0 Refills, Acute 11/25/20 15:39:00 EST, 09/26/20 16:04:00 EDT, [facility] #[id number], 169, cm, 09/26/20 14:30:00 EDT, Height, 90.2, [...]
--- OUTSIDE RECORDS SUMMARY | 2022-10-27 22:32 | XMS_ITS | Continuity of Care Document ---
:1965 Author Organization [facility] Address [address] [place] [address]- Care Team Providers Name Role Phone Richar Gordon MD Primary Care Physician [place] [facility] [place]21 [facility] [address] [place] [address]- Attending Physician: Richar Gordon MD Allergies, Adverse [...] 3 Refills, Maintenance, 11/06/21 8:54:00 EST, Solution, [id number], Partial fill upon patientrequest if the prescription is for a schedule II... Start Date: 11/06/21 Status: OrderedamLODIPine 2.5 mg oral tablet 2.5 mg, 1, tablet, By Mouth, Daily, # 30 tablet, Refills 5, Tot. Refills 5, Maintenance, 05/22/21 13:11:00 EDT, Route to Pharmacy Electronically, [facility]/pharmacy #[id number], 168, cm, 05/02/21 8:45:00 EDT, Height, 92, kg, 03/03/21 15:27:00 EDT, Dry Weight Start Date: 05/22/21 Status: Orderedaspirin 81 mg oral tablet, chewable 81 mg, 1, tablet, By Mouth, Daily, # 30 tablet, Refills 5, Tot. Refills 5, Maintenance, 01/18/21 11:29:00 EST, Route to Pharmacy Electronically, [facility]/pharmacy #[id number], Partial fill upon patient request [...] Gm, 2 Refills, Maintenance, 09/04/21 19:43:00 EDT, [id number], Partial fill upon patient request if the prescription is for a schedule II opioid drug., 1 sprays Nares, Both 2 times a day, 168,... Start Date: 09/04/21 Status: OrderedGenvoya oral tablet 1 tablet, By Mouth, Daily, for 30 days, # 30 tablet, 5 Refills, Physician Stop 11/25/21 11:25:00 EST, 05/29/21 11:25:00 EDT, [facility][id number], 1 tablet By Mouth Daily,x30 days, 168, [...] EST, Route to Pharmacy Electronically, [facility]/pharmacy #[id number], 167, cm, 12/14/20 8:40:00 EST, [...] Refills, Maintenance, 05/12/21 13:24:00 EDT, [facility] 07366, 168, cm, 05/02/21 8:45:00 EDT, Height, 92, kg, 03/03/21 15:27:00 EDT, Dry Weight Start Date: 05/12/21 Status: Orderedomeprazole 20 mg oral enteric coated capsule 1 capsule = 20 mg, By Mouth, 2 times a day, # 180 capsule, 3 Refills, Maintenance, 09/04/21 19:37:00EDT, EC Capsule, [id number], 168, cm, 09/04/21 9:46:00 EDT, Height, 92, kg, 03/03/21 15:27:00 EDT, Dry Weight Start Date: 09/04/21 Status: OrderedProAir HFA 90 mcg/inh inhalation aerosol with adapter 2, puffs, Inhalation, Every 6 hours, PRN, # 8.5 Gm, Refills 8, Tot. Refills 8, Maintenance, 03/07/2115:41:00 EDT, Aerosol, Route to Pharmacy Electronically, [id number], [id number], 168, cm, 03/06/21 11:08:00 EDT, Hei... Start Date: 03/07/21 Status: OrderedProAir HFA 90 mcg/inh inhalation aerosol with adapter 2, puffs, Inhalation, Every 6 hours, PRN, Requests ProAir, # 8.5 Gm, Refills 5, Tot. Refills 5, Maintenance, 03/22/21 8:49:00 EDT, Aerosol, Route to Pharmacy Electronically, [id number], [id number], 168, cm, 03/06/21 1... Start Date: [...] 7:02:00 EST, 08/30/21 7:01:00 EDT, [facility]/pharmacy #[id number], 168, cm, 08/15/21 9:17:00 EDT,Height, [...] oldest [Reference Range]: 1 Height 168 cm (11/06/21 8:47 AM) Weight 90.8 kg (11/06/21 8:47 AM) Oxygen Saturation [94-100 %] 98 % (11/06/21 8:47 AM) Pulse Rate [55-90 bpm] 58 bpm (11/06/21 8:47 AM) Body Mass Index [18.5-24.99] 32.17 *>HHI* (11/06/21 8:47 AM) Blood Pressure [90-138/55-84 mm Hg] 130/70 mm Hg (11/06/21 8:47 AM) Temperature [96.8-100.4 DegF] 98.0 DegF (11/06/21 8:47 AM) Blood pressure sites Arm, right (11/06/21 8:47 AM) Temperature Route Oral (11/06/21 8:47 AM) Weight Obtained Via Standing scale (11/06/21 8:47 AM) Social History Social History Type Response Smoking Status Former smoker, quit more hernan n 30 days ago entered on: 05/11/19 Sex
--- OUTSIDE RECORDS SUMMARY | 2022-10-27 22:32 | XMS_ITS | Continuity of Care Document ---
:1965 Author Organization [facility] Address [address] [place] [address]- Care Team Providers Name Role Phone Evan PEREZ, Richar Weldon Primary Care Physician Encounter [facility] [place] Date(s): 06/07/20 - 07/07/20 [facility] [address] [place] [address]- [facility] Attending Physician: AdmTam patiño Admitting Physician: Admtr, Tam Referring Physician: Admtr, [...] each, 5 Refills, Maintenance, 06/07/20 16:02:00 EDT, [facility]/pharmacy #[id number], DX J45.909, 168, cm, 02/08/20 15:35:00 EDT, Height, 86.8, kg, 02/18/19 13:15:00 EDT, Dry Weight Start Date: 06/07/20 Status: OrderedGenvoya oral tablet 1 tablet, By Mouth, Daily, with food, # 30 tablet, 11 Refills, Maintenance, 03/02/20 11:05:00 EDT, Tablet, [facility], [facility][id number], 1 tablet By Mouth Daily,Instr:with food, 168, [...] 04/07/20 9:23:00 EDT, Route to Pharmacy Electronically, [facility]/pharmacy #[id number], 168, cm, 02/08/20 [...] 01/07/20 10:28:00 EST, Route to Pharmacy Electronically, [facility]/pharmacy #[id number], 168, cm, 01/07/20 10:04:00 EST, Height, 86.8, kg, 02/18/19 13:15:00 EDT, Dry Weight Start Date: 01/07/20 Status: Orderedmontelukast 10 mg oral tablet 10 mg, 1, tablet, By Mouth, Daily, # 90 tablet, Refills 3, Tot. Refills 3, Maintenance, 04/07/20 9:23:00 EDT, [id number] 168, cm, 02/08/20 15:35:00 EDT, Height, [...] mL, 0 Refills, Maintenance, 03/10/20 10:36:00 EDT, [facility] #[id number], [facility], 168, cm, 02/08/20 15:35:00 EDT, [...] 06/07/2016:02:00 EDT, Aerosol, Route to Pharmacy Electronically, [id number], [facility]/pharmacy #[id number], 168, cm, 02/08/20 15:35:00 EDT, Hei... Start Date: 06/07/20 Status: OrderedtraMADol 50 mg oral tablet 1 tablet = 50 mg, By Mouth, Every 6 hours, PRN Pain , Severe, # 112 tablet, 5 Refills, Acute 09/13/20 8:41:00 EDT, 03/14/20 8:40:00 EDT, [facility]/pharmacy #[id number], 168, cm, 02/08/20 15:35:00 EDT, Height, 86.8, kg, 02/18/19 13:15:00 EDT, Dry Weight Start Date: 03/14/20 Stop Date: 09/13/20 Status: OrderedtraMADol 50 mg oral tablet 1 tablet = 50 mg, By Mouth, 2 times a day, PRN Pain , Moderate, # 14 tablet, 3 Refills, Maintenance,12/14/19 16:47:00 EST, [facility] #[id number], 168, cm, 09/28/19 8:13:00 EDT, Height, 86.8, kg,02/18/19 13:15:00 EDT, Dry Weight Start Date: 12/14/19 Status: OrderedtraMADol 50 mg oral tablet 1 tablet = 50 mg, By Mouth, 2 times a day, PRN Pain , Moderate, # 14 tablet, 3 Refills, Maintenance,02/18/20 7:51:00 EDT, [facility]/pharmacy #[id number], 168, cm, 02/08/20 [...]
--- OUTSIDE RECORDS SUMMARY | 2022-10-27 22:32 | XMS_ITS | Continuity of Care Document ---
:1965 Author Organization [facility] Address [address] [place] [address]- Care Team Providers Name Role Phone Evan PEREZ, Richar Weldon Primary Care Physician Encounter [facility] Date(s): 08/09/20 - 08/10/[address] [address]- [facility] Encounter Diagnosis Chest pain (Final) - 08/09/20 Discharge Disposition: A-D/C Home Attending Physician: Han Artis MD Admitting Physician: Nandini Pratt MD Referring Physician: Not on Staff, Referring MD [...] each, 5 Refills, Maintenance, 06/07/20 16:02:00 EDT, [facility]/pharmacy #[id number], DX J45.909, 168, cm, 02/08/20 15:35:00 EDT, Height, 86.8, kg, 02/18/19 13:15:00 EDT, Dry Weight Start Date: 06/07/20 Status: OrderedAnoro Ellipta 62.5 mcg-25 mcg/inh inhalation powder 1 puffs, Inhalation, Daily, # 30 each, 5 Refills, Maintenance, 07/08/20 9:57:00 EDT, Powder, [facility]/pharmacy #[id number], 1 puffs Inhalation Daily, 168, cm, 07/08/20 9:19:00 EDT, Height, 86.8, kg, 02/18/19 13:15:00 EDT, Dry Weight Start Date: 07/08/20 Status: OrderedGenvoya oral tablet 1 tablet, By Mouth, Daily, with food, # 30 tablet, 11 Refills, Maintenance, 03/02/20 11:05:00 EDT, Tablet, [facility], [facility] #[id number], 1 tablet By Mouth Daily,Instr:with food, 168, cm, 02/08/20 15:35:00 EDT, Height, 86.8, kg, 02/18/19 13:15:00 E... Start Date: 03/02/20 Status: Orderedlisinopril 20 mg oral tablet 20 mg, 1, tablet, By Mouth, Daily, # 90 tablet, Refills 3, Tot. Refills 3, Maintenance, 04/07/20 9:23:00 EDT, Route to Pharmacy Electronically, [facility]/pharmacy #[id number], 168, cm, 02/08/20 15:35:00 EDT, Height, 86.8, kg, 02/18/19 13:15:00 EDT, Dry Weight Start Date: 04/07/20 Status: OrderedLORazepam 1 mg oral tablet 1 tablet = 1 mg, By Mouth, PRN as needed for anxiety, 0 Refills, Maintenance, 06/29/18 13:11:09 EDT Start Date: 7/29/18 Status: Orderedmetoprolol 25 mg oral tablet 25 mg, By Mouth, 2 times a day, # 180 tablet, Refills 3, Tot. Refills 3, Maintenance, 01/07/20 10:28:00 EST, Route to Pharmacy Electronically, [facility]/pharmacy #[id number], 168, cm, 01/07/20 10:04:00 EST, Height, 86.8, kg, 02/18/19 13:15:00 EDT, Dry Weight Start Date: 01/07/20 Status: Orderedmontelukast 10 mg oral tablet 10 mg, 1, tablet, By Mouth, Daily, # 90 tablet, Refills 3, Tot. Refills 3, Maintenance, 04/07/20 9:23:00 EDT, Route to Pharmacy Electronically, [facility]/pharmacy #[id number], 168, cm, 02/08/20 15:35:00 EDT, [...] Refills, Maintenance, 07/11/20 11:31:00 EDT, EC Capsule, [facility]/pharmacy #[id number], 168, cm, 07/08/20 9:19:00 EDT, Height, 86.8, kg, 02/18/19 13:15:00 EDT, Dry Weight Start Date: 07/11/20 Status: OrderedProAir HFA 90 mcg/inh inhalation aerosol with adapter 2, puffs, Inhalation, Every 6 hours, PRN, # 8.5 Gm, Refills 5, Tot. Refills 5, Maintenance, 06/07/2016:02:00 EDT, Aerosol, Route to Pharmacy Electronically, [id number], [facility]/pharmacy #[id number], 168, cm, 02/08/20 15:35:00 EDT, Hei... Start Date: 06/07/20 Status: OrderedtraMADol 50 mg oral tablet 1 tablet = 50 mg, By Mouth, Every 6 hours, PRN Pain , Severe, # 112 tablet, 5 Refills, Acute 09/13/20 8:41:00 EDT, 03/14/20 8:40:00 EDT, [facility]/pharmacy #[id number], 168, cm, 02/08/20 15:35:00 EDT, [...] Exam Date Time Procedure Performing Provider Status 08/09/20 6:56 PM Chest Portable Dian Sanabria; Gallo ([facility]3] ed) Notes:(Chest Portable) Reason For Exam: Shortness of BreathRESULT: Chest Portable Chest Portable INDICATION: Pt reporting several days of shortness of breath and midsternal chest pressure. Denies any fevers, reports non productive cough.; Reason: Shortness of Breath; Clinical Question(s): CHF / CHF COMPARISON: 02/18/2019 FINDINGS: LINES AND TUBES: None. LUNGS AND PLEURA: Clear lungs. Normal pulmonary vascularity. No pleural effusion. No pneumothorax. HEART, MEDIASTINUM AND MARLY: Heart is normal in size. Normal mediastinal and hilar contour. BONES AND SOFT TISSUES: No acute abnormality. IMPRESSION: No evidence of acute abnormality. WSN: [id number] Ordering Physician: Yaquelin Parks Dictated By: Augie Nielson MD Dictated Date/Time: 08/09/20 7:02 pm Reviewed By: Augie Nielson MD Signed By: Augie Nielson MD Signed Date/Time: 08/09/20 7:02 pm Transcribed By: DENISE Transcribed Date/Time: 08/09/20 7:02 pm Vital Signs Most recent to oldest [Reference 1 2 3 Range]: Height 169 cm 169 cm 169 cm (08/10/20 12:57 PM) (08/10/20 7:18 AM) (08/10/20 4:19 AM) Weight 86.5 kg 91 kg (08/10/20 1:27 AM) (08/10/20 1:22 AM) Oxygen Saturation [94-100 %] 100 % 99 % 99 % (08/10/20 12:57 PM) (08/10/20 7:18 AM) (08/10/20 4:19 AM) Pulse Rate [55-90 bpm] 51 bpm 58 bpm 57 bpm *L* (08/10/20 7:18 AM) (08/10/20 4:19 AM ) (08/10/20 12:57 PM) Body Mass Index [18.5-24.99] 31.86 *>HHI* (08/10/20 1:22 AM) Blood Pressure [90-138/55-84 mm 124/72 mm Hg 116/74 mm Hg 116/74 mm Hg Hg] (08/10/20 12:57 PM) (08/10/20 9:27 AM) (08/10/20 7:18 AM) Respiratory Rate [16-30 br/min] 20 br/min 20 br/min 22 br/min (08/10/20 12:57 PM) (08/10/20 10:45 AM) (08/10/20 9:08 AM) Temperature [96.8-100.4 DegF] 98.2 DegF 98.4 DegF 97 .8 DegF (08/10/20 12:57 PM) (08/10/20 7:18 AM) (08/10/20 4:19 AM) Mode of Delivery (Oxygen) Room air Room air Room a ir (08/10/20 12:57 PM) (08/10/20 7:18 AM) (08/10/20 4:19 AM) Blood pressure sites Arm, left Arm, left Arm, right (08/10/20 12:57 PM) (08/10/20 7:18 AM) (08/10/20 4:19 AM) Temperature Route Oral Oral Oral (08/10/20 12:57 PM) (08/10/20 7:18 AM) (08/10/20 4:19 AM) Dry Weight 91 kg (08/10/20 1:22 AM) Weight Obtained Via Bed scale (08/10/20 1:27 AM) Social History Social History Type Response Smoking Status Former smoker, quit more hernan n 30 days ago entered on: 05/11/19 Sex
--- OUTSIDE RECORDS SUMMARY | 2022-10-27 22:32 | XMS_ITS | Continuity of Care Document ---
:1965 Author Organization [facility] Address [address] [place] [address]- Care Team Providers Name Role Phone Richar Gordon MD Primary Care Physician Encounter [facility] Date(s): 03/10/20 - 03/17/20 [facility] [address] [place] [id number]- [facility] Attending Physician: Matt Covington MD Admitting Physician: Matt Covington MD Referring Physician: Richar Gordon MD Allergies, [...] each, 5 Refills, Maintenance, 02/08/20 16:44:00 EDT, [facility]/pharmacy #[id number], 168, cm, 02/08/20 15:35:00 EDT, Height, 86.8, kg, 02/18/19 13:15:00 EDT, Dry Weight Start Date: 02/08/20 Status: OrderedGenvoya oral tablet 1 tablet, By Mouth, Daily, with food, # 30 tablet, 11 Refills, Maintenance, 03/02/20 11:05:00 EDT, Tablet, [facility], [facility][id number], 1 tablet By Mouth Daily,Instr:with food, 168, [...] 01/07/20 10:28:00 EST, Route to Pharmacy Electronically, [facility]/pharmacy #[id number], 168, cm, 01/07/20 10:04:00 EST, Height, [...] 01/07/20 10:28:00 EST, Route to Pharmacy Electronically, [facility]/pharmacy #[id number], 168, cm, 01/07/20 10:04:00 EST, Height, 86.8, kg, 02/18/19 13:15:00 EDT, Dry Weight Start Date: 01/07/20 Status: Orderedmontelukast 10 mg oral tablet 10 mg, 1, tablet, By Mouth, Daily, # 90 tablet, Refills 3, Tot. Refills 3, Maintenance, 01/07/20 10:28:00 EST, Route to Pharmacy Electronically, [facility]/pharmacy #[id number], 168, cm, 01/07/20 10:04:00 EST, Height, 86.8, kg, 02/18/19 13:15:00 EDT, Dry Weight Start Date: 01/07/20 Status: OrderedNuLYTELY with Flavor Packs oral powder for reconstitution See Instructions, SPLIT PREP, # 4,000 mL, 0 Refills, Maintenance, 03/10/20 10:36:00 EDT, [facility] Rx #[id number], SPLIT PREP, 168, cm, 02/08/20 15:35:00 EDT, [...] :11:41 EDT, Aerosol, Route to Pharmacy Electronically, [id number], [facility]/pharmacy #[id number] Start Date: 05/12/19 Status: OrderedSymbicort 80mcg/4.5mcg Inhaler 2, puffs, Inhalation, 2 times a day, # 6.9 Gm, Refills 5, Tot. Refills 5, Maintenance, 09/28/19 8:50:05 EDT, Aerosol, Route to Pharmacy Electronically, [id number], [facility] #[id number] Start Date: 09/28/19 Status: OrderedtraMADol 50 mg oral tablet 1 tablet = 50 mg, By Mouth, Every 6 hours, PRN Pain , Severe, # 112 tablet, 5 Refills, Acute 09/13/20 8:41:00 EDT, 03/14/20 8:40:00 EDT, [facility]/pharmacy #[id number], 168, cm, 02/08/20 15:35:00 EDT, Height, 86.8, kg, 02/18/19 13:15:00 EDT, Dry Weight Start Date: 03/14/20 Stop Date: 09/13/20 Status: OrderedtraMADol 50 mg oral tablet 1 tablet = 50 mg, By Mouth, 2 times a day, PRN Pain , Moderate, # 14 tablet, 3 Refills, Maintenance,12/14/19 16:47:00 EST, [facility] #[id number], 168, cm, 09/28/19 8:13:00 EDT, Height, 86.8, kg,02/18/19 13:15:00 EDT, Dry Weight Start Date: 12/14/19 Status: OrderedtraMADol 50 mg oral tablet 1 tablet = 50 mg, By Mouth, 2 times a day, PRN Pain , Moderate, # 14 tablet, 3 Refills, Maintenance,02/18/20 7:51:00 EDT, [facility]/pharmacy #[id number], 168, cm, 02/08/20 15:35:00 EDT, [...]
--- OUTSIDE RECORDS SUMMARY | 2022-10-27 22:32 | XMS_ITS | Continuity of Care Document ---
:1965 Author Organization [facility] Address [address] [place] [address]- Care Team Providers Name Role Phone Evan PEREZ, Richar Weldon Primary Care Physician Encounter [facility] Date(s): 01/15/22 - 02/14/22 [facility] [address] [place] [address]- Allergies, Adverse Reactions, Alerts Substance Reaction Severity [...] 3 Refills, Maintenance, 11/06/21 8:54:00 EST, Solution, [facility]/pharmacy #[id number], Partial fill upon patientrequest if the prescription is for a schedule II... Start Date: 11/06/21 Status: OrderedamLODIPine 2.5 mg oral tablet 1 tablet, By Mouth, Daily, # 90 tablet, 3 Refills, [facility], 168, cm, 11/17/21 10:55:00 EST, Height, 92, kg, 03/03/21 15:27:00 EDT, Dry Weight Start Date: 12/04/21 Status: OrderedamLODIPine 2.5 mg oral tablet 2.5 mg, 1, tablet, By Mouth, Daily, # 30 tablet, Refills 5, Tot. Refills 5, Maintenance, 05/22/21 13:11:00 EDT, Route to Pharmacy Electronically, [facility]/pharmacy #[id number], 168, cm, 05/02/21 8:45:00 EDT, Height, 92, kg, 03/03/21 15:27:00 EDT, Dry Weight Start Date: 05/22/21 Status: Orderedaspirin 81 mg oral tablet, chewable 81 mg, 1, tablet, By Mouth, Daily, # 30 tablet, Refills 5, Tot. Refills 5, Maintenance, 01/18/21 11:29:00 EST, Route to Pharmacy Electronically, [facility]/pharmacy #[id number], Partial fill upon patient request [...] Gm, 2 Refills, Maintenance, 09/04/21 19:43:00 EDT, [place],[facility]/pharmacy #[id number], Partial fill upon patient request if the prescription is for a schedule II opioid drug., 1 sprays Nares, Both 2 times a day, 168,... Start Date: 09/04/21 Status: OrderedGenvoya oral tablet 1 tablet, By Mouth, Daily, with food, # 30 tablet, 5 Refills, Maintenance, 01/29/22 21:33:00 EST, Tablet, [facility], [facility] #[id number], Partial fill upon patient request if the [...] tablet, Refills 1, Route to Pharmacy Electronically, [facility], 168, cm, 01/15/22 14:50:00 EST, Height, 92, kg, 03/03/21 15:27:00 EDT, Dry Weight Start Date: 02/06/22 Status: OrderedLORazepam 1 mg oral tablet 1 tablet = 1 mg, By Mouth, PRN as needed for anxiety, 0 Refills, Maintenance, 06/29/18 13:11:09 EDT Start Date: 06/29/18 Status: OrderedMetoprolol Succinate ER 25 mg oral tablet, extended release 1 tablet, By Mouth, Daily, # 90 tablet, 3 Refills, [facility]000, 168, cm, 01/09/22 10:35:00 EST, Height, 92, kg, 03/03/21 15:27:00 EDT, Dry Weight Start Date: 01/10/22 Status: OrderedMetoprolol Succinate ER 25 mg oral tablet, extended release 1 tablet, By Mouth, Daily, # 90 tablet, 1 Refills, Maintenance, 05/12/21 13:24:00 EDT, [facility], 168, cm, 05/02/21 8:45:00 EDT, Height, 92, kg, 03/03/21 15:27:00 EDT, Dry Weight Start Date: 05/12/21 Status: Orderedmontelukast 10 mg oral tablet 10 mg, 1, tablet, By Mouth, Daily, # 90 tablet, Refills 3, Tot. Refills 3, Maintenance, 01/15/22 16:17:00 EST, Route to Pharmacy Electronically, [facility]/pharmacy #[id number], 168, cm, 01/15/22 14:50:00 EST, Height, 92, kg, 03/03/21 15:27:00 EDT, Dry Weight Start Date: 01/15/22 Status: Orderedomeprazole 20 mg oral enteric coated capsule 1 capsule = 20 mg, By Mouth, 2 times a day, # 180 capsule, 3 Refills, Maintenance, 09/04/21 19:37:00EDT, EC Capsule, [facility]/pharmacy #[id number], 168, cm, 09/04/21 9:46:00 EDT, Height, 92, kg, 03/03/21 15:27:00 EDT, Dry Weight Start Date: 09/04/21 Status: OrderedProAir HFA 90 mcg/inh inhalation aerosol with adapter 2, puffs, Inhalation, Every 6 hours, PRN, # 8.5 Gm, Refills 8, Tot. Refills 8, Maintenance, 03/07/2115:41:00 EDT, Aerosol, Route to Pharmacy Electronically, [id number], [facility]/pharmacy #[id number], 168, cm, 03/06/21 11:08:00 EDT, Hei... Start Date: 03/07/21 Status: OrderedProAir HFA 90 mcg/inh inhalation aerosol with adapter 2, puffs, Inhalation, Every 6 hours, PRN, Requests ProAir, # 8.5 Gm, Refills 5, Tot. Refills 5, Maintenance, 12/27/21 9:37:00 EST, Aerosol, Route to Pharmacy Electronically, [id number], [facility]/pharmacy #[id number], 168, cm, 12/27/21 8... Start Date: 12/27/21 Status: Orderedrosuvastatin 10 mg oral tablet 1 tablet, By Mouth, Daily, # 90 tablet, 3 Refills, Maintenance, 11/06/21 8:54:00 EST, [facility]/pharmacy #[id number], 168, cm, 11/06/21 8:47:00 EST, [...] Acute 05/07/22 9:03:00 EDT, 11/06/21 9:02:00 EST, [facility]/pharmacy #[id number], 168, cm, 11/06/21 8:47:00 EST, [...]
--- OUTSIDE RECORDS SUMMARY | 2022-10-27 22:32 | XMS_ITS | Continuity of Care Document ---
:1965 Author Organization [facility] Address [address] [place] [address]- Care Team Providers Name Role Phone Evan PEREZ, Richar Weldon Primary Care Physician Encounter [facility] Date(s): 08/22/20 - 09/21/20 [facility]/[address] [address]- [facility] Allergies, Adverse Reactions, Alerts [...] each, 5 Refills, Maintenance, 06/07/20 16:02:00 EDT, [facility]/pharmacy #[id number], DX J45.909, 168, cm, 02/08/20 15:35:00 EDT, Height, 86.8, kg, 02/18/19 13:15:00 EDT, Dry Weight Start Date: 06/07/20 Status: OrderedGenvoya oral tablet 1 tablet, By Mouth, Daily, for 30 days, # 30 tablet, 5 Refills, Physician Stop 03/06/21 10:42:00 EDT, 09/07/20 10:42:00 EDT, [facility] #[id number], 1 tablet By Mouth Daily,x30 days, 169, cm, 08/16/20 8:41:00 EDT, Height, 91, kg, 08/10/20 1:22:00... Start Date: 09/07/20 Stop Date: 03/06/21 Status: Orderedlisinopril 20 mg oral tablet 20 mg, 1, tablet, By Mouth, Daily, # 90 tablet, Refills 3, Tot. Refills 3, Maintenance, 04/07/20 9:23:00 EDT, Route to Pharmacy Electronically, [facility]/pharmacy #[id number], 168, cm, 02/08/20 15:35:00 EDT, Height, [...] 04/07/20 9:23:00 EDT, Route to Pharmacy Electronically, [facility]/pharmacy #[id number], 168, cm, 02/08/20 15:35:00 EDT, Height, [...] Refills, Maintenance, 07/11/20 11:31:00 EDT, EC Capsule, [facility]/pharmacy #[id number], 168, cm, 07/08/20 9:19:00 EDT, Height, 86.8, kg, 02/18/19 13:15:00 EDT, Dry Weight Start Date: 07/11/20 Status: OrderedProAir HFA 90 mcg/inh inhalation aerosol with adapter 2, puffs, Inhalation, Every 6 hours, PRN, # 8.5 Gm, Refills 5, Tot. Refills 5, Maintenance, 06/07/2016:02:00 EDT, Aerosol, Route to Pharmacy Electronically, [id number], [facility]/pharmacy #[id number], 168, cm, 02/08/20 15:35:00 EDT, Hei... Start Date: 06/07/20 Status: OrderedtraMADol 50 mg oral tablet 1 tablet, By Mouth, Every 6 hours, PRN NEEDED FOR PAIN, # 112 tablet, 0 Refills, Acute 09/29/20 14:15:00 EDT, 08/30/20 14:05:00 EDT, [facility]/pharmacy #[id number], 169, cm, 08/16/20 8:41:00 EDT, Height, [...]
--- OUTSIDE RECORDS SUMMARY | 2022-10-27 22:32 | XMS_ITS | Continuity of Care Document ---
:1965 Author Organization [facility] Address [address] [place] [address]- Care Team Providers Name Role Phone Evan PEREZ, Richar Weldon Primary Care Physician Encounter [facility] Date(s): 06/15/20 - 07/15/20 [facility] [address] [place] [address]- [facility] Allergies, Adverse Reactions, Alerts [...] each, 5 Refills, Maintenance, 06/07/20 16:02:00 EDT, [facility]/pharmacy #[id number], DX J45.909, 168, cm, 02/08/20 15:35:00 EDT, Height, 86.8, kg, 02/18/19 13:15:00 EDT, Dry Weight Start Date: 06/07/20 Status: OrderedAnoro Ellipta 62.5 mcg-25 mcg/inh inhalation powder 1 puffs, Inhalation, Daily, # 30 each, 5 Refills, Maintenance, 07/08/20 9:57:00 EDT, Powder, [facility]/pharmacy #0693, 1 puffs Inhalation Daily, 168, cm, 07/08/20 9:19:00 EDT, Height, 86.8, kg, 02/18/19 13:15:00 EDT, Dry Weight Start Date: 07/08/20 Status: OrderedGenvoya oral tablet 1 tablet, By Mouth, Daily, with food, # 30 tablet, 11 Refills, Maintenance, 03/02/20 11:05:00 EDT, Tablet, [facility] #[id number], 1 tablet By Mouth Daily,Instr:with food, 168, [...] 04/07/20 9:23:00 EDT, Route to Pharmacy Electronically, [facility]/pharmacy #[id number], 168, cm, 02/08/20 15:35:00 EDT, [...] 04/07/20 9:23:00 EDT, Route to Pharmacy Electronically, [facility]/pharmacy #[id number], 168, cm, 02/08/20 15:35:00 EDT, [...] mL, 0 Refills, Maintenance, 03/10/20 10:36:00 EDT[id number] SPLIT PREP, 168, cm, 02/08/20 15:35:00 EDT, Height, 86.8, kg, 02/18/19 13:15:00 EDT, Dry Weight Start Date: 03/10/20 Status: Orderedomeprazole 20 mg oral enteric coated capsule 1 capsule = 20 mg, By Mouth, 2 times a day, # 90 capsule, 3 Refills, Maintenance, 07/11/20 11:31:00 EDT, EC Capsule, [facility]/pharmacy #0693, 168, cm, 07/08/20 9:19:00 EDT, Height, [...] Refills, Acute 07/20/20 10:13:00 EDT, 07/08/20 10:11:00EDT, [facility]/pharmacy #0693, 168, cm, 07/08/20 9:19:0... Start Date: 07/08/20 Stop Date: 07/20/20 Status: OrderedProAir HFA 90 mcg/inh inhalation aerosol with adapter 2, puffs, Inhalation, Every 6 hours, PRN, # 8.5 Gm, Refills 5, Tot. Refills 5, Maintenance, 06/07/2016:02:00 EDT, Aerosol, Route to Pharmacy Electronically, [id number], [facility]/pharmacy #0693, 168, cm, 02/08/20 15:35:00 EDT, Hei... Start Date: 06/07/20 Status: OrderedtraMADol 50 mg oral tablet 1 tablet = 50 mg, By Mouth, Every 6 hours, PRN Pain , Severe, # 112 tablet, 5 Refills, Acute 09/13/20 8:41:00 EDT, 03/14/20 8:40:00 EDT, [facility]/pharmacy #0693, 168, cm, 02/08/20 15:35:00 EDT, Height, 86.8, kg, 02/18/19 13:15:00 EDT, Dry Weight Start Date: 03/14/20 Stop Date: 09/13/20 Status: OrderedtraMADol 50 mg oral tablet 1 tablet = 50 mg, By Mouth, 2 times a day, PRN Pain , Moderate, # 14 tablet, 3 Refills, Maintenance,12/14/19 16:47:00 EST, [facility] #[id number], 168, cm, 09/28/19 8:13:00 EDT, Height, 86.8, kg,02/18/19 13:15:00 EDT, Dry Weight Start Date: 12/14/19 Status: OrderedtraMADol 50 mg oral tablet 1 tablet = 50 mg, By Mouth, 2 times a day, PRN Pain , Moderate, # 14 tablet, 3 Refills, Maintenance,02/18/20 7:51:00 EDT, [facility]/pharmacy #[id number], 168, cm, 02/08/20 15:35:00 EDT, Height, [...] 5 Refills, Maintenance, 02/08/20 16:45:00 EDT, Aerosol, [facility]/pharmacy #[id number], 168, cm, 02/08/20 15:35:00 EDT, Height, [...]
--- OUTSIDE RECORDS SUMMARY | 2022-10-27 22:32 | XMS_ITS | Continuity of Care Document ---
:1965 Author Organization [facility] Address [address] [place] [address]- Care Team Providers Name Role Phone Richar Gordon MD Primary Care Physician Encounter [facility] Date(s): 11/07/21 - 12/07/21 [facility] [address] [place], [place] [id number]- Attending Physician: Tam Bolanos Admitting Physician: Tam Bolanos Referring Physician: Tam Bolanos Allergies, Adverse Reactions, Alerts Substance Reaction Severity Status amoxicillin nausea and vomiting Active atorvastatin Dyspnea Active Anoro Ellipta Active gabapentin anxiety Active [...] 3 Refills, Maintenance, 11/06/21 8:54:00 EST, Solution, [facility]/pharmacy #[id number], Partial fill upon patientrequest if the prescription is for a schedule II... Start Date: 11/06/21 Status: OrderedamLODIPine 2.5 mg oral tablet 1 tablet, By Mouth, Daily, # 90 tablet, 3 Refills, [facility], 168, cm, 11/17/21 10:55:00 EST, Height, 92, kg, 03/03/21 15:27:00 EDT, Dry Weight Start Date: 12/04/21 Status: OrderedamLODIPine 2.5 mg oral tablet 2.5 mg, 1, tablet, By Mouth, Daily, # 30 tablet, Refills 5, Tot. Refills 5, Maintenance, 05/22/21 13:11:00 EDT, Route to Pharmacy Electronically, [facility]/pharmacy #[id number], 168, cm, 05/02/21 8:45:00 EDT, Height, [...] Gm, 2 Refills, Maintenance, 09/04/21 19:43:00 EDT, [place],[facility]/pharmacy #[id number], Partial [...] 12/14/20 11:13:00 EST, Route to Pharmacy Electronically, [facility]/pharmacy #[id number], 167, cm, 12/14/20 8:40:00 EST, Height, [...] Refills, Maintenance, 05/12/21 13:24:00 EDT, [facility], 168, cm, 05/02/21 8:45:00 EDT, Height, 92, [...] 03/07/2115:41:00 EDT, Aerosol, Route to Pharmacy Electronically, [id number], [facility]/pharmacy #[id number], 168, cm, 03/06/21 11:08:00 EDT, Hei... Start Date: 03/07/21 Status: OrderedProAir HFA 90 mcg/inh inhalation aerosol with adapter 2, puffs, Inhalation, Every 6 hours, PRN, Requests ProAir, # 8.5 Gm, Refills 5, Tot. Refills 5, Maintenance, 03/22/21 8:49:00 EDT, Aerosol, Route to Pharmacy Electronically, [id number], [facility]/pharmacy #[id number], 168, cm, 03/06/21 1... Start Date: [...]
--- OUTSIDE RECORDS SUMMARY | 2022-10-27 22:32 | XMS_ITS | Continuity of Care Document ---
:1965 Author Organization [facility] Address [address] [place] [address]- Care Team Providers Name Role Phone Richar Gordon MD Primary Care Physician [place] [facility] [place] 01/29/21 - 01/29/[address] [address]- Discharge Disposition: A-D/C Walkout Attending Physician: Not on Staff, Attending MD Admitting Physician: Not on Staff, Admitting MD Referring Physician: Not on Staff, Referring [...] 11:29:00 EST, Route to Pharmacy Electronically, [facility]/pharmacy #[id number], Partial fill upon patient request if the prescription is for a schedule II opioid drug.... Start Date: 01/18/21 Stop Date: 07/17/21 Status: Orderedaspirin 81 mg oral tablet, chewable 81 mg, 1, tablet, By Mouth, Daily, # 30 tablet, Refills 5, Tot. Refills 5, Maintenance, 01/18/21 11:29:00 EST, Route to Pharmacy Electronically, [facility]/pharmacy #[id number], Partial fill upon patient request ifthe [...] Stop 03/06/21 10:42:00 EDT, 09/07/20 10:42:00 EDT, [facility] #[id number], 1 tablet By Mouth Daily,x30 days, 169, cm, 08/16/20 8:41:00 EDT, Height, 91, kg, 08/10/20 1:22:00... Start Date: 09/07/20 Stop Date: 03/06/21 Status: OrderedFranciscan Children'Se Blood Pressure Monitor See Instructions, # 1 [...] 11:13:00 EST, Route to Pharmacy Electronically, [facility]/pharmacy #[id number], 167, cm, 12/14/20 8:40:00 EST, Height, [...] EST, Route to Pharmacy Electronically, [facility]/pharmacy #[id number], Partial fill upon patient request ifthe prescription is for a schedule II opioid drug... Start Date: 01/18/21 Stop Date: 07/17/21 Status: Orderedmontelukast 10 mg oral tablet 10 mg, 1, tablet, By Mouth, Daily, # 90 tablet, Refills 3, Tot. Refills 3, Maintenance, 04/07/20 9:23:00 EDT, Route to Pharmacy Electronically, [facility]/pharmacy #[id number], 168, cm, 02/08/20 15:35:00 EDT, Height, 86.8, kg, 02/18/19 13:15:00 EDT, Dry Weight Start Date: 04/07/20 Status: Orderedomeprazole 20 mg oral enteric coated capsule 1 capsule = 20 mg, By Mouth, 2 times a day, # 180 capsule, 0 Refills, Maintenance, 11/20/20 11:33:00EST, EC Capsule, [facility]/pharmacy #[id number], 167, cm, 10/12/20 10:08:00 EST, Height, 90.2, kg, 09/09/20 21:48:00 EDT, Dry Weight Start Date: 11/20/20 Status: OrderedProAir HFA 90 mcg/inh inhalation aerosol with adapter 2, puffs, Inhalation, Every 6 hours, PRN, # 8.5 Gm, Refills 5, Tot. Refills 5, Maintenance, 10/11/2010:14:00 EST, Aerosol, Route to Pharmacy Electronically, [id number], [facility]/pharmacy #[id number], 169, cm, 10/11/20 9:44:00 EST, [place]... Start Date: 10/11/20 Status: Orderedrosuvastatin 10 mg oral tablet 1 tablet = 10 mg, By Mouth, Daily, # 30 tablet, 5 Refills, Maintenance, 01/19/21 10:28:00 EST, Tablet, [facility]/pharmacy #[id number], Partial fill upon patient request if [...] Exam Date Time Procedure Performing Provider Status 01/29/21 8:33 PM Chest 2 Views Frontal and Lat Toni Duke (Verified) Notes:(Chest 2 Views Frontal and Lat) Reason For Exam: Chest Pain;Other:RESULT: Chest 2 Views Frontal and Lat Chest 2 Views Frontal and Lat Hx of Present Illness: pt reports rec. the covid vacc. yesterday, started this AM with chest tightness pain. also reports some SOB.; Reason: Other:; Chest Pain; Clinical Question(s): Other: COMPARISON: 11/30/2020 FINDINGS: LINES AND TUBES: None. LUNGS AND PLEURA: Clear lungs. Normal pulmonary vascularity. No pleural effusion. No pneumothorax. HEART, MEDIASTINUM AND MARLY: Heart is normal in size. Normal upper mediastinal and hilar contour. BONES AND SOFT TISSUES: No acute abnormality. IMPRESSION: No acute abnormality. WSN: [id number] Ordering Physician: Siri Escamilla Dictated By: Jez Shelby MD Dictated Date/Time: 01/29/21 8:43 pm Reviewed By: Jez Shelby MD Signed By: Jez Shelby MD Signed Date/Time: 01/29/21 8:43 pm Transcribed By: DENISE Transcribed Date/Time: 01/29/21 8:43 pm Vital Signs Most recent to oldest 1 2 3 [Reference Range]: Oxygen Saturation [94-100 %] 99 % 100 % 99 % (01/29/21 9:23 PM) (01/29/21 7:54 PM) (01/29/21 7:2 5 PM) Pulse Rate [55-90 bpm] 57 bpm 56 bpm 107 bpm (01/29/21 9:23 PM) (01/29/21 7:54 PM) *H* (01/29/21 7:25 PM ) Blood Pressure [90-138/55-84 mm 146/90 mm Hg 135/75 mm Hg Hg] *H* (01/29/21 7:54 PM) (01/29/21 9:23 PM) Respiratory Rate [16-30 br/min] 20 br/min 16 br/min (01/29/21 9:23 PM) (01/29/21 7:54 PM) Temperature [96.8-100.4 DegF] 98.3 DegF 98.2 DegF (01/29/21 9:23 PM) (01/29/21 7:54 PM) Mode of Delivery (Oxygen) Room air Room air Room a ir (01/29/21 9:23 PM) (01/29/21 7:54 PM) (01/29/21 7:2 5 PM) Blood pressure sites Arm, right Arm, right (01/29/21 9:23 PM) (01/29/21 7:54 PM) Temperature Route Oral Oral (01/29/21 9:23 PM) (01/29/21 7:54 PM) Social History Social History Type Response Smoking Status Former smoker, quit more hernan n 30 days ago entered on: 05/11/19 Sex
--- OUTSIDE RECORDS SUMMARY | 2022-10-27 22:32 | XMS_ITS | Continuity of Care Document ---
:1965 Author Organization [facility] Adult Address [address] [place] [address]- Care Team Providers Name Role Phone Richar Gordon MD Primary Care Physician [place] [facility] [place] 05/03/22 - 08/31/22 [facility] [address] [place] [address]- Attending Physician: Richar Gordon MD Allergies, Adverse Reactions, Alerts Substance Reaction Severity Status amoxicillin nausea and vomiting Active Anoro Ellipta Active gabapentin anxiety Active atorvastatin Dyspnea Active Cipro HC rash Active Augmentin nausea and vomiting Active Bactrim swelling Active Benadryl Swelling/Edema Active Rash/Dermatitis Anxiety state Pulmicort Flexhaler Active Immunizations Given and Recorded Vaccine Date Status Refusal Reason SARS-CoV-2 mRNA ([id number]) vax1 08/09/22 Given influenza virus vaccine, inactivated [...] pneumococcal 13-valent vaccine 08/07/17 Recorded 1Result Comment: [id number] Medications albuterol 0.083% inhalation solution 3 mL [...] # 16 mL, 2 Refills, 08/10/22 6:59:00 EDT,[facility]/pharmacy #[id number], 90, USE 1 SPRAY IN EACH NOSTRIL TWICE A DAY, 166, cm, 08/09/22 11:33:00 EDT, Height, 92, kg, 03/03/21 15:27:00 EDT, Dry Weight Start Date: 08/10/22 Status: OrderedGenvoya oral tablet 1 tablet, By Mouth, Daily, with food, # 30 tablet, 5 Refills, Maintenance, 07/17/22 11:59:00 EDT, Tablet, [facility], [id number], Partial fill upon patient request if the [...] 08/01/22 16:29:00 EDT, Route to Pharmacy Electronically, [facility], 166, cm, 07/19/22 15:37:00 EDT, Height, 92, kg, 03/03/21 15:27:00 EDT, Dry Weight Start Date: 08/01/22 Status: OrderedLORazepam 1 mg oral tablet 1 tablet = 1 mg, By Mouth, PRN as needed for anxiety, 0 Refills, Maintenance, 06/29/18 13:11:09 EDT Start Date: 06/29/18 Status: OrderedMetoprolol Succinate ER 25 mg oral tablet, extended release 1 tablet, By Mouth, Daily, # 90 tablet, 3 Refills, [facility]15, 168, cm, 01/09/22 10:35:00 EST, Height, 92, kg, 03/03/21 15:27:00 EDT, Dry Weight Start Date: 01/10/22 Status: Orderedmontelukast 10 mg oral tablet 10 mg, 1, tablet, By Mouth, Daily, # 90 tablet, Refills 3, Tot. Refills 3, Maintenance, 08/09/22 12:05:00 EDT, Route to Pharmacy Electronically, [facility]/pharmacy #[id number], 166, cm, 08/09/22 11:33:00 EDT, Height, [...] capsule, 0 Refills, Maintenance, 08/22/22 15:36:00 EDT, [facility] STORE [facility], 166, cm, 08/09/22 11:33:00 EDT, Height, 92, kg, 03/03/21 15:27:00 EDT, Dry Weight Start Date: 08/22/22 Status: OrderedProAir HFA 90 mcg/inh inhalation aerosol with adapter 2, puffs, Inhalation, Every 6 hours, PRN, Requests ProAir, # 8.5 Gm, Refills 5, Tot. Refills 5, Maintenance, 08/09/22 12:04:00 EDT, Aerosol, Route to Pharmacy Electronically, [id number], [facility]/pharmacy #[id number], 166, cm, 08/09/22... Start Date: 08/09/22 Status: Orderedrosuvastatin 10 mg oral tablet 1 tablet, By Mouth, Daily, # 90 tablet, 3 Refills, Maintenance, 11/06/21 8:54:00 EST, [facility]/pharmacy #[id number], 168, cm, 11/06/21 8:47:00 EST, Height, [...] Acute 02/07/23 6:58:00 EST, 08/29/22 9:26:00 EDT, [facility]/pharmacy #[id number], 166, cm, 08/09/22 11:33:00 EDT, Height, 92, kg, 03/03/21 15:27:00 EDT, Dry Weight Start Date: 08/29/22 Stop Date: 02/07/23 Status: Ordered Problem List Condition Confirmation Course Effective Dates Status Health I nformant Status Abdominal bloating Confirmed Active Asthma Confirmed Active Costochondritis Confirmed Active Depression Confirmed [...] Active of abdomen Lumbar stenosis Confirmed Active Social History Social History Type Response Smoking Status Former smoker, quit more hernan n 30 days ago entered on: 05/11/19 Sex Patient Care team information PersonnelName: Evan PEREZ, Richar Weldon Address: Address: [address] [place] [id number]
--- OUTSIDE RECORDS SUMMARY | 2022-10-27 22:32 | XMS_ITS | Continuity of Care Document ---
:1965 Author Organization [facility] Address [address] [place] [address]- Care Team Providers Name Role Phone Richar Gordon MD Primary Care Physician [place] [facility] [place] 03/03/21 - 03/03/[address] [address]- Encounter Diagnosis Leg swelling (Final) - 03/03/21 Discharge Disposition: A-D/C Home Attending Physician: Milton Ríos MD Admitting Physician: Milton Ríos MD Referring Physician: Not on Staff, Referring [...] EST, Route to Pharmacy Electronically, [facility]/pharmacy #[id number], Partial fill upon patient request if the prescription is for a schedule II opioid drug.... Start Date: 01/18/21 Stop Date: 07/17/21 Status: Orderedaspirin 81 mg oral tablet, chewable 81 mg, 1, tablet, By Mouth, Daily, # 30 tablet, Refills 5, Tot. Refills 5, Maintenance, 01/18/21 11:29:00 EST, Route to Pharmacy Electronically, [facility]/pharmacy #[id number], Partial fill upon patient request [...] Stop 07/31/21 14:13:00 EDT, 02/01/21 14:13:00 EST, [facility] #[id number], 1 tablet By Mouth Daily,x30 days, 167, cm, 12/14/20 8:40:00 EST, Height, 91.3, kg, 11/30/20 17:07... Start Date: 02/01/21 Stop Date: 07/31/21 Status: OrderedGenvoya oral tablet 1 tablet, By Mouth, Daily, for 30 days, # 30 tablet, 5 Refills, Physician Stop 03/06/21 10:42:00 EDT, 09/07/20 10:42:00 EDT, [facility] #[id number], 1 tablet By Mouth Daily,x30 days, 169, [...] EST, Route to Pharmacy Electronically, [facility]/pharmacy #[id number], 167, cm, 12/14/20 8:40:00 EST, [...] 11:30:00 EST, Route to Pharmacy Electronically, [facility]/pharmacy #[id number], Partial fill upon patient request ifthe prescription is for a schedule II opioid drug... Start Date: 01/18/21 Stop Date: 07/17/21 Status: Orderedmontelukast 10 mg oral tablet 10 mg, 1, tablet, By Mouth, Daily, # 90 tablet, Refills 3, Tot. Refills 3, Maintenance, 04/07/20 9:23:00 EDT, Route to Pharmacy Electronically, [facility]/pharmacy #[id number], 168, cm, 02/08/20 15:35:00 EDT, Height, 86.8, kg, 02/18/19 13:15:00 EDT, Dry Weight Start Date: 04/07/20 Status: Orderedomeprazole 20 mg oral enteric coated capsule 1 capsule = 20 mg, By Mouth, 2 times a day, # 180 capsule, 0 Refills, Maintenance, 02/16/21 10:57:00EDT, EC Capsule, [facility]/pharmacy #[id number], 167, cm, 12/14/20 8:40:00 EST, Height, 91.3, kg, 11/30/20 17:07:00 EST, Dry Weight Start Date: 02/16/21 Status: OrderedProAir HFA 90 mcg/inh inhalation aerosol with adapter 2, puffs, Inhalation, Every 6 hours, PRN, # 8.5 Gm, Refills 5, Tot. Refills 5, Maintenance, 10/11/2010:14:00 EST, Aerosol, Route to Pharmacy Electronically, [id number], [facility]/pharmacy #[id number], 169, cm, 10/11/20 9:44:00 EST, [place]... Start Date: 10/11/20 Status: Orderedrosuvastatin 10 mg oral tablet 1 tablet = 10 mg, By Mouth, Daily, # 30 tablet, 5 Refills, Maintenance, 01/19/21 10:28:00 EST, Tablet, [facility]/pharmacy #[id number], Partial fill upon patient request [...] Exam Date Time Procedure Performing Provider Status 03/03/21 2:00 PM Chest 2 Views Frontal and Lat Pamela Martino (Verified) Notes:(Chest 2 Views Frontal and Lat) Reason For Exam: short of breath;Other: RESULT: Chest 2 Views Frontal and Lat Chest 2 Views Frontal and Lat Reason: Shortness of breath; Clinical Question(s): CHF COMPARISON: 01/29/2021 FINDINGS: LINES AND TUBES: None. LUNGS AND PLEURA: Clear lungs. Normal pulmonary vascularity. No pleural effusion. No pneumothorax. HEART, MEDIASTINUM AND MARLY: Heart is normal in size. Normal upper mediastinal and hilar contour. BONES AND SOFT TISSUES: No acute abnormality. IMPRESSION: No acute abnormality. I have personally reviewed the images and I agree with this report. WSN: [id number] Ordering Physician: Milton Ríos Dictated By: Eugene Flores DO Dictated Date/Time: 03/03/21 2:03 pm Reviewed By: Parrish Mccracken MD Signed By: Parrish Mccracken MD Signed Date/Time: 03/03/21 2:08 pm Transcribed By: DENISE Transcribed Date/Time: 03/03/21 2:02 pm Vital Signs Most recent to oldest 1 2 3 [Reference Range]: Height 168 cm 168 cm 168 cm (03/03/21 3:27 PM) (03/03/21 12:29 PM) (03/03/21 11:14 AM) Weight 92 kg 92 kg 92 kg (03/03/21: PM) (03/03/21 12: PM) (03/03/21 11:14 AM) Oxygen Saturation [94-100 %] 99 % 100 % 99 % (03/03/21 3: PM) (03/03/21 12:29 PM) (03/03/21 11:14 AM) Pulse Rate [55-90 bpm] 55 bpm 54 bpm 54 bpm (03/03/21 3:27 PM) *L* *L* (03/03/21 12:29 PM) (03/03/21 11:14 AM) Body Mass Index [18.5-24.99] 32.6 *>HHI* (03/03/21 12:29 PM) Blood Pressure [90-138/55-84 mm 127/71 mm Hg 128/69 mm Hg 129/66 mm Hg Hg] (03/03/21 3:27 PM) (03/03/21 12:29 PM) (03/03/21 11:14 AM) Respiratory Rate [16-30 br/min] 18 br/min 18 br/min 18 br/min (03/03/21 3:27 PM) (03/03/21 12:29 PM) (03/03/21 11:14 AM) Temperature [96.8-100.4 DegF] 97.7 DegF 98.2 DegF (03/03/21 12:29 PM) (03/03/21 11:14 AM) Mode of Delivery (Oxygen) Room air Room air Room a ir (03/03/21 3:27 PM) (03/03/21 12:29 PM) (03/03/21 11:14 AM) Blood pressure sites Arm, left Arm, left Arm, right (03/03/21 3:27 PM) (03/03/21 12:29 PM) (03/03/21 11:14 AM) Temperature Route Oral Oral (03/03/21 12:29 PM) (03/03/21 11:14 AM) Dry Weight 92 kg 92 kg 92 kg (03/03/21 3:27 PM) (03/03/21 12:29 PM) (03/03/21 11:14 AM) Social History Social History Type Response Smoking Status Former smoker, quit more hernan n 30 days ago entered on: 05/11/19 Sex
--- OUTSIDE RECORDS SUMMARY | 2022-10-27 22:32 | XMS_ITS | Continuity of Care Document ---
:1965 Author Organization [facility] Adult Address [address] [place] [address]- Care Team Providers Name Role Phone Rcihar Gordon MD Primary Care Physician [place] [facility] [place] - 01/22/22 [facility] [address] [place] [address]- Attending Physician: Richar Gordon MD Allergies, Adverse [...] 3 Refills, Maintenance, 11/06/21 8:54:00 EST, Solution, [facility]/pharmacy #[id number], Partial fill upon patientrequest if the prescription is for a schedule II... Start Date: 11/06/21 Status: OrderedamLODIPine 2.5 mg oral tablet 1 tablet, By Mouth, Daily, # 90 tablet, 3 Refills, [facility], 168, cm, 11/17/21 10:55:00 EST, Height, 92, kg, 03/03/21 15:27:00 EDT, Dry Weight Start Date: 12/04/21 Status: OrderedamLODIPine 2.5 mg oral tablet 2.5 mg, 1, tablet, By Mouth, Daily, # 30 tablet, Refills 5, Tot. Refills 5, Maintenance, 05/22/21 13:11:00 EDT, Route to Pharmacy Electronically, [facility]/pharmacy #[id number], 168, cm, 05/02/21 8:45:00 EDT, Height, 92, kg, 03/03/21 15:27:00 EDT, Dry Weight Start Date: 05/22/21 Status: Orderedaspirin 81 mg oral tablet, chewable 81 mg, 1, tablet, By Mouth, Daily, # 30 tablet, Refills 5, Tot. Refills 5, Maintenance, 01/18/21 11:29:00 EST, Route to Pharmacy Electronically, [facility]/pharmacy #[id number], Partial fill upon [...] Gm, 2 Refills, Maintenance, 09/04/21 19:43:00 EDT, [place],[facility]/pharmacy #[id number], Partial fill upon [...] 12/14/20 11:13:00 EST, Route to Pharmacy Electronically, [facility]/pharmacy #[id number], 167, cm, 12/14/20 8:40:00 EST, [...] Mouth, Daily, # 90 tablet, 3 Refills, [facility] [address], 168, cm, 01/09/22 10:35:00 EST, Height, 92, kg, 03/03/21 15:27:00 EDT, Dry Weight Start Date: 01/10/22 Status: OrderedMetoprolol Succinate ER 25 mg oral tablet, extended release 1 tablet, By Mouth, Daily, # 90 tablet, 1 Refills, Maintenance, 05/12/21 13:24:00 EDT, [facility] STORE [address], 168, cm, 05/02/21 8:45:00 EDT, Height, 92, kg, 03/03/21 15:27:00 EDT, Dry Weight Start Date: 05/12/21 Status: Orderedmontelukast 10 mg oral tablet 10 mg, 1, tablet, By Mouth, Daily, # 90 tablet, Refills 3, Tot. Refills 3, Maintenance, 01/15/22 16:17:00 EST, [id number] 168, cm, 01/15/22 14:50:00 EST, Height, 92, kg, 03/03/21 15:27:00 EDT, Dry Weight Start Date: 01/15/22 Status: Orderedomeprazole 20 mg oral enteric coated capsule 1 capsule = 20 mg, By Mouth, 2 times a day, # 180 capsule, 3 Refills, Maintenance, 09/04/21 19:37:00EDT, EC Capsule, [facility]/pharmacy #[id number], 168, cm, 09/04/21 9:46:00 EDT, Height, 92, kg, 03/03/21 15:27:00 EDT, Dry Weight Start Date: 09/04/21 Status: OrderedProAir HFA 90 mcg/inh inhalation aerosol with adapter 2, puffs, Inhalation, Every 6 hours, PRN, # 8.5 Gm, Refills 8, Tot. Refills 8, Maintenance, 03/07/2115:41:00 EDT, Aerosol, Route to Pharmacy Electronically, [id number], [facility]/pharmacy #[id number], 168, cm, 03/06/21 11:08:00 EDT, Hei... Start Date: 03/07/21 Status: OrderedProAir HFA 90 mcg/inh inhalation aerosol with adapter 2, puffs, Inhalation, Every 6 hours, PRN, Requests ProAir, # 8.5 Gm, Refills 5, Tot. Refills 5, Maintenance, 12/27/21 9:37:00 EST, Aerosol, Route to Pharmacy Electronically, [id number], [facility]/pharmacy #[id number], 168, cm, 12/27/21 8... Start Date: 12/27/21 Status: Orderedrosuvastatin 10 mg oral tablet 1 tablet, By Mouth, Daily, # 90 tablet, 3 Refills, Maintenance, 11/06/21 8:54:00 EST, [facility]/pharmacy #[id number], 168, cm, 11/06/21 8:47:00 EST, Height, 92, kg, 03/03/21 15:27:00 EDT, Dry Weight Start Date: 11/06/21 Status: OrderedtraMADol 50 mg oral tablet 2 tablet = 100 mg, By Mouth, Every 6 hours, PRN NEEDED FOR PAIN, # 224 tablet, 5 Refills, Acute 05/07/22 9:03:00 EDT, 11/06/21 9:02:00 EST, [facility]/pharmacy #[id number], 168, cm, 11/06/21 [...] oldest [Reference Range]: 1 Height 168 cm (01/15/22 2:50 PM) Weight 90.9 kg (01/15/22 2:50 PM) Body Mass Index [18.5-24.99] 32.21 *>HHI* (2/14/22 2:50 PM) Social History Social History Type Response Smoking Status Former smoker, quit more hernan n 30 days ago entered on: 05/11/19 Sex
--- OUTSIDE RECORDS SUMMARY | 2022-10-27 22:32 | XMS_ITS | Continuity of Care Document ---
:1965 Author Organization [facility] [place] [facility] Address [address] [place] [address]- Care Team Providers Name Role Phone Evan PEREZ, Richar Weldon Primary Care Physician [place] [facility] [place]25/21 [facility] [place] [facility] [address] [place] [address]- Allergies, Adverse Reactions, Alerts Substance Reaction Severity [...] EDT, Route to Pharmacy Electronically, [facility]/pharmacy #[id number], 168, cm, 05/02/21 8:45:00 EDT, Height, 92, kg, 03/03/21 15:27:00 EDT, Dry Weight Start Date: 05/22/21 Status: Orderedaspirin 81 mg oral tablet, chewable 81 mg, 1, tablet, By Mouth, Daily, # 30 tablet, Refills 5, Tot. Refills 5, Maintenance, 01/18/21 11:29:00 EST, [id number] Partial fill upon patient request [...] Stop 11/25/21 11:25:00 EST, 05/29/21 11:25:00 EDT, [facility] #[id number], 1 tablet By Mouth Daily,x30 days, 168, cm, 05/02/21 8:45:00 EDT, Height, 92, kg, 03/03/21 15:27:0... Start Date: 05/29/21 Stop Date: 11/25/21 Status: OrderedGenvoya oral tablet 1 tablet, By Mouth, Daily, for 30 days, # 30 tablet, 5 Refills, Physician Stop 07/31/21 14:13:00 EDT, 02/01/21 14:13:00 EST, [facility] #[id number], 1 tablet By Mouth Daily,x30 days, 167, [...] EST, Route to Pharmacy Electronically, [facility]/pharmacy #[id number], 167, cm, 12/14/20 8:40:00 [...] Refills, Maintenance, 05/12/21 13:24:00 EDT, [facility] STORE [address]197, 168, cm, 05/02/21 8:45:00 EDT, Height, 92, kg, 03/03/21 15:27:00 EDT, Dry Weight Start Date: 05/12/21 Status: Orderedmontelukast 10 mg oral tablet 10 mg, 1, tablet, By Mouth, Daily, # 90 tablet, Refills 3, Tot. Refills 3, Maintenance, 03/22/21 8:48:00 EDT, Route to Pharmacy Electronically, [facility]/pharmacy #[id number], 168, cm, 03/06/21 11:08:00 EDT, Height, 92, kg, 03/03/21 15:27:00 EDT, Dry Weight Start Date: 03/22/21 Status: Orderedomeprazole 20 mg oral enteric coated capsule 1 capsule = 20 mg, By Mouth, 2 times a day, # 180 capsule, 0 Refills, Maintenance, 02/16/21 10:57:00EDT, EC Capsule, [facility]/pharmacy #[id number], 167, cm, 12/14/20 8:40:00 EST, Height, 91.3, kg, 11/30/20 17:07:00 EST, Dry Weight Start Date: 02/16/21 Status: OrderedProAir HFA 90 mcg/inh inhalation aerosol with adapter 2, puffs, Inhalation, Every 6 hours, PRN, # 8.5 Gm, Refills 8, Tot. Refills 8, Maintenance, 03/07/2115:41:00 EDT, Aerosol, Route to Pharmacy Electronically, [id number], [facility]/pharmacy #[id number], 168, cm, 03/06/21 11:08:00 EDT, Hei... Start Date: 03/07/21 Status: OrderedProAir HFA 90 mcg/inh inhalation aerosol with adapter 2, puffs, Inhalation, Every 6 hours, PRN, Requests ProAir, # 8.5 Gm, Refills 5, Tot. Refills 5, Maintenance, 03/22/21 8:49:00 EDT, Aerosol, Route to Pharmacy Electronically, [id number], [facility]/pharmacy #[id number], 168, cm, 03/06/21 1... Start Date: 03/22/21 Status: Orderedrosuvastatin 10 mg oral tablet 1 tablet, By Mouth, Daily, # 90 tablet, 1 Refills, Maintenance, 05/04/21 7:31:00 EDT, [facility] STORE [address]87, 168, cm, 05/02/21 8:45:00 EDT, Height, 92, kg, 03/03/21 15:27:00 EDT, Dry Weight Start Date: 05/04/21 Status: OrderedtraMADol 50 mg oral tablet 2 tablet = 100 mg, By Mouth, Every 12 hours, PRN NEEDED FOR PAIN, # 112 tablet, 0 Refills, Acute 03/09/22 8:16:00 EDT, 04/05/21 4:32:00 EDT, [facility]/pharmacy #[id number], 168, cm, 03/06/21 11:08:00 [...]
--- OUTSIDE RECORDS SUMMARY | 2022-10-27 22:32 | XMS_ITS | Continuity of Care Document ---
:1965 Author Organization [facility] Adult Address [address] [place] [address]- Care Team Providers Name Role Phone Richar Gordon MD Primary Care Physician Encounter [facility] [place](s): 05/01/22 - 05/08/22 [facility] [address] [place] [address]- Attending Physician: Richar Gordon MD Allergies, Adverse [...] 3 Refills, Maintenance, 02/26/22 9:26:00 EDT, Solution, [facility]/pharmacy #[id number], Partial fill upon patientrequest if the prescription is for a schedule II... Start Date: 02/26/22 Status: Orderedalbuterol 0.083% inhalation solution 3 mL = 2.5 mg, Inhalation, Every 6 hours, PRN for wheezing, # 25 each, 3 Refills, Maintenance, 05/01/22 9:46:00 EDT, Solution, [facility]acy [id number], Partial fill upon patient request if the prescription is for a schedule II opioid drug., 166, cm, ... Start Date: 05/01/22 Status: OrderedamLODIPine 2.5 mg oral tablet 1 tablet, By Mouth, Daily, # 90 tablet, 3 Refills, [facility], 168, cm, 11/17/21 10:55:00 EST, Height, 92, [...] Gm, 2 Refills, Maintenance, 09/04/21 19:43:00 EDT, [place],[facility]/pharmacy #[id number], Partial fill upon patient request if the prescription is for a schedule II opioid drug., 1 sprays Nares, Both 2 times a day, 168,... Start Date: 09/04/21 Status: OrderedGenvoya oral tablet 1 tablet, By Mouth, Daily, with food, # 30 tablet, 5 Refills, Maintenance, 01/29/22 21:33:00 EST, Tablet, [facility], [facility] #[id number], Partial fill upon patient request if the [...] tablet, Refills 1, Route to Pharmacy Electronically, [facility] STORE [address]35, 168, cm, 01/15/22 14:50:00 EST, Height, 92, kg, 03/03/21 15:27:00 EDT, Dry Weight Start Date: 02/06/22 Status: OrderedLORazepam 1 mg oral tablet 1 tablet = 1 mg, By Mouth, PRN as needed for anxiety, 0 Refills, Maintenance, 06/29/18 13:11:09 EDT Start Date: 06/29/18 Status: OrderedMetoprolol Succinate ER 25 mg oral tablet, extended release 1 tablet, By Mouth, Daily, # 90 tablet, 3 Refills, [facility] STORE 64690, 168, cm, 01/09/22 10:35:00 EST, Height, 92, kg, 03/03/21 15:27:00 EDT, Dry Weight Start Date: 01/10/22 Status: Orderedmontelukast 10 mg oral tablet 10 mg, 1, tablet, By Mouth, Daily, # 90 tablet, Refills 3, Tot. Refills 3, Maintenance, 01/15/22 16:17:00 EST, Route to Pharmacy Electronically, [facility]/pharmacy #[id number], 168, cm, 01/15/22 14:50:00 EST, [...] 3 Refills, Maintenance, 09/04/21 19:37:00EDT, EC Capsule, [facility]/pharmacy #[id number], 168, cm, 09/04/21 9:46:00 EDT, Height, 92, kg, 03/03/21 15:27:00 EDT, Dry Weight Start Date: 09/04/21 Status: OrderedProAir HFA 90 mcg/inh inhalation aerosol with adapter 2, puffs, Inhalation, Every 6 hours, PRN, Requests ProAir, # 8.5 Gm, Refills 5, Tot. Refills 5, Maintenance, 12/27/21 9:37:00 EST, Aerosol, Route to Pharmacy Electronically, [id number], [facility]/pharmacy #[id number], 168, cm, 12/27/21 8... Start Date: 12/27/21 Status: Orderedrosuvastatin 10 mg oral tablet 1 tablet, By Mouth, Daily, # 90 tablet, 3 Refills, Maintenance, 11/06/21 8:54:00 EST, [facility]/pharmacy #[id number], 168, cm, 11/06/21 8:47:00 EST, Height, [...] Acute 08/29/22 9:26:00 EDT, 05/07/22 9:03:00 EDT, [facility]/pharmacy #[id number], 168, cm, 02/26/22 8:34:00 EDT, [...] oldest [Reference Range]: 1 Height 166.0 cm (05/01/22 8:58 AM) Weight 89.5 kg (05/01/22 8:58 AM) Oxygen Saturation [94-100 %] 96 % (05/01/22 8:58 AM) Pulse Rate [55-90 bpm] 52 bpm *L* (05/01/22 8:58 AM) Body Mass Index [18.5-24.99] 32.48 *>HHI* (05/01/22 8:58 AM) Blood Pressure [90-138/55-84 mm Hg] 110/66 mm Hg (05/01/22 8:58 AM) Temperature [96.8-100.4 DegF] 97.9 DegF (05/01/22 8:58 AM) Mode of Delivery (Oxygen) Room air (05/01/22 8:58 AM) Blood pressure sites Arm, left (05/01/22 8:58 AM) Temperature Route Oral (05/01/22 8:58 AM) Weight Obtained Via Standing scale (05/01/22 8:58 AM) Social History Social History Type Response Smoking Status Former smoker, quit more hernan n 30 days ago entered on: 05/11/19 Sex
--- OUTSIDE RECORDS SUMMARY | 2022-10-27 22:32 | XMS_ITS | Continuity of Care Document ---
:1965 Author Organization [facility] Adult Address [address] [place] [address]- Care Team Providers Name Role Phone Evan PEREZ, Richar Weldon Primary Care Physician [place] [facility] [place]18/22 [facility] [address] [place] [address]- Allergies, Adverse Reactions, Alerts Substance Reaction Severity [...] 3 Refills, Maintenance, 11/06/21 8:54:00 EST, Solution, [facility]/pharmacy #[id number], Partial fill upon patientrequest if the prescription is for a schedule II... Start Date: 11/06/21 Status: OrderedamLODIPine 2.5 mg oral tablet 1 tablet, By Mouth, Daily, # 90 tablet, 3 Refills, [facility], 168, cm, 11/17/21 10:55:00 EST, Height, 92, kg, 03/03/21 15:27:00 EDT, Dry Weight Start Date: 12/04/21 Status: OrderedamLODIPine 2.5 mg oral tablet 2.5 mg, 1, tablet, By Mouth, Daily, # 30 tablet, Refills 5, Tot. Refills 5, Maintenance, 05/22/21 13:11:00 EDT, Route to Pharmacy Electronically, [facility]/pharmacy #[id number], 168, cm, 05/02/21 8:45:00 EDT, Height, 92, kg, 03/03/21 15:27:00 EDT, Dry Weight Start Date: 05/22/21 Status: Orderedaspirin 81 mg oral tablet, chewable 81 mg, 1, tablet, By Mouth, Daily, # 30 tablet, Refills 5, Tot. Refills 5, Maintenance, 01/18/21 11:29:00 EST, Route to Pharmacy Electronically, [facility]/pharmacy #[id number], Partial fill upon patient [...] Gm, 2 Refills, Maintenance, 09/04/21 19:43:00 EDT, [place],[facility]/pharmacy #[id number], Partial fill upon patient request if the prescription is for a schedule II opioid drug., 1 sprays Nares, Both 2 times a day, 168,... Start Date: 09/04/21 Status: OrderedGenvoya oral tablet 1 tablet, By Mouth, Daily, with food, # 30 tablet, 5 Refills, Maintenance, 01/29/22 21:33:00 EST, Tablet, [facility], [facility] #[id number], Partial fill upon patient request if the [...] tablet, Refills 1, Route to Pharmacy Electronically, [facility] STORE 7[facility]24, 168, cm, 01/15/22 14:50:00 EST, Height, 92, kg, 03/03/21 15:27:00 EDT, Dry Weight Start Date: 02/06/22 Status: OrderedLORazepam 1 mg oral tablet 1 tablet = 1 mg, By Mouth, PRN as needed for anxiety, 0 Refills, Maintenance, 06/29/18 13:11:09 EDT Start Date: 06/29/18 Status: OrderedMetoprolol Succinate ER 25 mg oral tablet, extended release 1 tablet, By Mouth, Daily, # 90 tablet, 3 Refills, [facility] ST[facility], 168, cm, 01/09/22 10:35:00 EST, Height, 92, kg, 03/03/21 15:27:00 EDT, Dry Weight Start Date: 01/10/22 Status: OrderedMetoprolol Succinate ER 25 mg oral tablet, extended release 1 tablet, By Mouth, Daily, # 90 tablet, 1 Refills, Maintenance, 05/12/21 13:24:00 EDT, [facility], 168, cm, 05/02/21 8:45:00 EDT, Height, 92, kg, 03/03/21 15:27:00 EDT, Dry Weight Start Date: 05/12/21 Status: Orderedmontelukast 10 mg oral tablet 10 mg, 1, tablet, By Mouth, Daily, # 90 tablet, Refills 3, Tot. Refills 3, Maintenance, 01/15/22 16:17:00 EST, Route to Pharmacy Electronically, [facility]/pharmacy #[id number], 168, cm, 01/15/22 14:50:00 EST, Height, 92, kg, 03/03/21 15:27:00 EDT, Dry Weight Start Date: 01/15/22 Status: Orderedomeprazole 20 mg oral enteric coated capsule 1 capsule = 20 mg, By Mouth, 2 times a day, # 180 capsule, 3 Refills, Maintenance, 09/04/21 19:37:00EDT, EC Capsule, [facility]/pharmacy #[id number], 168, cm, 09/04/21 9:46:00 EDT, Height, 92, kg, 03/03/21 15:27:00 EDT, Dry Weight Start Date: 09/04/21 Status: OrderedProAir HFA 90 mcg/inh inhalation aerosol with adapter 2, puffs, Inhalation, Every 6 hours, PRN, # 8.5 Gm, Refills 8, Tot. Refills 8, Maintenance, 03/07/2115:41:00 EDT, Aerosol, Route to Pharmacy Electronically, [id number], [facility]/pharmacy #[id number], 168, cm, 03/06/21 11:08:00 EDT, Hei... Start Date: 03/07/21 Status: OrderedProAir HFA 90 mcg/inh inhalation aerosol with adapter 2, puffs, Inhalation, Every 6 hours, PRN, Requests ProAir, # 8.5 Gm, Refills 5, Tot. Refills 5, Maintenance, 12/27/21 9:37:00 EST, Aerosol, Route to Pharmacy Electronically, [id number], [facility]/pharmacy #[id number], 168, cm, 12/27/21 8... Start Date: 12/27/21 Status: Orderedrosuvastatin 10 mg oral tablet 1 tablet, By Mouth, Daily, # 90 tablet, 3 Refills, Maintenance, 11/06/21 8:54:00 EST, [facility]/pharmacy #[id number], 168, cm, 11/06/21 8:47:00 [...] Acute 05/07/22 9:03:00 EDT, 11/06/21 9:02:00 EST, [facility]/pharmacy #[id number], 168, cm, 11/06/21 8:47:00 [...]
--- OUTSIDE RECORDS SUMMARY | 2022-10-27 22:32 | XMS_ITS | Continuity of Care Document ---
:1965 Author Organization [facility] Adult Address [address] [place] [address]- Care Team Providers Name Role Phone Evan PEREZ, Richar Weldon Primary Care Physician Encounter [facility] [place] Date(s): 09/09/20 - 10/09/20 [facility] [address] [place] [address]- Allergies, Adverse Reactions, Alerts Substance Reaction Severity [...] Stop 03/06/21 10:42:00 EDT, 09/07/20 10:42:00 EDT, [facility] #[id number], 1 tablet By Mouth Daily,x30 days, 169, cm, 08/16/20 8:41:00 EDT, Height, 91, kg, 08/10/20 1:22:00... Start Date: 09/07/20 Stop Date: 03/06/21 Status: Orderedlisinopril 20 mg oral tablet 20 mg, 1, tablet, By Mouth, Daily, # 90 tablet, Refills 3, Tot. Refills 3, Maintenance, 04/07/20 9:23:00 EDT, Route to Pharmacy Electronically, [facility]/pharmacy #[id number], 168, cm, 02/08/20 15:35:00 [...] EDT, Route to Pharmacy Electronically, [facility]/pharmacy #[id number], 168, cm, 02/08/20 15:35:00 [...] Maintenance, 07/11/20 11:31:00 EDT, EC Capsule, [facility]/pharmacy #[id number], 168, cm, 07/08/20 9:19:00 EDT, Height, 86.8, kg, 02/18/19 13:15:00 EDT, Dry Weight Start Date: 07/11/20 Status: OrderedProAir HFA 90 mcg/inh inhalation aerosol with adapter 2, puffs, Inhalation, Every 6 hours, PRN, # 8.5 Gm, Refills 5, Tot. Refills 5, Maintenance, 06/07/2016:02:00 EDT, Aerosol, Route to Pharmacy Electronically, [id number], [facility]/pharmacy #[id number], 168, cm, 02/08/20 15:35:00 EDT, Hei... Start Date: 06/07/20 Status: OrderedtraMADol 50 mg oral tablet 1 tablet, By Mouth, Every 6 hours, PRN NEEDED FOR PAIN, # 112 tablet, 0 Refills, Acute 11/27/20 11:30:00 EST, 09/27/20 11:46:00 EDT, [facility]/pharmacy #[id number], 169, cm, 09/26/20 14:30:00 EDT, Height, 90.2,kg, 09/09/20 21:48:00 EDT, Dry Weight Start Date: 09/27/20 Stop Date: 11/27/20 Status: OrderedtraMADol 50 mg oral tablet 1 tablet, By Mouth, Every 6 hours, PRN NEEDED FOR PAIN, # 112 tablet, 0 Refills, Acute 11/25/20 15:39:00 EST, 09/26/20 16:04:00 EDT, [facility] #[id number], 169, cm, 09/26/20 14:30:00 EDT, Height, 90.2, [...]
--- OUTSIDE RECORDS SUMMARY | 2022-10-27 22:32 | XMS_ITS | Continuity of Care Document ---
:1965 Author Organization [facility] Address [address] [place] [address]- Care Team Providers Name Role Phone Evan PEREZ, Richar Weldon Primary Care Physician [place] [facility] [place] [facility] [address] [place] [address]- Allergies, Adverse Reactions, Alerts Substance Reaction Severity [...] Refills, Maintenance, 02/26/22 9:26:00 EDT, Solution, [facility]/pharmacy #[id number], Partial fill upon patientrequest if [...] # 90 tablet, 3 Refills, [facility], 168, cm, 11/17/21 10:55:00 EST, Height, 92, kg, 03/03/21 15:27:00 EDT, Dry Weight Start Date: 12/04/21 Status: Orderedaspirin 81 mg oral tablet, chewable 81 mg, 1, tablet, By Mouth, Daily, # 30 tablet, Refills 5, Tot. Refills 5, Maintenance, 01/18/21 11:29:00 EST, Route to Pharmacy Electronically, [facility]/pharmacy #[id number], Partial fill upon patient [...] # 16 mL, 2 Refills, [facility], 90, USE 1 SPRAY IN EACH NOSTRIL TWICE A DAY, 166, cm, 05/02/22 10:08:00 EDT, Height, 92, kg, 03/03/21 15:27:00 EDT, Dry Weight Start Date: 05/28/22 Status: OrderedGenvoya oral tablet 1 tablet, By Mouth, Daily, with food, # 30 tablet, 5 Refills, Maintenance, 01/29/22 21:33:00 EST, Tablet, [facility] #[id number], Partial fill upon patient request if the [...] Refills 1, Route to Pharmacy Electronically, [facility], 168, cm, 01/15/22 14:50:00 EST, Height, 92, kg, 03/03/21 15:27:00 EDT, Dry Weight Start Date: 02/06/22 Status: OrderedLORazepam 1 mg oral tablet 1 tablet = 1 mg, By Mouth, PRN as needed for anxiety, 0 Refills, Maintenance, 06/29/18 13:11:09 EDT Start Date: 06/29/18 Status: OrderedMetoprolol Succinate ER 25 mg oral tablet, extended release 1 tablet, By Mouth, Daily, # 90 tablet, 3 Refills, [facility], 168, cm, 01/09/22 10:35:00 EST, Height, 92, kg, 03/03/21 15:27:00 EDT, Dry Weight Start Date: 01/10/22 Status: Orderedmontelukast 10 mg oral tablet 10 mg, 1, tablet, By Mouth, Daily, # 90 tablet, Refills 3, Tot. Refills 3, Maintenance, 01/15/22 16:17:00 EST, Route to Pharmacy Electronically, [facility]/pharmacy #[id number], 168, cm, 01/15/22 14:50:00 EST, [...] Refills, Maintenance, 09/04/21 19:37:00EDT, EC Capsule, [facility]/pharmacy #[id number], 168, cm, 09/04/21 9:46:00 EDT, Height, 92, kg, 03/03/21 15:27:00 EDT, Dry Weight Start Date: 09/04/21 Status: OrderedProAir HFA 90 mcg/inh inhalation aerosol with adapter 2, puffs, Inhalation, Every 6 hours, PRN, Requests ProAir, # 8.5 Gm, Refills 5, Tot. Refills 5, Maintenance, 06/12/22 10:35:00 EDT, Aerosol, Route to Pharmacy Electronically, [id number], [facility]/pharmacy #[id number], 166, cm, 05/02/22... Start Date: 06/12/22 Status: Orderedrosuvastatin 10 mg oral tablet 1 tablet, By Mouth, Daily, # 90 tablet, 3 Refills, Maintenance, 11/06/21 8:54:00 EST, [facility]/pharmacy #[id number], 168, cm, 11/06/21 8:47:00 EST, [...] 08/29/22 9:26:00 EDT, 05/07/22 9:03:00 EDT, [facility]/pharmacy #[id number], 168, cm, 02/26/22 8:34:00 EDT, [...]
--- OUTSIDE RECORDS SUMMARY | 2022-10-27 22:32 | XMS_ITS | Continuity of Care Document ---
:1965 Author Organization [facility] [address] [place] [address]- Care Team Providers Name Role Phone Evan PEREZ, Richar Weldon Primary Care Physician Encounter [facility] Date(s): 09/29/19 - 01/16/[address] [place] [address]- [facility] Attending Physician: León Ramos MD Referring Physician: Richar Gordon MD Allergies, [...] 0.083% inhalation solution See Instructions, 3 mL [facility] [id number] 08/2020, # 2.5 mg, 0 Refills, Maintenance, [...] 01/07/20 10:28:00 EST, Route to Pharmacy Electronically, [facility]/pharmacy #[id number], 168, cm, 01/07/20 [...] 01/07/20 10:28:00 EST, Route to Pharmacy Electronically, [facility]/pharmacy #[id number], 168, cm, 01/07/20 10:04:00 EST, Height, 86.8, kg, 02/18/19 13:15:00 EDT, Dry Weight Start Date: 01/07/20 Status: Orderedmontelukast 10 mg oral tablet 10 mg, 1, tablet, By Mouth, Daily, # 90 tablet, Refills 3, Tot. Refills 3, Maintenance, 01/07/20 10:28:00 EST, Route to Pharmacy Electronically, [facility]/pharmacy #[id number], 168, cm, 01/07/20 [...] 196:11:41 EDT, Aerosol, Route to Pharmacy Electronically, [id number], [facility]/pharmacy #[id number] Start Date: 05/12/19 Status: OrderedSymbicort 80mcg/4.5mcg Inhaler 2, puffs, Inhalation, 2 times a day, # 6.9 Gm, Refills 5, Tot. Refills 5, Maintenance, 09/28/19 8:50:05 EDT, Aerosol, Route to Pharmacy Electronically, [id number], [facility] #[id number] Start Date: 09/28/19 Status: OrderedtraMADol 50 mg oral tablet 1 tablet = 50 mg, By Mouth, 2 times a day, PRN Pain , Moderate, # 14 tablet, 3 Refills, Maintenance,12/14/19 16:47:00 EST, [facility] #[id number], 168, cm, 09/28/19 8:13:00 EDT, Height, 86.8, [...]
--- OUTSIDE RECORDS SUMMARY | 2022-10-27 22:33 | XMS_ITS | Continuity of Care Document ---
:1965 Author Organization [facility] Address [address] [place] [address]- Care Team Providers Name Role Phone Richar Gordon MD Primary Care Physician [place] [facility] 04/14/22 [facility] [address] [place] [address]- Attending Physician: Matt Covington MD Admitting Physician: [...] # 90 tablet, 3 Refills, [facility], 168, cm, 11/17/21 10:55:00 EST, Height, 92, [...] Gm, 2 Refills, Maintenance, 09/04/21 19:43:00 EDT, [place],[facility]/pharmacy #[id number], Partial fill upon patient request if the prescription is for a schedule II opioid drug., 1 sprays Nares, Both 2 times a day, 168,... Start Date: 09/04/21 Status: OrderedGenvoya oral tablet 1 tablet, By Mouth, Daily, with food, # 30 tablet, 5 Refills, Maintenance, 01/29/22 21:33:00 EST, Tablet, [facility], [facility] #[id number], Partial fill upon patient request if the [...] Route to Pharmacy Electronically, [facility] STORE 98548, 168, cm, 01/15/22 14:50:00 EST, Height, 92, [...] 90 tablet, 3 Refills, [facility] 74966, 168, cm, 01/09/22 10:35:00 EST, Height, 92, kg, 03/03/21 15:27:00 EDT, Dry Weight Start Date: 01/10/22 Status: OrderedMetoprolol Succinate ER 25 mg oral tablet, extended release 1 tablet, By Mouth, Daily, # 90 tablet, 1 Refills, Maintenance, 05/12/21 13:24:00 EDT, [facility], 168, cm, 05/02/21 8:45:00 EDT, Height, 92, [...] 03/07/2115:41:00 EDT, Aerosol, Route to Pharmacy Electronically, [id number], [facility]/pharmacy #[id number], 168, cm, 03/06/21 11:08:00 EDT, Hei... Start Date: 03/07/21 Status: OrderedProAir HFA 90 mcg/inh inhalation aerosol with adapter 2, puffs, Inhalation, Every 6 hours, PRN, Requests ProAir, # 8.5 Gm, Refills 5, Tot. Refills 5, Maintenance, 12/27/21 9:37:00 EST, Aerosol, Route to Pharmacy Electronically, [id number], [facility]/pharmacy #[id number], 168, cm, 12/27/21 8... [...]
--- OUTSIDE RECORDS SUMMARY | 2022-10-27 22:33 | XMS_ITS | Continuity of Care Document ---
:1965 Author Organization [facility] Address [address] [place] [address]- Care Team Providers Name Role Phone Evan PEREZ, Richar Weldon Primary Care Physician [place] [facility] [place] 09/09/20 - 09/10/[address] [address]- [facility] Encounter Diagnosis Chest pain (Final) - 09/09/20 Shortness of breath (Final) - 09/09/20 Diaphoresis (Final) - 09/09/20 Discharge Disposition: A-D/C AMA Attending Physician: Dyan Anderson MD Admitting Physician: Lis Concepcion MD Referring Physician: Not on Staff, Referring [...] 5 Refills, Maintenance, 06/07/20 16:02:00 EDT, [facility]/pharmacy #[id number], DX [id number], 168, cm, 02/08/20 15:35:00 EDT, Height, 86.8, kg, 02/18/19 13:15:00 EDT, Dry Weight Start Date: 06/07/20 Status: OrderedAnoro Ellipta 62.5 mcg-25 mcg/inh inhalation powder 1 puffs, Inhalation, Daily, # 30 each, 5 Refills, Maintenance, 07/08/20 9:57:00 EDT, Powder, [facility]/pharmacy #[id number], 1 puffs Inhalation Daily, 168, cm, 07/08/20 9:19:00 EDT, Height, 86.8, kg, 02/18/19 13:15:00 EDT, Dry Weight Start Date: 07/08/20 Status: OrderedGenvoya oral tablet 1 tablet, By Mouth, Daily, for 30 days, # 30 tablet, 5 Refills, Physician Stop 03/06/21 10:42:00 EDT, 09/07/20 10:42:00 EDT, [id number], 1 tablet By Mouth Daily,x30 days, 169, [...] 10:28:00 EST, Route to Pharmacy Electronically, [facility]/pharmacy #[id number], 168, cm, 01/07/20 10:04:00 EST, Height, [...] Maintenance, 07/11/20 11:31:00 EDT, EC Capsule, [facility]/pharmacy #[id number], 168, cm, 07/08/20 9:19:00 EDT, Height, 86.8, kg, 02/18/19 13:15:00 EDT, Dry Weight Start Date: 07/11/20 Status: OrderedProAir HFA 90 mcg/inh inhalation aerosol with adapter 2, puffs, Inhalation, Every 6 hours, PRN, # 8.5 Gm, Refills 5, Tot. Refills 5, Maintenance, 06/07/2016:02:00 EDT, Aerosol, Route to Pharmacy Electronically, [id number], [facility]/pharmacy #[id number], 168, cm, 02/08/20 15:35:00 EDT, Hei... Start Date: 06/07/20 Status: OrderedtraMADol 50 mg oral tablet 1 tablet, By Mouth, Every 6 hours, PRN NEEDED FOR PAIN, # 112 tablet, 0 Refills, Acute 09/29/20 14:15:00 EDT, 08/30/20 14:05:00 EDT, [facility]/pharmacy #[id number], 169, cm, 08/16/20 8:41:00 EDT, Height, [...] Exam Date Time Procedure Performing Provider Status 09/09/20 5:12 PM Chest Portable Vic Crowell (Verified ) Notes:(Chest Portable) Reason For Exam: Chest Pain;Other:RESULT: Chest Portable Examination: Portable chest performed on 09/09/2020. History: Chest pain. Findings: A frontal view of the chest is compared to a prior study dated 08/09/2020. The cardiac and mediastinal silhouettes are within normal limits. The lungs are clear. The osseous and soft tissue structures are unremarkable. IMPRESSION: There is no acute cardiopulmonary disease. WSN: [id number] Ordering Physician: Charu Griffin Dictated By: Halie Toure MD Dictated Date/Time: 09/09/20 5:24 pm Reviewed By: Halie Toure MD Signed By: Halie Toure MD Signed Date/Time: 09/09/20 5:24 pm Transcribed By: DENISE Transcribed Date/Time: 09/09/20 5:23 pm Vital Signs Most recent to oldest 1 2 3 [Reference Range]: Height 169 cm 169 cm 169 cm (09/10/20 9:49 AM) (09/10/20 4:33 AM) (09/09/20 9 :48 PM) Weight 90.2 kg (09/09/20 9:48 PM) Oxygen Saturation [94-100 100 % 98 % 100 % %] (09/10/20 9:49 AM) (09/10/20 4:33 AM) (09/09/20 9 :50 PM) Pulse Rate [55-90 bpm] 54 bpm 51 bpm 60 bpm *L* *L* (09/09/20 10:29 P M) (09/10/20 9:49 AM) (09/10/20 4:33 AM) Body Mass Index 31.58 [18.5-24.99] *>HHI* (09/09/20 9:48 PM) Blood Pressure 124/90 mm Hg 126/70 mm Hg 125/75 mm Hg [90-138/55-84 mm Hg] (09/10/20 9:49 AM) (09/10/20 8:52 AM) (09/01 4:33 AM) Respiratory Rate [16-30 18 br/min 18 br/min 18 br/mi n br/min] (09/10/20 9:49 AM) (09/10/20 8:58 AM) (09/10/20 8:55 AM) Temperature [96.8-100.4 97.6 DegF 97.8 DegF 98.6 Deg F DegF] (09/10/20 9:49 AM) (09/10/20 4:33 AM) (09/09/20 9 :50 PM) Liters per Minute 2 L/min (09/09/20 9:50 PM) Mode of Delivery (Oxygen) Room air Room air Nasal cannula (09/10/20 9:49 AM) (09/10/20 4:33 AM) (09/09/20 9 :50 PM) Blood pressure sites Arm, right Arm, left Arm, left (09/10/20 9:49 AM) (09/10/20 4:33 AM) (09/09/20 9 :50 PM) Temperature Route Oral Oral Oral (09/10/20 9:49 AM) (09/10/20 4:33 AM) (09/09/20 9 :50 PM) Dry Weight 90.2 kg 90 kg 90 kg (09/09/20 9:48 PM) (09/09/20 7:33 PM) (09/09/20 6:3 7 PM) Dry Weight Obtained Via Patient/family stated (09/09/20 4:22 PM) Social History Social History Type Response Smoking Status Former smoker, quit more hernan n 30 days ago entered on: 05/11/19 Sex
--- OUTSIDE RECORDS SUMMARY | 2022-10-27 22:33 | XMS_ITS | Continuity of Care Document ---
:1965 Author Organization [facility] Address [address] [place] [id number]- Care Team Providers Name Role Phone Evan PEREZ, Richar Weldon Primary Care Physician Encounter [facility] Date(s): 05/22/21 - 09/15/21 [facility] [address] [place] [address]- Attending Physician: Sheyla Sue NP Referring Physician: Richar Gordon MD Allergies, Adverse [...] 5Refills, Maintenance, 09/11/21 14:21:00 EDT, Solution, [facility]/pharmacy #[id number], Partial fill upon patientrequest if the prescription is for a schedule II... Start Date: 09/11/21 Status: OrderedamLODIPine 2.5 mg oral tablet 2.5 mg, 1, tablet, By Mouth, Daily, # 30 tablet, Refills 5, Tot. Refills 5, Maintenance, 05/22/21 13:11:00 EDT, Route to Pharmacy Electronically, [facility]/pharmacy #[id number], 168, cm, 05/02/21 8:45:00 EDT, Height, 92, kg, 03/03/21 15:27:00 EDT, Dry Weight Start Date: 05/22/21 Status: Orderedaspirin 81 mg oral tablet, chewable 81 mg, 1, tablet, By Mouth, Daily, # 30 tablet, Refills 5, Tot. Refills 5, Maintenance, 01/18/21 11:29:00 EST, Route to Pharmacy Electronically, [facility]/pharmacy #[id number], Partial fill upon patient request [...] Gm, 2 Refills, Maintenance, 09/04/21 19:43:00 EDT, [place],[facility]/pharmacy #[id number], Partial fill upon patient request if the prescription is for a schedule II opioid drug., 1 sprays Nares, Both 2 times a day, 168,... Start Date: 09/04/21 Status: OrderedGenvoya oral tablet 1 tablet, By Mouth, Daily, for 30 days, # 30 tablet, 5 Refills, Physician Stop 11/25/21 11:25:00 EST, 05/29/21 11:25:00 EDT, [facility] #[id number], 1 tablet By Mouth Daily,x30 days, 168, [...] 11:13:00 EST, Route to Pharmacy Electronically, [facility]/pharmacy #[id number], 167, cm, 12/14/20 8:40:00 EST, [...] 1 Refills, Maintenance, 05/12/21 13:24:00 EDT, [facility] STORE [id number], 168, cm, 05/02/21 8:45:00 EDT, Height, 92, kg, 03/03/21 15:27:00 EDT, Dry Weight Start Date: 05/12/21 Status: Orderedmontelukast 10 mg oral tablet 10 mg, 1, tablet, By Mouth, Daily, # 90 tablet, Refills 3, Tot. Refills 3, Maintenance, 03/22/21 8:48:00 EDT, Route to Pharmacy Electronically, [facility]/pharmacy #[id number], 168, cm, 03/06/21 11:08:00 EDT, Height, 92, kg, 03/03/21 15:27:00 EDT, Dry Weight Start Date: 03/22/21 Status: Orderedomeprazole 20 mg oral enteric coated capsule 1 capsule = 20 mg, By Mouth, 2 times a day, # 180 capsule, 3 Refills, Maintenance, 09/04/21 19:37:00EDT, EC Capsule, [facility]/pharmacy #[id number], 168, cm, 09/04/21 9:46:00 EDT, Height, 92, kg, 03/03/21 15:27:00 EDT, Dry Weight Start Date: 09/04/21 Status: OrderedProAir HFA 90 mcg/inh inhalation aerosol with adapter 2, puffs, Inhalation, Every 6 hours, PRN, # 8.5 Gm, Refills 8, Tot. Refills 8, Maintenance, 03/07/2115:41:00 EDT, Aerosol, Route to Pharmacy Electronically, [id number], [facility]/pharmacy #[id number], 168, cm, 03/06/21 11:08:00 EDT, Hei... Start Date: 03/07/21 Status: OrderedProAir HFA 90 mcg/inh inhalation aerosol with adapter 2, puffs, Inhalation, Every 6 hours, PRN, Requests ProAir, # 8.5 Gm, Refills 5, Tot. Refills 5, Maintenance, 03/22/21 8:49:00 EDT, Aerosol, Route to Pharmacy Electronically, [id number], [facility]/pharmacy #[id number], 168, cm, 03/06/21 1... Start Date: 03/22/21 Status: Orderedrosuvastatin 10 mg oral tablet 1 tablet, By Mouth, Daily, # 90 tablet, 3 Refills, Maintenance, 08/18/21 9:20:00 EDT, [facility]/pharmacy #[id number], 168, cm, 08/15/21 9:17:00 EDT, Height, 92, kg, 03/03/21 15:27:00 EDT, Dry Weight Start Date: 08/18/21 Status: OrderedtraMADol 50 mg oral tablet 2 tablet = 100 mg, By Mouth, Every 6 hours, PRN NEEDED FOR PAIN, # 224 tablet, 2 Refills, Acute 05/25/22 5:10:00 EDT, 03/09/22 8:16:00 EDT, [facility]/pharmacy #[id number], 168, cm, 05/02/21 8:45:00 EDT, Height,92, kg, 03/03/21 15:27:00 EDT, Dry Weight Start Date: 03/09/22 Stop Date: 05/25/22 Status: OrderedtraMADol 50 mg oral tablet See Instructions, TAKE 2 TABLETS BY MOUTH EVERY 6 HOURS NEEDED FOR PAIN, # 224 tablet, 2 Refills,Acute 11/29/21 7:02:00 EST, 08/30/21 7:01:00 EDT, [facility]/pharmacy #[id number], 168, cm, 08/15/21 9:17:00 EDT,Height, [...]
--- OUTSIDE RECORDS SUMMARY | 2022-10-27 22:33 | XMS_ITS | Continuity of Care Document ---
:1965 Author Organization [facility] Address [address] [place] [address]- Care Team Providers Name Role Phone Richar Gordon MD Primary Care Physician Encounter [facility] Date(s): 12/22/20 - 12/29/20 [facility] [address] [place] [address]- Attending Physician: Richar Gordon MD Allergies, Adverse [...] 11/21/20 15:14:00 EST, Route to Pharmacy Electronically, [facility]/pharmacy #[id number], Partial fill upon patient request if the [...] Stop 03/06/21 10:42:00 EDT, 09/07/20 10:42:00 EDT, [facility] #[id number], 1 tablet By Mouth Daily,x30 days, 169, cm, 08/16/20 8:41:00 EDT, Height, 91, kg, 08/10/20 1:22:00... Start Date: 09/07/20 Stop Date: 03/06/21 Status: Orderedlisinopril 20 mg oral tablet 20 mg, 1, tablet, By Mouth, Daily, # 90 tablet, Refills 3, Tot. Refills 3, Maintenance, 12/14/20 11:13:00 EST, Route to Pharmacy Electronically, [facility]/pharmacy #[id number], 167, cm, 12/14/20 8:40:00 EST, Height, [...] 9:23:00 EDT, Route to Pharmacy Electronically, [facility]/pharmacy #[id number], 168, cm, 02/08/20 15:35:00 EDT, Height, 86.8, kg, 02/18/19 13:15:00 EDT, Dry Weight Start Date: 04/07/20 Status: Orderedomeprazole 20 mg oral enteric coated capsule 1 capsule = 20 mg, By Mouth, 2 times a day, # 180 capsule, 0 Refills, Maintenance, 11/20/20 11:33:00EST, EC Capsule, [facility]/pharmacy #[id number], 167, cm, 10/12/20 10:08:00 EST, Height, 90.2, kg, 09/09/20 21:48:00 EDT, Dry Weight Start Date: 11/20/20 Status: OrderedProAir HFA 90 mcg/inh inhalation aerosol with adapter 2, puffs, Inhalation, Every 6 hours, PRN, # 8.5 Gm, Refills 5, Tot. Refills 5, Maintenance, 10/11/2010:14:00 EST, Aerosol, Route to Pharmacy Electronically, [id number], [facility]/pharmacy #[id number], 169, cm, 10/11/20 9:44:00 EST, Heig... Start Date: 10/11/20 Status: OrderedtraMADol 50 mg oral tablet 2 tablet = 100 mg, By Mouth, Every 6 hours, Increased dose; may fill for less than full amount, # 224 tablet, 2 Refills, Acute 01/14/21 11:09:00 EST, 12/18/20 15:37:00 EST, [facility]/pharmacy #[id number], 167, cm,12/14/20 8:40:00 EST, Height, 91.3, [...]
--- OUTSIDE RECORDS SUMMARY | 2022-10-27 22:33 | XMS_ITS | Continuity of Care Document ---
:1965 Author Organization [facility] Address [address] [place] [address]- Care Team Providers Name Role Phone Richar Gordon MD Primary Care Physician Encounter [facility] [id number] Date(s): 07/21/21 - 07/21/[address] [address]- Discharge Disposition: A-D/C Walkout Attending Physician: Not [...] 05/22/21 13:11:00 EDT, Route to Pharmacy Electronically, [facility]/pharmacy #[id number], 168, cm, 05/02/21 8:45:00 [...] Stop 11/25/21 11:25:00 EST, 05/29/21 11:25:00 EDT, [id number], 1 tablet By Mouth Daily,x30 days, 168, cm, 05/02/21 8:45:00 EDT, Height, 92, kg, 03/03/21 15:27:0... Start Date: 05/29/21 Stop Date: 11/25/21 Status: OrderedGenvoya oral tablet 1 tablet, By Mouth, Daily, for 30 days, # 30 tablet, 5 Refills, Physician Stop 07/31/21 14:13:00 EDT, 02/01/21 14:13:00 EST, [facility] #[id number], 1 tablet By Mouth Daily,x30 days, 167, cm, 12/14/20 8:40:00 EST, Height, 91.3, kg, 11/30/20 17:07... Start Date: 02/01/21 Stop Date: 07/31/21 Status: [facility] Blood [facility] Monitor See Instructions, # [...] tablet, 1 Refills, Maintenance, 05/12/21 13:24:00 EDT, [facility] STORE [id number], 168, cm, 05/02/21 8:45:00 EDT, Height, 92, kg, 03/03/21 15:27:00 EDT, Dry Weight Start Date: 05/12/21 Status: Orderedmontelukast 10 mg oral tablet 10 mg, 1, tablet, By Mouth, Daily, # 90 tablet, Refills 3, Tot. Refills 3, Maintenance, 03/22/21 8:48:00 EDT, Route to Pharmacy Electronically, [facility]/pharmacy #[id number], 168, cm, 03/06/21 11:08:00 EDT, Height, 92, kg, 03/03/21 15:27:00 EDT, Dry Weight Start Date: 03/22/21 Status: Orderedomeprazole 20 mg oral enteric coated capsule 1 capsule = 20 mg, By Mouth, 2 times a day, # 180 capsule, 0 Refills, Maintenance, 02/16/21 10:57:00EDT, EC Capsule, [facility]/pharmacy #[id number], 167, cm, 12/14/20 8:40:00 EST, Height, 91.3, kg, 11/30/20 17:07:00 EST, Dry Weight Start Date: 02/16/21 Status: OrderedProAir HFA 90 mcg/inh inhalation aerosol with adapter 2, puffs, Inhalation, Every 6 hours, PRN, # 8.5 Gm, Refills 8, Tot. Refills 8, Maintenance, 03/07/2115:41:00 EDT, Aerosol, Route to Pharmacy Electronically, [id number], [facility]/pharmacy #[id number], 168, cm, 03/06/21 11:08:00 EDT, Hei... Start Date: 03/07/21 Status: OrderedProAir HFA 90 mcg/inh inhalation aerosol with adapter 2, puffs, Inhalation, Every 6 hours, PRN, Requests ProAir, # 8.5 Gm, Refills 5, Tot. Refills 5, Maintenance, 03/22/21 8:49:00 EDT, Aerosol, Route to Pharmacy Electronically, [id number], [facility]/pharmacy #[id number], 168, cm, 03/06/21 1... Start Date: 03/22/21 Status: Orderedrosuvastatin 10 mg oral tablet 1 tablet, By Mouth, Daily, # 90 tablet, 1 Refills, Maintenance, 05/04/21 7:31:00 EDT, [id number], 168, cm, 05/02/21 8:45:00 EDT, Height, 92, [...] Most recent to oldest [Reference Range]: 1 Oxygen Saturation [94-100 %] 100 % (07/21/21 3:55 PM) Pulse Rate [55-90 bpm] 51 bpm *L* (07/21/21 3:55 PM) Mode of Delivery (Oxygen) Room air (07/21/21 3:55 PM) Social History Social History Type Response Smoking Status Former smoker, quit more hernan n 30 days ago entered on: 05/11/19 Sex
[2022-10-27 23:00] LABS: Influenza A PCR NEGATIVE (Negative); Influenza B PCR NEGATIVE (Negative); Resp Syncy Virus RNA Qual PCR NEGATIVE (Negative); SARS COV2 PCR INHOUSE NEGATIVE (Negative)
== END 2022-10-27 23:56 | disposition home or self-care (01) ==
PROVIDERS: Emergency Provider Emergency Medicine Emergency Medical Services
DX: B37.0 Candidal stomatitis (principal); Z20.822 Contact with and (suspected) exposure to COVID-19
CPT/HCPCS: 0241U; 36415; 87651; 99282; 99283

== ENCOUNTER 2023-04-25 15:48 | Emergency (ER) | payer MEDICARE, MEDICAID, SELFPAY ==
--- NOTE | ~2023-04-25 | XR_ITS ---
EXAMINATION: XR CHEST CLINICAL INFORMATION: Chest pain. COMPARISON: Chest radiograph 11/15/2021. TECHNIQUE: 2 views of the chest were obtained. FINDINGS: Normal appearance of the cardiomediastinal silhouette. No focal airspace opacity, pleural effusion or pneumothorax. No acute osseous findings. Right upper quadrant surgical clips. XR/XR chest 2V IMPRESSION: No acute cardiopulmonary findings.
[2023-04-25 15:51] VITALS: BP 139/70; PULSE 57; RESP 18; TEMP 36.8; O2SAT 99; BMI 34.0
--- NOTE | 2023-04-25 15:51 | ED.CHESTPAIN ---
HPI - Chest Pain General Chief Complaint: Chest Pain Stated Complaint: chest pain Related Data Previous Rx's Medication Instructions Recorded gentamicin 0.3 % eye drops 1 drp ophthalmic-Left Q4H #5 mL 04/16/21 albuterol sulfate 90 mcg/actuation 2 puff inhalation Q4-6H PRN 11/15/21 aerosol inhaler shortness of breath or wheezing #8.5 grams prednisone 20 mg tablet 60 mg PO DAILY #12 tabs 11/15/21 naproxen 500 mg tablet 500 mg PO BID PRN pain #14 tabs 03/09/22 oxycodone 5 mg tablet 5 mg PO Q6H PRN pain #14 tabs 03/09/22 prednisone 20 mg tablet 40 mg PO DAILY rash 5 days #10 tabs 03/09/22 clotrimazole 10 mg yi 10 mg mucous membrane 5XD 7 days 10/27/22 #35 tabs Allergies Allergy/AdvReac Type Severity Reaction Status Date / Time Sulfa (Sulfonamide Allergy Unknown Unknown Verified 04/16/21 11:49 Antibiotics) No Known Allergies Allergy Unverified 08/18/20 15:21 Benadryl Allergy Unknown Irritable Uncoded 04/16/21 11:49 PMFSH Past Medical History Medical History High blood pressure HIV (human immunodeficiency virus infection) Social History Social History Advance Directives: No Advance Directives Information Provided: No Physical Exam Vital Signs: Vital Signs: Last Vital Signs Temp 98.3 F 04/25/23 15:51 Pulse 57 04/25/23 15:51 Resp 18 04/25/23 15:51 BP 139/70 04/25/23 15:51 Pulse Ox 99 04/25/23 15:51 O2 Del Method Room Air 04/25/23 15:51 BMI result Body Mass Index 34.0 Course Course Course Narrative: This is a rapid medical exam. Deferred additional HPI, ROS, PE to primary provider. 57 yo with history of HIV, HTN, depression, HLD here with complaints of constant chest pain described as pressure since yesterday. Will obtain labs, EKG, CXR VSS Medical Decision Making Lab Data 04/25/23 16:06 04/25/23 12:20 Labs: Lab Results 04/25/23 04/25/23 04/25/23 Range/Units 12:20 12:20 16:06 WBC 5.3 (4.8-10.8) X10*3/uL RBC 4.31 L (4.60-5.80) X10*6/uL Hgb 14.4 (14.0-18.0) g/dl Hct 40.6 L (42.0-52.0) % MCV 94.2 (80.0-98.0) fL MCH 33.4 H (27.0-33.0) pg MCHC 35.5 (31.0-36.0) g/dl RDW 13.2 (11.0-16.0) % Plt Count 64 L (160-400) X10*3/uL MPV 12.0 (9.4-12.4) fL Immature Gran % (Auto) 0.8 H (0.0-0.4) % Neut % (Auto) 66.0 (45-73) % Lymph % (Auto) 22.6 (20-40) % Gregory % (Auto) 9.2 (2-11) % Eos % (Auto) 0.6 (0-4) % Baso % (Auto) 0.8 (0-2) % Lymph # (Auto) 1.2 (1.2-4.9) X10*3/uL Gregory # (Auto) 0.5 (0.1-1.2) X10*3/uL Eos # (Auto) 0.0 (0.0-0.4) X10*3/uL Baso # (Auto) 0.0 (0.0-0.2) X10*3/uL Abs Immat Gran (auto) 0.04 H (0.00-0.03) X10*3/uL Absolute Neuts (auto) 3.5 (2.0-8.3) x10*3/uL Absolute Nucleated RBC 0.000 (0.0-0.012) X10*3/uL Nucleated RBC % (auto) 0.0 (0.0-0.2) /100WBC PT 12.7 (10.0-13.1) SEC INR 1.1 (0.9-1.1) Sodium 143 (135-145) mmol/L Potassium 4.1 (3.3-5.1) mmol/L Chloride 108 (96-108) mmol/L Carbon Dioxide 30 H (22-29) mmol/L Anion Gap 9 L (12-20) BUN 7 L (9-16) mg/dL Creatinine 0.74 (0.5-1.4) mg/dL Estim Creat Clear Calc 111.2 Estimated GFR > 60 Random Glucose 119 H (60-115) mg/dL Calcium 9.6 (8.4-10.2) mg/dL Total Bilirubin 1.0 (0.0-1.0) mg/dL Direct Bilirubin 0.3 (0.0-0.5) mg/dL AST 27 (5-37) U/L ALT 22 (0-40) U/L Alkaline Phosphatase 74 (39-117) U/L Troponin I High Sens (<3.5-35.0) ng/L Total Protein 6.4 L (6.5-8.0) g/dL Albumin 3.7 (3.5-5.0) g/dL // Range/Units 16:06 WBC (4.8-10.8) X10*3/uL RBC (4.60-5.80) X10*6/uL Hgb (14.0-18.0) g/dl Hct (42.0-52.0) % MCV (80.0-98.0) fL MCH (27.0-33.0) pg MCHC (31.0-36.0) g/dl RDW (11.0-16.0) % Plt Count (160-400) X10*3/uL MPV (9.4-12.4) fL Immature Gran % (Auto) (0.0-0.4) % Neut % (Auto) (45-73) % Lymph % (Auto) (20-40) % Gregory % (Auto) (2-11) % Eos % (Auto) (0-4) % Baso % (Auto) (0-2) % Lymph # (Auto) (1.2-4.9) X10*3/uL Gregory # (Auto) (0.1-1.2) X10*3/uL Eos # (Auto) (0.0-0.4) X10*3/uL Baso # (Auto) (0.0-0.2) X10*3/uL Abs Immat Gran (auto) (0.00-0.03) X10*3/uL Absolute Neuts (auto) (2.0-8.3) x10*3/uL Absolute Nucleated RBC (0.0-0.012) X10*3/uL Nucleated RBC % (auto) (0.0-0.2) /100WBC PT (10.0-13.1) SEC INR (0.9-1.1) Sodium (135-145) mmol/L Potassium (3.3-5.1) mmol/L Chloride (96-108) mmol/L Carbon Dioxide (22-29) mmol/L Anion Gap (12-20) BUN (9-16) mg/dL Creatinine (0.5-1.4) mg/dL Estim Creat Clear Calc Estimated GFR Random Glucose (60-115) mg/dL Calcium (8.4-10.2) mg/dL Total Bilirubin (0.0-1.0) mg/dL Direct Bilirubin (0.0-0.5) mg/dL AST (5-37) U/L ALT (0-40) U/L Alkaline Phosphatase (39-117) U/L Troponin I High Sens < 2.7 (<3.5-35.0) ng/L Total Protein (6.5-8.0) g/dL Albumin (3.5-5.0) g/dL Discharge Plan Discharge Clinical Impression: Chest pain Patient Disposition: Elopement Prescriptions: No Action gentamicin 0.3 % drops 1 drp ophthalmic-Left Q4H Qty: 5 0RF oxycodone 5 mg tablet 5 mg PO Q6H PRN (Reason: pain) Qty: 14 0RF prednisone 20 mg tablet 40 mg PO DAILY 5 Days Qty: 10 0RF naproxen 500 mg tablet 500 mg PO BID PRN (Reason: pain) Qty: 14 0RF prednisone 20 mg tablet 60 mg PO DAILY Qty: 12 0RF albuterol sulfate 90 mcg/actuation HFA aerosol inhaler 2 puff inhalation Q4-6H PRN (Reason: shortness of breath or wheezing) Qty: 8.5 0RF clotrimazole 10 mg yi 10 mg mucous membrane 5XD 7 Days Qty: 35 0RF Interventions: ED Discharge Assessment Last Done: 04/25/23 22:25 Discharge Date/Time: 04/25/23 22:50
--- NOTE | 2023-04-25 15:54 | ECG_ITS ---
Test Reason : chest pain Blood Pressure : / mmHG Vent. Rate : 053 BPM Atrial Rate : 053 BPM P-R Int : 174 ms QRS Dur : 086 ms QT Int : 440 ms P-R-T Axes : 020 034 087 degrees QTc Int : 412 ms Sinus bradycardia Nonspecific T wave abnormality Abnormal ECG When compared with ECG of 15-NOV-2021 21:51, No significant change was found Referred By: Lorrie White Electronically Signed By:CLAY LUND
[2023-04-25 16:14] LABS: MANUAL DIFF FLAG NO
[2023-04-25 16:24] LABS: INTERNATIONAL NORM RATIO 1.1 (0.9-1.1); Prothrombin Time 12.7 SEC (10.0-13.1)
[2023-04-25 16:30] LABS: Alanine Aminotransferase 22 U/L (0-40); Albumin Level 3.7 g/dL (3.5-5.0); Alkaline Phosphatase 74 U/L (39-117); Anion Gap 9 (12-20); Aspartate Amino Transferase 27 U/L (5-37); Bilirubin Direct 0.3 mg/dL (0.0-0.5); Blood Urea Nitrogen 7 mg/dL (9-16); Calcium 9.6 mg/dL (8.4-10.2); Carbon Dioxide 30 mmol/L (22-29); Chloride 108 mmol/L (96-108); Creatinine Clr Calc Pharmacy 111.2; Estimated Glomerular Filt Rate > 60; Glucose Random 119 mg/dL (60-115); Potassium 4.1 mmol/L (3.3-5.1); Sodium 143 mmol/L (135-145); Total Protein 6.4 g/dL (6.5-8.0)
[2023-04-25 16:32] LABS: Basophils Percent Auto 0.8 % (0-2); Eosinophils Percent Auto 0.6 % (0-4); Hematocrit 40.6 % (42.0-52.0); Hemoglobin 14.4 g/dl (14.0-18.0); Imm Gran Abs Auto 0.04 X10*3/uL (0.00-0.03); Imm Gran Pct Auto 0.8 % (0.0-0.4); Lymphocytes Absolute Auto 1.2 X10*3/uL (1.2-4.9); Lymphocytes Percent Auto 22.6 % (20-40); Mean Corpuscular HGB Conc 35.5 g/dl (31.0-36.0); Mean Corpuscular Hemoglobin 33.4 pg (27.0-33.0); Mean Corpuscular Volume 94.2 fL (80.0-98.0); Monocytes Absolute Auto 0.5 X10*3/uL (0.1-1.2); Monocytes Percent Auto 9.2 % (2-11); Neutrophils Absolute Auto 3.5 x10*3/uL (2.0-8.3); Red Blood Count 4.31 X10*6/uL (4.60-5.80); Red Cell Distribution Width 13.2 % (11.0-16.0); White Blood Count 5.3 X10*3/uL (4.8-10.8)
[2023-04-25 16:34] LABS: Platelet Count 64 X10*3/uL (160-400)
[2023-04-25 16:40] LABS: Troponin-I High Sensitivity < 2.7 ng/L (<3.5-35.0)
--- OUTSIDE RECORDS SUMMARY | 2023-04-25 22:48 | XMS_ITS | Continuity of Care Document ---
Author Name Unknown Organization [facility] Address [address] [place] [id number]- Care Team Providers Care Cadmium Burner Name Role Phone Richar Gordon MD Primary Care Physician [phone] [id number]): [facility] - [facility]02/23 [facility] [address] [place] [phone]- Attending Physician: Ari Chu MD Admitting Physician: Ari Chu MD Referring Physician: Richar Gordon MD Allergies, Adverse Reactions, Alerts Substance Reaction Severity Status amoxicillin nausea and vomiting Active gabapentin anxiety Active atorvastatin Dyspnea Active Cipro HC rash Active Augmentin nausea and vomiting Active Bactrim swelling Active Benadryl Swelling/Edema Rash/Dermatitis Anxiety state Active Pulmicort Flexhaler Active Anoro Ellipta Active Immunizations Given and Recorded Vaccine Date Status Refusal Reason influenza virus vaccine, inactivated 1 09/19/22 Gi nic influenza virus vaccine, inactivated 09/05/21 Milad rded influenza virus vaccine, inactivated 09/01/20 Milad rded influenza virus vaccine, inactivated 08/14/20 Milad rded influenza virus vaccine, inactivated 10/05/19 Milad rded SARS-CoV-2 mRNA (bvrdlzy-pfgf-jvzme) vax 2 08/09/22 Given SARS-CoV-2 (COVID-19) mRNA BNT-162b2 vac 09/05/21 Recorded SARS-CoV-2 (COVID-19) mRNA BNT-162b2 vac 02/18/21 Recorded SARS-CoV-2 (COVID-19) mRNA BNT-162b2 vac 01/28/21 Recorded Influenza Virus Vaccine (oldterm) 09/20/19 Recorde d Influenza Virus Vaccine (oldterm) 08/27/18 Recorde d tetanus/diphtheria/pertussis, acel(Tdap) 01/21/19 Recorded Botulinum Toxin Type A Vacc (oldterm) 08/27/18 Rec orded Botulinum Toxin Type A Vacc (oldterm) 10/02/17 Rec orded Botulinum Toxin Type A Vacc (oldterm) 08/07/17 Rec orded pneumococcal 23-valent vaccine 08/27/18 Recorded Hepatitis A-Hepatitis B Vaccine 08/27/18 Recorded Hepatitis A-Hepatitis B Vaccine 10/02/17 Recorded Hepatitis A-Hepatitis B Vaccine 08/07/17 Recorded pneumococcal 13-valent vaccine 08/07/17 Recorded 1Result Comment: [id number] 2Result Comment: [id number] Medications albuterol 0.083% inhalation solution 3 mL = 2.5 mg, Inhalation, Every 6 hours, PRN Wheezing/Shortness of Breath, DX:J45.909, # 100 each,3 Refills, Maintenance, 01/11/23 10:58:00 EST, Solution, [facility]/pharmacy #[id number], Partial fill upon patient request if the prescription is for a schedule II... Start Date: 01/11/23 Status: Ordered albuterol 0.083% inhalation solution See Instructions, INHALE CONTENTS OF 1 VIAL VIA NEBULIZER EVERY 6 HORUS NEEDED FOR WHEEZING/SHORTNESS OF BREATH, # 75 mL, 3 Refills, Maintenance, 09/18/22 10:48:00 EDT, [id number], 166, cm, 08/09/22 11:33:00 EDT, Height, 92, kg, 03/03/21 15:27... Start Date: 09/18/22 Status: Ordered amLODIPine 2.5 mg oral tablet 1 tablet, By Mouth, Daily, # 90 tablet, 3 Refills, 01/11/23 11:04:00 EST, [id number], 166, cm, 01/11/23 10:34:00 EST, Height, 92, kg, 03/03/21 15:27:00 EDT, Dry Weight Start Date: 01/11/23 Status: Ordered aspirin 81 mg oral tablet, chewable 81 mg, 1, tablet, By Mouth, Daily, # 30 tablet, Refills 5, Tot. Refills 5, Maintenance, 01/18/21 11:29:00 EST, Route to Pharmacy Electronically, [facility]/pharmacy #[id number], Partial fill upon patient request if the prescription is for a schedule II opioid drug... Start Date: 01/18/21 Stop Date: 07/17/21 Status: Ordered BuPROPion (Eqv-Wellbutrin SR) 150 mg/12 hours oral tablet, extended release TAKE 1 TABLET BY MOUTH TWICE DAILY Start Date: 11/30/20 Status: Ordered Flovent HFA 44 mcg/inh inhalation aerosol 2 puffs, Inhalation, 2 times a day, Use with spacer. Rinse and spit after use, # 12 Gm, 5 Refills, Maintenance, 10/17/22 13:41:00 EST, Aerosol, [facility]/pharmacy #[id number], Partial fill upon patient request if the prescription is for a schedule II opioid drug.... Start Date: 10/17/22 Status: Ordered fluticasone 50 mcg/inh nasal spray See Instructions, USE 1 SPRAY IN EACH NOSTRIL TWICE A DAY, # 16 mL, 2 Refills, 08/10/22 6:59:00 EDT, [facility]/pharmacy #[id number], 90, USE 1 SPRAY IN EACH NOSTRIL TWICE A DAY, 166, cm, 08/09/22 11:33:00 EDT, Height, 92, kg, 03/03/21 15:27:00 EDT, Dry Weight Start Date: 08/10/22 Status: Ordered Genvoya oral tablet 1 tablet, By Mouth, Daily, with food, # 30 tablet, 5 Refills, Maintenance, 12/28/22 13:14:00 EST, [id number] Partial fill upon patient request if the prescription is for a schedule II opioid drug., 1 tablet By Mouth Daily,x30... Start Date: 12/28/22 Stop Date: 06/26/23 Status: Ordered Home Blood Pressure Monitor See Instructions, # 1 kit, Maintenance, monitor BP 2-3 times a week after medications DX HTN, 01/19/21 10:45:00 EST, Supply, 167, cm, 12/14/20 8:40:00 EST, Height, 91.3, kg, 11/30/20 17:07:00 EST, Dry Weight Start Date: 01/19/21 Status: Ordered lisinopril 20 mg oral tablet 1, tablet, By Mouth, Daily, # 90 tablet, Refills 1, Tot. Refills 1, Maintenance, 01/09/23 11:39:00 EST, Route to Pharmacy Electronically, [facility]/pharmacy #[id number], 166, cm, 11/23/22 13:11:00 EST, Height, 92, kg, 03/03/21 15:27:00 EDT, Dry Weight Start Date: 01/09/23 Status: Ordered LORazepam 1 mg oral tablet 1 tablet = 1 mg, By Mouth, PRN as needed for anxiety, 0 Refills, Maintenance, 06/29/18 13:11:09 EDT Start Date: 06/29/18 Status: Ordered Metoprolol Succinate ER 25 mg oral tablet, extended release 1 tablet, By Mouth, Daily, # 90 tablet, 3 Refills, Maintenance, 12/05/22 12:29:00 EST, [facility] [id number], 166, cm, 11/23/22 13:11:00 EST, Height, 92, kg, 03/03/21 15:27:00 EDT, Dry Weight Start Date: 12/05/22 Status: Ordered montelukast 10 mg oral tablet 10 mg, 1, tablet, By Mouth, Daily, # 90 tablet, Refills 3, Tot. Refills 3, Maintenance, 08/09/22 12:05:00 EDT, Route to Pharmacy Electronically, [facility]/pharmacy #[id number], 166, cm, 08/09/22 11:33:00 EDT, Height, 92, kg, 03/03/21 15:27:00 EDT, Dry Weight Start Date: 08/09/22 Status: Ordered Nebulizer/Compressor See Instructions, # 1 each, Refills 0, Tot. Refills 0, Maintenance, New tubing and mouthpiece for nebulizer J45.0, 05/01/22 11:05:00 EDT, Supply, 166, cm, 05/01/22 8:58:00 EDT, Height, 92, kg, 03/03/21 15:27:00 EDT, Dry Weight Start Date: 05/01/22 Status: Ordered omeprazole 20 mg oral enteric coated capsule 1 capsule, By Mouth, 2 times a day, # 180 capsule, 0 Refills, Maintenance, 01/28/23 22:37:00 EST, [facility]/pharmacy #[id number], 166, cm, 01/11/23 10:34:00 EST, Height, 92, kg, 03/03/21 15:27:00 EDT, Dry Weight Start Date: 01/28/23 Status: Ordered pantoprazole 40 mg oral delayed release tablet 1 tablet = 40 mg, By Mouth, 2 times a day, # 60 tablet, 6 Refills, Maintenance, 01/25/23 11:20:00 EST, CR Tablet, 166, cm, 01/11/23 10:34:00 EST, Height, 92, kg, 03/03/21 15:27:00 EDT, Dry Weight Start Date: 01/25/23 Status: Ordered predniSONE 10 mg oral tablet See Instructions, TAKE 6 TABS BY MOUTH DAILY X 4 DAYS, THEN 5 TABS DAILY X 2 DAYS, THEN 4 TABS DAILY X 2 DAYS, THEN 3 TABS DAILY X 2 DAYS, THEN 2 TABS DAILY X 2 DAYS, THEN 1 TAB DAILY X 2 DAYS, THEN STOP., # 54 tablet, 0 Refills, Maintenance, 01/29/23... Start Date: 01/29/23 Status: Ordered predniSONE 20 mg oral tablet 1 tablet, By Mouth, 2 times a day, # 10 tablet, 0 Refills, Maintenance, 01/29/23 11:33:00 EST, [id number], 166, cm, 01/11/23 10:34:00 EST, Height, 92, kg, 03/03/21 15:27:00 EDT, Dry Weight Start Date: 01/29/23 Stop Date: 02/03/23 Status: Ordered rosuvastatin 10 mg oral tablet 1 tablet, By Mouth, Daily, # 90 tablet, 3 Refills, Maintenance, 10/20/22 6:41:00 EST, [id number], 166, cm, 10/11/22 11:20:00 EST, Height, 92, kg, 03/03/21 15:27:00 EDT, Dry Weight Start Date: 10/20/22 Status: Ordered Shoe inserts Shoe inserts, See Instructions, # 2 each, Refills 0, Tot. Refills 0, Maintenance, Dx: Bilateral foot pain, 02/19/22 16:30:00 EDT, Supply Start Date: 02/19/22 Status: Ordered traMADol 50 mg oral tablet 2 tablet = 100 mg, By Mouth, Every 6 hours, PRN NEEDED FOR PAIN, # 224 tablet, 5 Refills, Acute 02/07/23 6:58:00 EST, 08/29/22 9:26:00 EDT, [id number], 166, cm, 08/09/22 11:33:00 EDT, Height, 92, kg, 03/03/21 15:27:00 EDT, Dry Weight Start Date: 08/29/22 Stop Date: 02/07/23 Status: Ordered traMADol 50 mg oral tablet 2 tablet = 100 mg, By Mouth, Every 6 hours, PRN NEEDED FOR PAIN, # 224 tablet, 5 Refills, Acute 07/11/23 11:02:00 EDT, 02/07/23 6:58:00 EST, [id number], 166, cm, 01/11/23 10:34:00 EST, Height, 92, kg, 03/03/21 15:27:00 EDT, Dry Weight Start Date: 02/07/23 Stop Date: 07/11/23 Status: Ordered Problem List Condition Confirmation Course Effective Dates Status H ealth Status Informant Abdominal bloating Confirmed Active Asthma Confirmed Active Hepatic cirrhosis Confirmed Active Costochondritis Confirmed Active Depression Confirmed Active Dyspnea on exertion Confirmed Active Dysthymia Confirmed Active GERD (gastroesophageal reflux disease) Confirmed Active H/O Hepatitis C Confirmed Active History of substance abuse Confirmed Active HIV (human immunodeficiency virus infection) Confirmed Active Hypertension Confirmed Active 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 Obese class I Confirmed Active Lumbar disc herniation Confirmed Active Right upper quadrant of abdomen Confirmed Active Lumbar stenosis Confirmed Active Social History Social History Type Response Smoking Status Former smoker, quit more than 30 days ago entered on: 05/11/19 Sex Patient Care team information Care Team Personnel Name: Agnieszka Chavez RN Position: [facility] RN Supv Member Role: Primary Care Nurse Name: Cassandra Doan RN Position: [facility] RN Member Role: Primary Care Nurse Name: Richar Gordon MD Position: [facility] Primary Care Physician Member Role: PCP Address: Address: [address] [place] [id number]- Name: Bess Hallman RN Position: [facility] Hospital Cloth Weigher Member Role: Primary Care Nurse Care Team Related Persons Name: TIA SCHROEDER Address: home [address] [place] [address] Name: LORI LOZOYA Address: home [address] [place] [address]
--- OUTSIDE RECORDS SUMMARY | 2023-04-25 22:48 | XMS_ITS | Continuity of Care Document ---
Author Name Unknown Organization [facility] [place] Address [address] [place] [address]- Care Team Providers Care Customs Director Name Role Phone Evan PEREZ, Richar Weldon Primary Care Physician [phone] [place] [facility] [place](s): 11/23/22 - 11/30/22 [facility] Adult [address] [place] [address]- Encounter Diagnosis Oral thrush(Discharge Diagnosis) - 11/23/22 Attending Physician: Not on Staff, Attending MD Allergies, Adverse Reactions, Alerts Substance Reaction Severity Status amoxicillin nausea and vomiting Active Benadryl Swelling/Edema Rash/Dermatitis Anxiety state Active Anoro Ellipta Active gabapentin anxiety Active atorvastatin Dyspnea Active Cipro HC rash Active Augmentin nausea and vomiting Active Bactrim swelling Active Pulmicort Flexhaler Active Immunizations Given and Recorded Vaccine Date Status Refusal Reason influenza virus vaccine, inactivated 1 09/19/22 Gi nic influenza virus vaccine, inactivated 09/05/21 Milad rded influenza virus vaccine, inactivated 09/01/20 Milad rded influenza virus vaccine, inactivated 08/14/20 Milad rded influenza virus vaccine, inactivated 10/05/19 Milad rded SARS-CoV-2 mRNA ([id number]-phduq) vax 2 08/09/22 Given SARS-CoV-2 (COVID-19) mRNA [...] pneumococcal 13-valent vaccine 08/07/17 Recorded 1Result Comment: [id number] 2Result Comment: [id number] Medications albuterol 0.083% inhalation solution See Instructions, INHALE CONTENTS OF 1 VIAL VIA NEBULIZER EVERY 6 HORUS NEEDED FOR WHEEZING/SHORTNESS OF BREATH, # 75 mL, 3 Refills, Maintenance, 09/18/22 10:48:00 EDT, [id number], 166, cm, 08/09/22 11:33:00 EDT, Height, 92, kg, 03/03/21 15:27... Start Date: 09/18/22 Status: Ordered amLODIPine 2.5 mg oral tablet 1 tablet, By Mouth, Daily, # 90 tablet, 3 Refills, 08/09/22 12:05:00 EDT, [facility]/pharmacy #[id number], 166, cm, 08/09/22 11:33:00 EDT, Height, 92, kg, 03/03/21 15:27:00 EDT, Dry Weight Start Date: 08/09/22 Status: Ordered aspirin 81 mg oral tablet, [...] TWICE DAILY Start Date: 11/30/20 Status: Ordered clotrimazole 10 mg oral lozenge 10 mg, 1, lozenge, By Mouth, 5 times a day, for 14 days, # 70 lozenge, Refills 0, Tot. Refills 0, Acute 12/07/22 13:26:00 EST, 11/23/22 13:26:00 EST, Route to Pharmacy Electronically, [facility]/pharmacy #[id number], Partial fill upon patient request if the prescr... Start Date: 11/23/22 Stop Date: 12/07/22 Status: Ordered Flovent HFA 44 mcg/inh inhalation aerosol 2 puffs, Inhalation, 2 times a day, Use with spacer. Rinse and spit after use, # 12 Gm, 5 Refills, Maintenance, 10/17/22 13:41:00 EST, Aerosol, [facility]/pharmacy #[id number], Partial fill upon patient request if the prescription is for a schedule II opioid drug.... Start Date: 10/17/22 Status: Ordered fluticasone 50 mcg/inh nasal spray See Instructions, USE 1 SPRAY IN EACH NOSTRIL TWICE A DAY, # 16 mL, 2 Refills, 08/10/22 6:59:00 EDT, [facility]/pharmacy #[id number], 90, USE 1 SPRAY IN EACH NOSTRIL TWICE A DAY, 166, cm, 08/09/22 11:33:00 EDT, Height, 92, kg, 03/03/21 15:27:00 EDT, Dry Weight Start Date: 08/10/22 Status: Ordered Genvoya oral tablet 1 tablet, By Mouth, Daily, with food, # 30 tablet, 1 Refills, Maintenance, 11/28/22 12:07:00 EST, Tablet, Community, [id number], Partial fill upon patient request if the prescription is for a schedule II opioid drug., 1 tablet By Mouth Annie... Start Date: 11/28/22 Stop Date: 01/27/23 Status: Ordered Genvoya oral tablet 1 tablet, By Mouth, Daily, for 30 days, with food, # 30 tablet, 5 Refills, Hard Stop 01/13/23 11:59:00 EST, 07/17/22 11:59:00 EDT, Tablet, Community, [facility] #[id number], Partial fill upon patient request if the prescription is for a schedule II opi... Start Date: 07/17/22 Stop Date: 01/13/23 Status: Ordered Home Blood Pressure Monitor See [...] 08/01/22 16:29:00 EDT, Route to Pharmacy Electronically, [facility] [id number], 166, cm, 07/19/22 15:37:00 EDT, Height, 92, kg, 03/03/21 15:27:00 EDT, Dry Weight Start Date: 08/01/22 Status: Ordered LORazepam 1 mg oral tablet 1 tablet = 1 mg, By Mouth, PRN as needed for anxiety, 0 Refills, Maintenance, 06/29/18 13:11:09 EDT Start Date: 06/29/18 Status: Ordered Metoprolol Succinate ER 25 mg oral tablet, extended release 1 tablet, By Mouth, Daily, # 90 tablet, 3 Refills, [facility] [id number], 168, cm, 01/09/22 10:35:00 EST,Height, 92, kg, 03/03/21 15:27:00 EDT, Dry Weight Start Date: 01/10/22 Status: Ordered montelukast 10 mg oral tablet 10 mg, 1, tablet, By Mouth, Daily, # 90 tablet, Refills 3, Tot. Refills 3, Maintenance, 08/09/22 12:05:00 EDT, Route to Pharmacy Electronically, [facility]/pharmacy #[id number], 166, cm, 08/09/22 11:33:00 EDT, [...] day, # 180 capsule, 0 Refills, Maintenance, 11/06/22 13:53:00 EST, [facility]/pharmacy #[id number], 166, cm, 10/11/22 11:20:00 EST, Height, 92, kg, 03/03/21 15:27:00 EDT, Dry Weight Start Date: 11/06/22 Status: Ordered predniSONE 10 mg oral tablet See Instructions, 6 tabs daily x 4 days; then 5 tabs daily x 2 days; 4 tabs daily x 2 days; 3 tabs daily x 2 days; 2 tabs daily x 2 days; 1 tab daily x 2 days; then d/c., # 54 tablet, 0 Refills, Maintenance, 10/11/22 17:28:00 EST, [facility]/pharmacy #[id number],... Start Date: 10/11/22 Status: Ordered rosuvastatin 10 mg oral tablet 1 tablet, By Mouth, Daily, # 90 tablet, 3 Refills, Maintenance, 10/20/22 6:41:00 EST, [facility] ST[facility] 59419, 166, cm, 10/11/22 11:20:00 EST, Height, 92, [...] Acute 02/07/23 6:58:00 EST, 08/29/22 9:26:00 EDT, [facility]/pharmacy #[id number], 166, cm, 08/09/22 11:33:00 EDT, [...] abdomen Confirmed Active Lumbar stenosis Confirmed Active Diagnosis Diagnosis Type Effective Dates Health Status Clini torres Service Informant Oral thrush Discharge Diagnosis 11/23/22 Vital Signs Most recent to oldest [Reference Range]: 1 Height 166.0 cm (11/23/22 1:11 PM) Weight 89.9 kg (11/23/22 1:11 PM) Pulse Rate [55-90 bpm] 55 bpm (11/23/22 1:11 PM) Body Mass Index [18.5-24.99 kg/m2] 32.62 kg/m2 *>HHI* (11/23/22 1:11 PM) Blood Pressure [90-138/55-84 mm Hg] 135/ 76mm Hg (11/23/22 1:11 PM) Blood pressure sites Arm, left (11/23/22 1:11 PM) Weight Obtained Via Standing scale (11/23/22 1:11 PM) Social History Social History Type Response Smoking Status Former smoker, quit more than 30 days ago entered on: 05/11/19 Sex Patient Care team information Care Team Personnel Name: Agnieszka Chavez RN Position: [facility] RN Supv Member Role: Primary Care Nurse Name: Cassandra Doan RN Position: [facility] RN Member Role: Primary Care Nurse Name: Richar Gordon MD Position: [facility] Primary Care Physician Member Role: PCP Address: Address: [address] [place] [phone]- [place] Name: Bess Hallman RN Position: [facility] Hospital Manager Voice Member Role: Primary Care Nurse Name: Yisel Miranda RN Position: [facility] RN Member Role: Primary Care Nurse Care Team Related Persons Name: TIA SCHROEDER Address: home [address] [place] [address] Name: LORI LOZOYA Address: home [address] [place] [address]
--- OUTSIDE RECORDS SUMMARY | 2023-04-25 22:48 | XMS_ITS | Continuity of Care Document ---
Author Name Unknown Organization [facility] [place] Address [address] [place] [address]- Care Team Providers Care Chicle Grinder Feeder Name Role Phone Evan PEREZ, Richar Weldon Primary Care Physician [place] [facility] [place]22 [facility] Adult [address] [place] [address]- Allergies, Adverse Reactions, Alerts Substance Reaction Severity Status amoxicillin nausea and vomiting Active Augmentin nausea and vomiting Active Bactrim swelling Active Anoro Ellipta Active gabapentin anxiety Active atorvastatin Dyspnea Active Cipro HC rash Active Benadryl Swelling/Edema Rash/Dermatitis Anxiety state Active Pulmicort Flexhaler Active Immunizations Given and Recorded Vaccine Date Status Refusal Reason influenza virus vaccine, inactivated 1 09/19/22 Gi nic influenza virus vaccine, inactivated 09/05/21 Milad rded influenza virus vaccine, inactivated 09/01/20 Milad rded influenza virus vaccine, inactivated 08/14/20 Milad rded influenza virus vaccine, inactivated 10/05/19 Milad rded SARS-CoV-2 mRNA (mghzcoz-ldoc-wvudr) vax 2 08/09/22 Given SARS-CoV-2 (COVID-19) mRNA [...] pneumococcal 13-valent vaccine 08/07/17 Recorded 1Result Comment: [id number] 2Result Comment: [id number] Medications albuterol 0.083% inhalation solution See Instructions, INHALE CONTENTS OF 1 VIAL VIA NEBULIZER EVERY 6 HORUS NEEDED FOR WHEEZING/SHORTNESS OF BREATH, # 75 mL, 3 Refills, Maintenance, 09/18/22 10:48:00 EDT, [facility], 166, cm, 08/09/22 11:33:00 EDT, Height, 92, kg, 03/03/21 15:27... Start Date: 09/18/22 Status: Ordered amLODIPine 2.5 mg oral tablet 1 tablet, By Mouth, Daily, # 90 tablet, 3 Refills, 08/09/22 12:05:00 EDT, [facility]/pharmacy #[id number], 166, cm, 08/09/22 11:33:00 EDT, Height, 92, kg, 03/03/21 15:27:00 EDT, Dry Weight Start Date: 08/09/22 Status: Ordered aspirin 81 mg oral tablet, chewable 81 mg, 1, tablet, By Mouth, Daily, # 30 tablet, Refills 5, Tot. Refills 5, Maintenance, 01/18/21 11:29:00 EST, Route to Pharmacy Electronically, [facility]/pharmacy #[id number], Partial fill upon patient request if [...] 5 Refills, Maintenance, 10/17/22 13:41:00 EST, [facility], [id number], Partial fill upon patient request if the prescription is for a schedule II opioid drug.... Start Date: 10/17/22 Status: Ordered fluticasone 50 mcg/inh nasal spray See Instructions, USE 1 SPRAY IN EACH NOSTRIL TWICE A DAY, # 16 mL, 2 Refills, 08/10/22 6:59:00 EDT, [facility]/pharmacy #[id number], 90, USE 1 SPRAY IN EACH NOSTRIL TWICE A DAY, 166, cm, 08/09/22 11:33:00 EDT, Height, 92, kg, 03/03/21 15:27:00 EDT, Dry Weight Start Date: 08/10/22 Status: Ordered Genvoya oral tablet 1 tablet, By Mouth, Daily, with food, # 30 tablet, 5 Refills, Maintenance, 07/17/22 11:59:00 EDT, Tablet, [facility] #[id number], Partial fill upon patient request if the [...] 16:29:00 EDT, Route to Pharmacy Electronically, [facility]ORE [id number], 166, cm, 07/19/22 15:37:00 EDT, Height, 92, [...] # 90 tablet, 3 Refills, [facility] ST[facility] [id number], 168, cm, 01/09/22 10:35:00 EST,Height, 92, kg, 03/03/21 15:27:00 EDT, Dry Weight Start Date: 01/10/22 Status: Ordered montelukast 10 mg oral tablet 10 mg, 1, tablet, By Mouth, Daily, # 90 tablet, Refills 3, Tot. Refills 3, Maintenance, 08/09/22 12:05:00 EDT, Route to Pharmacy Electronically, [facility]/pharmacy #[id number], 166, cm, 08/09/22 11:33:00 EDT, Height, [...] capsule, 0 Refills, Maintenance, 11/06/22 13:53:00 EST, [facility]/pharmacy #[id number], 166, cm, 10/11/22 11:20:00 EST, Height, [...] tablet, 0 Refills, Maintenance, 10/11/22 17:28:00 EST, [facility]/pharmacy #[id number],... Start Date: 10/11/22 Status: Ordered rosuvastatin 10 mg oral tablet 1 tablet, By Mouth, Daily, # 90 tablet, 3 Refills, Maintenance, 10/20/22 6:41:00 EST, [facility], 166, cm, 10/11/22 11:20:00 EST, Height, 92, [...] Team Personnel Name: Agnieszka Chavez RN Position: [facility] Supv Member Role: Primary Care Nurse Name: Cassandra Doan RN Position: [facility] RN Member Role: Primary Care Nurse Name: Richar Gordon MD Position: [facility] Primary Care Physician Member Role: PCP Address: Address: [address] [place] [address], [place] [address]- [place] Name: Bess Hallman RN Position: [facility] Hospital Coating Machine Helper Member Role: Primary Care Nurse Name: Yisel Miranda RN Position: [facility] RN Member Role: Primary Care Nurse Care Team Related Persons Name: TIA SCHROEDER Address: home [address] [place] [address] Name: LORI LOZOYA Address: home [address] [place] [address]
--- OUTSIDE RECORDS SUMMARY | 2023-04-25 22:48 | XMS_ITS | Continuity of Care Document ---
Author Name Unknown Organization [facility] [place] Address [address] [place] [address]- Care Team Providers Care Egg Separator Name Role Phone Richar [place] MD Primary Care Physician Encounter [facility] Date(s): 01/25/23 - 02/24/23 [facility] [place] [address] [place], [place] [address] Attending Physician: Tam Bolanos Admitting Physician: AdmtrTam [...] vaccine, inactivated 10/05/19 Milad rded SARS-CoV-2 mRNA (azebfwg-iiae-xmxsc) vax 2 08/09/22 Given SARS-CoV-2 (COVID-19) mRNA BNT-162b2 vac 09/05/21 Recorded SARS-CoV-2 (COVID-19) mRNA BNT-162b2 vac 02/18/21 Recorded SARS-CoV-2 (COVID-19) mRNA BNT-162b2 vac 01/28/21 Recorded Influenza Virus Vaccine (oldterm) 09/20/19 Recorde d Influenza Virus Vaccine (oldterm) 08/27/18 Recorde d tetanus/diphtheria/pertussis, acel(Tdap) 2/20/19 Recorded Botulinum Toxin Type A Vacc (oldterm) 08/27/18 Rec orded Botulinum Toxin Type A Vacc (oldterm) 10/02/17 Rec orded Botulinum Toxin Type A Vacc (oldterm) 08/07/17 Rec orded pneumococcal 23-valent vaccine 08/27/18 Recorded Hepatitis A-Hepatitis B Vaccine 08/27/18 Recorded Hepatitis A-Hepatitis B Vaccine 10/02/17 Recorded Hepatitis A-Hepatitis B Vaccine 08/07/17 Recorded pneumococcal 13-valent vaccine 08/07/17 Recorded 1Result Comment: [id number] 2Result Comment: [id number] Medications albuterol 0.083% inhalation solution 3 mL = 2.5 mg, Inhalation, Every 6 hours, PRN Wheezing/Shortness of Breath, DX:J45.909, # 100 each,3 Refills, Maintenance, 01/11/23 10:58:00 EST, Solution, [facility]/pharmacy #[id number], Partial fill upon patient request if the prescription is for a schedule II... Start Date: 01/11/23 Status: Ordered albuterol 0.083% inhalation solution See Instructions, INHALE CONTENTS OF 1 VIAL VIA NEBULIZER EVERY 6 HORUS NEEDED FOR WHEEZING/SHORTNESS OF BREATH, # 75 mL, 3 Refills, Maintenance, 09/18/22 10:48:00 EDT, [facility] STORE [id number], 166, cm, 08/09/22 11:33:00 EDT, Height, 92, [...] 01/18/21 11:29:00 EST, Route to Pharmacy Electronically, [facility]/pharmacy #[id number], Partial fill upon patient request if [...] 5 Refills, Maintenance, 10/17/22 13:41:00 EST, Aerosol, [facility]/pharmacy #[id number], Partial fill upon patient request if the prescription is for a schedule II opioid drug.... Start Date: 10/17/22 Status: Ordered fluticasone 50 mcg/inh nasal spray See Instructions, USE 1 SPRAY IN EACH NOSTRIL TWICE A DAY, # 16 mL, 2 Refills, 08/10/22 6:59:00 EDT, [facility]/pharmacy #[id number], 90, USE 1 SPRAY IN EACH NOSTRIL TWICE A DAY, 166, cm, 08/09/22 11:33:00 EDT, Height, 92, kg, 03/03/21 15:27:00 EDT, Dry Weight Start Date: 08/10/22 Status: Ordered Genvoya oral tablet 1 tablet, By Mouth, Daily, with food, # 30 tablet, 5 Refills, Maintenance, 12/28/22 13:14:00 EST, Tablet, [facility] #[id number], Partial fill upon patient request if the [...] 01/09/23 11:39:00 EST, Route to Pharmacy Electronically, [facility]/pharmacy #[id number], 166, cm, 11/23/22 13:11:00 EST, Height, [...] tablet, 3 Refills, Maintenance, 12/05/22 12:29:00 EST, [facility] STORE 24645, 166, cm, 11/23/22 13:11:00 EST, Height, 92, kg, 03/03/21 15:27:00 EDT, Dry Weight Start Date: 12/05/22 Status: Ordered montelukast 10 mg oral tablet 10 mg, 1, tablet, By Mouth, Daily, # 90 tablet, Refills 3, Tot. Refills 3, Maintenance, 08/09/22 12:05:00 EDT, Route to Pharmacy Electronically, [facility]/pharmacy #[id number], 166, cm, 08/09/22 11:33:00 EDT, Height, [...] capsule, 0 Refills, Maintenance, 01/28/23 22:37:00 EST, [facility]/pharmacy #[id number], 166, cm, 01/11/23 10:34:00 EST, Height, [...] Refills, Maintenance, 01/29/23 11:33:00 EST, [facility], 166, cm, 01/11/23 10:34:00 EST, Height, 92, kg, 03/03/21 15:27:00 EDT, Dry Weight Start Date: 01/29/23 Stop Date: 02/03/23 Status: Ordered rosuvastatin 10 mg oral tablet 1 tablet, By Mouth, Daily, # 90 tablet, 3 Refills, Maintenance, 10/20/22 6:41:00 EST, [facility], 166, cm, 10/11/22 11:20:00 EST, Height, 92, [...] Team Personnel Name: Agnieszka Chavez RN Position: [facility] RN Supv Member Role: Primary Care Nurse Name: Cassandra Doan RN Position: [facility] RN Member Role: Primary Care Nurse Name: Richar [place] MD Position: [facility] Primary Care Physician Member Role: PCP Address: Address: [address] [place] [address]- Name: Bess Hallman RN Position: [facility] Hospital Frog Farmer Member Role: Primary Care Nurse Care Team Related Persons Name: TIA SCHROEDER Address: home [address] [place] [address] Name: LORI LOZOYA Address: home [address] [place] [address]
--- OUTSIDE RECORDS SUMMARY | 2023-04-25 22:49 | XMS_ITS | Continuity of Care Document ---
Author Name Unknown Organization [facility] [place] Address [address] [place] [address]- Care Team Providers Care Dogman/Woman Name Role Phone Evan PEREZ, Richar Weldon Primary Care Physician Encounter [facility] Date(s): 11/23/22 - 12/23/22 [facility] Adult [address] [place] [address]- Allergies, Adverse Reactions, Alerts Substance Reaction Severity [...] vaccine, inactivated 10/05/19 Milad rded SARS-CoV-2 mRNA (cinlkxp-naqr-uflpy) vax 2 08/09/22 Given SARS-CoV-2 (COVID-19) mRNA [...] pneumococcal 13-valent vaccine 08/07/17 Recorded 1Result Comment: [id number] 2Result Comment: [id number] Medications albuterol 0.083% inhalation solution See Instructions, INHALE CONTENTS OF 1 VIAL VIA NEBULIZER EVERY 6 HORUS NEEDED FOR WHEEZING/SHORTNESS OF BREATH, # 75 mL, 3 Refills, Maintenance, 09/18/22 10:48:00 EDT, [facility], 166, cm, 08/09/22 11:33:00 EDT, Height, 92, kg, 03/03/21 15:27... Start Date: 09/18/22 Status: Ordered amLODIPine 2.5 mg oral tablet 1 tablet, By Mouth, Daily, # 90 tablet, 3 Refills, 08/09/22 12:05:00 EDT, [facility]/pharmacy #[id number], 166, cm, 08/09/22 11:33:00 EDT, Height, 92, kg, 03/03/21 15:27:00 EDT, Dry Weight Start Date: 08/09/22 Status: Ordered aspirin 81 mg oral tablet, chewable 81 mg, 1, tablet, By Mouth, Daily, # 30 tablet, Refills 5, Tot. Refills 5, Maintenance, 01/18/21 11:29:00 EST, Route to Pharmacy Electronically, [facility]/pharmacy #[id number], Partial fill upon patient request [...] use, # 12 Gm, 5 Refills, Maintenance, 11/16/22 13:41:00 EST, Aerosol, [facility]/pharmacy #[id number], Partial fill upon patient request if the prescription is for a schedule II opioid drug.... Start Date: 10/17/22 Status: Ordered fluticasone 50 mcg/inh nasal spray See Instructions, USE 1 SPRAY IN EACH NOSTRIL TWICE A DAY, # 16 mL, 2 Refills, 08/10/22 6:59:00 EDT, [facility]/pharmacy #[id number], 90, USE 1 SPRAY IN EACH NOSTRIL TWICE A DAY, 166, cm, 08/09/22 11:33:00 EDT, Height, 92, kg, 03/03/21 15:27:00 EDT, Dry Weight Start Date: 08/10/22 Status: Ordered Genvoya oral tablet 1 tablet, By Mouth, Daily, with food, # 30 tablet, 1 Refills, Maintenance, 11/28/22 12:07:00 EST, Tablet, [facility] #[id number], Partial fill upon patient request if the prescription is for a schedule II opioid drug., 1 tablet By Mouth Annie... Start Date: 11/28/22 Stop Date: 01/27/23 Status: Ordered Genvoya oral tablet 1 tablet, By Mouth, Daily, for 30 days, with food, # 30 tablet, 5 Refills, Hard Stop 01/13/23 11:59:00 EST, 07/17/22 11:59:00 EDT, Tablet, [facility], [facility] #[id number], Partial fill upon patient request if the [...] 08/01/22 16:29:00 EDT, Route to Pharmacy Electronically, [facility], 166, cm, 07/19/22 15:37:00 EDT, Height, 92, [...] tablet, 3 Refills, Maintenance, 12/05/22 12:29:00 EST, [facility] STORE 33624, 166, cm, 11/23/22 13:11:00 EST, Height, 92, kg, 03/03/21 15:27:00 EDT, Dry Weight Start Date: 12/05/22 Status: Ordered Metoprolol Succinate ER 25 mg oral tablet, extended release 1 tablet, By Mouth, Daily, # 90 tablet, 3 Refills, [facility] STORE 72040, 168, cm, 01/09/22 10:35:00 EST,Height, 92, kg, 03/03/21 15:27:00 EDT, Dry Weight Start Date: 01/10/22 Status: Ordered montelukast 10 mg oral tablet 10 mg, 1, tablet, By Mouth, Daily, # 90 tablet, Refills 3, Tot. Refills 3, Maintenance, 08/09/22 12:05:00 EDT, Route to Pharmacy Electronically, [facility]/pharmacy #[id number], 166, cm, 08/09/22 11:33:00 EDT, [...] capsule, 0 Refills, Maintenance, 11/06/22 13:53:00 EST, [facility]/pharmacy #[id number], 166, cm, 10/11/22 11:20:00 EST, Height, [...] tablet, 0 Refills, Maintenance, 10/11/22 17:28:00 EST, [facility]/pharmacy #[id number],... Start Date: 10/11/22 Status: Ordered rosuvastatin 10 mg oral tablet 1 tablet, By Mouth, Daily, # 90 tablet, 3 Refills, Maintenance, 10/20/22 6:41:00 EST, [facility] STORE 80661, 166, cm, 10/11/22 11:20:00 EST, Height, 92, [...] Acute 02/07/23 6:58:00 EST, 08/29/22 9:26:00 EDT, [facility]/pharmacy #[id number], 166, cm, 08/09/22 11:33:00 EDT, Height, [...] Team Personnel Name: Agnieszka Chavez RN Position: [facility] RN Supv Member Role: Primary Care Nurse Name: Cassandra Doan RN Position: S RN Member Role: Primary Care Nurse Name: Richar [place] MD Position: [facility] Primary Care Physician Member Role: PCP Address: Address: [address] [place] [address]- Name: Bess Hallman RN Position: S RN Member Role: Primary Care Nurse Name: Yisel Miranda RN Position: S RN Member Role: Primary Care Nurse Care Team Related Persons Name: TIA SCHROEDER Address: home [address] [place] [address] Name: LORI LOZOYA Address: home [address] [place] [address]
--- OUTSIDE RECORDS SUMMARY | 2023-04-25 22:49 | XMS_ITS | Continuity of Care Document ---
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 Name Role Phone Richar [place] MD Primary Care Physician [phone] Encounter [facility] Date(s): 12/26/22 - 02/03/23 [facility] [place] [address] [place] [address]- Attending Physician: Prosper Zimmerman MD Referring Physician: Richar [place] MD Allergies, [...] vaccine, inactivated 10/05/19 Milad rded SARS-CoV-2 mRNA (cxvuwhp-qnae-qcjym) vax 2 08/09/22 Given SARS-CoV-2 (COVID-19) mRNA [...] pneumococcal 13-valent vaccine 08/07/17 Recorded 1Result Comment: [id number] 2Result Comment: [id number] Medications albuterol 0.083% inhalation solution 3 mL = 2.5 mg, Inhalation, Every 6 hours, PRN Wheezing/Shortness of Breath, DX:J45.909, # 100 each,3 Refills, Maintenance, 01/11/23 10:58:00 EST, Solution, [facility]/pharmacy #[id number], Partial fill upon patient request if the prescription is for a schedule II... Start Date: 01/11/23 Status: Ordered albuterol 0.083% inhalation solution See Instructions, INHALE CONTENTS OF 1 VIAL VIA NEBULIZER EVERY 6 HORUS NEEDED FOR WHEEZING/SHORTNESS OF BREATH, # 75 mL, 3 Refills, Maintenance, 09/18/22 10:48:00 EDT, [facility], 166, cm, 08/09/22 11:33:00 EDT, Height, 92, [...] 01/18/21 11:29:00 EST, Route to Pharmacy Electronically, [facility]/pharmacy #[id number], Partial fill upon [...] 5 Refills, Maintenance, 10/17/22 13:41:00 EST, Aerosol, [facility]/pharmacy #[id number], Partial fill upon patient request if the prescription is for a schedule II opioid drug.... Start Date: 10/17/22 Status: Ordered fluticasone 50 mcg/inh nasal spray See Instructions, USE 1 SPRAY IN EACH NOSTRIL TWICE A DAY, # 16 mL, 2 Refills, 08/10/22 6:59:00 EDT, [facility]/pharmacy #[id number], 90, USE 1 SPRAY IN EACH NOSTRIL TWICE A DAY, 166, cm, 08/09/22 11:33:00 EDT, Height, 92, kg, 03/03/21 15:27:00 EDT, Dry Weight Start Date: 08/10/22 Status: Ordered Genvoya oral tablet 1 tablet, By Mouth, Daily, with food, # 30 tablet, 5 Refills, Maintenance, 12/28/22 13:14:00 EST, Tablet, [facility] #[id number], Partial fill upon patient request if the [...] 01/09/23 11:39:00 EST, Route to Pharmacy Electronically, [facility]/pharmacy #[id number], 166, cm, 11/23/22 13:11:00 [...] tablet, 3 Refills, Maintenance, 12/05/22 12:29:00 EST, [facility] STORE 68116, 166, cm, 11/23/22 13:11:00 EST, Height, 92, kg, 03/03/21 15:27:00 EDT, Dry Weight Start Date: 12/05/22 Status: Ordered montelukast 10 mg oral tablet 10 mg, 1, tablet, By Mouth, Daily, # 90 tablet, Refills 3, Tot. Refills 3, Maintenance, 08/09/22 12:05:00 EDT, Route to Pharmacy Electronically, [facility]/pharmacy #[id number], 166, cm, 08/09/22 11:33:00 [...] capsule, 0 Refills, Maintenance, 01/28/23 22:37:00 EST, [facility]/pharmacy #[id number], 166, cm, 01/11/23 10:34:00 [...] Refills, Maintenance, 01/29/23 11:33:00 EST, [facility], 166, cm, 01/11/23 10:34:00 EST, Height, 92, kg, 03/03/21 15:27:00 EDT, Dry Weight Start Date: 01/29/23 Stop Date: 02/03/23 Status: Ordered rosuvastatin 10 mg oral tablet 1 tablet, By Mouth, Daily, # 90 tablet, 3 Refills, Maintenance, 10/20/22 6:41:00 EST, [facility], 166, cm, 10/11/22 11:20:00 EST, Height, 92, [...] Team Personnel Name: Agnieszka Chavez RN Position: [facility] RN Supv Member Role: Primary Care Nurse Name: Cassandra Doan RN Position: [facility] RN Member Role: Primary Care Nurse Name: Richar [place] MD Position: [facility] Primary Care Physician Member Role: PCP Address: Address: [address] [place] [id number]- Name: Bess Hallman RN Position: [facility] Hospital Obstetric Anaesthetist Member Role: Primary Care Nurse Care Team Related Persons Name: TIA SCHROEDER Address: home [address] [place] [address] Name: LORI LOZOYA Address: home [address] [place] [address]
--- OUTSIDE RECORDS SUMMARY | 2023-04-25 22:49 | XMS_ITS | Continuity of Care Document ---
Author Name Unknown Organization [facility] [place] Address [address] [place] [address]- Care Team Providers Care Barber Name Role Phone Evan PEREZ, Richar eWldon Primary Care Physician [place] [facility] Date(s): 01/15/23 - 02/14/23 [facility] Adult [address] [place] [address]- Allergies, Adverse Reactions, Alerts Substance Reaction Severity [...] vaccine, inactivated 10/05/19 Milad rded SARS-CoV-2 mRNA (ouuxqyv-seis-pbjki) vax 2 08/09/22 Given SARS-CoV-2 (COVID-19) mRNA [...] pneumococcal 13-valent vaccine 08/07/17 Recorded 1Result Comment: [id number] 2Result Comment: [id number] Medications albuterol 0.083% inhalation solution 3 mL = 2.5 mg, Inhalation, Every 6 hours, PRN Wheezing/Shortness of Breath, DX:J45.909, # 100 each,3 Refills, Maintenance, 01/11/23 10:58:00 EST, Solution, [facility]/pharmacy #[id number], Partial fill upon patient request if the prescription is for a schedule II... Start Date: 01/11/23 Status: Ordered albuterol 0.083% inhalation solution See Instructions, INHALE CONTENTS OF 1 VIAL VIA NEBULIZER EVERY 6 HORUS NEEDED FOR WHEEZING/SHORTNESS OF BREATH, # 75 mL, 3 Refills, Maintenance, 09/18/22 10:48:00 EDT, [facility], 166, cm, 08/09/22 11:33:00 EDT, Height, 92, [...] Pharmacy Electronically, [facility]/pharmacy #[id number], Partial fill upon patient [...] 5 Refills, Maintenance, 10/17/22 13:41:00 EST, Aerosol, [facility]/pharmacy #[id number], Partial fill upon patient request if the prescription is for a schedule II opioid drug.... Start Date: 10/17/22 Status: Ordered fluticasone 50 mcg/inh nasal spray See Instructions, USE 1 SPRAY IN EACH NOSTRIL TWICE A DAY, # 16 mL, 2 Refills, 08/10/22 6:59:00 EDT, [facility]/pharmacy #[id number], 90, USE 1 SPRAY IN EACH NOSTRIL TWICE A DAY, 166, cm, 08/09/22 11:33:00 EDT, Height, 92, kg, 03/03/21 15:27:00 EDT, Dry Weight Start Date: 08/10/22 Status: Ordered Genvoya oral tablet 1 tablet, By Mouth, Daily, with food, # 30 tablet, 5 Refills, Maintenance, 12/28/22 13:14:00 EST, Tablet, [facility] #[id number], Partial fill upon patient request if the [...] 01/09/23 11:39:00 EST, Route to Pharmacy Electronically, [facility]/pharmacy #[id number], 166, cm, 11/23/22 13:11:00 [...] tablet, 3 Refills, Maintenance, 12/05/22 12:29:00 EST, [facility] STORE 83404, 166, cm, 11/23/22 13:11:00 EST, Height, 92, kg, 03/03/21 15:27:00 EDT, Dry Weight Start Date: 12/05/22 Status: Ordered montelukast 10 mg oral tablet 10 mg, 1, tablet, By Mouth, Daily, # 90 tablet, Refills 3, Tot. Refills 3, Maintenance, 08/09/22 12:05:00 EDT, Route to Pharmacy Electronically, [facility]/pharmacy #[id number], 166, cm, 08/09/22 11:33:00 [...] capsule, 0 Refills, Maintenance, 01/28/23 22:37:00 EST, [facility]/pharmacy #[id number], 166, cm, 01/11/23 10:34:00 [...] Refills, Maintenance, 01/29/23 11:33:00 EST, [facility], 166, cm, 01/11/23 10:34:00 EST, Height, 92, kg, 03/03/21 15:27:00 EDT, Dry Weight Start Date: 01/29/23 Stop Date: 02/03/23 Status: Ordered rosuvastatin 10 mg oral tablet 1 tablet, By Mouth, Daily, # 90 tablet, 3 Refills, Maintenance, 10/20/22 6:41:00 EST, [facility], 166, cm, 10/11/22 11:20:00 EST, Height, 92, [...] Team Personnel Name: Agnieszka Chavez RN Position: [facility] RN Supv Member Role: Primary Care Nurse Name: Cassandra Doan RN Position: [facility] RN Member Role: Primary Care Nurse Name: Richar [place] MD Position: [facility] Primary Care Physician Member Role: PCP Address: Address: [address] [place] [id number]- Name: Bess Hallman RN Position: [facility] Hospital Counter Caser Member Role: Primary Care Nurse Care Team Related Persons Name: TIA SCHROEDER Address: home [address] [place] [address] Name: LORI LOZOYA Address: home [address] [place] [address]
--- OUTSIDE RECORDS SUMMARY | 2023-04-25 22:49 | XMS_ITS | Continuity of Care Document ---
Author Name Unknown Organization [facility] [place] Address [address] [place] [address]- Care Team Providers Care Laboratory Animal Caretaker Name Role Phone Evan PEREZ, Richar [place]don Primary Care Physician Encounter [facility] Date(s): 10/24/22 - 11/23/22 [facility] Adult [address] [place] [address]- Allergies, Adverse Reactions, Alerts Substance Reaction Severity [...] vaccine, inactivated 10/05/19 Milad rded SARS-CoV-2 mRNA (dcqlina-dabn-vqbgz) vax 2 08/09/22 Given SARS-CoV-2 (COVID-19) mRNA [...] pneumococcal 13-valent vaccine 08/07/17 Recorded 1Result Comment: [id number] 2Result Comment: [id number] Medications albuterol 0.083% inhalation solution See Instructions, INHALE CONTENTS OF 1 VIAL VIA NEBULIZER EVERY 6 HORUS NEEDED FOR WHEEZING/SHORTNESS OF BREATH, # 75 mL, 3 Refills, Maintenance, 09/18/22 10:48:00 EDT, [facility], 166, cm, 08/09/22 11:33:00 EDT, Height, 92, kg, 03/03/21 15:27... Start Date: 09/18/22 Status: Ordered amLODIPine 2.5 mg oral tablet 1 tablet, By Mouth, Daily, # 90 tablet, 3 Refills, 08/09/22 12:05:00 EDT, [facility]/pharmacy #[id number], 166, cm, 08/09/22 11:33:00 EDT, Height, 92, kg, 03/03/21 15:27:00 EDT, Dry Weight Start Date: 08/09/22 Status: Ordered aspirin 81 mg oral tablet, chewable 81 mg, 1, tablet, By Mouth, Daily, # 30 tablet, Refills 5, Tot. Refills 5, Maintenance, 01/18/21 11:29:00 EST, Route to Pharmacy Electronically, [facility]/pharmacy #[id number], Partial fill upon patient request [...] 11/23/22 13:26:00 EST, Route to Pharmacy Electronically, [facility]/pharmacy #[id number], Partial fill upon patient request if the prescr... Start Date: 11/23/22 Stop Date: 12/07/22 Status: Ordered Flovent HFA 44 mcg/inh inhalation aerosol 2 puffs, Inhalation, 2 times a day, Use with spacer. Rinse and spit after use, # 12 Gm, 5 Refills, Maintenance, 10/17/22 13:41:00 EST, Aerosol, [facility]/pharmacy #[id number], Partial fill upon patient request if the prescription is for a schedule II opioid drug.... Start Date: 10/17/22 Status: Ordered fluticasone 50 mcg/inh nasal spray See Instructions, USE 1 SPRAY IN EACH NOSTRIL TWICE A DAY, # 16 mL, 2 Refills, 08/10/22 6:59:00 EDT, [facility]/pharmacy #[id number], 90, USE 1 SPRAY IN EACH NOSTRIL TWICE A DAY, 166, cm, 08/09/22 11:33:00 EDT, Height, 92, kg, 03/03/21 15:27:00 EDT, Dry Weight Start Date: 08/10/22 Status: Ordered Genvoya oral tablet 1 tablet, By Mouth, Daily, with food, # 30 tablet, 5 Refills, Maintenance, 07/17/22 11:59:00 EDT, Tablet, [facility] Rx #[id number], Partial fill upon patient request if the [...] 08/01/22 16:29:00 EDT, Route to Pharmacy Electronically, [facility] STORE 49846, 166, cm, 07/19/22 15:37:00 EDT, Height, 92, [...] Mouth, Daily, # 90 tablet, 3 Refills, [facility] STORE 33776, 168, cm, 01/09/22 10:35:00 EST,Height, 92, kg, 03/03/21 15:27:00 EDT, Dry Weight Start Date: 01/10/22 Status: Ordered montelukast 10 mg oral tablet 10 mg, 1, tablet, By Mouth, Daily, # 90 tablet, Refills 3, Tot. Refills 3, Maintenance, 08/09/22 12:05:00 EDT, Route to Pharmacy Electronically, [facility]/pharmacy #[id number], 166, cm, 08/09/22 11:33:00 EDT, [...] capsule, 0 Refills, Maintenance, 11/06/22 13:53:00 EST, [facility]/pharmacy #[id number], 166, cm, 10/11/22 11:20:00 EST, Height, [...] tablet, 0 Refills, Maintenance, 10/11/22 17:28:00 EST, [facility]/pharmacy #[id number],... Start Date: 10/11/22 Status: Ordered rosuvastatin 10 mg oral tablet 1 tablet, By Mouth, Daily, # 90 tablet, 3 Refills, Maintenance, 10/20/22 6:41:00 EST, [facility], 166, cm, 10/11/22 11:20:00 EST, Height, 92, [...] Acute 02/07/23 6:58:00 EST, 08/29/22 9:26:00 EDT, [facility]/pharmacy #[id number], 166, cm, 08/09/22 11:33:00 EDT, [...] RN Position: [facility] RN Supv Member Role: Primary Care Nurse Name: Cassandra Doan RN Position: [facility] RN Member Role: Primary Care Nurse Name: Richar [place] MD Position: [facility] Primary Care Physician Member Role: PCP Address: Address: [address] [place] [id number] Name: Bess Hallman RN Position: [facility] Hospital Manufacturing Millwright Member Role: Primary Care Nurse Name: Yisel Miranda RN Position: [facility] RN Member Role: Primary Care Nurse Care Team Related Persons Name: TIA SCHROEDER Address: home [address] [place] [address] Name: LORI LOZOYA Address: home [address] [place] [phone]
--- OUTSIDE RECORDS SUMMARY | 2023-04-25 22:49 | XMS_ITS | Continuity of Care Document ---
Author Name Unknown Organization [facility] Hong [place] Address [address] [place] [address]- Care Team Providers Care Causticiser Name Role Phone Evan PEREZ, Richar Weldon Primary Care Physician [phone] Encounter [facility] Date(s): 10/12/22 - 11/11/22 [facility] Adult [address] [place] [address]- Allergies, Adverse Reactions, Alerts Substance Reaction Severity [...] vaccine, inactivated 10/05/19 Milad rded SARS-CoV-2 mRNA ([id number]-[id number]-[id number]) vax 2 08/09/22 Given SARS-CoV-2 (COVID-19) mRNA [...] pneumococcal 13-valent vaccine 08/07/17 Recorded 1Result Comment: [id number] 2Result Comment: [id number] Medications albuterol 0.083% inhalation solution See Instructions, INHALE CONTENTS OF 1 VIAL VIA NEBULIZER EVERY 6 HORUS NEEDED FOR WHEEZING/SHORTNESS OF BREATH, # 75 mL, 3 Refills, Maintenance, 09/18/22 10:48:00 EDT, [facility], 166, cm, 08/09/22 11:33:00 EDT, Height, 92, kg, 03/03/21 15:27... Start Date: 09/18/22 Status: Ordered amLODIPine 2.5 mg oral tablet 1 tablet, By Mouth, Daily, # 90 tablet, 3 Refills, 08/09/22 12:05:00 EDT, [facility]/pharmacy #[id number], 166, cm, 08/09/22 11:33:00 EDT, Height, 92, kg, 03/03/21 15:27:00 EDT, Dry Weight Start Date: 08/09/22 Status: Ordered aspirin 81 mg oral tablet, chewable 81 mg, 1, tablet, By Mouth, Daily, # 30 tablet, Refills 5, Tot. Refills 5, Maintenance, 01/18/21 11:29:00 EST, Route to Pharmacy Electronically, [facility]/pharmacy #[id number], Partial fill upon [...] 16 mL, 2 Refills, 08/10/22 6:59:00 EDT, [facility]/pharmacy #[id number], 90, USE 1 SPRAY IN EACH NOSTRIL TWICE A DAY, 166, cm, 08/09/22 11:33:00 EDT, Height, 92, kg, 03/03/21 15:27:00 EDT, Dry Weight Start Date: 08/10/22 Status: Ordered Genvoya oral tablet 1 tablet, By Mouth, Daily, with food, # 30 tablet, 5 Refills, Maintenance, 07/17/22 11:59:00 EDT, Tablet, On License Of [facility] Rx #[id number], Partial fill upon patient request if the [...] 08/01/22 16:29:00 EDT, Route to Pharmacy Electronically, [facility] ST[facility] 18[facility], 166, cm, 07/19/22 15:37:00 EDT, Height, 92, [...] Mouth, Daily, # 90 tablet, 3 Refills, [facility] STORE 704[facility], 168, cm, 01/09/22 10:35:00 EST,Height, 92, kg, 03/03/21 15:27:00 EDT, Dry Weight Start Date: 01/10/22 Status: Ordered montelukast 10 mg oral tablet 10 mg, 1, tablet, By Mouth, Daily, # 90 tablet, Refills 3, Tot. Refills 3, Maintenance, 08/09/22 12:05:00 EDT, Route to Pharmacy Electronically, [facility]/pharmacy #[id number], 166, cm, 08/09/22 11:33:00 [...] capsule, 0 Refills, Maintenance, 11/06/22 13:53:00 EST, [facility]/pharmacy #[id number], 166, cm, 10/11/22 11:20:00 EST, [...] tablet, 0 Refills, Maintenance, 10/11/22 17:28:00 EST, [facility]/pharmacy #[id number],... Start Date: 10/11/22 Status: Ordered rosuvastatin 10 mg oral tablet 1 tablet, By Mouth, Daily, # 90 tablet, 3 Refills, Maintenance, 10/20/22 6:41:00 EST, [facility], 166, cm, 10/11/22 11:20:00 EST, Height, 92, [...] Team Personnel Name: Agnieszka Chavez RN Position: [facility] Supv Member Role: Primary Care Nurse Name: Cassandra Doan RN Position: [facility] RN Member Role: Primary Care Nurse Name: Richar Gordon MD Position: [facility] Primary Care Physician Member Role: PCP Address: Address: [address] [place] [address], [place] [address]- [place] Name: Bess Hallman RN Position: [facility] Hospital Web Publisher Member Role: Primary Care Nurse Name: Yisel Miranda RN Position: [facility] RN Member Role: Primary Care Nurse Care Team Related Persons Name: TIA SCHROEDER Address: home [address] [place] [address] Name: LORI LOZOYA Address: home [address] [place] [address]
--- OUTSIDE RECORDS SUMMARY | 2023-04-25 22:50 | XMS_ITS | Continuity of Care Document ---
Author Name Unknown Organization [facility] [place] Address [address] [place] [address]- Care Team Providers Care Assistant Professor Of Life Sciences Name Role Phone Evan PEREZ, Richar Weldon Primary Care Physician [phone] Encounter [facility] Date(s): 11/23/22 - 12/23/22 [facility] Adult [address] [place] [address]- Attending Physician: Tam Bolanos Admitting Physician: AdmtrTam Referring Physician: Admtr, ArElliot Allergies, Adverse Reactions, Alerts Substance Reaction Severity Status amoxicillin nausea and vomiting Active Cipro HC rash Active Augmentin nausea and vomiting Active Bactrim swelling Active Benadryl Swelling/Edema Rash/Dermatitis Anxiety state Active Pulmicort Flexhaler Active Anoro Ellipta Active gabapentin anxiety Active atorvastatin Dyspnea Active Immunizations Given and Recorded Vaccine Date Status Refusal Reason influenza virus vaccine, inactivated 1 09/19/22 Gi nic influenza virus vaccine, inactivated 09/05/21 Milad rded influenza virus vaccine, inactivated 09/01/20 Milad rded influenza virus vaccine, inactivated 08/14/20 Milad rded influenza virus vaccine, inactivated 10/05/19 Milad rded SARS-CoV-2 mRNA ([id number]-jdma-wgvbs) vax 2 08/09/22 Given SARS-CoV-2 (COVID-19) mRNA [...] pneumococcal 13-valent vaccine 08/07/17 Recorded 1Result Comment: [id number] 2Result Comment: [id number] Medications albuterol 0.083% inhalation solution See Instructions, INHALE CONTENTS OF 1 VIAL VIA NEBULIZER EVERY 6 HORUS NEEDED FOR WHEEZING/SHORTNESS OF BREATH, # 75 mL, 3 Refills, Maintenance, 09/18/22 10:48:00 EDT, [facility], 166, cm, 08/09/22 11:33:00 EDT, Height, 92, kg, 03/03/21 15:27... Start Date: 09/18/22 Status: Ordered amLODIPine 2.5 mg oral tablet 1 tablet, By Mouth, Daily, # 90 tablet, 3 Refills, 08/09/22 12:05:00 EDT, [facility]/pharmacy #[id number], 166, cm, 08/09/22 11:33:00 EDT, Height, 92, kg, 03/03/21 15:27:00 EDT, Dry Weight Start Date: 08/09/22 Status: Ordered aspirin 81 mg oral tablet, chewable 81 mg, 1, tablet, By Mouth, Daily, # 30 tablet, Refills 5, Tot. Refills 5, Maintenance, 01/18/21 11:29:00 EST, Route to Pharmacy Electronically, [facility]/pharmacy #[id number], Partial fill upon patient request [...] 5 Refills, Maintenance, 10/17/22 13:41:00 EST, Aerosol, [facility]/pharmacy #[id number], Partial fill upon patient request if the prescription is for a schedule II opioid drug.... Start Date: 10/17/22 Status: Ordered fluticasone 50 mcg/inh nasal spray See Instructions, USE 1 SPRAY IN EACH NOSTRIL TWICE A DAY, # 16 mL, 2 Refills, 08/10/22 6:59:00 EDT, [facility]/pharmacy #[id number], 90, USE 1 SPRAY IN EACH NOSTRIL TWICE A DAY, 166, cm, 08/09/22 11:33:00 EDT, Height, 92, kg, 03/03/21 15:27:00 EDT, Dry Weight Start Date: 08/10/22 Status: Ordered Genvoya oral tablet 1 tablet, By Mouth, Daily, with food, # 30 tablet, 1 Refills, Maintenance, 11/28/22 12:07:00 EST, Tablet, Community, [facility][id number], Partial fill upon patient request if the prescription is for a schedule II opioid drug., 1 tablet By Mouth Annie... Start Date: 11/28/22 Stop Date: 01/27/23 Status: Ordered Genvoya oral tablet 1 tablet, By Mouth, Daily, for 30 days, with food, # 30 tablet, 5 Refills, Hard Stop 01/13/23 11:59:00 EST, 07/17/22 11:59:00 EDT, Tablet, Community, [facility] Rx #[id number], Partial fill upon patient request if the [...] EDT, Route to Pharmacy Electronically, [facility], 166, cm, 07/19/22 15:37:00 EDT, Height, 92, [...] tablet, 3 Refills, Maintenance, 12/05/22 12:29:00 EST, [facility], 166, cm, 11/23/22 13:11:00 EST, Height, 92, kg, 03/03/21 15:27:00 EDT, Dry Weight Start Date: 12/05/22 Status: Ordered Metoprolol Succinate ER 25 mg oral tablet, extended release 1 tablet, By Mouth, Daily, # 90 tablet, 3 Refills, [facility], 168, cm, 01/09/22 10:35:00 EST,Height, 92, kg, 03/03/21 15:27:00 EDT, Dry Weight Start Date: 01/10/22 Status: Ordered montelukast 10 mg oral tablet 10 mg, 1, tablet, By Mouth, Daily, # 90 tablet, Refills 3, Tot. Refills 3, Maintenance, 08/09/22 12:05:00 EDT, Route to Pharmacy Electronically, [facility]/pharmacy #[id number], 166, cm, 08/09/22 11:33:00 EDT, [...] capsule, 0 Refills, Maintenance, 11/06/22 13:53:00 EST, [facility]/pharmacy #[id number], 166, cm, 10/11/22 11:20:00 EST, [...] tablet, 0 Refills, Maintenance, 10/11/22 17:28:00 EST, [facility]/pharmacy #[id number],... Start Date: 10/11/22 Status: Ordered rosuvastatin 10 mg oral tablet 1 tablet, By Mouth, Daily, # 90 tablet, 3 Refills, Maintenance, 10/20/22 6:41:00 EST, [facility], 166, cm, 10/11/22 11:20:00 EST, Height, 92, [...] Acute 02/07/23 6:58:00 EST, 08/29/22 9:26:00 EDT, [facility]/pharmacy #[id number], 166, cm, 08/09/22 11:33:00 EDT, [...] days ago entered on: 05/11/19 Sex Note * Event Display: MRI Spine, Non- BH Authored Date: * Richar Gordon MD: REVIEW Richar Gordon MD: REVIEW, PERFORM Zulma EVANS, Sasha: PERFORM, SIGN Zulma EVANS, Sasha: SIGN Event Display: Case Management Discharge Plan Authored Date: [id number] Patient: ZOILA HAMEED Age: 53 years Sex: Male : 1965 Associated Diagnoses: None Author: Sasha Maya RN Care Management Discharge Call Note Discharge date 10/18/2019 Date of contact 10/20/2019 Diagnosis back pain Discharge instructions were reviewed with the patient? Yes Medication reconciliation performed Yes Looks like you were recently discharged from the hospital (ED), how are you feeling? in pain Please tell me the problem or condition that brought you to the hospital (ED)? back pain Do you know what to do in case of an emergency? yes Were you given any prescriptions to fill? No Do you have an appointment already scheduled with your PCP? No Is date appropriate: declined ERF at this time. Patient Care team information Care Team Personnel Name: Agnieszka Chavez RN Position: S RN Supv Member Role: Primary Care Nurse Name: Cassandra Doan RN Position: S RN Member Role: Primary Care Nurse Name: Richar Gordon MD Position: S Primary Care Physician Member Role: PCP Address: Address: [address] [place] [id number] Name: Bess Hallman RN Position: S RN Member Role: Primary Care Nurse Name: Yisel Miranda RN Position: S RN Member Role: Primary Care Nurse Care Team Related Persons Name: TIA SCHROEDER Address: home [address] [place] [address] Name: LORI LOZOYA Address: home [address] [place] [address]
--- OUTSIDE RECORDS SUMMARY | 2023-04-25 22:50 | XMS_ITS | Continuity of Care Document ---
Author Name Unknown Organization [facility] [place] Address [address] [place] [address]- Care Team Providers Care Sales Engineer Account Manager Name Role Phone Evan PEREZ, Richar Weldon Primary Care Physician [phone] [facility] Date(s): 11/06/22 - 12/06/22 [facility] Adult [address] [place] [address]- Allergies, Adverse Reactions, Alerts Substance Reaction Severity [...] vaccine, inactivated 10/05/19 Milad rded SARS-CoV-2 mRNA (dyicqag-mrjt-vmgca) vax 2 08/09/22 Given SARS-CoV-2 (COVID-19) mRNA [...] pneumococcal 13-valent vaccine 08/07/17 Recorded 1Result Comment: [id number] 2Result Comment: [id number] Medications albuterol 0.083% inhalation solution See Instructions, INHALE CONTENTS OF 1 VIAL VIA NEBULIZER EVERY 6 HORUS NEEDED FOR WHEEZING/SHORTNESS OF BREATH, # 75 mL, 3 Refills, Maintenance, 09/18/22 10:48:00 EDT, [facility], 166, cm, 08/09/22 11:33:00 EDT, Height, 92, kg, 03/03/21 15:27... Start Date: 09/18/22 Status: Ordered amLODIPine 2.5 mg oral tablet 1 tablet, By Mouth, Daily, # 90 tablet, 3 Refills, 08/09/22 12:05:00 EDT, [facility]/pharmacy #[id number], 166, cm, 08/09/22 11:33:00 EDT, Height, 92, kg, 03/03/21 15:27:00 EDT, Dry Weight Start Date: 08/09/22 Status: Ordered aspirin 81 mg oral tablet, chewable 81 mg, 1, tablet, By Mouth, Daily, # 30 tablet, Refills 5, Tot. Refills 5, Maintenance, 01/18/21 11:29:00 EST, Route to Pharmacy Electronically, [facility]/pharmacy #[id number], Partial fill upon [...] 11/23/22 13:26:00 EST, Route to Pharmacy Electronically, [facility]/pharmacy #[id number], Partial fill upon patient request if the prescr... Start Date: 11/23/22 Stop Date: 12/07/22 Status: Ordered Flovent HFA 44 mcg/inh inhalation aerosol 2 puffs, Inhalation, 2 times a day, Use with spacer. Rinse and spit after use, # 12 Gm, 5 Refills, Maintenance, 10/17/22 13:41:00 EST, Aerosol, [facility]/pharmacy #[id number], Partial fill upon patient request if the prescription is for a schedule II opioid drug.... Start Date: 10/17/22 Status: Ordered fluticasone 50 mcg/inh nasal spray See Instructions, USE 1 SPRAY IN EACH NOSTRIL TWICE A DAY, # 16 mL, 2 Refills, 08/10/22 6:59:00 EDT, [facility]/pharmacy #[id number], 90, USE 1 SPRAY IN EACH NOSTRIL TWICE A DAY, 166, cm, 08/09/22 11:33:00 EDT, Height, 92, kg, 03/03/21 15:27:00 EDT, Dry Weight Start Date: 08/10/22 Status: Ordered Genvoya oral tablet 1 tablet, By Mouth, Daily, with food, # 30 tablet, 1 Refills, Maintenance, 11/28/22 12:07:00 EST, Tablet, Community, [facility] #[id number], Partial fill upon patient request if the prescription is for a schedule II opioid drug., 1 tablet By Mouth Annie... Start Date: 11/28/22 Stop Date: 01/27/23 Status: Ordered Genvoya oral tablet 1 tablet, By Mouth, Daily, for 30 days, with food, # 30 tablet, 5 Refills, Hard Stop 01/13/23 11:59:00 EST, 07/17/22 11:59:00 EDT, Tablet, Community, [facility] #[id number], Partial fill upon patient request if the [...] 08/01/22 16:29:00 EDT, Route to Pharmacy Electronically, [facility] 212[facility], 166, cm, 07/19/22 15:37:00 EDT, Height, 92, [...] tablet, 3 Refills, Maintenance, 12/05/22 12:29:00 EST, [facility] ST[facility] 447[facility], 166, cm, 11/23/22 13:11:00 EST, Height, 92, kg, 03/03/21 15:27:00 EDT, Dry Weight Start Date: 12/05/22 Status: Ordered Metoprolol Succinate ER 25 mg oral tablet, extended release 1 tablet, By Mouth, Daily, # 90 tablet, 3 Refills, [facility] ST[facility] 8[facility]18, 168, cm, 01/09/22 10:35:00 EST,Height, 92, kg, 03/03/21 15:27:00 EDT, Dry Weight Start Date: 01/10/22 Status: Ordered montelukast 10 mg oral tablet 10 mg, 1, tablet, By Mouth, Daily, # 90 tablet, Refills 3, Tot. Refills 3, Maintenance, 08/09/22 12:05:00 EDT, Route to Pharmacy Electronically, [facility]/pharmacy #[id number], 166, cm, 08/09/22 [...] capsule, 0 Refills, Maintenance, 11/06/22 13:53:00 EST, [facility]/pharmacy #[id number], 166, cm, 10/11/22 [...] tablet, 0 Refills, Maintenance, 10/11/22 17:28:00 EST, [facility]/pharmacy #[id number],... Start Date: 10/11/22 Status: Ordered rosuvastatin 10 mg oral tablet 1 tablet, By Mouth, Daily, # 90 tablet, 3 Refills, Maintenance, 10/20/22 6:41:00 EST, [facility] STORE 37036, 166, cm, 10/11/22 11:20:00 EST, Height, 92, [...] Team Personnel Name: Agnieszka Chavez RN Position: [facility] RN Supv Member Role: Primary Care Nurse Name: Cassandra Doan RN Position: [facility] RN Member Role: Primary Care Nurse Name: Richar Gordon MD Position: [facility] Primary Care Physician Member Role: PCP Address: Address: [address] [place] [id number] Name: Bess Hallman RN Position: [facility] Hospital Wire Turning Machine Operator Member Role: Primary Care Nurse Name: Yisel Miranda RN Position: [facility] RN Member Role: Primary Care Nurse Care Team Related Persons Name: TIA SCHROEDER Address: home [address] [place] [address] Name: LORI LOZOYA Address: home [address] [place] [address]
--- OUTSIDE RECORDS SUMMARY | 2023-04-25 22:50 | XMS_ITS | Continuity of Care Document ---
Author Name Unknown Organization [facility] Address [address] [place] [address]- Care Team Providers Care Chief Operator Hydroformer Name Role Phone Evan PEREZ, Richar Weldon Primary Care Physician [phone] Encounter [facility] Date(s): 11/13/22 - 12/13/[address] [address] Allergies, Adverse Reactions, Alerts Substance [...] vaccine, inactivated 10/05/19 Milad rded SARS-CoV-2 mRNA (exvmtdh-cgvb-gdlzs) vax 2 08/09/22 Given SARS-CoV-2 (COVID-19) mRNA [...] pneumococcal 13-valent vaccine 08/07/17 Recorded 1Result Comment: [id number] 2Result Comment: [id number] Medications albuterol 0.083% inhalation solution See Instructions, INHALE CONTENTS OF 1 VIAL VIA NEBULIZER EVERY 6 HORUS NEEDED FOR WHEEZING/SHORTNESS OF BREATH, # 75 mL, 3 Refills, Maintenance, 09/18/22 10:48:00 EDT, [facility] STORE 25280, 166, cm, 08/09/22 11:33:00 EDT, Height, 92, kg, 03/03/21 15:27... Start Date: 09/18/22 Status: Ordered amLODIPine 2.5 mg oral tablet 1 tablet, By Mouth, Daily, # 90 tablet, 3 Refills, 08/09/22 12:05:00 EDT, [facility]/pharmacy #[id number], 166, cm, 08/09/22 11:33:00 EDT, Height, 92, kg, 03/03/21 15:27:00 EDT, Dry Weight Start Date: 08/09/22 Status: Ordered aspirin 81 mg oral tablet, chewable 81 mg, 1, tablet, By Mouth, Daily, # 30 tablet, Refills 5, Tot. Refills 5, Maintenance, 01/18/21 11:29:00 EST, Route to Pharmacy Electronically, [facility]/pharmacy #[id number], Partial fill upon [...] 16 mL, 2 Refills, 08/10/22 6:59:00 EDT, [facility]/pharmacy #[id number], 90, USE 1 SPRAY IN EACH NOSTRIL TWICE A DAY, 166, cm, 08/09/22 11:33:00 EDT, Height, 92, kg, 03/03/21 15:27:00 EDT, Dry Weight Start Date: 08/10/22 Status: Ordered Genvoya oral tablet 1 tablet, By Mouth, Daily, with food, # 30 tablet, 1 Refills, Maintenance, 11/28/22 12:07:00 EST, Tablet, Community, [facility] #[id number], Partial fill upon patient request if the prescription is for a schedule II opioid drug., 1 tablet By Mouth Annie... Start Date: 11/28/22 Stop Date: 01/27/23 Status: Ordered Genvoya oral tablet 1 tablet, By Mouth, Daily, for 30 days, with food, # 30 tablet, 5 Refills, Hard Stop 01/13/23 11:59:00 EST, 07/17/22 11:59:00 EDT, Tablet, Community, [facility] #[id number], Partial fill upon patient request if the [...] EDT, Route to Pharmacy Electronically, [facility], 166, cm, 07/19/22 15:37:00 EDT, Height, 92, [...] tablet, 3 Refills, Maintenance, 12/05/22 12:29:00 EST, [facility], 166, cm, 11/23/22 13:11:00 EST, Height, 92, kg, 03/03/21 15:27:00 EDT, Dry Weight Start Date: 12/05/22 Status: Ordered Metoprolol Succinate ER 25 mg oral tablet, extended release 1 tablet, By Mouth, Daily, # 90 tablet, 3 Refills, [facility] STORE 54994, 168, cm, 01/09/22 10:35:00 EST,Height, 92, kg, 03/03/21 15:27:00 EDT, Dry Weight Start Date: 01/10/22 Status: Ordered montelukast 10 mg oral tablet 10 mg, 1, tablet, By Mouth, Daily, # 90 tablet, Refills 3, Tot. Refills 3, Maintenance, 08/09/22 12:05:00 EDT, Route to Pharmacy Electronically, [facility]/pharmacy #[id number], 166, cm, 08/09/22 11:33:00 [...] capsule, 0 Refills, Maintenance, 11/06/22 13:53:00 EST, [facility]/pharmacy #[id number], 166, cm, 10/11/22 11:20:00 [...] tablet, 0 Refills, Maintenance, 10/11/22 17:28:00 EST, [facility]/pharmacy #[id number],... Start Date: 10/11/22 Status: Ordered rosuvastatin 10 mg oral tablet 1 tablet, By Mouth, Daily, # 90 tablet, 3 Refills, Maintenance, 10/20/22 6:41:00 EST, [facility], 166, cm, 10/11/22 11:20:00 EST, Height, 92, [...] Acute 02/07/23 6:58:00 EST, 08/29/22 9:26:00 EDT, [facility]/pharmacy #[id number], 166, cm, 08/09/22 11:33:00 [...] Team Personnel Name: Agnieszka Chavez RN Position: [facility] RN Supv Member Role: Primary Care Nurse Name: Cassandra Doan RN Position: S RN Member Role: Primary Care Nurse Name: Richar Gordon MD Position: [facility] Primary Care Physician Member Role: PCP Address: Address: [address] [place] [address]- Name: Bess Hallman RN Position: [facility] RN Member Role: Primary Care Nurse Name: Yisel Miranda RN Position: [facility] RN Member Role: Primary Care Nurse Care Team Related Persons Name: TIA SCHROEDER Address: home [address] [place] [address] Name: LORI LOZOYA Address: home [address] [place] [address]
--- OUTSIDE RECORDS SUMMARY | 2023-04-25 22:50 | XMS_ITS | Continuity of Care Document ---
Author Name Unknown Organization [facility] Address [address] [place] [address]- Care Team Providers Care Planning Division Superintendent Name Role Phone Evan PEREZ, Richar Weldon Primary Care Physician [place] [facility] [place] 12[place]28/22 [facility] [address] [place] [id number] Allergies, Adverse Reactions, [...] vaccine, inactivated 10/05/19 Milad rded SARS-CoV-2 mRNA ([id number]) vax 2 08/09/22 Given SARS-CoV-2 (COVID-19) mRNA [...] pneumococcal 13-valent vaccine 08/07/17 Recorded 1Result Comment: [id number] 2Result Comment: [id number] Medications albuterol 0.083% inhalation solution See Instructions, INHALE CONTENTS OF 1 VIAL VIA NEBULIZER EVERY 6 HORUS NEEDED FOR WHEEZING/SHORTNESS OF BREATH, # 75 mL, 3 Refills, Maintenance, 09/18/22 10:48:00 EDT, [facility] STORE 41301, 166, cm, 08/09/22 11:33:00 EDT, Height, 92, kg, 03/03/21 15:27... Start Date: 09/18/22 Status: Ordered amLODIPine 2.5 mg oral tablet 1 tablet, By Mouth, Daily, # 90 tablet, 3 Refills, 08/09/22 12:05:00 EDT, [facility]/pharmacy #[id number], 166, cm, 08/09/22 11:33:00 EDT, Height, 92, kg, 03/03/21 15:27:00 EDT, Dry Weight Start Date: 08/09/22 Status: Ordered aspirin 81 mg oral tablet, chewable 81 mg, 1, tablet, By Mouth, Daily, # 30 tablet, Refills 5, Tot. Refills 5, Maintenance, 01/18/21 11:29:00 EST, Route to Pharmacy Electronically, [facility]/pharmacy #[id number], Partial fill upon patient [...] 5 Refills, Maintenance, 10/17/22 13:41:00 EST, Aerosol, [facility]/pharmacy #[id number], Partial fill upon patient request if the prescription is for a schedule II opioid drug.... Start Date: 10/17/22 Status: Ordered fluticasone 50 mcg/inh nasal spray See Instructions, USE 1 SPRAY IN EACH NOSTRIL TWICE A DAY, # 16 mL, 2 Refills, 08/10/22 6:59:00 EDT, [facility]/pharmacy #[id number], 90, USE 1 SPRAY IN EACH NOSTRIL TWICE A DAY, 166, cm, 08/09/22 11:33:00 EDT, Height, 92, kg, 03/03/21 15:27:00 EDT, Dry Weight Start Date: 08/10/22 Status: Ordered Genvoya oral tablet 1 tablet, By Mouth, Daily, for 30 days, with food, # 30 tablet, 1 Refills, Hard Stop 01/27/23 12:07:00 EST, 11/28/22 12:07:00 EST, Tablet, Community, [facility][id number], Partial fill upon patient request if the prescription is for a schedule II opi... Start Date: 11/28/22 Stop Date: 01/27/23 Status: Ordered Genvoya oral tablet 1 tablet, By Mouth, Daily, with food, # 30 tablet, 5 Refills, Maintenance, 12/28/22 13:14:00 EST, Tablet, [facility] #[id number], Partial fill upon patient request if the prescription is for a schedule II opioid drug., 1 tablet By Mouth Daily,x30... Start Date: 12/28/22 Stop Date: 06/26/23 Status: Ordered Genvoya oral tablet 1 tablet, By Mouth, Daily, for 30 days, with food, # 30 tablet, 5 Refills, Hard Stop 01/13/23 11:59:00 EST, 07/17/22 11:59:00 EDT, Tablet, Community, [facility] #[id number], Partial fill upon patient request if the [...] 08/01/22 16:29:00 EDT, Route to Pharmacy Electronically, [facility] [id number], 166, cm, 07/19/22 15:37:00 EDT, Height, 92, [...] tablet, 3 Refills, Maintenance, 12/05/22 12:29:00 EST, [facility], 166, cm, 11/23/22 13:11:00 EST, Height, 92, kg, 03/03/21 15:27:00 EDT, Dry Weight Start Date: 12/05/22 Status: Ordered Metoprolol Succinate ER 25 mg oral tablet, extended release 1 tablet, By Mouth, Daily, # 90 tablet, 3 Refills, [facility] 08334, 168, cm, 01/09/22 10:35:00 EST,Height, 92, kg, 03/03/21 15:27:00 EDT, Dry Weight Start Date: 01/10/22 Status: Ordered montelukast 10 mg oral tablet 10 mg, 1, tablet, By Mouth, Daily, # 90 tablet, Refills 3, Tot. Refills 3, Maintenance, 08/09/22 12:05:00 EDT, Route to Pharmacy Electronically, [facility]/pharmacy #[id number], 166, cm, 08/09/22 11:33:00 EDT, Height, [...] capsule, 0 Refills, Maintenance, 11/06/22 13:53:00 EST, [facility]/pharmacy #[id number], 166, cm, 10/11/22 11:20:00 EST, Height, [...] tablet, 0 Refills, Maintenance, 10/11/22 17:28:00 EST, [facility]/pharmacy #[id number],... Start Date: 10/11/22 Status: Ordered rosuvastatin 10 mg oral tablet 1 tablet, By Mouth, Daily, # 90 tablet, 3 Refills, Maintenance, 10/20/22 6:41:00 EST, [facility] 47568, 166, cm, 10/11/22 11:20:00 EST, Height, 92, [...] Team Personnel Name: Agnieszka Chavez RN Position: [facility] RN Supv Member Role: Primary Care Nurse Name: Cassandra Doan RN Position: S RN Member Role: Primary Care Nurse Name: Richar Gordon MD Position: [facility] Primary Care Physician Member Role: PCP Address: Address: [address] [place] [id number] Name: Bess Hallman RN Position: [facility] Hospital Band Reamer Machine Operator Member Role: Primary Care Nurse Name: Yisel Miranda RN Position: [facility] RN Member Role: Primary Care Nurse Care Team Related Persons Name: TIA SCHROEDER Address: [address] [place] [address] Name: LORI LOZOYA Address: home [address] [place] [address]
--- OUTSIDE RECORDS SUMMARY | 2023-04-25 22:51 | XMS_ITS | Continuity of Care Document ---
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 Name Role Phone Evan PEREZ, Richar Weldon Primary Care Physician Encounter [facility] [place] Date(s): 01/03/23 - 02/02/23 [facility] [address] [place] [address]- Attending Physician: Tam Bolanos Admitting Physician: AdmtrTam [...] vaccine, inactivated 10/05/19 Milad rded SARS-CoV-2 mRNA (zohnbsf-onil-ubcto) vax 2 08/09/22 Given SARS-CoV-2 (COVID-19) mRNA [...] pneumococcal 13-valent vaccine 08/07/17 Recorded 1Result Comment: [id number] 2Result Comment: [id number] Medications albuterol 0.083% inhalation solution 3 mL = 2.5 mg, Inhalation, Every 6 hours, PRN Wheezing/Shortness of Breath, DX:J45.909, # 100 each,3 Refills, Maintenance, 01/11/23 10:58:00 EST, Solution, [facility]/pharmacy #[id number], Partial fill upon patient request if the prescription is for a schedule II... Start Date: 01/11/23 Status: Ordered albuterol 0.083% inhalation solution See Instructions, INHALE CONTENTS OF 1 VIAL VIA NEBULIZER EVERY 6 HORUS NEEDED FOR WHEEZING/SHORTNESS OF BREATH, # 75 mL, 3 Refills, Maintenance, 09/18/22 10:48:00 EDT, [facility], 166, cm, 08/09/22 11:33:00 EDT, Height, 92, [...] 01/18/21 11:29:00 EST, Route to Pharmacy Electronically, [facility]/pharmacy #[id number], Partial fill upon patient request [...] 5 Refills, Maintenance, 10/17/22 13:41:00 EST, Aerosol, [facility]/pharmacy #[id number], Partial fill upon patient request if the prescription is for a schedule II opioid drug.... Start Date: 10/17/22 Status: Ordered fluticasone 50 mcg/inh nasal spray See Instructions, USE 1 SPRAY IN EACH NOSTRIL TWICE A DAY, # 16 mL, 2 Refills, 08/10/22 6:59:00 EDT, [facility]/pharmacy #[id number], 90, USE 1 SPRAY IN EACH NOSTRIL TWICE A DAY, 166, cm, 08/09/22 11:33:00 EDT, Height, 92, kg, 03/03/21 15:27:00 EDT, Dry Weight Start Date: 08/10/22 Status: Ordered Genvoya oral tablet 1 tablet, By Mouth, Daily, with food, # 30 tablet, 5 Refills, Maintenance, 12/28/22 13:14:00 EST, Tablet, [facility] #[id number], Partial fill upon patient request if the [...] 01/09/23 11:39:00 EST, Route to Pharmacy Electronically, [facility]/pharmacy #[id number], 166, cm, 11/23/22 13:11:00 EST, Height, [...] tablet, 3 Refills, Maintenance, 12/05/22 12:29:00 EST, [facility]ORE 26377, 166, cm, 11/23/22 13:11:00 EST, Height, 92, kg, 03/03/21 15:27:00 EDT, Dry Weight Start Date: 12/05/22 Status: Ordered montelukast 10 mg oral tablet 10 mg, 1, tablet, By Mouth, Daily, # 90 tablet, Refills 3, Tot. Refills 3, Maintenance, 08/09/22 12:05:00 EDT, Route to Pharmacy Electronically, [facility]/pharmacy #[id number], 166, cm, 08/09/22 11:33:00 EDT, [...] capsule, 0 Refills, Maintenance, 01/28/23 22:37:00 EST, [facility]/pharmacy #[id number], 166, cm, 01/11/23 10:34:00 EST, Height, [...] Refills, Maintenance, 01/29/23 11:33:00 EST, [facility], 166, cm, 01/11/23 10:34:00 EST, Height, 92, kg, 03/03/21 15:27:00 EDT, Dry Weight Start Date: 01/29/23 Stop Date: 02/03/23 Status: Ordered rosuvastatin 10 mg oral tablet 1 tablet, By Mouth, Daily, # 90 tablet, 3 Refills, Maintenance, 10/20/22 6:41:00 EST, [facility], 166, cm, 10/11/22 11:20:00 EST, Height, 92, [...] ago entered on: 05/11/19 Sex Note * Skyler Alvarez: PERFORM, SIGN, VERIFY Event Display: Patient Education/Instruction Authored Date: [facility] Clinical Summary Person Information Name ZIOLA HAMEED Age 46 Years 1965 12:00 AM PCP Eugene Law MD PCP Reason for Visit: Allergy Info: Benadryl Vital Signs Height Weight BMI Blood Pressure / Temperature Pulse Rate Respiratory Rate 02 Sat Mode of Delivery / Medication Information dexlansoprazole (Dexilant 60 mg oral delayed release capsule) 1 capsule, Oral, Tomorrow, Refills: 0 Lisinopril (Lisinopril Tablet) 5 mg, Oral, Tomorrow Lorazepam (Lorazepam Tablet) 1 mg, Oral, twice a day Metoprolol 25 mg, Oral, twice a day, Refills: 0 Problem List Date Problem 10/11/11 Hepatitis C 03/06/12 Right upper quadrant of abdomen 03/06/12 Abdominal bloating If the following labs have been performed in the last year, the most recent result is displayed below. Diagnostic Results Lab Result Value Date Lead Hemoglobin A1C LDL HDL Triglycerides Total Cholesterol Disclaimer: The information provided is of a general nature and is intended to be used in conjunction with the recommendations and advice of your health care practitioner. Every effort has been made to ensure that the information provided is accurate and complete at the time it is provided to you however, as your needs change, or, as new information becomes available, different or additional instructions may be required. If you have questions, please consult with your primary care provider or pharmacist, as appropriate. This information is not intended to serve as substitution for assessment and evaluation by a qualified health care provider. If you do not have a primary care provider, you may find a [facility] provider by calling [facility] Link at [phone]. Patient Education Information Follow-up Details: With: Address: When: Daniel SAEZ [facility] Radiology, [facility] [address] , [address] [place] [address] Comments: Abdomen Ultrasound booked for 03/20 at 9:15am per Daniel Patel With: Address: When: Matt Covington MD [address] [facility], [address], [facility] [place] [address] Business (1) Comments: 6 month return booked for 08/21 at 8:05am with Dr Covington With: Address: When: Matt Covington MD [address] [facility] 2nd [place] [address] Business (1) Comments: EGD booked for 04/[address] Covington Patient Education Material: 10227 Upper GI Endoscopy Upper GI endoscopy allows your doctor to look directly into the beginning of your gastrointestinal (GI) tract. The esophagus, stomach, and duodenum (the first part of the small intestine) make up theupper GI tract. During endoscopy, a long, flexible tube is used to view the inside of your upper GI tract. Before the Exam Follow these and any other instructions you are given before your endoscopy. If you don???t follow the doctor???s instructions carefully, the test may need to be cancelled or done over. ??? Do not eat or drink anything after midnight the night before your exam. If your exam is in the afternoon, drink only clear liquids in the morning, and do not eat or drink anything for 6 hours before the exam. ??? Bring your x-rays and any other test results you have. ??? Because you will be sedated, arrange for an adult to drive you home after the exam. ??? Tell your healthcare provider before the exam if you are taking any medications or have any medical problems. The Procedure ??? You lie on the endoscopy table. ??? Your throat may be numbed with a spray or gargle. You are given sedating (relaxing) medication through an intravenous (IV) line. ??? You swallow the endoscope. This is thinner than most pieces of food that you swallow. It will not affect your breathing. The medication helps keep you from gagging. ??? Air is inserted to expand your GI tract. It can make you burp. ??? The endoscope carries images of your upper GI tract to a video screen. If you are awake, you may be able to look at the images. ??? After the procedure is done, you rest for a time. An adult must drive you home. Call your doctor if you have: ??? Black or tarry stools; blood in your stool. ??? Fever. ??? Persistent pain in your abdomen. ?? [id number] [facility], [address] [place] [address]. All rights reserved. This information is not intended as a substitute for professional medical care. Always follow your healthcare professional's instructions. * Skyler Alvarez: PERFORM, SIGN, VERIFY Event Display: Patient Education/Instruction Authored Date: [id number] [facility] Clinical Summary Person Information Name ZOILA HAMEED Age 46 Years 1965 12:00 AM PCP Eugene Law MD PCP Reason for Visit: Allergy Info: Benadryl Vital Signs Height Weight BMI Blood Pressure / Temperature Pulse Rate Respiratory Rate 02 Sat Mode of Delivery / Medication Information dexlansoprazole (Dexilant 60 mg oral delayed release capsule) 1 capsule, Oral, Tomorrow, Refills: 0 Lisinopril (Lisinopril Tablet) 5 mg, Oral, Tomorrow Lorazepam (Lorazepam Tablet) 1 mg, Oral, twice a day Metoprolol 25 mg, Oral, twice a day, Refills: 0 Problem List Date Problem 10/11/11 Hepatitis C 03/06/12 Right upper quadrant of abdomen 03/06/12 Abdominal bloating If the following labs have been performed in the last year, the most recent result is displayed below. Diagnostic Results Lab Result Value Date Lead Hemoglobin A1C LDL HDL Triglycerides Total Cholesterol Disclaimer: The information provided is of a general nature and is intended to be used in conjunction with the recommendations and advice of your health care practitioner. Every effort has been made to ensure that the information provided is accurate and complete at the time it is provided to you however, as your needs change, or, as new information becomes available, different or additional instructions may be required. If you have questions, please consult with your primary care provider or pharmacist, as appropriate. This information is not intended to serve as substitution for assessment and evaluation by a qualified health care provider. If you do not have a primary care provider, you may find a [facility] provider by calling [facility] Link at [phone]. Patient Education Information Follow-up Details: With: Address: When: Matt Covington MD [address] [place] [address] [address] [place] [address] [facility] (1) Comments: EGD booked for 04/[address] Covington Patient Education Material: 46859 Upper GI Endoscopy Upper GI endoscopy allows your doctor to look directly into the beginning of your gastrointestinal (GI) tract. The esophagus, stomach, and duodenum (the first part of the small intestine) make up theupper GI tract. During endoscopy, a long, flexible tube is used to view the inside of your upper GI tract. Before the Exam Follow these and any other instructions you are given before your endoscopy. If you don???t follow the doctor???s instructions carefully, the test may need to be cancelled or done over. ??? Do not eat or drink anything after midnight the night before your exam. If your exam is in the afternoon, drink only clear liquids in the morning, and do not eat or drink anything for 6 hours before the exam. ??? Bring your x-rays and any other test results you have. ??? Because you will be sedated, arrange for an adult to drive you home after the exam. ??? Tell your healthcare provider before the exam if you are taking any medications or have any medical problems. The Procedure ??? You lie on the endoscopy table. ??? Your throat may be numbed with a spray or gargle. You are given sedating (relaxing) medication through an intravenous (IV) line. ??? You swallow the endoscope. This is thinner than most pieces of food that you swallow. It will not affect your breathing. The medication helps keep you from gagging. ??? Air is inserted to expand your GI tract. It can make you burp. ??? The endoscope carries images of your upper GI tract to a video screen. If you are awake, you may be able to look at the images. ??? After the procedure is done, you rest for a time. An adult must drive you home. Call your doctor if you have: ??? Black or tarry stools; blood in your stool. ??? Fever. ??? Persistent pain in your abdomen. ?? [id number] [place] [address]. All rights reserved. This information is not intended as a substitute for professional medical care. Always follow your healthcare professional's instructions. Patient Care team information Care Team Personnel Name: Agnieszka Chavez RN Position: [facility] RN Supv Member Role: Primary Care Nurse Name: Cassandra Doan RN Position: [facility] RN Member Role: Primary Care Nurse Name: Richar Gordon MD Position: [facility] Primary Care Physician Member Role: PCP Address: Address: [address] [place] [address]- Name: Bess Hallman RN Position: [facility] Hospital Holistic Health Practitioner Member Role: Primary Care Nurse Care Team Related Persons Name: TIA SCHROEDER Address: home [address] [place] [address] Name: OLRI LOZOYA Address: home [address] [place] [id number]
--- OUTSIDE RECORDS SUMMARY | 2023-04-25 22:51 | XMS_ITS | Continuity of Care Document ---
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 Name Role Phone Evan PEREZ, Richar Weldon Primary Care Physician Encounter [facility] [place] Date(s): 10/17/22 - 11/16/22 [facility] [address] [place] [address]- Allergies, Adverse Reactions, Alerts Substance Reaction Severity Status amoxicillin nausea and vomiting Active atorvastatin Dyspnea Active Cipro HC rash Active Pulmicort Flexhaler Active Anoro Ellipta Active gabapentin anxiety Active Augmentin nausea and vomiting Active Bactrim swelling Active Benadryl Swelling/Edema Rash/Dermatitis Anxiety state Active Immunizations Given and Recorded Vaccine Date Status Refusal Reason influenza virus vaccine, inactivated 1 09/19/22 Gi nic influenza virus vaccine, inactivated 09/05/21 Milad rded influenza virus vaccine, inactivated 09/01/20 Milad rded influenza virus vaccine, inactivated 08/14/20 Milad rded influenza virus vaccine, inactivated 10/05/19 Milad rded SARS-CoV-2 mRNA ([id number]-xhwtv) vax 2 08/09/22 Given SARS-CoV-2 (COVID-19) mRNA [...] pneumococcal 13-valent vaccine 08/07/17 Recorded 1Result Comment: [id number] 2Result Comment: [id number] Medications albuterol 0.083% inhalation solution See Instructions, INHALE CONTENTS OF 1 VIAL VIA NEBULIZER EVERY 6 HORUS NEEDED FOR WHEEZING/SHORTNESS OF BREATH, # 75 mL, 3 Refills, Maintenance, 09/18/22 10:48:00 EDT, [facility], 166, cm, 08/09/22 11:33:00 EDT, Height, 92, kg, 03/03/21 15:27... Start Date: 09/18/22 Status: Ordered amLODIPine 2.5 mg oral tablet 1 tablet, By Mouth, Daily, # 90 tablet, 3 Refills, 08/09/22 12:05:00 EDT, [facility]/pharmacy #[id number], 166, cm, 08/09/22 11:33:00 EDT, Height, 92, kg, 03/03/21 15:27:00 EDT, Dry Weight Start Date: 08/09/22 Status: Ordered aspirin 81 mg oral tablet, chewable 81 mg, 1, tablet, By Mouth, Daily, # 30 tablet, Refills 5, Tot. Refills 5, Maintenance, 01/18/21 11:29:00 EST, Route to Pharmacy Electronically, [facility]/pharmacy #[id number], Partial fill upon patient request if [...] 5 Refills, Maintenance, 11/16/22 13:41:00 EST, Aerosol, [id number], Partial fill upon patient request if the prescription is for a schedule II opioid drug.... Start Date: 10/17/22 Status: Ordered fluticasone 50 mcg/inh nasal spray See Instructions, USE 1 SPRAY IN EACH NOSTRIL TWICE A DAY, # 16 mL, 2 Refills, 08/10/22 6:59:00 EDT, [facility]/pharmacy #0693, 90, USE 1 SPRAY IN EACH NOSTRIL TWICE A DAY, 166, cm, 08/09/22 11:33:00 EDT, Height, 92, kg, 03/03/21 15:27:00 EDT, Dry Weight Start Date: 08/10/22 Status: Ordered Genvoya oral tablet 1 tablet, By Mouth, Daily, with food, # 30 tablet, 5 Refills, Maintenance, 07/17/22 11:59:00 EDT, Tablet, Community, [facility] #[id number], Partial fill upon patient request if the [...] 08/01/22 16:29:00 EDT, Route to Pharmacy Electronically, [facility] 12[facility], 166, cm, 07/19/22 15:37:00 EDT, Height, 92, [...] Mouth, Daily, # 90 tablet, 3 Refills, [facility] 70787, 168, cm, 01/09/22 10:35:00 EST,Height, 92, kg, 03/03/21 15:27:00 EDT, Dry Weight Start Date: 01/10/22 Status: Ordered montelukast 10 mg oral tablet 10 mg, 1, tablet, By Mouth, Daily, # 90 tablet, Refills 3, Tot. Refills 3, Maintenance, 08/09/22 12:05:00 EDT, Route to Pharmacy Electronically, [facility]/pharmacy #[id number], 166, cm, 08/09/22 11:33:00 EDT, Height, [...] capsule, 0 Refills, Maintenance, 11/06/22 13:53:00 EST, [facility]/pharmacy #0693, 166, cm, 10/11/22 11:20:00 EST, Height, [...] tablet, 0 Refills, Maintenance, 10/11/22 17:28:00 EST, [facility]/pharmacy #[id number],... Start Date: 10/11/22 Status: Ordered rosuvastatin 10 mg oral tablet 1 tablet, By Mouth, Daily, # 90 tablet, 3 Refills, Maintenance, 10/20/22 6:41:00 EST, [facility], 166, cm, 10/11/22 11:20:00 EST, Height, 92, [...] Personnel Name: Agnieszka Chavez RN Position: [facility] Supv Member Role: Primary Care Nurse Name: Cassandra Doan RN Position: [facility] RN Member Role: Primary Care Nurse Name: Richar Gordon MD Position: [facility] Primary Care Physician Member Role: PCP Address: Address: [address] [place], [place] [address] [address]- [place] Name: Viji EVANS, Bess Position: [facility] Hospital Paralegal Legal Secretary Member Role: Primary Care Nurse Name: Yisel Miranda RN Position: [facility] RN Member Role: Primary Care Nurse Care Team Related Persons Name: TIA SCHROEDER Address: home [address] [place] [address] Name: LORI LOZOYA Address: home [address] [place] [address]
--- OUTSIDE RECORDS SUMMARY | 2023-04-25 22:51 | XMS_ITS | Continuity of Care Document ---
Author Name Unknown Organization [facility] [place] Hong lt Address [address] [place] [address]- Care Team Providers Care Veneer Clipper Name Role Phone Richar Gordon MD Primary Care Physician Encounter [facility] ACCT R [id number] Date(s): 01/11/23 - 01/18/23 [facility] [place] Adult [address] [place] [address]- Attending Physician: Richar Gordon MD Allergies, Adverse [...] vaccine, inactivated 10/05/19 Milad rded SARS-CoV-2 mRNA ([id number]) vax 2 08/09/22 Given SARS-CoV-2 (COVID-19) mRNA [...] pneumococcal 13-valent vaccine 08/07/17 Recorded 1Result Comment: [id number] 2Result Comment: [id number] Medications albuterol 0.083% inhalation solution 3 mL = 2.5 mg, Inhalation, Every 6 hours, PRN Wheezing/Shortness of Breath, DX:J45.909, # 100 each,3 Refills, Maintenance, 01/11/23 10:58:00 EST, Solution, [facility]/pharmacy #[id number], Partial fill upon patient request if the prescription is for a schedule II... Start Date: 01/11/23 Status: Ordered albuterol 0.083% inhalation solution See Instructions, INHALE CONTENTS OF 1 VIAL VIA NEBULIZER EVERY 6 HORUS NEEDED FOR WHEEZING/SHORTNESS OF BREATH, # 75 mL, 3 Refills, Maintenance, 09/18/22 10:48:00 EDT, [id number], 166, cm, 08/09/22 11:33:00 EDT, Height, 92, [...] Route to Pharmacy Electronically, [facility]/pharmacy #[id number], Partial fill upon patient request if [...] Refills, Maintenance, 10/17/22 13:41:00 EST, Aerosol, [facility]/pharmacy #[id number], Partial fill upon patient request if the prescription is for a schedule II opioid drug.... Start Date: 10/17/22 Status: Ordered fluticasone 50 mcg/inh nasal spray See Instructions, USE 1 SPRAY IN EACH NOSTRIL TWICE A DAY, # 16 mL, 2 Refills, 08/10/22 6:59:00 EDT, [facility]/pharmacy #[id number], 90, USE 1 SPRAY IN EACH NOSTRIL TWICE A DAY, 166, cm, 08/09/22 11:33:00 EDT, Height, 92, kg, 03/03/21 15:27:00 EDT, Dry Weight Start Date: 08/10/22 Status: Ordered Genvoya oral tablet 1 tablet, By Mouth, Daily, for 30 days, with food, # 30 tablet, 1 Refills, Hard Stop 01/27/23 12:07:00 EST, 11/28/22 12:07:00 EST, Tablet, Community, [id number], Partial fill upon patient request if the prescription is for a schedule II opi... Start Date: 11/28/22 Stop Date: 01/27/23 Status: Ordered Genvoya oral tablet 1 tablet, By Mouth, Daily, with food, # 30 tablet, 5 Refills, Maintenance, 12/28/22 13:14:00 EST, Tablet, [facility] #[id number], Partial fill upon patient request if the [...] 11:39:00 EST, Route to Pharmacy Electronically, [facility]/pharmacy #[id number], 166, cm, 11/23/22 13:11:00 EST, Height, [...] 3 Refills, Maintenance, 12/05/22 12:29:00 EST, [facility], 166, cm, 11/23/22 13:11:00 EST, Height, 92, kg, 03/03/21 15:27:00 EDT, Dry Weight Start Date: 12/05/22 Status: Ordered montelukast 10 mg oral tablet 10 mg, 1, tablet, By Mouth, Daily, # 90 tablet, Refills 3, Tot. Refills 3, Maintenance, 08/09/22 12:05:00 EDT, [id number] 166, cm, 08/09/22 11:33:00 EDT, [...] 0 Refills, Maintenance, 11/06/22 13:53:00 EST, [facility]/pharmacy #[id number], 166, cm, 10/11/22 11:20:00 EST, Height, [...] 0 Refills, Maintenance, 10/11/22 17:28:00 EST, [facility]/pharmacy #[id number],... Start Date: 10/11/22 Status: Ordered rosuvastatin 10 mg oral tablet 1 tablet, By Mouth, Daily, # 90 tablet, 3 Refills, Maintenance, 10/20/22 6:41:00 EST, [facility], 166, cm, 10/11/22 11:20:00 EST, Height, 92, [...] Acute 02/07/23 6:58:00 EST, 08/29/22 9:26:00 EDT, [facility]/pharmacy #[id number], 166, cm, 08/09/22 11:33:00 EDT, Height, [...] abdomen Confirmed Active Lumbar stenosis Confirmed Active Vital Signs Most recent to oldest [Reference Range]: 1 Height 166.0 cm (01/11/23 10:34 AM) Weight 88.9 kg (01/11/23 10:34 AM) Oxygen Saturation [94-100 %] 99 % (01/11/23 10:34 AM) Pulse Rate [55-90 bpm] 52 bpm *L* (01/11/23 10:34 AM) Body Mass Index [18.5-24.99 kg/m2] 32.26 kg/m2 *>HHI* (01/11/23 10:34 AM) Blood Pressure [90-138/55-84 mm Hg] 133/ 77mm Hg (01/11/23 10:34 AM) Mode of Delivery (Oxygen) Room air (01/11/23 10:34 AM) Blood pressure sites Arm, left (01/11/23 10:34 AM) Weight Obtained Via Standing scale (01/11/23 10:34 AM) Social History Social History Type Response Smoking Status Former smoker, quit more than 30 days ago entered on: 05/11/19 Sex Note * Hayley King: PERFORM, SIGN, VERIFY Event Display: Patient Education/Instruction Authored Date: [id number] [facility] *BMP So Jean Nava Clinical Summary Name ZOILA HAMEED Age 57 Years 1965 PCP Evan PEREZ, Richar Weldon PCP Visit Date 01/11/2023 10:00:00 Additional Instructions: Scheduled Appointments?? Future Appointments ?*[facility] ?[address]??[place],??[place],??[address] ?Phone:??--?Fax:??-- ?Appt. Date:??01/25/2023?11:00 AM ?Scheduled Provider:??Cassandra Hinson Follow-Up Instructions ?? Diagnosis Unspecified cirrhosis of liver; Major depressive disorder, single episode, unspecified; Human immunodeficiency virus [HIV] disease; Essential (primary) hypertension; Gastro-esophageal reflux disease without esophagitis; Unspecified viral hepatitis C without hepatic coma; Unspecified asthma, uncomplicated Medications: Please continue your medications until treatment is completed or stopped by your provider. Discuss any questions related to medications with your provider. New Medications [id number], [address] [place] [id number], [phone] Amlodipine (amLODIPine 2.5 mg oral tablet) 1 tab(s) Oral Daily. Refills: 3. Next Dose: Medications to Continue Taking That Have Changed [id number], [address] [place] [id number], [phone] - Albuterol (albuterol 0.083% inhalation solution) 3 Milliliter Inhalation every 6 hours as needed Wheezing/Shortness of Breath. DX:J45.909. Refills: 3. Next Dose: - Tramadol (traMADol 50 mg oral tablet) 2 tab(s) Oral every 6 hours as needed NEEDED FOR PAIN. Refills: 5. Next Dose: These medications were not printed or sent to your pharmacy - Albuterol (albuterol 0.083% inhalation solution) INHALE CONTENTS OF 1 VIAL VIA NEBULIZER EVERY 6 HORUS NEEDED FOR WHEEZING/SHORTNESS OF BREATH. Refills: 3. Next Dose: - Metoprolol (Metoprolol Succinate ER 25 mg oral tablet, extended release) 1 tab(s) Oral Daily. Refills: 3. Next Dose: - Tramadol (traMADol 50 mg oral tablet) 2 tab(s) Oral every 6 hours as needed NEEDED FOR PAIN. Refills: 5. Next Dose: Medications to Continue with No Changes These medications were not printed or sent to your pharmacy Aspirin (aspirin 81 mg oral tablet, chewable) 1 tab(s) Oral Daily for 30 Days. Refills: 5. Next Dose: BuPROpion (BuPROPion (Eqv-Wellbutrin SR) 150 mg/12 hours oral tablet, extended release) TAKE 1 TABLET BY MOUTH TWICE DAILY. Next Dose: cobicist/elvitegra/emtricitab/tenofov (Genvoya oral tablet) 1 tab(s) Oral Daily for 30 Days. with food. Refills: 1. Next Dose: cobicist/elvitegra/emtricitab/tenofov (Genvoya oral tablet) 1 tab(s) Oral Daily for 30 Days. with food. Refills: 5. Next Dose: cobicist/elvitegra/emtricitab/tenofov (Genvoya oral tablet) 1 tab(s) Oral Daily for 30 Days. with food. Refills: 5. Next Dose: Durable Medical Equipment (Home Blood Pressure Monitor) monitor BP 2-3 times a week after medications DX HTN. Refills: 0. Next Dose: Durable Medical Equipment (Nebulizer/Compressor) New tubing and mouthpiece for nebulizer J45.0. Refills: 0. Next Dose: Fluticasone (Flovent HFA 44 mcg/inh inhalation aerosol) 2 puff(s) Inhalation twice a day. Use with spacer. Rinse and spit after use. Refills: 5. Next Dose: Fluticasone Nasal (fluticasone 50 mcg/inh nasal spray) USE 1 SPRAY IN EACH NOSTRIL TWICE A DAY. Refills: 2. Next Dose: Lisinopril (lisinopril 20 mg oral tablet) 1 tab(s) Oral Daily. Refills: 1. Next Dose: Lorazepam (LORazepam 1 mg oral tablet) 1 tab(s) Oral as needed as needed for anxiety. Next Dose: Miscellaneous Rx (Shoe inserts) Dx: Bilateral foot pain. Refills: 0. Next Dose: Montelukast (montelukast 10 mg oral tablet) 1 tab(s) Oral Daily. Refills: 3. Next Dose: Omeprazole (omeprazole 20 mg oral enteric coated capsule) 1 capsule Oral twice a day. Refills: 0. Next Dose: PredniSONE (predniSONE 10 mg oral tablet) 6 tabs daily x 4 days; then 5 tabs daily x 2 days; 4 tabsdaily x 2 days; 3 tabs daily x 2 days; 2 tabs daily x 2 days; 1 tab daily x 2 days; then d/c.. Refills: 0. Next Dose: Rosuvastatin (rosuvastatin 10 mg oral tablet) 1 tab(s) Oral Daily. Refills: 3. Next Dose: Allergy Info:?? Anoro Ellipta; Pulmicort Flexhaler; Benadryl; Bactrim; Augmentin; Cipro HC; atorvastatin; gabapentin; amoxicillin Medications Given This Visit Future Orders ?No future orders Vital Signs Height 166.0 cm Weight 88.9 kg BMI 32.26 kg/m2 Blood Pressure 133 mm Hg/77 mm Hg Temperature Pulse Rate 52 bpm Respiratory Rate 02 Sat Mode of Delivery 99 %/Room air You can now view a summary of your hospital visit from the comfort of your home through a free online portal called [employer]. [employer] is a website that allows you to securely view your medical information including discharge summary, medications and follow-up visits. ??You can alsosend a secure electronic message to your doctor???s office to request appointments, renew medications or just ask a question. You can enroll at [email or web address] or register during your next office visit. [...] primary care provider or pharmacist, as appropriate. ??This information is not intended to serve as substitution for assessment and evaluation by a qualified health care provider. If you do not have a primary care provider, you may find a [facility] provider by calling [facility] [employer] at [phone]. For information about the plan of care including goals and instructions for your diagnosis, please see the patient education orders section of this document. Patient Education Materials?? The content of this educational material or handout may have been modified, supplemented, or adapted from its original content and format to support your individualized medical care. Patient Care team information Care Team Personnel Name: Agnieszka Chavez RN Position: [facility] RN Supv Member Role: Primary Care Nurse Name: Cassandra Doan RN Position: [facility] RN Member Role: Primary Care Nurse Name: Richar Gordon MD Position: [facility] Primary Care Physician Member Role: PCP Address: Address: [address] [place] [address] Name: Bess Hallman RN Position: [facility] Hospital Nursing Attendant Member Role: Primary Care Nurse Name: Yisel Miranda RN Position: [facility] RN Member Role: Primary Care Nurse Care Team Related Persons Name: TIA SCHROEDER Address: home [address] [place] [address] Name: LORI LOZOYA Address: home [address] [place] [address]
--- OUTSIDE RECORDS SUMMARY | 2023-04-25 22:51 | XMS_ITS | Continuity of Care Document ---
Author Name Unknown Organization [facility] Address [address] [place] [address]- Care Team Providers Care Drapery Hand Name Role Phone Evan PEREZ, Richar Weldon Primary Care Physician [phone] Encounter [facility] Date(s): 11/13/22 - 12/13/[address] [id number] Allergies, Adverse Reactions, Alerts Substance Reaction [...] vaccine, inactivated 10/05/19 Milad rded SARS-CoV-2 mRNA ([id number]) vax 2 08/09/22 Given SARS-CoV-2 (COVID-19) mRNA [...] pneumococcal 13-valent vaccine 08/07/17 Recorded 1Result Comment: [id number] 2Result Comment: [id number] Medications albuterol 0.083% inhalation solution See Instructions, INHALE CONTENTS OF 1 VIAL VIA NEBULIZER EVERY 6 HORUS NEEDED FOR WHEEZING/SHORTNESS OF BREATH, # 75 mL, 3 Refills, Maintenance, 09/18/22 10:48:00 EDT, [facility], 166, cm, 08/09/22 11:33:00 EDT, Height, 92, kg, 03/03/21 15:27... Start Date: 09/18/22 Status: Ordered amLODIPine 2.5 mg oral tablet 1 tablet, By Mouth, Daily, # 90 tablet, 3 Refills, 08/09/22 12:05:00 EDT, [facility]/pharmacy #[id number], 166, cm, 08/09/22 11:33:00 EDT, Height, 92, kg, 03/03/21 15:27:00 EDT, Dry Weight Start Date: 08/09/22 Status: Ordered aspirin 81 mg oral tablet, chewable 81 mg, 1, tablet, By Mouth, Daily, # 30 tablet, Refills 5, Tot. Refills 5, Maintenance, 01/18/21 11:29:00 EST, Route to Pharmacy Electronically, [facility]/pharmacy #[id number], Partial fill upon patient [...] 16 mL, 2 Refills, 08/10/22 6:59:00 EDT, [facility]/pharmacy #[id number], 90, USE 1 SPRAY IN EACH NOSTRIL TWICE A DAY, 166, cm, 08/09/22 11:33:00 EDT, Height, 92, kg, 03/03/21 15:27:00 EDT, Dry Weight Start Date: 08/10/22 Status: Ordered Genvoya oral tablet 1 tablet, By Mouth, Daily, with food, # 30 tablet, 1 Refills, Maintenance, 11/28/22 12:07:00 EST, Tablet, Community, [id number], Partial fill upon patient request if the prescription is for a schedule II opioid drug., 1 tablet By Mouth Annie... Start Date: 11/28/22 Stop Date: 01/27/23 Status: Ordered Genvoya oral tablet 1 tablet, By Mouth, Daily, for 30 days, with food, # 30 tablet, 5 Refills, Hard Stop 01/13/23 11:59:00 EST, 07/17/22 11:59:00 EDT, Tablet, Community, [facility] #[id number], Partial fill upon patient request if the [...] EDT, Route to Pharmacy Electronically, [facility], 166, cm, 07/19/22 15:37:00 EDT, Height, 92, [...] Refills, Maintenance, 12/05/22 12:29:00 EST, [facility], 166, cm, 11/23/22 13:11:00 EST, Height, 92, kg, 03/03/21 15:27:00 EDT, Dry Weight Start Date: 12/05/22 Status: Ordered Metoprolol Succinate ER 25 mg oral tablet, extended release 1 tablet, By Mouth, Daily, # 90 tablet, 3 Refills, [facility], 168, cm, 01/09/22 10:35:00 EST,Height, 92, kg, 03/03/21 15:27:00 EDT, Dry Weight Start Date: 01/10/22 Status: Ordered montelukast 10 mg oral tablet 10 mg, 1, tablet, By Mouth, Daily, # 90 tablet, Refills 3, Tot. Refills 3, Maintenance, 08/09/22 12:05:00 EDT, Route to Pharmacy Electronically, [facility]/pharmacy #[id number], 166, cm, 08/09/22 11:33:00 [...] capsule, 0 Refills, Maintenance, 11/06/22 13:53:00 EST, [facility]/pharmacy #[id number], 166, cm, 10/11/22 11:20:00 [...] tablet, 0 Refills, Maintenance, 10/11/22 17:28:00 EST, [facility]/pharmacy #[id number],... Start Date: 10/11/22 Status: Ordered rosuvastatin 10 mg oral tablet 1 tablet, By Mouth, Daily, # 90 tablet, 3 Refills, Maintenance, 10/20/22 6:41:00 EST, [facility], 166, cm, 10/11/22 11:20:00 EST, Height, 92, [...] Acute 02/07/23 6:58:00 EST, 08/29/22 9:26:00 EDT, [facility]/pharmacy #[id number], 166, cm, 08/09/22 11:33:00 [...] Team Personnel Name: Agnieszka Chavez RN Position: [facility] RN Supv Member Role: Primary Care Nurse Name: Cassandra Doan RN Position: S RN Member Role: Primary Care Nurse Name: Richar Gordon MD Position: [facility] Primary Care Physician Member Role: PCP Address: Address: [address] [place] [address]- Name: Bess Hallman RN Position: [facility] RN Member Role: Primary Care Nurse Name: Yisel Miranda RN Position: [facility] RN Member Role: Primary Care Nurse Care Team Related Persons Name: TIA SCHROEDER Address: home [address] [place] [address] Name: LORI LOZOYA Address: home [address] [place] [address]
== END 2023-04-25 22:50 | disposition left against medical advice (07) ==
LOC: HO.ED 22:46
PROVIDERS: Nurse Practitioner Family; Emergency Provider Emergency Medicine
DX: R07.89 Other chest pain (principal); Z79.899 Other long term (current) drug therapy
CPT/HCPCS: 36415; 71046; 80048; 80076; 84484; 85025; 85610; 93005; 99283

== ENCOUNTER 2023-10-26 09:25 | Emergency (ER) | payer MEDICARE, MEDICAID, SELFPAY ==
--- NOTE | ~2023-10-26 | XR_ITS ---
EXAMINATION: XR CHEST CLINICAL INFORMATION: Cough and chest tightness. COMPARISON: None available. TECHNIQUE: 2 views of the chest were obtained. FINDINGS: No significant abnormality is noted involving the heart, lungs, mediastinum, bony thorax or soft tissues. XR/XR chest 2V IMPRESSION: Unremarkable chest examination.
[2023-10-26 09:40] VITALS: BP 125/71; PULSE 54; RESP 16; TEMP 36.9; O2SAT 98; BMI 31.3
--- OUTSIDE RECORDS SUMMARY | 2023-10-26 09:51 | XMS_ITS | Continuity of Care Document ---
Author Name Unknown Organization [facility] Hong [place] Address [address] [place] [address]- Care Team Providers Care Patient Relations Specialist Name Role Phone Evan PEREZ, Richar Weldon Primary Care Physician Encounter [facility] Date(s): 08/12/23 - 08/19/23 [facility] Adult [address] [place] [address]- Attending Physician: Richar Gordon MD Allergies, Adverse Reactions, Alerts Substance Reaction Severity Status amoxicillin nausea and vomiting Active gabapentin anxiety Active atorvastatin Dyspnea Active Cipro HC rash Active Augmentin nausea and vomiting Active Bactrim swelling Active Benadryl Swelling/Edema Rash/Dermatitis Anxiety state Active Pulmicort Flexhaler Active Anoro Ellipta Active Immunizations Given and Recorded Vaccine Date Status Refusal Reason pneumococcal 20-valent conjugate vaccine 1 08/12/23 Given influenza virus vaccine, inactivated 2 09/19/22 Gi nic influenza virus vaccine, inactivated 09/05/21 Milad rded influenza virus vaccine, inactivated 09/01/20 Milad rded influenza virus vaccine, inactivated 08/14/20 Milad rded influenza virus vaccine, inactivated 10/05/19 Milad rded SARS-CoV-2 mRNA (cldsbqk-[id number]-akmlh) vax 3 08/09/22 Given SARS-CoV-2 (COVID-19) mRNA BNT-162b2 vac 09/05/21 Recorded SARS-CoV-2 (COVID-19) mRNA BNT-162b2 vac 02/18/21 Recorded SARS-CoV-2 (COVID-19) mRNA BNT-162b2 vac 01/28/21 Recorded Influenza Virus Vaccine (oldterm) 09/20/19 Recorde d Influenza Virus Vaccine (oldterm) 9/26/18 Recorde d tetanus/diphtheria/pertussis, acel(Tdap) 01/21/19 Recorded Botulinum Toxin Type A Vacc (oldterm) 08/27/18 Rec orded Botulinum Toxin Type A Vacc (oldterm) 10/02/17 Rec orded Botulinum Toxin Type A Vacc (oldterm) 08/07/17 Rec orded pneumococcal 23-valent vaccine 08/27/18 Recorded Hepatitis A-Hepatitis B Vaccine 08/27/18 Recorded Hepatitis A-Hepatitis B Vaccine 10/02/17 Recorded Hepatitis A-Hepatitis B Vaccine 08/07/17 Recorded pneumococcal 13-valent vaccine 08/07/17 Recorded 1Result Comment: [id number] 2Result Comment: [id number] 3Result Comment: [id number] Medications albuterol 0.083% inhalation solution See Instructions, INHALE CONTENTS OF 1 VIAL VIA NEBULIZER EVERY 6 HORUS NEEDED FOR WHEEZING/SHORTNESS OF BREATH, # 75 mL, 3 Refills, Maintenance, 09/18/22 10:48:00 EDT, [facility], 166, cm, 08/09/22 11:33:00 EDT, Height, 92, kg, 03/03/21 15:27... Start Date: 09/18/22 Status: Ordered albuterol 0.083% inhalation solution 3 mL = 2.5 mg, Inhalation, Every 6 hours, PRN Wheezing/Shortness of Breath, DX:J45.909, # 100 each,3 Refills, Maintenance, 05/02/23 9:24:00 EDT, Solution, [id number], Partial fill upon patient request if the prescription is for a schedule II... Start Date: 05/02/23 Status: Ordered amLODIPine 2.5 mg oral tablet 1 tablet, By Mouth, Daily, # 90 tablet, 3 Refills, 05/02/23 9:24:00 EDT, [id number], 166, cm, 05/02/23 9:09:00 EDT, Height Start Date: 05/02/23 Status: Ordered aspirin 81 mg oral tablet, chewable 81 mg, 1, tablet, By Mouth, Daily, # 30 tablet, Refills 5, Tot. Refills 5, Maintenance, 05/02/23 9:24:00 EDT, Route to Pharmacy Electronically, [id number], Partial fill upon patient request if the prescription is for a schedule II opioid drug.... Start Date: 05/02/23 Stop Date: 10/29/23 Status: Ordered BuPROPion (Eqv-Wellbutrin SR) 150 mg/12 hours oral tablet, extended release TAKE 1 TABLET BY MOUTH TWICE DAILY Start Date: 11/30/20 Status: Ordered Genvoya oral tablet 1 tablet, By Mouth, Daily, with food, # 30 tablet, 5 Refills, Maintenance, 06/10/23 12:46:00 EDT, Tablet, Emily, [facility] #[id number], Partial fill upon patient request if the prescription is for a schedule II opioid drug., 1 tablet By Mouth Annie... Start Date: 06/10/23 Stop Date: 12/07/23 Status: Ordered lisinopril 20 mg oral tablet 1, tablet, By Mouth, Daily, # 90 tablet, Refills 3, Tot. Refills 3, Maintenance, 08/12/23 10:57:00 EDT, Route to Pharmacy Electronically, [facility]/pharmacy #[id number], 166, cm, 08/12/23 10:26:00 EDT, Height Start Date: 08/12/23 Status: Ordered LORazepam 1 mg oral tablet 1 tablet = 1 mg, By Mouth, PRN as needed for anxiety, 0 Refills, Maintenance, 06/29/18 13:11:09 EDT Start Date: 06/29/18 Status: Ordered Metoprolol Succinate ER 25 mg oral tablet, extended release 1 tablet, By Mouth, Daily, # 90 tablet, 3 Refills, Maintenance, 05/02/23 9:26:00 EDT, [facility]/pharmacy #[id number], 166, cm, 05/02/23 9:09:00 EDT, Height Start Date: 05/02/23 Status: Ordered montelukast 10 mg oral tablet 10 mg, 1, tablet, By Mouth, Daily, # 90 tablet, Refills 3, Tot. Refills 3, Maintenance, 08/12/23 10:57:00 EDT, Route to Pharmacy Electronically, [facility]/pharmacy #[id number], 166, cm, 08/12/23 10:26:00 EDT, Height Start Date: 08/12/23 Status: Ordered pantoprazole 40 mg oral delayed release tablet 1 tablet = 40 mg, By Mouth, 2 times a day, Replaces omeprazole, # 60 tablet, 6 Refills, Maintenance, 08/12/23 10:59:00 EDT, CR Tablet, 166, cm, 08/12/23 10:26:00 EDT, Height Start Date: 08/12/23 Status: Ordered rosuvastatin 10 mg oral tablet 1 tablet, By Mouth, Daily, # 90 tablet, 3 Refills, Maintenance, 05/02/23 9:27:00 EDT, [facility]/pharmacy #[id number], 166, cm, 05/02/23 9:09:00 EDT, Height Start Date: 05/02/23 Status: Ordered Shoe inserts Shoe inserts, See Instructions, # 2 each, Refills 0, Tot. Refills 0, Maintenance, Dx: Bilateral foot pain, 02/19/22 16:30:00 EDT, Supply Start Date: 02/19/22 Status: Ordered traMADol 50 mg oral tablet 2 tablet = 100 mg, By Mouth, Every 6 hours, PRN NEEDED FOR PAIN, # 224 tablet, 5 Refills, Acute 02/10/24 10:58:00 EDT, 08/12/23 10:57:00 EDT, [id number], 166, cm, 08/12/23 10:26:00 EDT, Height Start Date: 08/12/23 Stop Date: 02/10/24 Status: Ordered Ventolin HFA 108 mcg/inh inhalation aerosol with adapter 2 puffs, Inhalation, 4 times a day, PRN for wheezing, # 8 Gm, 3 Refills, Maintenance, 08/12/23 11:01:00 EDT, Aerosol, [id number], Partial fill upon patient request if the prescription is for a schedule II opioid drug., 166, cm, 08/12/23 10:26:... Start Date: 08/12/23 Status: Ordered Problem List Condition Confirmation Course [...] oldest [Reference Range]: 1 Height 166.0 cm (08/12/23 10:26 AM) Weight 88.3 kg (08/12/23 10:26 AM) Oxygen Saturation [94-100 %] 98 % (08/12/23 10:26 AM) Pulse Rate [55-90 bpm] 62 bpm (08/12/23 10:26 AM) Body Mass Index [18.5-24.99 kg/m2] 32.04 kg/m2 *>HHI* (08/12/23 10:26 AM) Blood Pressure [90-138/55-84 mm Hg] 124/ 75mm Hg (08/12/23 10:26 AM) Mode of Delivery (Oxygen) Room air (08/12/23 10:26 AM) Blood pressure sites Arm, left (08/12/23 10:26 AM) Weight Obtained Via Standing scale (08/12/23 10:26 AM) Social History Social History Type Response Smoking Status Former smoker, quit more than 30 days ago entered on: 05/11/19 Sex Patient Care team information Care Team Personnel Name: Cassandra Doan RN Position: [facility] RN Member Role: Primary Care Nurse Name: Richar Gordon MD Position: [facility] Physician - Primary Care Member Role: PCP Address: Address: [address] [place] [id number] Name: Bess Hallman RN Position: [facility] Regional Agronomist Member Role: Primary Care Nurse Name: Yisel Miranda RN Position: [facility] SN RN Member Role: Primary Care Nurse Care Team Related Persons Name: TIA SCHROEDER Address: home [address] [place] [address] Name: LORI LOZOYA Address: home [address] [place] [id number]
--- OUTSIDE RECORDS SUMMARY | 2023-10-26 09:51 | XMS_ITS | Continuity of Care Document ---
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 Date(s): 06/19/23 - 07/19/23 [facility] [address] [place] [id number] Attending Physician: AdmtrTam Admitting Physician: Admtr, [id number] [...] vaccine, inactivated 10/05/19 Milad rded SARS-CoV-2 mRNA ([id number]) vax 2 08/09/22 Given SARS-CoV-2 (COVID-19) mRNA [...] pneumococcal 13-valent vaccine 08/07/17 Recorded 1Result Comment: [id number] 2Result Comment: [id number] Medications albuterol 0.083% inhalation solution See Instructions, INHALE CONTENTS OF 1 VIAL VIA NEBULIZER EVERY 6 HORUS NEEDED FOR WHEEZING/SHORTNESS OF BREATH, # 75 mL, 3 Refills, Maintenance, 09/18/22 10:48:00 EDT, [id number], 166, cm, 08/09/22 11:33:00 EDT, Height, 92, [...] TWICE DAILY Start Date: 11/30/20 Status: Ordered Cane See Instructions, # 1 each, Maintenance, Use as needed for gait instability, 05/02/23 9:36:00 EDT, Supply Start Date: 05/02/23 Status: Ordered fluticasone 50 mcg/inh nasal spray See Instructions, USE 1 SPRAY IN EACH NOSTRIL TWICE A DAY, # 16 mL, 2 Refills, 08/10/22 6:59:00 EDT, [facility]/pharmacy #[id number], 90, USE 1 SPRAY IN EACH NOSTRIL TWICE A DAY, 166, cm, 08/09/22 11:33:00 EDT, Height, 92, kg, 03/03/21 15:27:00 EDT, Dry Weight Start Date: 08/10/22 Status: Ordered fluticasone CFC free 44 mcg/inh inhalation aerosol 2 puffs, Inhalation, 2 times a day, USE WITH SPACER. RINSE AND SPIT AFTER USE, # 10.6 each, 5 Refills, Maintenance, 03/29/23 16:53:00 EDT, [id number], 166, cm, 01/11/23 10:34:00 EST, Height Start Date: 03/29/23 Status: Ordered Genvoya oral tablet 1 tablet, By Mouth, Daily, with food, # 30 tablet, 5 Refills, Maintenance, 06/10/23 12:46:00 EDT, Tablet, [facility], [facility] Rx #[id number], Partial fill upon patient request if the prescription is for a schedule II opioid drug., 1 tablet By Mouth Annie... Start Date: 06/10/23 Stop Date: 12/07/23 Status: Ordered lisinopril 20 mg oral tablet 1, tablet, By Mouth, Daily, # 90 tablet, Refills 3, Tot. Refills 3, Maintenance, 05/02/23 9:26:00 EDT, Route to Pharmacy Electronically, [facility]/pharmacy #[id number], 166, cm, 05/02/23 9:09:00 EDT, Height Start Date: 05/02/23 Status: Ordered LORazepam 1 mg oral tablet 1 tablet = 1 mg, By Mouth, PRN as needed for anxiety, 0 Refills, Maintenance, 06/29/18 13:11:09 EDT Start Date: 06/29/18 Status: Ordered Metoprolol Succinate ER 25 mg oral tablet, extended release 1 tablet, By Mouth, Daily, # 90 tablet, 3 Refills, Maintenance, 05/02/23 9:26:00 EDT, [facility]/pharmacy #[id number], 166, cm, 05/02/23 9:09:00 EDT, Height Start Date: 05/02/23 Status: Ordered montelukast 10 mg oral tablet 10 mg, 1, tablet, By Mouth, Daily, # 90 tablet, Refills 3, Tot. Refills 3, Maintenance, 05/02/23 9:26:00 EDT, Route to Pharmacy Electronically, [facility]/pharmacy #[id number], 166, cm, 05/02/23 9:09:00 EDT, Height Start Date: 05/02/23 Status: Ordered omeprazole 20 mg oral enteric coated capsule 1 capsule, By Mouth, 2 times a day, # 180 capsule, 3 Refills, Maintenance, 05/02/23 9:27:00 EDT, [facility]/pharmacy #[id number], 166, cm, 05/02/23 9:09:00 EDT, Height Start Date: 05/02/23 Status: Ordered rosuvastatin 10 mg oral tablet 1 tablet, By Mouth, Daily, # 90 tablet, 3 Refills, Maintenance, 05/02/23 9:27:00 EDT, [facility]/pharmacy #[id number], 166, cm, 05/02/23 9:09:00 EDT, [...] PAIN, # 224 tablet, 5 Refills, Acute 09/01/23 9:28:00 EDT, 05/02/23 9:28:00 EDT, [facility]/pharmacy #[id number], 166, cm, 05/02/23 9:09:00 EDT, Height Start Date: 05/02/23 Stop Date: 09/01/23 Status: Ordered Problem List Condition Confirmation Course [...] Team Personnel Name: Agnieszka Chavez RN Position: [facility] RN Supv Member Role: Primary Care Nurse Name: Cassandra Doan RN Position: [facility] RN Member Role: Primary Care Nurse Name: Richar Gordon MD Position: [facility] Physician - Primary Care Member Role: PCP Address: Address: [address] [place] [address]- Name: Bess Hallman RN Position: [facility] Hospital Job Site Superintendent Member Role: Primary Care Nurse Care Team Related Persons Name: TIA SCHROEDER Address: home [address] [place] [address] Name: LORI LOZOYA Address: home [address] [place] [address]
--- OUTSIDE RECORDS SUMMARY | 2023-10-26 09:52 | XMS_ITS | Continuity of Care Document ---
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 Name Role Phone Richar Gordon MD Primary Care Physician [phone] Encounter [facility] Date(s): 09/23/23 - 09/23/[address] [address] Discharge Disposition: A-D/C Home Attending Physician: Matt Covington MD Admitting Physician: Matt Covington MD Referring Physician: Matt Covington MD Allergies, Adverse Reactions, Alerts Substance Reaction Severity Status amoxicillin nausea and vomiting Active gabapentin anxiety Active atorvastatin Dyspnea Active Cipro HC rash Active Augmentin nausea and vomiting Active Bactrim swelling Active Benadryl Swelling/Edema Rash/Dermatitis Anxiety state Active Pulmicort Flexhaler Active Anoro Ellipta Active Immunizations Given and Recorded Vaccine Date Status Refusal Reason influenza virus vaccine, inactivated 08/27/23 Milad rded influenza virus vaccine, inactivated 1 09/19/22 Gi nic influenza virus vaccine, inactivated 09/05/21 Milad rded influenza virus vaccine, inactivated 09/01/20 Milad rded influenza virus vaccine, inactivated 08/14/20 Milad rded influenza virus vaccine, inactivated 10/05/19 Milad rded pneumococcal 20-valent conjugate vaccine 2 08/12/23 Given SARS-CoV-2 mRNA ([id number]) vax 3 08/09/22 Given SARS-CoV-2 (COVID-19) mRNA [...] pneumococcal 13-valent vaccine 08/07/17 Recorded 1Result Comment: [id number] 2Result Comment: [id number] 3Result Comment: [id number] Medications albuterol 0.083% inhalation solution See Instructions, INHALE CONTENTS OF 1 VIAL VIA NEBULIZER EVERY 6 HORUS NEEDED FOR WHEEZING/SHORTNESS OF BREATH, # 75 mL, 3 Refills, Maintenance, 09/18/22 10:48:00 EDT, [id number], 166, cm, 08/09/22 11:33:00 EDT, Height, 92, kg, 03/03/21 15:27... Start Date: 09/18/22 Status: Ordered albuterol 0.083% inhalation solution 3 mL = 2.5 mg, Inhalation, Every 6 hours, PRN Wheezing/Shortness of Breath, DX:J45.909, # 100 each,3 Refills, Maintenance, 05/02/23 9:24:00 EDT, Solution, [facility]/pharmacy #[id number], Partial fill upon patient request if the prescription is for a schedule II... Start Date: 05/02/23 Status: Ordered amLODIPine 2.5 mg oral tablet 1 tablet, By Mouth, Daily, # 90 tablet, 3 Refills, 05/02/23 9:24:00 EDT, [facility]/pharmacy #[id number], 166, cm, 05/02/23 9:09:00 EDT, Height Start Date: 05/02/23 Status: Ordered aspirin 81 mg oral tablet, chewable 81 mg, 1, tablet, By Mouth, Daily, # 30 tablet, Refills 5, Tot. Refills 5, Maintenance, 05/02/23 9:24:00 EDT, Route to Pharmacy Electronically, [facility]/pharmacy #[id number], Partial fill upon patient [...] Maintenance, 06/10/23 12:46:00 EDT, Tablet, Emily, [facility] Rx #[id number], Partial fill upon patient request if the prescription is for a schedule II opioid drug., 1 tablet By Mouth Annie... Start Date: 06/10/23 Stop Date: 12/07/23 Status: Ordered lisinopril 20 mg oral tablet 1, tablet, By Mouth, Daily, # 90 tablet, Refills 3, Tot. Refills 3, Maintenance, 08/12/23 10:57:00 EDT, Route to Pharmacy Electronically, [facility]/pharmacy #[id number], 166, cm, 08/12/23 10:26:00 EDT, [...] tablet, 3 Refills, Maintenance, 05/02/23 9:26:00 EDT, [facility]/pharmacy #[id number], 166, cm, 05/02/23 9:09:00 EDT, Height Start Date: 05/02/23 Status: Ordered montelukast 10 mg oral tablet 10 mg, 1, tablet, By Mouth, Daily, # 90 tablet, Refills 3, Tot. Refills 3, Maintenance, 08/12/23 10:57:00 EDT, Route to Pharmacy Electronically, [facility]/pharmacy #[id number], 166, cm, 08/12/23 10:26:00 EDT, [...] tablet, 3 Refills, Maintenance, 05/02/23 9:27:00 EDT, [id number], 166, cm, 05/02/23 9:09:00 [...] abdomen Confirmed Active Lumbar stenosis Confirmed Active Procedures Procedure Date Related Diagnosis Body Site Status Esophagogastroduodenoscopy and biopsy 09/23/23 Completed Vital Signs Most recent to oldest [Reference Range]: 1 2 3 Height 168 cm (09/23/23 7:06 AM) Weight 89 kg (09/23/23 7:06 AM) Oxygen Saturation [94-100 %] 98 % (09/23/23 8:13 AM) 97 % (09/23/23 8:07 AM) 100 % (09/23/23 8:02 AM) Pulse Rate [55-90 bpm] 44 bpm *L* (09/23/23 8:13 AM) 48 bpm *L* (09/23/23 8:07 AM) 47 bpm *L* (09/23/23 8:02 AM) Body Mass Index [18.5-24.99 kg/m2] 31.53 kg/m2 *>HHI* (09/23/23 7:06 AM) Blood Pressure [90-138/55-84 mm Hg] 109/61mm Hg (09/23/23 8:13 AM) 109/73mm Hg (09/23/23 8:07 AM) 98/64mm Hg (09/23/23 8:02 AM) Respiratory Rate [16-30 br/min] 16 br/min (09/23/23 8:13 AM) 10 br/min *L* (09/23/23 8:07 AM) 14 br/min *L* (09/23/23 8:02 AM) Temperature [96.8-100.4 DegF] 97.9 DegF (09/23/23 7:06 AM) Liters per Minute 6 L/min (09/23/23 7:56 AM) Mode of Delivery (Oxygen) Room air (09/23/23 8:13 AM) Room air (09/23/23 8:07 AM) Room air (09/23/23 8:02 AM) Blood pressure sites Arm, left (09/23/23 8:13 AM) Arm, left (09/23/23 8:07 AM) Arm, left (09/23/23 8:02 AM) Temperature Route Temporal (09/23/23 7:06 AM) Dry Weight 89 kg (09/23/23 7:06 AM) Social History Social History Type Response Smoking Status Former smoker, quit more than 30 days ago entered on: 05/11/19 Sex Endoscopy study * Event Display: GG EGD Please click on pdf link to open report Note * Isabel Portillo RN: PERFORM Event Display: Discharge/Transfer Note Hospital Authored Date: [id number] Nursing Discharge Note Entered On: 09/23/2023 8:06 EDT Performed On: 09/23/2023 8:06 EDT by Isabel Portillo RN Nursing Discharge Note 2 Discharge Time : 09/23/2023 8:28 EDT Isabel Portillo RN - 09/23/2023 8:29 EDT Discharge Level of Care at Discharge : Home/Nursing Home/Foster Care Patient Left Unit Via : Wheelchair Patient Accompanied Off Unit with : Responsible adult DC Instructions Provided & Signed by Pt : Yes Patient Understands D/C Instructions : Yes Patient Instructions Discharge Signed : Yes Did Pt have Specialty Bed or Wound Vac : No Isabel Portillo RN - 09/23/2023 8:06 EDT * Isabel Portillo RN: PERFORM Event Display: Patient Education/Instruction Authored Date: [id number] Surgery [place] [address] Name: ZOILA HAMEED : 1965?? Visit: 09/23/2023 06:22?? Current Date: 09/23/2023 08:10 ?? Account: [id number]?? Surgery Discharge Instructions We would like to thank you for allowing us to assist you with your healthcare needs. The following includes patient education materials and information regarding your injury/illness. Our entire staffstrives to provide an excellent experience for our patients and their families. PLEASE ENSURE YOU FOLLOW-UP PER THE INSTRUCTIONS BELOW! ?? YOUR OPINION IS IMPORTANT TO US! Please complete the survey you may receive by mail or email. Your feedback will be used to make improvements to the healthcare experiences of our patients and their families. Surveys are administered by [employer] ?? If further treatment with your primary care physician or another doctor is recommended, it is important for you to keep the appointment. Call your primary care physician or return to the Emergency Department immediately if your condition worsens, fails to improve, or new symptoms develop. If you need to find a doctor, you can call [facility] Link for a referral at [phone] or toll free at [phone] or log in to [email or web address].. ?? [facility], in keeping with [facility] guidance, no longer requires face masks for staff, patientsor visitors in most situations. Similiar to time spent indoors at other locations, there is the chance that you were exposed to repiratory viruses during your time with us (such as flu or COVID-19). If you develop symptoms concerning for a viral respiratory infection, please seek testing (and treatment if indicated) from your medical provider or home test kit. ?? You can view and manage your care through the patient portal or by using a health care miguel of your choosing. [employer] is a website that allows you to securely view your medical information including your hospital discharge summary, office visit summaries, medications and follow-up visits. You can also request appointments, renew medications, and request access to your medical information using a health care miguel of your choosing, or just ask a question. You are entitled to know the individuals who participated in your treatment. This information is available within your medical record and will be provided upon your request. You can enroll at [email or web address] or register d uring your next office visit. You have been discharged from [facility], Patient Care Unit: ENDO??. If you have any questions regarding these instructions after you leave, please call us and we will be happy to assist you. [facility] Your Care Team Attending Physician Matt Covington MD?? Discharging Providers Matt Covington MD Reason for Admission VARICEAL SCREEN Primary Care Provider Richar Gordon MD? Advance Directive Health Care Proxy on File Yes - Health Care Proxy What to do next Instructions From Your Doctor ?? Orders?? Daystay Protocol, ??09/23/23 7:54:00 EDT?? Scheduled Follow-Up Appointments 2022 10:05 AM EST ?? With: Evan PEREZ, Richar Weldon Where: [facility] [address] [address]- Status: Pending You Need to Schedule the Following Appointments Follow Up with??follow up with PCP Follow Up with??Richar Gordon When:??In 0 days Discharge Medications ZOILA HAMEED :1965 Visit Date:09/23/2023 Medications: Please continue your medications until treatment is completed or stopped by your provider. You may resume your daily prescription medications. Discuss any questions related to medications with your provider. What How Much When Instructions Next Dose Unchanged Albuterol (albuterol 0.083% inhalation solution) 3 Milliliter Inhalation Every 6 hours as needed for Wheezing/Shortness of Breath DX:J45.909 ?? Unchanged Albuterol (albuterol 0.083% inhalation solution) See instructions INHALE CONTENTS OF 1 VIAL VIA NEBULIZER EVERY 6 HORUS NEEDED FOR WHEEZING/ SHORTNESS OF BREATH ?? Unchanged Albuterol (Ventolin HFA 108 mcg/ inh inhalation aerosol with adapter) 2 puff(s) Inhalation 4 times a day as needed for for wheezing Unchanged Amlodipine (amLODIPine 2.5 mg oral tablet) 1 tab(s) Oral Daily Unchanged Aspirin (aspirin 81 mg oral tablet, chewable) 1 tab(s) Oral Daily Duration: 30 Days Unchanged BuPROpion (BuPROPion (Eqv-Wellbutrin SR) 150 mg/ 12 hours oral tablet, extended release) TAKE 1 TABLET BY MOUTH TWICE DAILY ?? Unchanged cobicist/ elvitegra/ emtricitab/ tenofov (Genvoya oral tablet) 1 tab(s) Oral Daily Duration: 30 Days with food ?? Unchanged Lisinopril (lisinopril 20 mg oral tablet) 1 tab(s) Oral Daily Unchanged Lorazepam (LORazepam 1 mg oral tablet) 1 tab(s) Oral As needed for as needed for anxiety Unchanged Metoprolol (Metoprolol Succinate ER 25 mg oral tablet, extended release) 1 tab(s) Oral Daily Unchanged Miscellaneous Rx (Shoe inserts) See instructions Dx: Bilateral foot pain ?? Unchanged Montelukast (montelukast 10 mg oral tablet) 1 tab(s) Oral Daily Unchanged Pantoprazole (pantoprazole 40 mg oral delayed release tablet) 1 tab(s) Oral Twice a day Replaces omeprazole ?? Unchanged Rosuvastatin (rosuvastatin 10 mg oral tablet) 1 tab(s) Oral Daily Unchanged Tramadol (traMADol 50 mg oral tablet) 2 tab(s) Oral Every 6 hours as needed for NEEDED FOR PAIN Allergies (NKA means No Known Allergies) Anoro Ellipta Augmentin??(nausea and vomiting) Bactrim??(swelling) Benadryl??(Swelling/Edema, Rash/Dermatitis, Anxiety state) Cipro HC??(rash) Pulmicort Flexhaler amoxicillin??(nausea and vomiting) atorvastatin??(Dyspnea) gabapentin??(anxiety) Education Materials Below is the list of Educational Leaflet Providered with your Discharge Instructions. Surgery Medical Daystay Surgical Overnight Discharge Instructions?? Valuables and Belongings I fully understand and agree that [facility] accepts no responsibility for all my personal property including clothing, toilet articles, radios, jewelry, dentures, hearing aids, rings, money, or any other property that is in my possession or is brought to me after admission. I understand certain valuables may be placed in a hospital safe for a short period of time. I understand that the hospital is not liable for loss or damage due to accident, fire, or other natural occurrence while said property is in the safe. I accept full responsibility for any personal property that I keep with me, and will not hold the hospital responsible in case of loss or disappearance. I acknowledge that i have been encouraged to send valuables and belongings home. ? Other Discharge Information ? Case Management Discharge Plan?? Discharge Plan?? Discharge Level of Care at Discharge: Home/Nursing Home/Foster Care ?? Pulmonary Rehab Status?? Pulmonary Rehab Discharge Status?? Respiratory Rate:??10 br/min??Low ? Common Emergency Awareness Tips IS IT A STROKE? Act FAST and Check for these signs: FACE Does the face look uneven? ARM Does one arm drift down? SPEECH Does their speech sound strange? TIME Call at any sign of stroke ?? Heart Attack Signs Chest discomfort: Most heart attacks involve discomfort in the center of the chest and lasts more than a few minutes, or goes away and comes back. It can feel like uncomfortable pressure, squeezing, fullness or pain. Discomfort in upper body: Symptoms can include pain or discomfort in one or both arms, back, neck, jaw or stomach. Shortness of breath: With or without discomfort. Other signs: Breaking out in a cold sweat, nausea, or lightheaded. Remember, MINUTES DO MATTER. If you experience any of these heart attack warning signs, call to get immediate medical attention! ?? Smoking can increase your chances of developing chronic health problems and can cause harmful effects to other family members in your house. If you smoke, you are strongly encouraged to quit. Please call [facility] [employer] Link at [phone] or [phone] [phone]) or log in to [email or web address] for referrals to smoking cessation programs. ?? The National Suicide Prevention Hotline is available 24/06 if you or someone you know needs to find a reason to keep living. By calling 2-608-172-Qbix (7242) you'll be connected to a skilled, trained counselor at a crisis center in your area. SURGERY DISCHARGE INSTRUCTIONS SIGNATURE PAGE ZOILA HAMEED Location:[facility] Registration Date and Time:09/23/2023 06:22 EDT Primary Care Physician: Evan PEREZ, Richar Weldon, Attending Physician: Adria PEREZ, Matt Cali, I HAMEEDZOILA DWYER, have received the above patient education materials/instructions and have verbalized understanding. If ambulance or transport services are being used I further acknowledge being given a choice of service. ?? If you need to contact me, please call me at this number: . Patient/Primer Inserting Machine Operator Name: Patient/Primer Inserting Machine Operator Signature: Relationship to Patient: Witness Name/Signature: Date: * Isabel Portillo RN: PERFORM, SIGN, VERIFY Event Display: Patient Education Handout Authored Date: * Isabel Portillo RN: PERFORM Event Display: Patient Education Leaflets Authored Date: [id number] Surgery Medical Daystay Surgical Overnight Discharge Instructions ?? 295 Medical Daystay/Surgical Overnight Discharge Instructions ? Since your coordination and judgment may be altered by medication and/or anesthesia, a responsible adult must drive you home from the hospital. ? If you have received medication for pain or sedation while under our care, you should not drive, operate machinery, drink alcohol, or sign any legal documents for 24 hours.?? You should have someone with you at home tonight. ? Remain at home the day of discharge.?? You may be up and about unless otherwise instructed by your physician. ? You may resume your daily prescription medication schedule.?? Any depressant medication should be avoided for 24 hours unless otherwise instructed by your surgeon or anesthesiologist. ? Call your physician for a follow-up appointment.? If you experience unusual or severe pain not relied by your pain medication, excessive bleedingor drainage, persistent nausea and vomiting, excessive swelling or redness, foul odor from incisionsite or fever over 100.6F, you need to call your physician. ? A follow-up phone call by a nurse will be made the day after your procedure.?? If you have stayed with us over night, you will not be receiving a follow-up phone call. ? Nausea and vomiting are a common side effect of prescription pain medication.?? We recommend that pills are not taken on an empty stomach.?? While taking any prescription pain medication you should not drive or drink alcohol. ? 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
--- OUTSIDE RECORDS SUMMARY | 2023-10-26 09:53 | XMS_ITS | Continuity of Care Document ---
Author Name Unknown Organization [facility] Address [address] [place] [address]- Care Team Providers Care C Python Developer Name Role Phone Richar Gordon MD Primary Care Physician Encounter [facility] Date(s): 03/25/23 - 05/03/23 [facility] [address] [place] [id number] Attending Physician: Claribel Johnson MD Admitting Physician: [...] vaccine, inactivated 10/05/19 Milad rded SARS-CoV-2 mRNA ([id number]-[id number]) vax 2 08/09/22 Given SARS-CoV-2 (COVID-19) mRNA [...] pneumococcal 13-valent vaccine 08/07/17 Recorded 1Result Comment: [id number] 2Result Comment: [id number] Medications albuterol 0.083% inhalation solution See Instructions, INHALE CONTENTS OF 1 VIAL VIA NEBULIZER EVERY 6 HORUS NEEDED FOR WHEEZING/SHORTNESS OF BREATH, # 75 mL, 3 Refills, Maintenance, 09/18/22 10:48:00 EDT, [id number], 166, cm, 08/09/22 11:33:00 EDT, Height, 92, [...] 16 mL, 2 Refills, 08/10/22 6:59:00 EDT, [facility]/pharmacy #[id number], 90, USE 1 SPRAY IN EACH NOSTRIL TWICE A DAY, 166, cm, 08/09/22 11:33:00 EDT, Height, 92, kg, 03/03/21 15:27:00 EDT, Dry Weight Start Date: 08/10/22 Status: Ordered fluticasone CFC free 44 mcg/inh inhalation aerosol 2 puffs, Inhalation, 2 times a day, USE WITH SPACER. RINSE AND SPIT AFTER USE, # 10.6 each, 5 Refills, Maintenance, 03/29/23 16:53:00 EDT, [facility], 166, cm, 01/11/23 10:34:00 EST, Height Start Date: 03/29/23 Status: Ordered Genvoya oral tablet 1 tablet, By Mouth, Daily, with food, # 30 tablet, 5 Refills, Maintenance, 12/28/22 13:14:00 EST, Tablet, [facility] #[id number], Partial fill upon patient request if the prescription is for a schedule II opioid drug., 1 tablet By Mouth Daily,x30... Start Date: 12/28/22 Stop Date: 06/26/23 Status: Ordered lisinopril 20 mg oral tablet 1, tablet, By Mouth, Daily, # 90 tablet, Refills 3, Tot. Refills 3, Maintenance, 05/02/23 9:26:00 EDT, Route to Pharmacy Electronically, [facility]/pharmacy #[id number], 166, cm, 05/02/23 9:09:00 EDT, Height Start Date: 05/02/23 Status: Ordered LORazepam 1 mg oral tablet 1 tablet = 1 mg, By Mouth, PRN as needed for anxiety, 0 Refills, Maintenance, 06/29/18 13:11:09 EDT Start Date: 06/29/18 Status: Ordered Metoprolol Succinate ER 25 mg oral tablet, extended release 1 tablet, By Mouth, Daily, # 90 tablet, 3 Refills, Maintenance, 05/02/23 9:26:00 EDT, [facility]/pharmacy #[id number], 166, cm, 05/02/23 9:09:00 EDT, Height Start Date: 05/02/23 Status: Ordered montelukast 10 mg oral tablet 10 mg, 1, tablet, By Mouth, Daily, # 90 tablet, Refills 3, Tot. Refills 3, Maintenance, 05/02/23 9:26:00 EDT, Route to Pharmacy Electronically, [facility]/pharmacy #[id number], 166, cm, 05/02/23 9:09:00 EDT, Height Start Date: 05/02/23 Status: Ordered omeprazole 20 mg oral enteric coated capsule 1 capsule, By Mouth, 2 times a day, # 180 capsule, 3 Refills, Maintenance, 05/02/23 9:27:00 EDT, [facility]/pharmacy #[id number], 166, cm, 05/02/23 9:09:00 EDT, Height Start Date: 05/02/23 Status: Ordered rosuvastatin 10 mg oral tablet 1 tablet, By Mouth, Daily, # 90 tablet, 3 Refills, Maintenance, 05/02/23 9:27:00 EDT, [facility]/pharmacy #[id number], 166, cm, 05/02/23 9:09:00 EDT, Height [...] Acute 09/01/23 9:28:00 EDT, 05/02/23 9:28:00 [facility], [id number], 166, cm, 05/02/23 9:09:00 [...] Team Personnel Name: Agnieszka Chavez RN Position: [facility] RN Supv Member Role: Primary Care Nurse Name: Cassandra Doan RN Position: [facility] RN Member Role: Primary Care Nurse Name: Richar Gordon MD Position: [facility] Physician - Primary Care Member Role: PCP Address: Address: [address] [place] [address]- Name: Bess Hallman RN Position: [facility] Hospital Cardiograph Operator Member Role: Primary Care Nurse Care Team Related Persons Name: TIA SCHROEDER Address: home [address] [place] [address] Name: LORI LOZOYA Address: home [address] [place] [address]
--- OUTSIDE RECORDS SUMMARY | 2023-10-26 09:53 | XMS_ITS | Continuity of Care Document ---
Author Name Unknown Organization [facility] [place] Address [address] [place] [address]- Care Team Providers Care Live In Housekeeper Name Role Phone Evan PEREZ, Richar Weldon Primary Care Physician [place] [facility] 10/04/23 - 10/11/23 [facility] [place] Adult [address] [place] [address]- Encounter Diagnosis Asthma(Discharge Diagnosis) - 10/04/23 Attending Physician: Delio BECKWITH-CARPENTRY SUPERVISOR-CIsabella Allergies, Adverse Reactions, Alerts Substance Reaction Severity [...] conjugate vaccine 2 08/12/23 Given SARS-CoV-2 mRNA ([id number]-pxuvr) vax 3 08/09/22 Given SARS-CoV-2 (COVID-19) mRNA [...] pneumococcal 13-valent vaccine 08/07/17 Recorded 1Result Comment: [id number] 2Result Comment: [id number] 3Result Comment: [id number] Medications albuterol 0.083% inhalation solution See Instructions, INHALE CONTENTS OF 1 VIAL VIA NEBULIZER EVERY 6 HORUS NEEDED FOR WHEEZING/SHORTNESS OF BREATH, # 75 mL, 3 Refills, Maintenance, 09/18/22 10:48:00 EDT, [id number], 166, cm, 08/09/22 11:33:00 EDT, Height, 92, kg, 03/03/21 15:27... Start Date: 09/18/22 Status: Ordered albuterol 0.083% inhalation solution 3 mL = 2.5 mg, Inhalation, Every 6 hours, PRN Wheezing/Shortness of Breath, DX:[id number], # 100 each,3 Refills, Maintenance, 05/02/23 9:24:00 EDT, Solution, [facility]/pharmacy #[id number], [...] 05/02/23 9:24:00 EDT, [facility] 5 Refills, Maintenance, 06/10/23 12:46:00 EDT, [facility] #[id number], Partial fill upon patient request if the prescription is for a schedule II opioid drug., 1 tablet By Mouth Annie... Start Date: 06/10/23 Stop Date: 12/07/23 Status: Ordered lisinopril 20 mg oral tablet 1, tablet, By Mouth, Daily, # 90 tablet, Refills 3, Tot. Refills 3, Maintenance, 08/12/23 10:57:00 EDT, Route to Pharmacy Electronically, [facility]/pharmacy #[id number], 166, cm, 08/12/23 10:26:00 EDT, Height Start Date: 08/12/23 Status: Ordered LORazepam 1 mg oral tablet 1 tablet = 1 mg, By Mouth, PRN as needed for anxiety, 0 Refills, Maintenance, 06/29/18 13:11:09 EDT Start Date: 06/29/18 Status: Ordered Metoprolol Succinate ER 25 mg oral tablet, extended release 1 tablet, By Mouth, Daily, # 90 tablet, 3 Refills, Maintenance, 05/02/23 9:26:00 EDT, [facility]/pharmacy #[id number], 166, cm, 05/02/23 9:09:00 EDT, Height Start Date: 05/02/23 Status: Ordered montelukast 10 mg oral tablet 10 mg, 1, tablet, By Mouth, Daily, # 90 tablet, Refills 3, Tot. Refills 3, Maintenance, 08/12/23 10:57:00 EDT, Route to Pharmacy Electronically, [facility]/pharmacy #[id number], 166, cm, 08/12/23 10:26:00 EDT, Height [...] wheezing, # 8 Gm, 3 Refills, Maintenance, 10/04/23 12:55:00 EDT, [facility], [id number], Partial fill upon patient request if the prescription is for a schedule II opioid drug., 168, cm, 09/23/23 7:06:0... Start Date: 10/04/23 Status: Ordered Problem List Condition Confirmation Course [...] Dates Health Status [facility] Service Informant Asthma Discharge Diagnosis 10/04/23 Social History Social History Type Response Smoking Status Former smoker, quit more than 30 days ago entered on: 05/11/19 Sex Patient Care team information Care Team Personnel Name: Franki EVANS, Cassandra Cali Position: [facility] RN Member Role: Primary Care Nurse Name: Evan PEREZ, Richar Weldon Position: [facility] Physician - Primary Care Member Role: PCP Address: Address: [address] [place] [address]- Name: Bess Hallman RN Position: [facility] Hospital Cupola Tapper Helper Member Role: Primary Care Nurse Name: Yisel Miranda RN Position: [facility] RN Member Role: Primary Care Nurse Care Team Related Persons Name: TIA SCRHOEDER Address: home [address] [place] [address] Name: LORI LOZOYA Address: home [address] [place] [address]
--- OUTSIDE RECORDS SUMMARY | 2023-10-26 09:54 | XMS_ITS | Continuity of Care Document ---
Author Name Unknown Organization [facility] Address [address] [place] [address]- Care Team Providers Care Nursing Secretary Name Role Phone Evan PEREZ, Richar Weldon Primary Care Physician Encounter [facility] Date(s): 04/03/23 - 05/03/23 [facility] [address] [place] [address] Attending Physician: Admharoon, Tam Admitting Physician: AdmtrTam Referring Physician: Admtr, [id number] [...] vaccine, inactivated 10/05/19 Milad rded SARS-CoV-2 mRNA ([id number]-[id number]-awbbs) vax 2 08/09/22 Given SARS-CoV-2 (COVID-19) mRNA [...] pneumococcal 13-valent vaccine 08/07/17 Recorded 1Result Comment: [id number] 2Result Comment: [id number] Medications albuterol 0.083% inhalation solution See Instructions, INHALE CONTENTS OF 1 VIAL VIA NEBULIZER EVERY 6 HORUS NEEDED FOR WHEEZING/SHORTNESS OF BREATH, # 75 mL, 3 Refills, Maintenance, 09/18/22 10:48:00 EDT, [facility], 166, cm, 08/09/22 11:33:00 EDT, Height, 92, [...] 2 Refills, 08/10/22 6:59:00 EDT, [facility]/pharmacy #[id number], 90, USE 1 SPRAY [...] Refills, Maintenance, 03/29/23 16:53:00 EDT, [facility], 166, cm, 01/11/23 10:34:00 EST, Height Start Date: 03/29/23 Status: Ordered Genvoya oral tablet 1 tablet, By Mouth, Daily, with food, # 30 tablet, 5 Refills, Maintenance, 12/28/22 13:14:00 EST, Tablet, [facility] #[id number], Partial fill upon patient request if the prescription is for a schedule II opioid drug., 1 tablet By Mouth Daily,x30... Start Date: 12/28/22 Stop Date: 06/26/23 Status: Ordered lisinopril 20 mg oral tablet 1, tablet, By Mouth, Daily, # 90 tablet, Refills 3, Tot. Refills 3, Maintenance, 05/02/23 9:26:00 EDT, Route to Pharmacy Electronically, [facility]/pharmacy #[id number], 166, cm, 05/02/23 9:09:00 [...] tablet, 3 Refills, Maintenance, 05/02/23 9:26:00 EDT, [facility]/pharmacy #[id number], 166, cm, 05/02/23 9:09:00 EDT, Height Start Date: 05/02/23 Status: Ordered montelukast 10 mg oral tablet 10 mg, 1, tablet, By Mouth, Daily, # 90 tablet, Refills 3, Tot. Refills 3, Maintenance, 05/02/23 9:26:00 EDT, Route to Pharmacy Electronically, [facility]/pharmacy #[id number], 166, cm, 05/02/23 9:09:00 EDT, Height Start Date: 05/02/23 Status: Ordered omeprazole 20 mg oral enteric coated capsule 1 capsule, By Mouth, 2 times a day, # 180 capsule, 3 Refills, Maintenance, 05/02/23 9:27:00 EDT, [facility]/pharmacy #[id number], 166, cm, 05/02/23 9:09:00 EDT, Height Start Date: 05/02/23 Status: Ordered rosuvastatin 10 mg oral tablet 1 tablet, By Mouth, Daily, # 90 tablet, 3 Refills, Maintenance, 05/02/23 9:27:00 EDT, [facility]/pharmacy #[id number], 166, cm, 05/02/23 9:09:00 [...] Acute 09/01/23 9:28:00 EDT, 05/02/23 9:28:00 EDT, [facility]/pharmacy #[id number], 166, cm, 05/02/23 9:09:00 [...] Name: Agnieszka Chavez RN Position: [facility] RN Supv Member Role: Primary Care Nurse Name: Cassandra Doan RN Position: [facility] RN Member Role: Primary Care Nurse Name: Richar Gordon MD Position: [facility] Physician - Primary Care Member Role: PCP Address: Address: [address] [place] [address]- Name: Bess Hallman RN Position: [facility] Hospital Resident Care Aide Member Role: Primary Care Nurse Care Team Related Persons Name: TIA SCHROEDER Address: home [address] [place] [address] Name: LORI LOZOYA Address: home [address] [place] [address]
--- OUTSIDE RECORDS SUMMARY | 2023-10-26 09:55 | XMS_ITS | Continuity of Care Document ---
Author Name Unknown Organization [facility] Address [address] [place] [address]- Care Team Providers Care Pharmacoepidemiologist Name Role Phone Evan PEREZ, Richar Weldon Primary Care Physician [phone] Encounter [facility] [place] Date(s): 10/16/23 - 10/16/[address] [address]- Discharge Disposition: A-D/C Walkout Attending Physician: Not [...] conjugate vaccine 2 08/12/23 Given SARS-CoV-2 mRNA (gusanul-mjef-nwbkf) vax 3 08/09/22 Given SARS-CoV-2 (COVID-19) mRNA [...] pneumococcal 13-valent vaccine 08/07/17 Recorded 1Result Comment: [id number] 2Result Comment: [id number] 3Result Comment: [id number] Medications albuterol 0.083% inhalation solution See Instructions, INHALE CONTENTS OF 1 VIAL VIA NEBULIZER EVERY 6 HORUS NEEDED FOR WHEEZING/SHORTNESS OF BREATH, # 75 mL, 3 Refills, Maintenance, 09/18/22 10:48:00 EDT, [facility] 270[facility], 166, cm, 08/09/22 11:33:00 EDT, Height, 92, kg, 03/03/21 15:27... Start Date: 09/18/22 Status: Ordered albuterol 0.083% inhalation solution 3 mL = 2.5 mg, Inhalation, Every 6 hours, PRN Wheezing/Shortness of Breath, DX:J45.909, # 100 each,3 Refills, Maintenance, 05/02/23 9:24:00 EDT, Solution, [facility]/pharmacy #[id number], Partial fill upon patient request if the prescription is for a schedule II... Start Date: 05/02/23 Status: Ordered amLODIPine 2.5 mg oral tablet 1 tablet, By Mouth, Daily, # 90 tablet, 3 Refills, 05/02/23 9:24:00 EDT, [facility]/pharmacy #[id number], 166, cm, 05/02/23 9:09:00 EDT, Height Start Date: 05/02/23 Status: Ordered aspirin 81 mg oral tablet, chewable 81 mg, 1, tablet, By Mouth, Daily, # 30 tablet, Refills 5, Tot. Refills 5, Maintenance, 05/02/23 9:24:00 EDT, [facility], [facility] Maintenance, 06/10/23 12:46:00 EDT, Tablet, Emily, [facility] #[id number], Partial fill upon patient request if the prescription is for a schedule II opioid drug., 1 tablet By Mouth Annie... Start Date: 06/10/23 Stop Date: 12/07/23 Status: Ordered lisinopril 20 mg oral tablet 1, tablet, By Mouth, Daily, # 90 tablet, Refills 3, Tot. Refills 3, Maintenance, 08/12/23 10:57:00 EDT, Route to Pharmacy Electronically, [facility]/pharmacy #[id number], 166, cm, 08/12/23 10:26:00 EDT, [...] tablet, 3 Refills, Maintenance, 05/02/23 9:26:00 EDT, [facility]/pharmacy #[id number], 166, cm, 05/02/23 9:09:00 EDT, Height Start Date: 05/02/23 Status: Ordered montelukast 10 mg oral tablet 10 mg, 1, tablet, By Mouth, Daily, # 90 tablet, Refills 3, Tot. Refills 3, Maintenance, 08/12/23 10:57:00 EDT, Route to Pharmacy Electronically, [facility]/pharmacy #[id number], 166, cm, 08/12/23 10:26:00 EDT, Height Start Date: 08/12/23 Status: Ordered pantoprazole 40 mg oral delayed release tablet 1 tablet = 40 mg, By Mouth, 2 times a day, Replaces omeprazole, # 60 tablet, 6 Refills, Maintenance, 08/12/23 10:59:00 EDT, [facility] Tablet, 166, cm, 08/12/23 10:26:00 EDT, Height Start Date: 08/12/23 Status: Ordered predniSONE 10 mg oral tablet See Instructions, 6 tabs daily x 4 days; then 5 tabs daily x 2 days; 4 tabs daily x 2 days; 3 tabs daily x 2 days; 2 tabs daily x 2 days; 1 tab daily x 2 days; then d/c., # 54 tablet, 0 Refills, Maintenance, 10/14/23 17:16:00 EST, [facility]/pharmacy #[id number],... Start Date: 10/14/23 Status: Ordered rosuvastatin 10 mg oral tablet [...] recent to oldest [Reference Range]: 1 2 Weight 87.8 kg (10/16/23 1:42 PM) Oxygen Saturation [94-100 %] 98 % (10/16/23 4:26 PM) 98 % (10/16/23 1:42 PM) Pulse Rate [55-90 bpm] 67 bpm (10/16/23 4:26 PM) 63 bpm (10/16/23 1:42 PM) Blood Pressure [90-138/55-84 mm Hg] 142/ 80mm Hg *H* (10/16/23 4:26 PM) 127/67mm Hg (10/16/23 1:42 PM) Respiratory Rate [16-30 br/min] 18 br/mi n (10/16/23 4:26 PM) 18 br/min (10/16/23 1:42 PM) Temperature [96.8-100.4 DegF] 98.5 DegF (10/16/23 4:26 PM) 98.5 DegF (10/16/23 1:42 PM) Liters per Minute 0 L/min (10/16/23 1:42 PM) Mode of Delivery (Oxygen) Room air (10/16/23 4:26 PM) Room air (10/16/23 1:42 PM) Blood pressure sites Arm, right (10/16/23 4:26 PM) Arm, right (10/16/23 1:42 PM) Temperature Route Oral (10/16/23 4:26 PM) Oral (10/16/23 1:42 PM) Dry Weight 87.8 kg (10/16/23 1:42 PM) Weight Obtained Via Standing scale (10/16/23 1:42 PM) Dry Weight Obtained Via Standing scale (10/16/23 1:42 PM) Social History Social History Type Response Smoking Status Former smoker, quit more than 30 days ago entered on: 05/11/19 Sex EKG study * Event Display: EKG Authored Date: Patient Care team information Care Team Personnel Name: Cassandra Doan RN Position: [facility] RN Member Role: Primary Care Nurse Name: Evan PEREZ, Richar Weldon Position: [facility] Physician - Primary Care Member Role: PCP Address: Address: [address] [place] [phone]- Name: Bess Hallman RN Position: [facility] Hospital Plant Operations Engineer Member Role: Primary Care Nurse Name: Yisel Miranda RN Position: [facility] RN Member Role: Primary Care Nurse Care Team Related Persons Name: TIA SCHROEDER Address: home [address] [place] [address] Name: LORI LOZOYA Address: home [address] [place] [address]
--- OUTSIDE RECORDS SUMMARY | 2023-10-26 09:55 | XMS_ITS | Continuity of Care Document ---
Author Name Unknown Organization [facility] Address [address] [place] [address]- Care Team Providers Care Technical Supervisor Name Role Phone Evan PEREZ, Richar Weldon Primary Care Physician [phone] [place] [facility] [place]23 - 05/09/23 [facility] [address] [place] [address]- Attending Physician: Richar Gordon MD Allergies, Adverse [...] vaccine, inactivated 10/05/19 Milad rded SARS-CoV-2 mRNA (ienvwdx-qrzr-iwpoc) vax 2 08/09/22 Given SARS-CoV-2 (COVID-19) mRNA [...] pneumococcal 13-valent vaccine 08/07/17 Recorded 1Result Comment: [id number] 2Result Comment: [id number] Medications albuterol 0.083% inhalation solution See Instructions, INHALE CONTENTS OF 1 VIAL VIA NEBULIZER EVERY 6 HORUS NEEDED FOR WHEEZING/SHORTNESS OF BREATH, # 75 mL, 3 Refills, Maintenance, 09/18/22 10:48:00 EDT, [facility], 166, cm, 08/09/22 11:33:00 EDT, Height, 92, [...] 16 mL, 2 Refills, 08/10/22 6:59:00 EDT, [facility]/pharmacy #[id number], 90, USE 1 SPRAY IN EACH NOSTRIL TWICE A DAY, 166, cm, 08/09/22 11:33:00 EDT, Height, 92, kg, 03/03/21 15:27:00 EDT, Dry Weight Start Date: 08/10/22 Status: Ordered fluticasone CFC free 44 mcg/inh inhalation aerosol 2 puffs, Inhalation, 2 times a day, USE WITH SPACER. RINSE AND SPIT AFTER USE, # 10.6 each, 5 Refills, Maintenance, 03/29/23 16:53:00 EDT, [facility], 166, cm, 01/11/23 10:34:00 EST, Height Start Date: 03/29/23 Status: Ordered Genvoya oral tablet 1 tablet, By Mouth, Daily, with food, # 30 tablet, 5 Refills, Maintenance, 12/28/22 13:14:00 EST, Tablet, [facility] #[id number], Partial fill upon patient request if the prescription is for a schedule II opioid drug., 1 tablet By Mouth Daily,x30... Start Date: 12/28/22 Stop Date: 06/26/23 Status: Ordered lisinopril 20 mg oral tablet 1, tablet, By Mouth, Daily, # 90 tablet, Refills 3, Tot. Refills 3, Maintenance, 05/02/23 9:26:00 EDT, Route to Pharmacy Electronically, [facility]/pharmacy #[id number], 166, cm, 05/02/23 9:09:00 EDT, [...] tablet, 3 Refills, Maintenance, 05/02/23 9:26:00 EDT, [facility]/pharmacy #[id number], 166, cm, 05/02/23 9:09:00 EDT, Height Start Date: 05/02/23 Status: Ordered montelukast 10 mg oral tablet 10 mg, 1, tablet, By Mouth, Daily, # 90 tablet, Refills 3, Tot. Refills 3, Maintenance, 05/02/23 9:26:00 EDT, Route to Pharmacy Electronically, [facility]/pharmacy #[id number], 166, cm, 05/02/23 9:09:00 EDT, Height Start Date: 05/02/23 Status: Ordered omeprazole 20 mg oral enteric coated capsule 1 capsule, By Mouth, 2 times a day, # 180 capsule, 3 Refills, Maintenance, 05/02/23 9:27:00 EDT, [facility]/pharmacy #[id number], 166, cm, 05/02/23 9:09:00 EDT, Height Start Date: 05/02/23 Status: Ordered rosuvastatin 10 mg oral tablet 1 tablet, By Mouth, Daily, # 90 tablet, 3 Refills, Maintenance, 05/02/23 9:27:00 EDT, [facility]/pharmacy #[id number], 166, cm, 05/02/23 9:09:00 EDT, [...] Acute 09/01/23 9:28:00 EDT, 05/02/23 9:28:00 EDT, [facility]/pharmacy #[id number], 166, cm, 05/02/23 9:09:00 EDT, [...] oldest [Reference Range]: 1 Height 166.0 cm (05/02/23 9:09 AM) Weight 88.7 kg (05/02/23 9:09 AM) Oxygen Saturation [94-100 %] 99 % (05/02/23 9:09 AM) Pulse Rate [55-90 bpm] 49 bpm *L* (05/02/23 9:09 AM) Body Mass Index [18.5-24.99 kg/m2] 32.19 kg/m2 *>HHI* (05/02/23 9:09 AM) Blood Pressure [90-138/55-84 mm Hg] 109/ 63mm Hg (05/02/23 9:09 AM) Mode of Delivery (Oxygen) Room air (05/02/23 9:09 AM) Blood pressure sites Arm, left (05/02/23 9:09 AM) Weight Obtained Via Standing scale (05/02/23 9:09 AM) Social History Social History Type Response Smoking Status Former smoker, quit more than 30 days ago entered on: 05/11/19 Sex Patient Care team information Care Team Personnel Name: Agnieszka Chavez RN Position: [facility] RN Supv Member Role: Primary Care Nurse Name: Cassandra Doan RN Position: [facility] RN Member Role: Primary Care Nurse Name: Richar Gordon MD Position: [facility] Physician - Primary Care Member Role: PCP Address: Address: [address] [place] [id number]- Name: Bess Hallman RN Position: [facility] Hospital Terminal Computer Operator Member Role: Primary Care Nurse Care Team Related Persons Name: TIA SCHROEDER Address: home [address] [place] [address] Name: LORI LOZOYA Address: home [address] [place] [address]
--- OUTSIDE RECORDS SUMMARY | 2023-10-26 09:55 | XMS_ITS | Continuity of Care Document ---
Author Name Unknown Organization [facility] Address [address] [place] [id number]- Care Team Providers Care Skating Rink Ice Maker Name Role Phone Evan PEREZ, Richar Weldon Primary Care Physician Encounter [facility] [place] Date(s): 09/20/23 - 10/20/23 [facility] [address] [place] [id number]- [place] Allergies, Adverse Reactions, Alerts Substance Reaction [...] conjugate vaccine 2 08/12/23 Given SARS-CoV-2 mRNA ([id number]) vax 3 08/09/22 Given SARS-CoV-2 (COVID-19) mRNA [...] pneumococcal 13-valent vaccine 08/07/17 Recorded 1Result Comment: [id number] 2Result Comment: [id number] 3Result Comment: [id number] Medications albuterol 0.083% inhalation solution See Instructions, INHALE CONTENTS OF 1 VIAL VIA NEBULIZER EVERY 6 HORUS NEEDED FOR WHEEZING/SHORTNESS OF BREATH, # 75 mL, 3 Refills, Maintenance, 09/18/22 10:48:00 EDT, [id number], 166, cm, 08/09/22 11:33:00 EDT, Height, 92, kg, 03/03/21 15:27... Start Date: 09/18/22 Status: Ordered albuterol 0.083% inhalation solution 3 mL = 2.5 mg, Inhalation, Every 6 hours, PRN Wheezing/Shortness of Breath, DX:J45.909, # 100 each,3 Refills, Maintenance, 05/02/23 9:24:00 EDT, Solution, [facility]/pharmacy #[id number], [...] 05/02/23 9:24:00 EDT, [facility] Maintenance, 06/10/23 12:46:00 EDT, Tablet, Emily, Gunjan [facility] Rx #[id number], Partial fill upon patient request if the prescription is for a schedule II opioid drug., 1 tablet By Mouth Annie... Start Date: 06/10/23 Stop Date: 12/07/23 Status: Ordered lisinopril 20 mg oral tablet 1, tablet, By Mouth, Daily, # 90 tablet, Refills 3, Tot. Refills 3, Maintenance, 08/12/23 10:57:00 EDT, Route to Pharmacy Electronically, [facility]/pharmacy #[id number], 166, cm, 08/12/23 10:26:00 [...] tablet, 3 Refills, Maintenance, 05/02/23 9:26:00 EDT, [facility]/pharmacy #[id number], 166, cm, 05/02/23 9:09:00 EDT, Height Start Date: 05/02/23 Status: Ordered montelukast 10 mg oral tablet 10 mg, 1, tablet, By Mouth, Daily, # 90 tablet, Refills 3, Tot. Refills 3, Maintenance, 08/12/23 10:57:00 EDT, Route to Pharmacy Electronically, [facility]/pharmacy #[id number], 166, cm, 08/12/23 10:26:00 [...] tablet, 0 Refills, Maintenance, 10/14/23 17:16:00 EST, [facility]/pharmacy #[id number],... Start Date: 10/14/23 Status: Ordered rosuvastatin [...] Team Personnel Name: Cassandra Doan RN Position: [facility] RN Member Role: Primary Care Nurse Name: Richar Gordon MD Position: [facility] Physician - Primary Care Member Role: PCP Address: Address: [address] [place] [id number]- Name: Bess Hallman RN Position: [facility] Hospital Composition Weatherboard Installer Member Role: Primary Care Nurse Name: Yisel Miranda RN Position: [facility] SN RN Member Role: Primary Care Nurse Care Team Related Persons Name: TIA SCHROEDER Address: home [address] [place] [address] Name: LORI LOZOYA Address: home [address] [place] [address]
--- NOTE | 2023-10-26 10:32 | ED_ITS ---
HPI - URI/Sore Throat General Chief Complaint: Upper Respiratory Symptoms Stated Complaint: coughing Time Seen by Provider: 10/26/23 09:46 Source: patient, RN notes reviewed and old records reviewed Mode of arrival: ambulatory History of Present Illness HPI Narrative: 57-year-old male with a past medical history of HIV (undetectable), HTN, depression, anxiety, KS, asthma presenting to ED complaining of dry cough, chest tightness, and SOB x1 month. Admits a PCP and finished 15 day course of prednisone 2 days ago without relief. Admits to compliance with albuterol and neb machine at home without relief. Denies recent travel, fever/chills, sore throat, pedal edema MD elicited complaint: cough Related Data Previous Rx's Medication Instructions Recorded gentamicin 0.3 % eye drops 1 drp ophthalmic-Left Q4H #5 mL 04/16/21 albuterol sulfate 90 mcg/actuation 2 puff inhalation Q4-6H PRN 11/15/21 aerosol inhaler shortness of breath or wheezing #8.5 grams prednisone 20 mg tablet 60 mg (3 x 20 mg) PO DAILY #12 tabs 11/15/21 naproxen 500 mg tablet 500 mg PO BID PRN pain #14 tabs 03/09/22 oxycodone 5 mg tablet 5 mg PO Q6H PRN pain #14 tabs 03/09/22 prednisone 20 mg tablet 40 mg (2 x 20 mg) PO DAILY rash 5 03/09/22 days #10 tabs clotrimazole 10 mg yi 10 mg mucous membrane 5XD 7 days 10/27/22 #35 tabs azithromycin 250 mg tablet See Rx Instructions PO .COMPLEX #6 10/26/23 tabs Allergies Allergy/AdvReac Type Severity Reaction Status Date / Time Sulfa (Sulfonamide Allergy Unknown Unknown Verified 10/26/23 09:44 Antibiotics) No Known Allergies Allergy Verified 10/26/23 09:44 Benadryl Allergy Unknown Irritable Uncoded 10/26/23 09:44 Review of Systems 2 Review of Systems: Constitutional: No Fever, No Chills ENT/Mouth: No Ear Pain, No Nasal Congestion, No sore throat, No Rhinorrhea, No Swallowing Difficulty Cardiovascular: + Chest Pain, + SOB Respiratory: + Cough, No Sputum,+ Wheezing Gastrointestinal: No Nausea, No Vomiting, No Diarrhea, No Constipation, No Abdominal pain Musculoskeletal: No joint pain, No Myalgias, No Joint Swelling Skin: No Skin Lesions, No rash Neuro: No Weakness Yes all other systems are reviewed and are negative Constitutional: Constitutional: Reports as per [facility] Past Medical History Attestation statement: The following information was validated with the patient. Source: old records reviewed Medical History High blood pressure HIV (human immunodeficiency virus infection) Social History Advance Directives: No Advance Directives Information Provided: No Physical Exam 2 Vital Signs: Vital Signs: Last Vital Signs Temp 98.5 F 10/26/23 09:40 Pulse 73 10/26/23 11:01 Resp 16 10/26/23 11:01 BP 125/71 10/26/23 09:40 Pulse Ox 98 10/26/23 09:40 O2 Del Method Room Air 10/26/23 09:40 BMI result Body Mass Index 31.3 Const: General: cooperative, healthy appearing and no acute distress O rientation/consciousness: patient oriented x3 Limitations: no limitations HEENT: Head: Yes normal to inspection and Yes atraumatic Ears: hearing grossly normal bilaterally General nose exam: Normal external nose present Face and sinus: Yes normal facial exam Eyes: General: appearance normal, both eyes and all related structures EOM: EOMs intact bilaterally Neck: Neck: Yes normal visual inspection and Yes no meningeal signs Resp: Effort & Inspection: normal respiratory effort, no respiratory distress and no stridor Auscultation: clear to auscultation bilaterally, no crackles, no rhonchi and no wheezes Cardio: Rate: regular rate Heart sounds: S1 normal heart sound present and S2 normal heart sound present Skin: Rashes: no rashes Wounds: no wounds Neuro: General: patient oriented x3, tone normal and no meningeal signs C ranial nerves: Yes CN's II-XII intact bilaterally Gait exam (Neuro): Normal gait present Extrem: General: Yes normal to inspection, Yes no pedal edema and Yes no calf tenderness Course Course Course Narrative: -1155--labs reassuring, trop negative -COVID/flu negative XR chest 2V IMPRESSION: Unremarkable chest examination. > patient recently finished course of prednisone, do not feel prednisone would benefit him at this time, will discharge with [facility] and close PCP follow-up Results discussed with patient including worrisome signs and symptoms and strict return precautions, and when to return to the emergency department. They verbalized understanding and feel safe for discharge at this time. Medications Administered Discontinued Medications Generic Name Dose Route Start Last Admin Trade Name Freq PRN Reason Stop Dose Admin Albuterol/Ipratropium 3 ml 10/26/23 10:56 10/26/23 11:00 Albuterol/Iprat 2.5/0.5mg 3 Ml Ampul.Neb INHALE 10/26/23 10:57 3 ml ONCE ONE Administration Medical Decision Making Medical Decision Making MDM Narrative: 57-year-old male with a past medical history of HIV (undetectable), HTN, depression, anxiety, KS, asthma presenting to ED complaining of dry cough, chest tightness, and SOB x1 month. On exam VSS, NAD, lungs CTA, no pedal edema, calf pain. Concern for asthma exacerbation vs bronchitis vs pneumonia. Rule out ACS although of lower suspicion with duration of symptoms. Unlikely PE or CHF Plan: EKG, labs, CXR, viral testing, ED bronch protocol Please refer to course for remaining clinical decision making, interpretation of labs/imaging results, and discussions with consultants and/or family members. Differential Diagnosis Differential Diagnoses: The differential diagnosis associated with the presentation includes As above Admission/Observation Consideration of admission/observation: Escalation of care including admission/observation considered Lab Data [facility] Lab Attestation statement: I reviewed the patient's lab results. 10/26/23 10:53 10/26/23 10:53 Labs: Lab Results 10/26/23 Range/Units 10:53 WBC 6.4 (4.8-10.8) X10*3/uL RBC 4.97 (4.60-5.80) X10*6/uL Hgb 16.0 (14.0-18.0) g/dl Hct 46.2 (42.0-52.0) % MCV 93.0 (80.0-98.0) fL MCH 32.2 (27.0-33.0) pg MCHC 34.6 (31.0-36.0) g/dl RDW 13.3 (11.0-16.0) % Plt Count 59 L (160-400) X10*3/uL MPV 11.4 (9.4-12.4) fL Immature Gran % (Auto) 3.1 H (0.0-0.4) % Neut % (Auto) 73.2 H (45-73) % Lymph % (Auto) 14.9 L (20-40) % Butler % (Auto) 7.8 (2-11) % Eos % (Auto) 0.5 (0-4) % Baso % (Auto) 0.5 (0-2) % Lymph # (Auto) 1.0 L (1.2-4.9) X10*3/uL Butler # (Auto) 0.5 (0.1-1.2) X10*3/uL Eos # (Auto) 0.0 (0.0-0.4) X10*3/uL Baso # (Auto) 0.0 (0.0-0.2) X10*3/uL Abs Immat Gran (auto) 0.20 H (0.00-0.03) X10*3/uL Absolute Neuts (auto) 4.7 (2.0-8.3) x10*3/uL Absolute Nucleated RBC 0.000 (0.0-0.012) X10*3/uL Nucleated RBC % (auto) 0.0 (0.0-0.2) /100WBC Sodium 143 (135-145) mmol/L Potassium 4.0 (3.3-5.1) mmol/L Chloride 105 (96-108) mmol/L Carbon Dioxide 30 H (22-29) mmol/L Anion Gap 12 (12-20) BUN 12 (9-16) mg/dL Creatinine 0.76 (0.5-1.4) mg/dL Estim Creat Clear Calc 111.5 Estimated GFR > 60 Random Glucose 118 H (60-115) mg/dL Calcium 9.2 (8.4-10.2) mg/dL Troponin I High Sens 2.7 (<3.5-35.0) ng/L B-Natriuretic Peptide 48 (<100) pg/mL COVID-19 (BRITNEY) Negative (Negative) COVID-19 Clin Com See Note Influenza Type A (JAYCEE) Negative (Negative) Influenza Type B (JAYCEE) Negative (Negative) Influenza A & B Note See Note Independent Interpretation I performed an independent interpretation of an: EKG (My interpretation EKG sinus bradycardia rate of 49. AK interval 168. QTC 393. No STEMI.) and Plain X-Ray Radiology Impression Discussion of test interpretation with radiology: I have reviewed the radiologist's reading. External Record Review External record reviewed: Inpatient record, Office record, Outpatient record, Prior outpatient labs, Prior outpatient radiology, Primary care record and Outside ED record Tests considered The following testing was considered but not selected: As above Chronic Conditions Patient?s care impacted by: Other (HIV, HTN, asthma) Discharge Plan Discharge Clinical Impression: Bronchitis Patient Disposition: Home, Self-Care Instructions: Acute Bronchitis (ED) Additional Instructions: Your blood work is reassuring. 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 Fartun as an antibiotic please take as prescribed If symptoms persist or worsen return to the ED Prescriptions: New azithromycin 250 mg tablet See Rx Instructions .ROUTE .COMPLEX Qty: 6 0RF Rx Instructions: take 500 mg today (day 1), then 250 mg for 4 days (days 2-5) No Action gentamicin 0.3 % drops 1 drp ophthalmic-Left Q4H Qty: 5 0RF oxycodone 5 mg tablet 5 mg PO Q6H PRN (Reason: pain) Qty: 14 0RF prednisone 20 mg tablet 40 mg PO DAILY 5 Days Qty: 10 0RF naproxen 500 mg tablet 500 mg PO BID PRN (Reason: pain) Qty: 14 0RF prednisone 20 mg tablet 60 mg PO DAILY Qty: 12 0RF albuterol sulfate 90 mcg/actuation HFA aerosol inhaler 2 puff inhalation Q4-6H PRN (Reason: shortness of breath or wheezing) Qty: 8.5 0RF clotrimazole 10 mg yi 10 mg mucous membrane 5XD 7 Days Qty: 35 0RF Referrals: Richar Gordon MD [Primary Care Provider] - 5 days Interventions: ED Discharge Assessment Last Done: 10/26/23 12:04 Discharge Date/Time: 10/26/23 12:05
--- NOTE | 2023-10-26 10:33 | ECG_ITS ---
Test Reason : CHEST TIGHTNESS Blood Pressure : / mmHG Vent. Rate : 049 BPM Atrial Rate : 049 BPM P-R Int : 168 ms QRS Dur : 084 ms QT Int : 436 ms P-R-T Axes : 019 030 072 degrees QTc Int : 393 ms Sinus bradycardia Low voltage QRS Otherwise normal ECG When compared with ECG of 25-APR-2023 15:58, No significant change was found Referred By: Jenifer Madrid Electronically Signed By:CLAUDY TILLMAN MD
--- NOTE | 2023-10-26 10:56 | PC.NURSE ---
respiratory at bedside
[2023-10-26] MEDS: Albuterol/Iprat 2.5/0.5MG 3 ML AMPUL.NEB INHALE (11:00)
[2023-10-26 11:01] VITALS: PULSE 73; RESP 16; O2SAT 98
[2023-10-26 11:05] LABS: MANUAL DIFF FLAG NO
[2023-10-26 11:09] LABS: Basophils Percent Auto 0.5 % (0-2); Eosinophils Percent Auto 0.5 % (0-4); Hematocrit 46.2 % (42.0-52.0); Imm Gran Pct Auto 3.1 % (0.0-0.4); Lymphocytes Percent Auto 14.9 % (20-40); Mean Corpuscular HGB Conc 34.6 g/dl (31.0-36.0); Mean Corpuscular Hemoglobin 32.2 pg (27.0-33.0); Mean Platelet Volume 11.4 fL (9.4-12.4); Monocytes Absolute Auto 0.5 X10*3/uL (0.1-1.2); Monocytes Percent Auto 7.8 % (2-11); Neutrophils Absolute Auto 4.7 x10*3/uL (2.0-8.3); Neutrophils Percent Auto 73.2 % (45-73); Red Blood Count 4.97 X10*6/uL (4.60-5.80); Red Cell Distribution Width 13.3 % (11.0-16.0); White Blood Count 6.4 X10*3/uL (4.8-10.8)
[2023-10-26 11:13] LABS: Platelet Count 59 X10*3/uL (160-400)
[2023-10-26 11:31] LABS: COVID-19 Test Negative (Negative); IDNOW Serial# 08D9AD1C; IDNOW Serial# BCCEAD1C; Influenza A Negative (Negative); Influenza B2 Negative (Negative)
[2023-10-26 11:42] LABS: Anion Gap 12 (12-20); Blood Urea Nitrogen 12 mg/dL (9-16); Calcium 9.2 mg/dL (8.4-10.2); Carbon Dioxide 30 mmol/L (22-29); Chloride 105 mmol/L (96-108); Creatinine Clr Calc Pharmacy 111.5; Estimated Glomerular Filt Rate > 60; Glucose Random 118 mg/dL (60-115); Sodium 143 mmol/L (135-145)
[2023-10-26 11:44] LABS: B Type Natriuretic Peptide 48 pg/mL (<100)
[2023-10-26 11:53] LABS: Troponin-I High Sensitivity 2.7 ng/L (<3.5-35.0)
== END 2023-10-26 12:05 | disposition home or self-care (01) ==
PROVIDERS: Physician Assistant; Emergency Provider Emergency Medicine; PCP Family Medicine
DX: J40 Bronchitis, not specified as acute or chronic (principal); B20 Human immunodeficiency virus [HIV] disease; I10 Essential (primary) hypertension; Z11.52 Encounter for screening for COVID-19; Z79.899 Other long term (current) drug therapy
CPT/HCPCS: 36415; 71046; 80048; 83880; 84484; 85025; 87502; 87635; 93005; 94640; 99284

== ENCOUNTER 2024-01-25 09:45 | Outpatient (AMB) | payer MEDICARE, MEDICAID, SELFPAY ==
--- NOTE | 2024-01-25 09:59 | AM.OFFWIN_ITS ---
Intake Vital Signs 01/25/24 10:00 Weight 197 lb BP 110/70 Blood Pressure Location Lt brachial Pulse 57 Pulse Source Pulse Oximeter Pulse Oximetry (%) 95 Oxygen Delivery Method Room Air Intake Visit Reasons: EP Both ears blocked/pain Intake Note: Patient here for bilat ear pain, he states his left ear is ringing and right ear has become very painful. Patient Tobacco Use Status: Former Tobacco user Allergies Sulfa (Sulfonamide Antibiotics) Allergy (Unknown, Verified 01/25/24 10:03) Unknown No Known Allergies Allergy (Verified 01/25/24 10:03) Benadryl Allergy (Unknown, Uncoded 01/25/24 10:03) Irritable Do you need a note to return to daycare/school/sports/work: No HPI HPI Comments History of Present Illness Details He presrnts for eat blockage L one blocked and 'noisy R side intermittent blocked and pain He said no other symptoms He denies seeing anyone for ears besides one time and told losing hearing L ear He sauid sometimes loud noises makes him drowsy Tried OTC drop without relief He said sometimes off balanced but no falls, syncope or LOC He said dizziness inermittent when L ear rings. Tinnitus is throughout week. [facility] Medical History High blood pressure HIV (human immunodeficiency virus infection) Social History Patient Tobacco Use Status: Former Tobacco user Review of Systems Const Denies body aches, Denies chills, Reports fatigue and Denies fever(s) Eyes Denies blurry vision and Denies change in vision ENT Reports dizziness, Denies otalgia, Denies nasal discharge, Denies sore throat and Reports other (hearing decreased and intermittent tinnitus) Card Denies chest pain and Denies dyspnea Resp Denies cough and Denies dyspnea Neuro Denies confusion, Reports dizziness, Denies lack of coordination and Denies focal weakness Psych Denies confusion Endo Reports fatigue Physical Exam Vital Signs: Last Vital Signs Pulse 57 01/25/24 10:00 BP 110/70 01/25/24 10:00 Pulse Ox 95 01/25/24 10:00 Oxygen Delivery Method Room Air 01/25/24 10:00 General: Non-toxic, NAD. Speaking full sentences. Skin: Warm dry throughout Eye: EOMI, pERRL HENT: Airway patent. Uvula midline. No pharyngeal erythema or edema. No MANAGER OF CORPORATE. Bilateral canals clear. TM non-erythematous, non-bulging. No TM perforation or hemotympanum noted. Respiratory: No respiratory distress MSK: Full ROM extremities. Neurology: A/O x 3. Finger to nose tracing equal. Negative pronator drift. 5/5 strength upper extremities. CN 2-12 grossly intact. No aphasia or facial droop. Gait without abnormality Psych: Good mood and affect Const General: No confusion Orientation/consciousness: No confusion Neuro General: No confusion Assessment & Plan Assessment & Plan (1) Decreased hearing: Code(s): H91.90 - Unspecified hearing loss, unspecified ear Qualifiers: Laterality: bilateral Qualified Code(s): H91.93 - Unspecified hearing loss, bilateral Plan: Patient seen and evaluated. No neuro deficit or OM/OE on exam Discussed need for special test by specialist He will call PCP and specialist Saturday ER if worse Patient gave verbal understanding and had no additional questions or concerns at time of discharge All questions answered Orders: Referrals Ear/Nose/Throat Referral H91.90 - Unspecified hearing loss, unspecified ear Coding Level of Care Code Est Pt Level 3 (84707) Diagnoses Decreased hearing of both ears H91.93 Laterality: bilateral
[2024-01-25 10:00] VITALS: BP 110/70; PULSE 57; O2SAT 95
== END 2024-01-25 11:17 | disposition home or self-care (01) ==
PROVIDERS: PCP Family Medicine; Visit Provider Physician Assistant
DX: H91.93 Unspecified hearing loss, bilateral (principal)
CPT/HCPCS: 99213

== ENCOUNTER 2024-11-17 08:37 | Outpatient (REF) | payer MEDICARE, MEDICAID, SELFPAY ==
[2024-11-17 14:04] LABS: Influenza A PCR NEGATIVE (Negative); Influenza B PCR NEGATIVE (Negative); Resp Syncy Virus RNA Qual PCR NEGATIVE (Negative); SARS COV2 PCR INHOUSE POSITIVE (Negative)
== END 2024-11-17 08:38 | disposition home or self-care (01) ==
LOC: HO.LNP 08:37
PROVIDERS: PCP Family Medicine; Visit Provider Nurse Practitioner Family
DX: J06.9 Acute upper respiratory infection, unspecified (principal)
CPT/HCPCS: 0241U; 87880; 99212

== ENCOUNTER 2024-11-17 08:37 | Outpatient (AMB) | payer MEDICARE, MEDICAID, SELFPAY ==
--- NOTE | 2024-11-17 09:21 | MHC.OFFWIV ---
Intake Vital Signs 11/17/24 09:23 Weight 194 lb BP 110/70 Blood Pressure Location Lt brachial Position Sitting Pulse 58 Pulse Source Pulse Oximeter Temp 98.6 F Temp Source Oral Pulse Oximetry (%) 98 Oxygen Delivery Method Room Air Intake Visit Reasons: EP Sore throat, Flu symptoms Intake Note: Patient here for sore throat, cough,headache and body aches that have been present since Saturday. Patient Tobacco Use Status: Former Tobacco user Allergies Sulfa (Sulfonamide Antibiotics) Allergy (Unknown, Verified 01/25/24 10:03) Unknown No Known Allergies Allergy (Verified 01/25/24 10:03) Benadryl Allergy (Unknown, Uncoded 01/25/24 10:03) Irritable Do you need a note to return to daycare/school/sports/work: No HPI EP Sore throat, Flu symptoms HPI Details 59-year-old male patient presents to the walk-in clinic today with report of 5 day history of sore throat, nonproductive cough, body ache, headache. Has been using his inhaler and his nebulizer at home. He reports that he stays away from [id number]-iil-ecisldu cold / flu medication due to side effects and liver problems. He states that he took a COVID test at home which was positive, however reports the test was , and wishes to have a test done today. He denies any fever or weakness. Denies any GI symptoms. He states he has done well previously on prednisone for URI. HIV+, patient states this is monitored and well-controlled at this time. [facility] Medical History High blood pressure HIV (human immunodeficiency virus infection) Social History Patient Tobacco Use Status: Former Tobacco user Physical Exam Vital Signs: Last Vital Signs Temp 98.6 F 11/17/24 09:23 Pulse 58 11/17/24 09:23 BP 110/70 11/17/24 09:23 Pulse Ox 98 11/17/24 09:23 Oxygen Delivery Method Room Air 11/17/24 09:23 Const General: cooperative and no acute distress Nutritional Appearance: overweight HEENT Head: Yes normal to inspection Ears: hearing grossly normal bilaterally General nose exam: Normal external nose present Face and sinus: Yes normal facial exam Mouth: Normal oral and palatal mucosa present Throat: Yes posterior oropharynx normal Neck Neck: Yes no lymphadenopathy Resp Effort & Inspection: normal respiratory effort Auscultation: wheezes (otherwise clear) upper bilaterally Cardio Jugular venous distension: no JVD Palpation: normal PMI Rate: regular rate Rhythm: regular rhythm Heart sounds: S1 normal heart sound present and S2 normal heart sound present Skin General skin exam: no rashes or lesions noted Extrem General: Yes capillary refill normal and Yes no clubbing, cyanosis or edema Psych Appearance: grossly normal Mental Status: mental status grossly normal Speech and movement: Normal speech and movement present Results AMB Rapid Strep AMB Rapid Strep Negative Last Edit by AVILA Platt on 11/17/24 10:02 Assessment & Plan Assessment & Plan (1) Upper respiratory infection: Code(s): J06.9 - Acute upper respiratory infection, unspecified Qualifiers: URI type: unspecified viral URI Qualified Code(s): J06.9 - Acute upper respiratory infection, unspecified Plan: Symptoms consistent with viral upper respiratory illness. He did have a positive COVID test at home, however it was . COVID/flu/ RSV swab obtained today in the office and patient aware he will be notified with results once these are available. He is having some exertional shortness of breath and mild expiratory wheezing. Lung sounds are otherwise clear throughout. He has inhalers and nebulizer at home which he is utilizing. I am going to start him on a short course of prednisone, which he states he has done well on previously. Reviewed indications, use, possible side effects of this medication, particularly immunosuppression. If he develops any worsening symptoms or does not improve with time and treatment, he should return to the clinic for further evaluation. He verbalizes understanding and agrees to plan. Orders: Orders SARS-CoV2/FLU/RSV Today J06.9 - Acute upper respiratory infection, unspecified AMB Rapid Strep Screen Today Z13.9 - Encounter for screening, unspecified Medications: New prednisone Take one tablet twice a day for 3 days. 20 mg PO BID 3 days 6 tabs 0RF J06.9 - Acute upper respiratory infection, unspecified Coding Level of Care Code Est Pt Level 4 (12303) Diagnoses Viral upper respiratory tract infection J06.9 URI type: unspecified viral URI
[2024-11-17 09:23] VITALS: BP 110/70; PULSE 58; TEMP 37; O2SAT 98
== END 2024-11-17 10:05 | disposition home or self-care (01) ==
PROVIDERS: PCP Family Medicine; Visit Provider Nurse Practitioner Family
DX: Z13.9 Encounter for screening, unspecified (principal); J06.9 Acute upper respiratory infection, unspecified